=== PATIENT | female | born 1950 | race Caucasian/White ===

== ENCOUNTER 2021-11-22 20:36 | Inpatient (IN) | payer MEDICARE, SELFPAY ==
[2021-11-22 22:43] VITALS: BP 139/75; PULSE 97; RESP 18; TEMP 36.4; O2SAT 93
[2021-11-22 23:00] VITALS: BMI 18.9
[2021-11-22] MEDS: Acetaminophen 325 MG TABLET 650 MG PO (23:02)
[2021-11-22] MEDS: diazePAM 5 MG TABLET PO (23:10)
--- NOTE | 2021-11-23 01:27 | PC.ADMIT ---
Admitted these 71 yrs old female per stretcher accompanied by ambulance staff from [facility] who presented to the [facility] ED after calling EMS due to recent fall, elevated heart rate and occasional ETOH one to two times a week and upon assessment pt. presented w/ increased depression, anxiety, and non commanding AVH and pt. denied SI, SA and VH.Patient arrived in the unit at 20:46h and oriented to the unit, staff and room. Patient is alert and oriented x 3, forgets the date. Memory appears to be intact. Patient signed the CV and all consents.Patient is pleasant and cooperative w/ admission process.Skin assessment done w/ a bruise on the left upper arm and R. thigh and a tattoe in the lower back area and no edema noted.Pt. wears sunglass and said the light is too bright for her eyes. Patient wears upper dentures.Patient c/o pain on the lower abdomen and rated it as 7/10, given Tylenol 650 mg po and also given Diazepam 5 mg. po. Pt. is med compliant.Patient denies SI and feels safe in the unit.Patient has medical hx of HTN, chronic low back pain, spinal stenosis,endometriosis, hyperlipidemia, and R.bundle branch block.Kelin Ayala informed of admission w/ orders made.Alan Walden[hospitalist] informed for hospitalist consult. We'll continue to monitor patient.
[2021-11-23] MEDS: Omeprazole 40 MG CAPSULE.DR PO (05:41)
[2021-11-23] MEDS: Acetaminophen 325 MG TABLET 650 MG PO ×3 (05:41→23:02)
[2021-11-23 07:20] VITALS: BP 151/97; PULSE 115; RESP 17; TEMP 36.2; O2SAT 93
[2021-11-23 07:37] LABS: MANUAL DIFF FLAG NO
[2021-11-23 07:39] LABS: Basophils Percent Auto 0.5 % (0-2); Eosinophils Absolute Auto 0.1 X10*3/uL (0.0-0.4); Eosinophils Percent Auto 1.8 % (0-4); Hematocrit 37.6 % (37.0-47.0); Hemoglobin 12.7 g/dl (12.0-16.0); Imm Gran Abs Auto 0.01 X10*3/uL (0.00-0.03); Imm Gran Pct Auto 0.3 % (0.0-0.4); Lymphocytes Percent Auto 24.7 % (20-40); Mean Corpuscular HGB Conc 33.8 g/dl (31.0-35.0); Mean Corpuscular Hemoglobin 33.4 pg (27.0-33.0); Mean Corpuscular Volume 98.9 fL (80.0-98.0); Monocytes Absolute Auto 0.4 X10*3/uL (0.1-1.2); Monocytes Percent Auto 11.2 % (2-11); Neutrophils Absolute Auto 2.4 x10*3/uL (2.0-8.3); Neutrophils Percent Auto 61.5 % (45-73); Platelet Count 172 X10*3/uL (160-400); White Blood Count 3.9 X10*3/uL (4.8-10.8)
[2021-11-23 07:55] LABS: Cholesterol 223 mg/dL; HDL Cholesterol 62 mg/dL; LDL Cholesterol Calculated 112 mg/dl; Magnesium 1.9 mg/dL (1.6-2.6); Triglycerides 247 mg/dL
[2021-11-23 08:22] LABS: Free T4 (Free Thyroxine) 1.08 ng/dL (0.71-1.85); Thyroid Stimulating Hormone 1.08 uIU/mL (0.32-4.0)
[2021-11-23 08:35] LABS: Estimated Average Glucose 105 mg/dL; Hemoglobin A1c % 5.3 %
[2021-11-23] MEDS: DULoxetine HCl 60 MG CAPSULE.DR PO (08:45)
[2021-11-23] MEDS: amLODIPine Besylate 2.5 MG TABLET PO (08:46)
[2021-11-23 09:25] LABS: Folate 14.1 ng/mL (> or = 4.0); Vitamin B12 305 pg/mL (200-900)
--- NOTE | 2021-11-23 10:17 | P.CONHOSP_ITS ---
History of Present Illness Data of Consult Service Date: 11/23/21 Primary Care Provider: Ralph Roach MD HPI Reason for consult: routine medical H&P This is a 71 F with a PMH as below who is admitted to [facility]. Medical consult requested for routine medical H&P. Pt seen and examined. She reports no current physical complaints. She reports she is being worked up for tachycardia by pcp. Denies history of A. Fib. PMH HTN Tachycardia PSH hysterectomy cholecystectomy FH Reports her mother had breathing problems SH Smokes tobacco; no alcohol or drug use reported [facility] Social History Household Members: Other Household Members Other:: Cat Housing: House Do you presently have visiting nurse or other home services: No Patient Tobacco Use Status: Current someday Tobacco user Tobacco use type: Cigarette Smoked in Last 30 Days: Yes e-Cigarette/Vaping Use: Never Used Patient Interested in Nicotine Replacement: Yes Patient Given Instructions on How to Stop Smoking: Yes Date Education Initiated: 11/22/21 Second Hand Smoke Exposure: No Use of substances other than those prescribed or required for medical reasons: No Currently Displaying Signs/Symptoms of Drug Intoxication Withdrawal: No Any prior treatment program specific to substance use: No Have you been hit, kicked, punched, or otherwise hurt by someone within the past year? If so, by whom?: No Do you feel safe in your current relationship?: Yes Is there a partner from a previous relationship who is making you feel unsafe now?: No Are you made to feel afraid or neglected: No [facility] Practices: Congregationalist Advance Directives: No Advance Directives Information Provided: No Do you have thoughts of harming others: None Do you have a plan to hurt others: No Plan Recently lost weight without trying: No Eating poorly because of decreased appetite: No Patient : No : No Poor oral hygiene: No Meds Allergies Allergy/AdvReac Type Severity Reaction Status Date / Time sulfamethoxazole Allergy Mild FEVER Unverified 02/13/20 16:36 [From BACTRIM] trimethoprim [From BACTRIM] Allergy Mild FEVER Unverified 02/13/20 16:36 cephalexin [Keflex] Allergy Unknown Verified 06/18/19 00:00 lorazepam [From ATIVAN] Allergy Unknown CONFUSION Unverified 02/13/20 16:36 Sulfa (Sulfonamide Allergy Unknown Verified 06/18/19 00:00 Antibiotics) tramadol [Ultram] Allergy Unknown Verified 06/18/19 00:00 mold Allergy Unknown Uncoded 06/18/19 00:00 pollen Allergy Unknown Uncoded 06/18/19 00:00 Active Medications: Current Medications Acetaminophen (Acetaminophen 325 Mg Tablet) 650 mg PO Q6H PRN PRN Reason: Headache/Pain Mild Scale (1-3) Last Admin: 11/23/21 05:41 Dose: 650 mg Al Hydroxide/Mg Hydroxide (Magnesium Hydrox/Alum Hydrox 30 Ml Oral.Susp) 30 ml PO Q6H PRN PRN Reason: Heartburn/Nausea Amlodipine Besylate (Amlodipine Besylate 2.5 Mg Tablet) 2.5 mg PO DAILY [facility]; Protocol Last Admin: 11/23/21 08:46 Dose: 2.5 mg Cyclobenzaprine HCl (Cyclobenzaprine Hcl 5 Mg Tablet) 5 mg PO TID PRN PRN Reason: muscle injury Diazepam (Diazepam 5 Mg Tablet) 5 mg PO BID PRN PRN Reason: anxiety Last Admin: 11/22/21 23:10 Dose: 5 mg Duloxetine HCl (Duloxetine Hcl 60 Mg Capsule.) 60 mg PO DAILY [facility] Last Admin: 11/23/21 08:45 Dose: 60 mg Furosemide (Furosemide 20 Mg Tablet) 20 mg PO DAILY PRN; Protocol PRN Reason: edema Hydroxyzine HCl (Hydroxyzine Hcl 25 Mg Tablet) 25 mg PO Q6H PRN PRN Reason: Anxiety Magnesium Hydroxide (Milk Of Magnesia 30 Ml Oral.Susp) 30 ml PO DAILY PRN PRN Reason: Constipation Nicotine Polacrilex (Nicotine Polacrilex 2 Mg Gum) 2 mg BUCCAL Q2H PRN PRN Reason: cravings Olanzapine (Olanzapine 10 Mg Tablet) 20 mg PO BEDTIME [facility] Omeprazole (Omeprazole 40 Mg Capsule.) 40 mg PO DAILY@0630 [facility] Last Admin: 11/23/21 05:41 Dose: 40 mg Ondansetron HCl (Ondansetron Odt 8 Mg Tab.Rapdis) 8 mg TRANSLINGU Q8H PRN PRN Reason: nausea Trazodone HCl (Trazodone Hcl 50 Mg Tablet) 50 mg PO BEDTIME PRN PRN Reason: Insomnia Physical Exam Vital Signs and Narrative: Vital Signs: Last Vital Signs Temp 97.1 F 11/23/21 07:20 Pulse 115 H 11/23/21 07:20 Resp 17 11/23/21 07:20 BP 151/97 H 11/23/21 07:20 Pulse Ox 93 11/23/21 07:20 O2 Del Method 11/23/21 07:20 BMI result Body Mass Index 18.9 Const: Other: General - no acute distress, appears comfortable Cardiovascular - regular rate and rhythm, S1-S2 Lungs - normal respiratory effort, clear to auscultation bilaterally, no wheezing Abdomen - soft, nontender, no rebound or guarding Extremities - no edema bilaterally Neuro - awake and alert, no focal deficits; cn 2-12 intact b/l Results Labs CBC and Chem 7: 11/23/21 07:34 Labs: Laboratory Results - last 24 hr 11/23/21 11/23/21 11/23/21 07:34 07:34 07:34 MCV 98.9 H MCH 33.4 H MCHC 33.8 RDW 14.0 Plt Count 172 MPV 9.0 L Immature Gran % (Auto) 0.3 Neut % (Auto) 61.5 Lymph % (Auto) 24.7 [place] % (Auto) 11.2 H Eos % (Auto) 1.8 Baso % (Auto) 0.5 Lymph # (Auto) 1.0 L [place] # (Auto) 0.4 Eos # (Auto) 0.1 Baso # (Auto) 0.0 Abs Immat Gran (auto) 0.01 Absolute Neuts (auto) 2.4 Absolute Nucleated RBC 0.000 Nucleated RBC % (auto) 0.0 Estimat Average Glucose 105 Hemoglobin A1c % 5.3 Magnesium 1.9 Triglycerides 247 Cholesterol 223 LDL Cholesterol, Calc 112 HDL Cholesterol 62 Vitamin B12 Folate TSH 1.08 Free T4 1.08 11/23/21 07:34 MCV MCH MCHC RDW Plt Count MPV Immature Gran % (Auto) Neut % (Auto) Lymph % (Auto) [place] % (Auto) Eos % (Auto) Baso % (Auto) Lymph # (Auto) [place] # (Auto) Eos # (Auto) Baso # (Auto) Abs Immat Gran (auto) Absolute Neuts (auto) Absolute Nucleated RBC Nucleated RBC % (auto) Estimat Average Glucose Hemoglobin A1c % Magnesium Triglycerides Cholesterol LDL Cholesterol, Calc HDL Cholesterol Vitamin B12 305 Folate 14.1 TSH Free T4 Assessment and Plan (1) Routine medical exam: Status: Acute Plan 71 yo F admitted to [facility]. Medical consult requested for routine medical H&P. Medical consultation sought for routine medical H&P. Patient has no active medical issues. Patient has been counseled on age appropriate health maintenance as an outpatient. Continue care per primary team. Will sign off. Please re-consult if any issues arise.
--- NOTE | 2021-11-23 13:52 | HO.PSYADMNOT ---
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 The patient reported that in the last weeks she has been feeling more anxious, with perseverative thoughts, obsessing to be compliant with her different appointments. She also reports exacerbation of depression elicited by depressed mood, anhedonia, lack of energy and feelings of hopelessness. During the interview, the patient reported that she has been drinking alcohol to top of her Valium p.r.n.. According to the crisis report, her regular prescriber Dr. Bai, stopped the Valium. She admitted that she has sporadic auditory hallucinations of people that she in bed, and visual hallucinations of shaves informs that moves around. According to the patient, the last week she has been having racing thoughts unable to concentrate and she ran out of Valium. She minimized her alcohol abuse that she stated that she only drinks sporadically. Even though, during the interview, the patient reported that she has been [facility] at least twice. She denies paranoia at this moment. We discussed treatment options and the patient agreed to continue with the same plan, will contact collateral information and we will contact Dr. Ho well ask us for further treatment plan. At this moment she is able to contract for safety. Past Psychiatric History: The patient reported that she has been on treatment with probable [facility] and she has been following outpatient services for the last 50 years. She is taking Cymbalta 60 mg and Valium 5 mg p.o. b.i.d. p.r.n.. Medical Evaluation Reviewed: Hospitalist Yoana Pending [facility] Narrative: chronic back pain. Narrative: The patient had several helical logical surgeries since she suffer from endometriosis she stated that she has at least 31 laparoscopies Family History: She stated that her father suffered from schizophrenia. According to the crisis report she stated that both parents abused alcohol. Social History: The patient is the youngest of 3 siblings, her milestones were achieved at expected age and she was raised by her parents. She had a good childhood she had a regular school. Apparently when she was a child she have several episodes of bronchitis. 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 She got later divorce and then went back to her ex but he tragically in a motorcycle accident 50 years ago. She never had children. Substance History: She denies substance abuse besides sporadic use of alcohol that according to her she started drinking more for the last 3 years Trauma History: Denies Diagnostics Vital Signs (24Hr): Vital Signs - 24 hr 11/22/21 22:43 11/23/21 07:20 Temperature 97.5 F 97.1 F Pulse Rate 97 115 H Respiratory Rate 18 17 Blood Pressure 139/75 151/97 H Pulse Oximetry 93 93 Oxygen Delivery Method Room Air Room Air BMI result Body Mass Index 18.9 Labs Results: 11/23/21 07:34 Labs: Laboratory Results - last 48 hr 11/23/21 11/23/21 11/23/21 07:34 07:34 07:34 WBC 3.9 L RBC 3.80 L Hgb 12.7 Hct 37.6 MCV 98.9 H MCH 33.4 H MCHC 33.8 RDW 14.0 Plt Count 172 MPV 9.0 L Immature Gran % (Auto) 0.3 Neut % (Auto) 61.5 Lymph % (Auto) 24.7 [place] % (Auto) 11.2 H Eos % (Auto) 1.8 Baso % (Auto) 0.5 Lymph # (Auto) 1.0 L [place] # (Auto) 0.4 Eos # (Auto) 0.1 Baso # (Auto) 0.0 Abs Immat Gran (auto) 0.01 Absolute Neuts (auto) 2.4 Absolute Nucleated RBC 0.000 Nucleated RBC % (auto) 0.0 Estimat Average Glucose 105 Hemoglobin A1c % 5.3 Magnesium 1.9 Triglycerides 247 Cholesterol 223 LDL Cholesterol, Calc 112 HDL Cholesterol 62 Vitamin B12 Folate TSH 1.08 Free T4 1.08 11/23/21 07:34 WBC RBC Hgb Hct MCV MCH MCHC RDW Plt Count MPV Immature Gran % (Auto) Neut % (Auto) Lymph % (Auto) [place] % (Auto) Eos % (Auto) Baso % (Auto) Lymph # (Auto) [place] # (Auto) Eos # (Auto) Baso # (Auto) Abs Immat Gran (auto) Absolute Neuts (auto) Absolute Nucleated RBC Nucleated RBC % (auto) Estimat Average Glucose Hemoglobin A1c % Magnesium Triglycerides Cholesterol LDL Cholesterol, Calc HDL Cholesterol Vitamin B12 305 Folate 14.1 TSH Free T4 Meds/Allergies Meds Home Medications Medication Instructions Recorded Confirmed Type Sudafed 30 mg PO 11/23/21 History Zofran ODT 4 mg PO 11/23/21 History acetaminophen 500 mg PO 11/23/21 History amlodipine 2.5 mg PO DAILY 11/23/21 11/23/21 History cromolyn 5.2 mg 11/23/21 History cyclobenzaprine 10 mg PO NEEDED PRN Back Pain 11/23/21 11/23/21 History diazepam 5 mg PO NEEDED PRN Anxiety 11/23/21 11/23/21 History diphenhydramine HCl 25 mg 11/23/21 History duloxetine 60 mg PO 11/23/21 History furosemide 20 mg PO 11/23/21 History olanzapine 5 mg PO NEEDED PRN Psychosis 11/23/21 11/23/21 History olopatadine intraocular NEEDED 11/23/21 History omeprazole 40 mg PO DAILY 11/23/21 11/23/21 History saliva stimulant comb. no.4 11/23/21 History Allergies Allergies Allergy/AdvReac Type Severity Reaction Status Date / Time sulfamethoxazole Allergy Mild FEVER Unverified 02/13/20 16:36 [From BACTRIM] trimethoprim [From BACTRIM] Allergy Mild FEVER Unverified 02/13/20 16:36 cephalexin [Keflex] Allergy Unknown Verified 06/18/19 00:00 lorazepam [From ATIVAN] Allergy Unknown CONFUSION Unverified 02/13/20 16:36 Sulfa (Sulfonamide Allergy Unknown Verified 06/18/19 00:00 Antibiotics) tramadol [Ultram] Allergy Unknown Verified 06/18/19 00:00 mold Allergy Unknown Uncoded 06/18/19 00:00 pollen Allergy Unknown Uncoded 06/18/19 00:00 Mental Status Exam Mental Status Exam Patient Appearance: Appropriate (on hospital gowns) Patient Orientation: Person, Place and Situation Level of Consciousness: Awake Patient Behavior: Guarded and Passive Mood Description: Withdrawn Affect Description: Constricted Ability to Follow Directions: Good Speech Pattern: Clear Hallucinations: Auditory and Visual Delusions: Not Present Thought Process: Distracted and Evasive Thought Content: positive for [place], positive for Obsessional Thoughts and positive for Circumstantial Judgement: Fair Assessment & Plan Assessment & Plan (1) Mood disorder: Status: Acute Code(s): F39 - Unspecified mood [affective] disorder Assessment and Plan: the patient is an elderly female with a history of mood disorder, alcohol use disorder with a recent relapse on the last 3 years with increased anxiety, dysphoria and hallucinations. Plan 1. Gather collateral information. 2. Continue with Cymbalta and Zyprexa as prescribed. At Valium p.r.n.. 3. Reassessment with results. Plan Continue with behavioral plan Patient educated on: diagnosis Informed Consent: understands Reason for continued inpatient stay Substantial Risk for: harm to self, inability to function, rapid decompensation and med/psych decompensation
[2021-11-23 13:53] VITALS: BMI 25.7
[2021-11-23] MEDS: Cyclobenzaprine HCl 5 MG TABLET PO (16:40)
[2021-11-23 18:00] VITALS: BP 138/79; PULSE 72; RESP 16; TEMP 36.4; O2SAT 95
[2021-11-23] MEDS: OLANZapine 10 MG TABLET 20 MG PO (23:01)
[2021-11-23] MEDS: diazePAM 5 MG TABLET PO (23:01)
[2021-11-24] MEDS: Cyclobenzaprine HCl 5 MG TABLET PO ×2 (00:16→16:39)
[2021-11-24] MEDS: diphenhydrAMINE HCL 25 MG TABLET PO (00:17)
[2021-11-24] MEDS: Omeprazole 40 MG CAPSULE.DR PO (06:31)
[2021-11-24 08:15] VITALS: BP 127/77; PULSE 99; RESP 17; TEMP 36; O2SAT 95
[2021-11-24] MEDS: amLODIPine Besylate 2.5 MG TABLET PO (08:26)
[2021-11-24] MEDS: DULoxetine HCl 60 MG CAPSULE.DR PO ×2 (08:27→20:35)
[2021-11-24] MEDS: diazePAM 5 MG TABLET PO ×2 (12:49→20:36)
--- NOTE | 2021-11-24 14:52 | HO.PSYCHPN ---
Subjective Subjective Date of Service: 11/24/21 Reason For Visit: Bipolar d/o Subjective Notes: Conditional Voluntary and 3 Day Interim History: the nursing staff reported that the patient was compliant with her medication. On interview with the social work supervisor she was minimizing her alcohol intake. Today, she signed a 3 day notice since she wants to leave as soon as possible. Mental Status Exam Mental Status Exam Patient Appearance: Appropriate Patient Orientation: Person Level of Consciousness: Awake Patient Behavior: Guarded and Passive Mood Description: Suspicious Affect Description: Withdrawn Patient Cognition Impaired: Yes Ability to Follow Directions: Good Speech Pattern: Clear Hallucinations: None Thought Process: Distracted Thought Content: positive for [place] and positive for Poverty of Content Judgement: Fair Diagnostics Vital Signs (24Hr): Vital Signs - 24 hr 11/23/21 18:00 11/24/21 08:15 Temperature 97.5 F 96.8 F Pulse Rate 72 99 Respiratory Rate 16 17 Blood Pressure 138/79 127/77 Pulse Oximetry 95 95 Oxygen Delivery Method Room Air Room Air BMI result Body Mass Index 25.7 Labs Results: 11/23/21 07:34 Labs: Laboratory Results - last 48 hr 11/23/21 11/23/21 11/23/21 07:34 07:34 07:34 WBC 3.9 L RBC 3.80 L Hgb 12.7 Hct 37.6 MCV 98.9 H MCH 33.4 H MCHC 33.8 RDW 14.0 Plt Count 172 MPV 9.0 L Immature Gran % (Auto) 0.3 Neut % (Auto) 61.5 Lymph % (Auto) 24.7 [place] % (Auto) 11.2 H Eos % (Auto) 1.8 Baso % (Auto) 0.5 Lymph # (Auto) 1.[address] [place] # (Auto) 0.4 Eos # (Auto) 0.1 Baso # (Auto) 0.0 Abs Immat Gran (auto) 0.01 Absolute Neuts (auto) 2.4 Absolute Nucleated RBC 0.000 Nucleated RBC % (auto) 0.0 Estimat Average Glucose 105 Hemoglobin A1c % 5.3 Magnesium 1.9 Triglycerides 247 Cholesterol 223 LDL Cholesterol, Calc 112 HDL Cholesterol 62 Vitamin B12 Folate TSH 1.08 Free T4 1.08 11/23/21 07:34 WBC RBC Hgb Hct MCV MCH MCHC RDW Plt Count MPV Immature Gran % (Auto) Neut % (Auto) Lymph % (Auto) [place] % (Auto) Eos % (Auto) Baso % (Auto) Lymph # (Auto) [place] # (Auto) Eos # (Auto) Baso # (Auto) Abs Immat Gran (auto) Absolute Neuts (auto) Absolute Nucleated RBC Nucleated RBC % (auto) Estimat Average Glucose Hemoglobin A1c % Magnesium Triglycerides Cholesterol LDL Cholesterol, Calc HDL Cholesterol Vitamin B12 305 Folate 14.1 TSH Free T4 Medications Medications Current Medications Acetaminophen (Acetaminophen 325 Mg Tablet) 650 mg PO Q6H PRN PRN Reason: Headache/Pain Mild Scale (1-3) Last Admin: 11/23/21 23:02 Dose: 650 mg Al Hydroxide/Mg Hydroxide (Magnesium Hydrox/Alum Hydrox 30 Ml Oral.Susp) 30 ml PO Q6H PRN PRN Reason: Heartburn/Nausea Amlodipine Besylate (Amlodipine Besylate 2.5 Mg Tablet) 2.5 mg PO DAILY [facility]; Protocol Last Admin: 11/24/21 08:26 Dose: 2.5 mg Cyclobenzaprine HCl (Cyclobenzaprine Hcl 5 Mg Tablet) 5 mg PO TID PRN PRN Reason: muscle injury Last Admin: 11/24/21 00:16 Dose: 5 mg Diazepam (Diazepam 5 Mg Tablet) 5 mg PO BID PRN PRN Reason: anxiety Last Admin: 11/24/21 12:49 Dose: 5 mg Duloxetine HCl (Duloxetine Hcl 60 Mg Capsule.) 60 mg PO DAILY [facility] Last Admin: 11/24/21 08:27 Dose: 60 mg Furosemide (Furosemide 20 Mg Tablet) 20 mg PO DAILY [facility]; Protocol PRN Reason: edema Hydroxyzine HCl (Hydroxyzine Hcl 25 Mg Tablet) 25 mg PO Q6H PRN PRN Reason: Anxiety Magnesium Hydroxide (Milk Of Magnesia 30 Ml Oral.Susp) 30 ml PO DAILY PRN PRN Reason: Constipation Nicotine Polacrilex (Nicotine Polacrilex 2 Mg Gum) 2 mg BUCCAL Q2H PRN PRN Reason: cravings Olanzapine (Olanzapine 10 Mg Tablet) 20 mg PO BEDTIME [facility] Last Admin: 11/23/21 23:01 Dose: 20 mg Omeprazole (Omeprazole 40 Mg Capsule.) 40 mg PO DAILY@0630 [facility] Last Admin: 11/24/21 06:31 Dose: 40 mg Ondansetron HCl (Ondansetron Odt 8 Mg Tab.Rapdis) 8 mg TRANSLINGU Q8H PRN PRN Reason: nausea Trazodone HCl (Trazodone Hcl 50 Mg Tablet) 50 mg PO BEDTIME PRN PRN Reason: Insomnia Allergies Allergies Allergy/AdvReac Type Severity Reaction Status Date / Time sulfamethoxazole Allergy Mild FEVER Unverified 02/13/20 16:36 [From BACTRIM] trimethoprim [From BACTRIM] Allergy Mild FEVER Unverified 02/13/20 16:36 cephalexin [Keflex] Allergy Unknown Verified 06/18/19 00:00 lorazepam [From ATIVAN] Allergy Unknown CONFUSION Unverified 02/13/20 16:36 Sulfa (Sulfonamide Allergy Unknown Verified 06/18/19 00:00 Antibiotics) tramadol [Ultram] Allergy Unknown Verified 06/18/19 00:00 mold Allergy Unknown Uncoded 06/18/19 00:00 pollen Allergy Unknown Uncoded 06/18/19 00:00 Assessment & Plan Assessment & Plan (1) Mood disorder: Status: Acute Code(s): F39 - Unspecified mood [affective] disorder Assessment and Plan: the patient is an elderly female with a history of mood disorder, alcohol use disorder with a recent relapse on the last 3 years with increased anxiety, dysphoria and hallucinations. Plan 1. Gather collateral information. 2. Continue with Cymbalta and Zyprexa as prescribed. At Valium p.r.n.. 3. Reassessment with results. Plan Continue with behavioral plan I spent ___20___ minutes with the patient and/or on the patient floor today, greater than?50% of which was spent counseling/coordinating care. Reason for contiued inpatient stay Substantial Risk for: inability to function, rapid decompensation and med/psych decompensation
[2021-11-24 18:00] VITALS: RESP 16
--- NOTE | 2021-11-24 19:15 | PC.NURSE ---
3 day notice submitted with clinical social worker, Sydney Patel. Message sent via [facility] to [facility].
[2021-11-24] MEDS: hydrOXYzine HCL 25 MG TABLET PO (20:36)
[2021-11-24] MEDS: Acetaminophen 325 MG TABLET 650 MG PO (20:43)
[2021-11-24] MEDS: OLANZapine 10 MG TABLET 20 MG PO (20:43)
[2021-11-25] MEDS: Cyclobenzaprine HCl 5 MG TABLET PO ×2 (01:09→20:01)
[2021-11-25 06:00] VITALS: BP 156/92; PULSE 115; TEMP 36.1; O2SAT 98
[2021-11-25] MEDS: Omeprazole 40 MG CAPSULE.DR PO (06:50)
[2021-11-25 07:00] VITALS: BMI 27.8
[2021-11-25] MEDS: DULoxetine HCl 60 MG CAPSULE.DR PO ×2 (08:40→19:57)
[2021-11-25] MEDS: amLODIPine Besylate 2.5 MG TABLET PO (08:40)
[2021-11-25] MEDS: Naltrexone HCl 50 MG TABLET PO (08:40)
--- NOTE | 2021-11-25 15:28 | HO.PSYCHPN ---
Subjective Subjective Date of Service: 11/25/21 Reason For Visit: Bipolar d/o Subjective Notes: Conditional Voluntary and 3 Day Interim History: The nursing staff reported the patient is in a 3 day notice. The director of social work talk with her therapist and the therapist is concerned regarding her alcohol abuse. She follows services at service [facility] and she has VNA services at [facility]. On interview, the patient denies active suicidal or homicidal ideation she feels comfortable and she denies side effects with naltrexone. Mental Status Exam Mental Status Exam Patient Appearance: Well Grooomed Patient Orientation: Person and Situation Level of Consciousness: Awake Patient Behavior: Cooperative Mood Description: Constricted Affect Description: Calm Patient Cognition Impaired: Yes Ability to Follow Directions: Good Speech Pattern: Clear Hallucinations: None Delusions: Not Present Thought Process: Linear Thought Content: positive for Circumstantial Judgement: Fair Diagnostics Vital Signs (24Hr): Vital Signs - 24 hr 11/24/21 18:00 11/25/21 06:00 Temperature 97.0 F Pulse Rate 115 H Respiratory Rate 16 Blood Pressure 156/92 H Pulse Oximetry 98 Oxygen Delivery Method Room Air BMI result Body Mass Index 27.8 Labs Results: 11/23/21 07:34 Medications Medications Current Medications Acetaminophen (Acetaminophen 325 Mg Tablet) 650 mg PO Q6H PRN PRN Reason: Headache/Pain Mild Scale (1-3) Last Admin: 11/24/21 20:43 Dose: 650 mg Al Hydroxide/Mg Hydroxide (Magnesium Hydrox/Alum Hydrox 30 Ml Oral.Susp) 30 ml PO Q6H PRN PRN Reason: Heartburn/Nausea Amlodipine Besylate (Amlodipine Besylate 2.5 Mg Tablet) 2.5 mg PO DAILY KATHLEEN; Protocol Last Admin: 11/25/21 08:40 Dose: 2.5 mg Cyclobenzaprine HCl (Cyclobenzaprine Hcl 5 Mg Tablet) 5 mg PO TID PRN PRN Reason: muscle injury Last Admin: 11/25/21 01:09 Dose: 5 mg Diazepam (Diazepam 5 Mg Tablet) 5 mg PO BID PRN PRN Reason: anxiety Last Admin: 11/24/21 20:36 Dose: 5 mg Duloxetine HCl (Duloxetine Hcl 60 Mg Capsule.Dr) 60 mg PO BID KATHLEEN Last Admin: 11/25/21 08:40 Dose: 60 mg Furosemide (Furosemide 20 Mg Tablet) 20 mg PO DAILY PRN; Protocol PRN Reason: edema Hydroxyzine HCl (Hydroxyzine Hcl 25 Mg Tablet) 25 mg PO Q6H PRN PRN Reason: Anxiety Last Admin: 11/24/21 20:36 Dose: 25 mg Magnesium Hydroxide (Milk Of Magnesia 30 Ml Oral.Susp) 30 ml PO DAILY PRN PRN Reason: Constipation Naltrexone HCl (Naltrexone Hcl 50 Mg Tablet) 50 mg PO DAILY [facility] Last Admin: 11/25/21 08:40 Dose: 50 mg Nicotine Polacrilex (Nicotine Polacrilex 2 Mg Gum) 2 mg BUCCAL Q2H PRN PRN Reason: cravings Olanzapine (Olanzapine 10 Mg Tablet) 20 mg PO BEDTIME [facility] Last Admin: 11/24/21 20:43 Dose: 20 mg Omeprazole (Omeprazole 40 Mg Capsule.Dr) 40 mg PO DAILY@30 [facility] Last Admin: 11/25/21 06:50 Dose: 40 mg Ondansetron HCl (Ondansetron Odt 8 Mg Tab.Rapdis) 8 mg TRANSLINGU Q8H PRN PRN Reason: nausea Trazodone HCl (Trazodone Hcl 50 Mg Tablet) 50 mg PO BEDTIME PRN PRN Reason: Insomnia Allergies Allergies Allergy/AdvReac Type Severity Reaction Status Date / Time sulfamethoxazole Allergy Mild FEVER Unverified 02/13/20 16:36 [From BACTRIM] trimethoprim [From BACTRIM] Allergy Mild FEVER Unverified 02/13/20 16:36 cephalexin [Keflex] Allergy Unknown Verified 06/18/19 00:00 lorazepam [From ATIVAN] Allergy Unknown CONFUSION Unverified 02/13/20 16:36 Sulfa (Sulfonamide Allergy Unknown Verified 06/18/19 00:00 Antibiotics) tramadol [Ultram] Allergy Unknown Verified 06/18/19 00:00 mold Allergy Unknown Uncoded 06/18/19 00:00 pollen Allergy Unknown Uncoded 06/18/19 00:00 Assessment & Plan Assessment & Plan (1) Mood disorder: Status: Acute Code(s): F39 - Unspecified mood [affective] disorder Assessment and Plan: the patient is an elderly female with a history of mood disorder, alcohol use disorder with a recent relapse on the last 3 years with increased anxiety, dysphoria and hallucinations. Plan 1. Gather collateral information. 2. Continue with Cymbalta and Zyprexa as prescribed. At [facility] p.r.n.. 3. Reassessment with results. 4. Started on naltrexone to target alcohol cravings. 5. Most likely discharge tomorrow since there is no active safety concerns Plan Continue with behavioral plan I spent ___20___ minutes with the patient and/or on the patient floor today, greater than?50% of which was spent counseling/coordinating care. Reason for contiued inpatient stay Substantial Risk for: inability to function, rapid decompensation and med/psych decompensation
[2021-11-25] MEDS: OLANZapine 10 MG TABLET 20 MG PO (19:56)
[2021-11-25] MEDS: diazePAM 5 MG TABLET PO (20:00)
[2021-11-25] MEDS: hydrOXYzine HCL 25 MG TABLET PO (20:00)
[2021-11-25 20:20] VITALS: BP 149/81; PULSE 98; RESP 16; TEMP 36.5; O2SAT 95
[2021-11-25] MEDS: Acetaminophen 325 MG TABLET 650 MG PO (23:39)
[2021-11-26] MEDS: traZODone HCL 50 MG TABLET PO (01:45)
[2021-11-26] MEDS: Omeprazole 40 MG CAPSULE.DR PO (05:02)
[2021-11-26 06:00] VITALS: BP 138/86; PULSE 103; RESP 18; TEMP 37; O2SAT 95
--- NOTE | 2021-11-26 08:26 | P.DS_ITS ---
DS: Providers Provider Date of Service: 11/26/21 Date of admission: 11/22/21 20:36 Date of discharge: 11/26/21 Primary care physician: Ralph Roach MD Attending physician on admission: Flo Nina Consults: 11/22/21 21:21 Consult to Hospitalist Routine Consulting Provider: Hospitalist Reason For Exam: new admit from [facility] DS: Diagnosis Discharge Diagnosis (1) Mood disorder: Status: Acute DS: Medications Discharge Medications Home Medications: Home Medications Medication Instructions Recorded Confirmed Sudafed 30 mg PO 11/23/21 Zofran ODT 4 mg PO 11/23/21 acetaminophen 500 mg PO BID 11/23/21 11/23/21 amlodipine 2.5 mg PO DAILY 11/23/21 11/23/21 cromolyn 5.2 mg 11/23/21 cyclobenzaprine 10 mg PO NEEDED PRN Back Pain 11/23/21 11/23/21 diazepam 5 mg PO NEEDED PRN Anxiety 11/23/21 11/23/21 diphenhydramine HCl 25 mg 11/23/21 duloxetine 60 mg PO BID 11/23/21 11/24/21 furosemide 20 mg PO 11/23/21 olanzapine 5 mg PO NEEDED PRN Psychosis 11/23/21 11/23/21 olopatadine intraocular NEEDED 11/23/21 omeprazole 40 mg PO DAILY 11/23/21 11/23/21 saliva stimulant comb. no.4 11/23/21 Mental Status Exam Mental Status Exam Patient Appearance: Appropriate Patient Orientation: Person and Situation Level of Consciousness: Awake Patient Behavior: Cooperative Mood Description: Suspicious Affect Description: Constricted Patient Cognition Impaired: Yes Ability to Follow Directions: Good Speech Pattern: Clear Hallucinations: None Delusions: Not Present Thought Process: Distracted and Evasive Thought Content: positive for [place] and positive for Poverty of Content Judgement: Fair Data Data Completed and Pending Completed studies during hospitalization [Text1]: 11/23/21 11/23/21 11/23/21 07:34 07:34 07:34 WBC 3.9 L RBC 3.80 L Hgb 12.7 Hct 37.6 MCV 98.9 H MCH 33.4 H MCHC 33.8 RDW 14.0 Plt Count 172 MPV 9.0 L Immature Gran % (Auto) 0.3 Neut % (Auto) 61.5 Lymph % (Auto) 24.7 [place] % (Auto) 11.2 H Eos % (Auto) 1.8 Baso % (Auto) 0.5 Lymph # (Auto) 1.0 L [place] # (Auto) 0.4 Eos # (Auto) 0.1 Baso # (Auto) 0.0 Abs Immat Gran (auto) 0.01 Absolute Neuts (auto) 2.4 Absolute Nucleated RBC 0.000 Nucleated RBC % (auto) 0.0 Estimat Average Glucose 105 Hemoglobin A1c % 5.3 Magnesium 1.9 Triglycerides 247 Cholesterol 223 LDL Cholesterol, Calc 112 HDL Cholesterol 62 Vitamin B12 Folate TSH 1.08 Free T4 1.08 11/23/21 07:34 WBC RBC Hgb Hct MCV MCH MCHC RDW Plt Count MPV Immature Gran % (Auto) Neut % (Auto) Lymph % (Auto) [place] % (Auto) Eos % (Auto) Baso % (Auto) Lymph # (Auto) [place] # (Auto) Eos # (Auto) Baso # (Auto) Abs Immat Gran (auto) Absolute Neuts (auto) Absolute Nucleated RBC Nucleated RBC % (auto) Estimat Average Glucose Hemoglobin A1c % Magnesium Triglycerides Cholesterol LDL Cholesterol, Calc HDL Cholesterol Vitamin B12 305 Folate 14.1 TSH Free T4 DS: Summary Hospital Course Hospital Course: the patient was admitted from the emergency room of another hospital since she was intoxicated with alcohol common complain of dysphoria at psychotic symptoms in the context of a recent relapse of alcohol. Please see HPI of admission note for further details. On admission, the patient was started on Cymbalta then later was titrated up to 60 mg p.o. b.i.d. as per pharmacy records. We discussed at length her alcohol abuse and she had history of being clean and sober for several years but recently relapsed in the last 3 years after several stressors. She agreed to take naltrexone to target cravings. She did not have any side effects with this medication and she tolerated all her medications pretty well. The patient signed a 3 day notice and wanted to be discharged and since there were no safety concerns discharge planning was discussed. The social media community manager rearrange all her ancillary services such as VNA and appointments at [facility]. Time spent discussing smoking cessation with patient: 3 to 10 minutes Status at Discharge Cognitive/behavioral status at discharge: At baseline Functional status at discharge: independent ambulation Overall status at discharge: patient is back to baseline Time Spent with Patient Time attestation: Total time spent providing and/or coordinating discharge services: Time spent: Less than 30 minutes Discharge Plan Discharge Patient Disposition: Home, Self-Care Discharge Diagnosis: Mood disorder Alcohol use disorder Referrals: Celine Landaverde [facility] [Other] - 11/30/21 12:00 pm (Your next appointment with your therapist is by phone and scheduled for 11/30/21 at 12pm. ) Dr Jasmine [facility] [Other] - 12/02/21 1:30 pm (Your next appointment with your psychiatrist is on 12/02/21 at 1:30pm in office [address] [facility]. ) Meagan STILESA [Other] - 11/26/21 (Your Visiting nurses to resume on 11/26/21 for nursing services. ) [facility] [Other] - 3-5 Days (Your protective services case worker is Sonja Fallon and she will follow up with you following discharge for implementation of homemaking hours, home delivered meals, and rides with sprinkler driver. ) [facility]- Negin Abraham [Other] - 11/30/21 (Your manager insurance will contact you by phone following discharge. ) Ralph Roach MD [Primary Care Provider] - 1 Week Discharge Medications: New trazodone 50 mg Tablet 50 mg PO BEDTIME PRN (Reason: Insomnia) 30 Days Qty: 30 0RF naltrexone 50 mg Tablet 50 mg PO DAILY 30 Days Qty: 30 0RF amlodipine 2.5 mg Tablet 2.5 mg PO DAILY 30 Days Qty: 30 0RF Protocol: Hold for SBP< HOLD for SBP < : 90 omeprazole 40 mg Capsule,Delayed Release(Dr/Ec) 40 mg PO DAILY@0630 30 Days Qty: 30 0RF diazepam 2 mg Tablet 5 mg PO BID PRN (Reason: anxiety) 14 Days Qty: 28 0RF hydroxyzine HCl 25 mg Tablet 25 mg PO Q6H PRN (Reason: Anxiety) 30 Days Qty: 60 0RF furosemide 20 mg Tablet 20 mg PO DAILY PRN (Reason: edema) 30 Days Qty: 30 0RF Protocol: Hold for SBP< HOLD for SBP < : 90 cyclobenzaprine 5 mg Tablet 5 mg PO TID PRN (Reason: muscle injury) 30 Days Qty: 90 0RF duloxetine 60 mg Capsule,Delayed Release(Dr/Ec) 60 mg PO BID 30 Days Qty: 60 0RF olanzapine [Zyprexa] 20 mg tablet 20 mg PO BEDTIME Qty: 30 0RF Discontinued acetaminophen tablet 500 mg PO BID amlodipine tablet 2.5 mg PO DAILY cromolyn 5.2 mg cyclobenzaprine tablet 10 mg PO NEEDED PRN (Reason: Back Pain) diazepam tablet 5 mg PO NEEDED PRN (Reason: Anxiety) Rx Instructions: TID PRN olanzapine tablet 5 mg PO NEEDED PRN (Reason: Psychosis) Rx Instructions: QD PRN olopatadine drops intraocular NEEDED Rx Instructions: R eye as needed BID omeprazole capsule 40 mg PO DAILY Sudafed tablet 30 mg PO Zofran ODT tablet 4 mg PO diphenhydramine HCl tablet 25 mg duloxetine capsule 60 mg PO BID saliva stimulant comb. no.4 drops furosemide tablet 20 mg PO Discharge Orders: Discharge Order (Routine); Ordered 11/26/21 Ordered By: Flo Nina Diet: Advance to usual diet Activity on Discharge: As tolerated Stand Alone Forms: Patient Portal Discharge page, Community Support Care Plan Goals: care plan goals achieved in this admission Health Concerns: continue treatment by primary care physician Plan of Treatment: continue treatment as an outpatient Assessment: elderly female with a long history of mood disorder and alcohol use disorder who recently relapsing came up with psychotic symptoms. At this moment safe in the community Discharge Date/Time: 11/26/21 11:45
[2021-11-26] MEDS: amLODIPine Besylate 2.5 MG TABLET PO (10:00)
[2021-11-26] MEDS: Naltrexone HCl 50 MG TABLET PO (10:00)
[2021-11-26] MEDS: DULoxetine HCl 60 MG CAPSULE.DR PO (10:00)
--- NOTE | 2021-11-26 10:24 | PC.NURSE ---
Pt to be discharged home today, pt reports she feel safe with discharge plan. Pt reports she is planning on going to an AA meeting today as her home group meeting is on Monday, pt stated she also plans to call her friends who are involved in AA and make plans to meet.
== END 2021-11-26 11:45 | disposition home or self-care (01) | DRG 885 ==
PROVIDERS: Registered Nurse; Admitting Provider Psychiatry & Neurology Psychiatry; PCP Family Medicine; Visit Provider Psychiatry & Neurology Psychiatry
DX: F39 Unspecified mood [affective] disorder (principal); F17.210 Nicotine dependence, cigarettes, uncomplicated; Z71.6 Tobacco abuse counseling; Z88.1 Allergy status to other antibiotic agents; Z88.2 Allergy status to sulfonamides; Z88.5 Allergy status to narcotic agent; Z79.899 Other long term (current) drug therapy
CPT/HCPCS: 36415; 80061; 82607; 82746; 83036; 83735; 84439; 84443; 85025; Q0163

== ENCOUNTER 2021-12-28 10:14 | Emergency (ER) | payer MEDICARE, SELFPAY ==
[2021-12-28] VITALS (7 sets, daily range): BP systolic 128–148; BP diastolic 74–89; PULSE 102–111; RESP 10–16; TEMP 36.6–36.7; O2SAT 90–100; BMI 27.3
--- NOTE | ~2021-12-28 | CT_ITS ---
EXAMINATION: CT HEAD WITHOUT CONTRAST CLINICAL INFORMATION: Slurred speech. COMPARISON: None TECHNIQUE: Contiguous axial imaging was performed from the skull base to vertex without intravenous administration of contrast. Coronal and sagittal reformatted images were obtained. This CT examination was performed using dose optimization techniques as appropriate, variously including the following: *Automated exposure control *Adjustment of mA and/or kV according to patient size (this includes techniques or standardized protocols for targeted exams where dose is matched to indication/reason for exam; i.e. extremities or head) *Use of iterative reconstruction technique DLP: 1145 mGy-cm FINDINGS: There is mild widening of the cortical sulci and associated ventriculomegaly. The lateral ventricles are symmetrical. The third and fourth ventricles are in their normal midline position. The basilar and prepontine cisterns are unremarkable. There is no acute intra or extracerebral abnormality. There is no mass effect or midline shift. Sections through the bony calvarium are unremarkable. The orbits are intact. The paranasal sinuses are clear. The mastoid air cells are clear. CT/CT head/brain wo con IMPRESSION: No acute intracranial pathology.
--- NOTE | 2021-12-28 11:31 | ECG_ITS ---
Test Reason : altered mental Blood Pressure : / mmHG Vent. Rate : 101 BPM Atrial Rate : 101 BPM P-R Int : 202 ms QRS Dur : 098 ms QT Int : 386 ms P-R-T Axes : 070 -22 060 degrees QTc Int : 500 ms Sinus tachycardia Incomplete right bundle branch block Cannot rule out Inferior infarct (cited on or before 17-JUN-2018) Abnormal ECG When compared with ECG of 17-JUN-2018 02:24, Premature ventricular complexes are no longer Present Questionable change in initial forces of Inferior leads Referred By: Cheryl Mendez Electronically Signed By:ELAN FERNANDEZ MD
--- NOTE | 2021-12-28 11:33 | ED.AMS ---
HPI - Altered Mental Status General Chief Complaint: Altered Mental Status Stated Complaint: ALTERED W/SLURRED SPEECH Time Seen by Provider: 12/28/21 11:25 Source: patient and EMS Mode of arrival: EMS Limitations: altered mental status History of Present Illness HPI narrative: Patient comes to the emergency room via EMS. Caregiver called EMS because patient was difficult to wake up this morning and woke up with slurred speech. Since the patient might have fused muscle relaxant, possibly Valium, and alcohol. Patient is very somnolent, wakes up to voice, states that she did take a muscle relaxant and also drank ?a few beers ?last night. Patient denies any pain, other than mild abdominal distension. Patient denies SI or HI Related Data Previous Rx's Medication Instructions Recorded amlodipine 2.5 mg tablet 2.5 mg PO DAILY 30 days #30 tabs 11/26/21 cyclobenzaprine 5 mg tablet 5 mg PO TID PRN muscle injury 30 11/26/21 days #90 tabs diazepam 2 mg tablet 5 mg PO BID PRN anxiety 14 days 11/26/21 #28 tabs duloxetine 60 mg capsule,delayed 60 mg PO BID 30 days #60 caps 11/26/21 release furosemide 20 mg tablet 20 mg PO DAILY PRN edema 30 days 11/26/21 #30 tabs hydroxyzine HCl 25 mg tablet 25 mg PO Q6H PRN Anxiety 30 days 11/26/21 #60 tabs naltrexone 50 mg tablet 50 mg PO DAILY 30 days #30 tabs 11/26/21 olanzapine 20 mg tablet (Zyprexa) 20 mg PO BEDTIME #30 tabs 11/26/21 omeprazole 40 mg capsule,delayed 40 mg PO DAILY@0630 30 days #30 11/26/21 release caps trazodone 50 mg tablet 50 mg PO BEDTIME PRN Insomnia 30 11/26/21 days #30 tabs Allergies Allergy/AdvReac Type Severity Reaction Status Date / Time sulfamethoxazole Allergy Mild FEVER Unverified 02/13/20 16:36 [From BACTRIM] trimethoprim [From BACTRIM] Allergy Mild FEVER Unverified 02/13/20 16:36 cephalexin [Keflex] Allergy Unknown Verified 06/18/19 00:00 lorazepam [From ATIVAN] Allergy Unknown CONFUSION Unverified 02/13/20 16:36 Sulfa (Sulfonamide Allergy Unknown Verified 06/18/19 00:00 Antibiotics) tramadol [Ultram] Allergy Unknown Verified 06/18/19 00:00 mold Allergy Unknown Uncoded 06/18/19 00:00 pollen Allergy Unknown Uncoded 06/18/19 00:00 Review of Systems Review of Systems: Constitutional : No Weight loss, No Fever, No Chills, feeling very tired and somnolent ENT/Mouth : No Hearing loss, No Ear Pain, No Nasal Congestion, No Sinus Pain, No Hoarseness, No sore throat, No Rhinorrhea, No Swallowing Difficulty Eyes: No Eye Pain, No Swelling, No Redness, No Foreign Body, No Discharge, No Vision Changes Cardiovascular : No Chest Pain, No SOB, No Dyspnea on Exertion, No Orthopnea, No Edema, No Palpitations Respiratory : No Cough, No Sputum, No Wheezing, No Smoke Exposure, No Dyspnea Gastrointestinal : No Nausea, No Vomiting, No Diarrhea, No Constipation, No abdominal Pain, No Hematochezia, No Melena, complaining of abdominal distension Genitourinary : no irregular bleeding, No Dysuria, No Urinary Frequency, No Hematuria, No Urinary Incontinence, No Urgency, No Flank Pain, No Urinary Flow Changes, No Hesitancy Musculoskeletal : No joint pain, No Myalgias, No Joint Swelling Skin : No Skin Lesions, No rash Neuro : No Weakness, No Numbness, No Paresthesias, No Loss of Consciousness, No Dizziness, No Headache Psych : No Anxiety/Panic, No Depression, No SI/HI/AH/VH, No Social Issues, Heme/Lymph: No Bruising, No Bleeding,No Lymphadenopathy Endocrine : No Polyuria, No Polydipsia, No Temperature Intolerance [facility] Past Medical History Medical History Hypertension Mood disorder Social History Social History Household Members: Other Household Members Other:: Cat Housing: House Do you presently have visiting nurse or other home services: No Patient Tobacco Use Status: Current someday Tobacco user Tobacco use type: Cigarette e-Cigarette/Vaping Use: Never Used Second Hand Smoke Exposure: No Advance Directives: No Advance Directives Information Provided: Yes service: No Sexual orientation: Straight/Heterosexual Physical Exam ED Vital Signs: Vital Signs - 24 hr 12/28/21 10:42 12/28/21 10:58 12/28/21 12:46 Temperature 97.9 F Pulse Rate 104 H 102 H 108 H Respiratory Rate 16 14 10 L Blood Pressure 128/82 135/81 137/85 Pulse Oximetry 96 95 100 Oxygen Delivery Method Nasal Cannula Room Air Nasal Cannula Oxygen Flow Rate 2 12/28/21 14:00 12/28/21 16:21 Temperature 98.0 F Pulse Rate 107 H 107 H Respiratory Rate 12 10 L Blood Pressure 140/74 H 130/89 Pulse Oximetry 98 97 Oxygen Delivery Method Nasal Cannula Nasal Cannula Oxygen Flow Rate 2 2.5 BMI result Body Mass Index 27.3 Const Other: Appearance: Alert. Oriented X3. No acute distress. Very somnolent but easily arousable to voice Eyes: Pupils equal, round and reactive to light. No pinpoint pupils ENT: Pharynx normal. Dry oral mucosa Neck: Normal inspection. Neck supple. No lymph nodes noted. No crepitus CVS: Normal heart rate and rhythm. Pulses normal. Normal S1 and S2 Respiratory: No respiratory distress. Breath sounds normal. No Wheezing. No rales Abdomen: Soft and nontender. No rigidity. No distention. Skin: Skin warm and dry. Normal skin color. Normal skin turgor. Extremities: No lower extremity edema. No Lacerations. No Rash Neuro: Oriented X 3. No motor deficit. No sensory deficit. Moving all extremities, CN 2 through 12 grossly intact, very drowsy but follows commands, patient does have slurred speech Psych: calm, cooperative, normal affect Course Course Course Narrative: Patient's labs are fairly stable. Heart rate in the low 100s. All of patient's labs and imaging pending. Patient's hematology and chemistry are unremarkable. Urinalysis negative for UTI, U tox positive for fentanyl and benzos and small amount of alcohol, COVID negative, head CT negative. It is possible the patient's somnolence if secondary to substance abuse. Patient remains somnolent but easily easily arousable . Metabolize to freedom Physician observation started at 15:56 20:00, patient is awake, alert, eating and drinking tolerating p.o. well. Patient ready for discharge MDM - Altered Mental Status Lab Data Result diagrams: 12/28/21 12:06 12/28/21 12:06 Labs: Lab Results 12/28/21 12/28/21 12/28/21 Range/Units 12:06 12:06 12:06 WBC 3.4 L (4.8-10.8) X10*3/uL RBC 4.09 L (4.20-5.50) X10*6/uL Hgb 13.5 (12.0-16.0) g/dl Hct 39.1 (37.0-47.0) % MCV 95.6 (80.0-98.0) fL MCH 33.0 (27.0-33.0) pg MCHC 34.5 (31.0-35.0) g/dl RDW 13.4 (11.0-16.0) % Plt Count 175 (160-400) X10*3/uL MPV 9.2 L (9.4-12.3) fL Immature Gran % (Auto) 0.3 (0.0-0.4) % Neut % (Auto) 59.3 (45-73) % Lymph % (Auto) 30.4 (20-40) % Barren % (Auto) 8.2 (2-11) % Eos % (Auto) 1.2 (0-4) % Baso % (Auto) 0.6 (0-2) % Lymph # (Auto) 1.0 L (1.2-4.9) X10*3/uL Barren # (Auto) 0.3 (0.1-1.2) X10*3/uL Eos # (Auto) 0.0 (0.0-0.4) X10*3/uL Baso # (Auto) 0.0 (0.0-0.2) X10*3/uL Abs Immat Gran (auto) 0.01 (0.00-0.03) X10*3/uL Absolute Neuts (auto) 2.0 (2.0-8.3) x10*3/uL Absolute Nucleated RBC 0.000 (0.0-0.012) X10*3/uL Nucleated RBC % (auto) 0.0 (0.0-0.2) /100WBC PT 11.8 (10.0-13.1) SEC INR 1.0 (0.9-1.1) Sodium (135-145) mmol/L Potassium (3.3-5.1) mmol/L Chloride (96-108) mmol/L Carbon Dioxide (22-29) mmol/L Anion Gap (12-20) BUN (9-16) mg/dL Creatinine (0.5-1.4) mg/dL Estim Creat Clear Calc Estimated GFR Random Glucose (60-115) mg/dL Calcium (8.4-10.2) mg/dL Magnesium (1.6-2.6) mg/dL Total Bilirubin (0.0-1.0) mg/dL Direct Bilirubin (0.0-0.5) mg/dL AST (5-31) U/L ALT (0-31) U/L Alkaline Phosphatase (39-117) U/L Ammonia Troponin I High Sens < 3.5 (<3.5-17.0) ng/L Total Protein (6.5-8.0) g/dL Albumin (3.5-5.0) g/dL Lipase (8-78) U/L Urine Color Urine Appearance Urine pH (5.0-8.0) Ur Specific [place] (1.005-1.025) Urine Protein (NEG-TRACE) MG/DL Urine Glucose (UA) (NEG) MG/DL Urine Ketones (NEG) MG/DL Urine Blood (NEG) Urine Nitrite (NEG) Ur Leukocyte Esterase (NEG) Urine Opiates Screen (Not Detect) Urine Fentanyl Screen (Not Detect) Ur Barbiturates Screen (Not Detect) Ur Phencyclidine Scrn (Not Detect) Ur Amphetamines Screen (Not Detect) U Benzodiazepines Scrn (Not Detect) Urine Cocaine Screen (Not Detect) U Marijuana (THC) Screen (Not Detect) Ethyl Alcohol mg/dL COVID-19 ([facility]) (Negative) COVID-19 Clin Com 12/28/21 12/28/21 12/28/21 Range/Units 12:06 12:06 12:06 WBC (4.8-10.8) X10*3/uL RBC (4.20-5.50) X10*6/uL Hgb (12.0-16.0) g/dl Hct (37.0-47.0) % MCV (80.0-98.0) fL MCH (27.0-33.0) pg MCHC (31.0-35.0) g/dl RDW (11.0-16.0) % Plt Count (160-400) X10*3/uL MPV (9.4-12.3) fL Immature Gran % (Auto) (0.0-0.4) % Neut % (Auto) (45-73) % Lymph % (Auto) (20-40) % Barren % (Auto) (2-11) % Eos % (Auto) (0-4) % Baso % (Auto) (0-2) % Lymph # (Auto) (1.2-4.9) X10*3/uL Barren # (Auto) (0.1-1.2) X10*3/uL Eos # (Auto) (0.0-0.4) X10*3/uL Baso # (Auto) (0.0-0.2) X10*3/uL Abs Immat Gran (auto) (0.00-0.03) X10*3/uL Absolute Neuts (auto) (2.0-8.3) x10*3/uL Absolute Nucleated RBC (0.0-0.012) X10*3/uL Nucleated RBC % (auto) (0.0-0.2) /100WBC PT (10.0-13.1) SEC INR (0.9-1.1) Sodium 143 (135-145) mmol/L Potassium 3.7 (3.3-5.1) mmol/L Chloride 97 (96-108) mmol/L Carbon Dioxide 31 H (22-29) mmol/L Anion Gap 19 (12-20) BUN 15 (9-16) mg/dL Creatinine 0.70 (0.5-1.4) mg/dL Estim Creat Clear Calc 83.7 Estimated GFR > 60 Random Glucose 108 (60-115) mg/dL Calcium 9.3 (8.4-10.2) mg/dL Magnesium 1.5 L (1.6-2.6) mg/dL Total Bilirubin 0.3 (0.0-1.0) mg/dL Direct Bilirubin < 0.2 (0.0-0.5) mg/dL AST 26 (5-31) U/L ALT 19 (0-31) U/L Alkaline Phosphatase 71 (39-117) U/L Ammonia Cancelled Troponin I High Sens (<3.5-17.0) ng/L Total Protein 7.6 (6.5-8.0) g/dL Albumin 4.4 (3.5-5.0) g/dL Lipase 34 (8-78) U/L Urine Color Urine Appearance Urine pH (5.0-8.0) Ur Specific [place] (1.005-1.025) Urine Protein (NEG-TRACE) MG/DL Urine Glucose (UA) (NEG) MG/DL Urine Ketones (NEG) MG/DL Urine Blood (NEG) Urine Nitrite (NEG) Ur Leukocyte Esterase (NEG) Urine Opiates Screen (Not Detect) Urine Fentanyl Screen (Not Detect) Ur Barbiturates Screen (Not Detect) Ur Phencyclidine Scrn (Not Detect) Ur Amphetamines Screen (Not Detect) U Benzodiazepines Scrn (Not Detect) Urine Cocaine Screen (Not Detect) U Marijuana (THC) Screen (Not Detect) Ethyl Alcohol 13 mg/dL COVID-19 ([facility]) Negative (Negative) COVID-19 Clin Com See Note 12/28/21 12/28/21 Range/Units 13:42 13:42 WBC (4.8-10.8) X10*3/uL RBC (4.20-5.50) X10*6/uL Hgb (12.0-16.0) g/dl Hct (37.0-47.0) % MCV (80.0-98.0) fL MCH (27.0-33.0) pg MCHC (31.0-35.0) g/dl RDW (11.0-16.0) % Plt Count (160-400) X10*3/uL MPV (9.4-12.3) fL Immature Gran % (Auto) (0.0-0.4) % Neut % (Auto) (45-73) % Lymph % (Auto) (20-40) % Barren % (Auto) (2-11) % Eos % (Auto) (0-4) % Baso % (Auto) (0-2) % Lymph # (Auto) (1.2-4.9) X10*3/uL Barren # (Auto) (0.1-1.2) X10*3/uL Eos # (Auto) (0.0-0.4) X10*3/uL Baso # (Auto) (0.0-0.2) X10*3/uL Abs Immat Gran (auto) (0.00-0.03) X10*3/uL Absolute Neuts (auto) (2.0-8.3) x10*3/uL Absolute Nucleated RBC (0.0-0.012) X10*3/uL Nucleated RBC % (auto) (0.0-0.2) /100WBC PT (10.0-13.1) SEC INR (0.9-1.1) Sodium (135-145) mmol/L Potassium (3.3-5.1) mmol/L Chloride (96-108) mmol/L Carbon Dioxide (22-29) mmol/L Anion Gap (12-20) BUN (9-16) mg/dL Creatinine (0.5-1.4) mg/dL Estim Creat Clear Calc Estimated GFR Random Glucose (60-115) mg/dL Calcium (8.4-10.2) mg/dL Magnesium (1.6-2.6) mg/dL Total Bilirubin (0.0-1.0) mg/dL Direct Bilirubin (0.0-0.5) mg/dL AST (5-31) U/L ALT (0-31) U/L Alkaline Phosphatase (39-117) U/L Ammonia Troponin I High Sens (<3.5-17.0) ng/L Total Protein (6.5-8.0) g/dL Albumin (3.5-5.0) g/dL Lipase (8-78) U/L Urine Color STRAW Urine Appearance CLEAR Urine pH 6.0 (5.0-8.0) Ur Specific [place] 1.010 (1.005-1.025) Urine Protein NEG (NEG-TRACE) MG/DL Urine Glucose (UA) NEG (NEG) MG/DL Urine Ketones NEG (NEG) MG/DL Urine Blood NEG (NEG) Urine Nitrite NEG (NEG) Ur Leukocyte Esterase NEG (NEG) Urine Opiates Screen Not Detected (Not Detect) Urine Fentanyl Screen POSITIVE H (Not Detect) Ur Barbiturates Screen Not Detected (Not Detect) Ur Phencyclidine Scrn Not Detected (Not Detect) Ur Amphetamines Screen Not Detected (Not Detect) U Benzodiazepines Scrn POSITIVE H (Not Detect) Urine Cocaine Screen Not Detected (Not Detect) U Marijuana (THC) Screen Not Detected (Not Detect) Ethyl Alcohol mg/dL COVID-19 ([facility]) (Negative) COVID-19 Clin Com Imaging Data CT scan - head: Radiologist's impression: FINDINGS: There is mild widening of the cortical sulci and associated ventriculomegaly. The lateral ventricles are symmetrical. The third and fourth ventricles are in their normal midline position. The basilar and prepontine cisterns are unremarkable. There is no acute intra or extracerebral abnormality. There is no mass effect or midline shift. Sections through the bony calvarium are unremarkable. The orbits are intact. The paranasal sinuses are clear. The mastoid air cells are clear. CT/CT head/brain wo con IMPRESSION: No acute intracranial pathology. Discharge Plan Discharge Clinical Impression: Altered mental status, Substance abuse Patient Disposition: Home, Self-Care Instructions: Polysubstance Abuse (ED) Additional Instructions: You tested positive for fentanyl, benzodiazepines and alcohol. Please follow-up with your primary care physician tomorrow. If you have any worsening or new symptoms, please return to the emergency room or call 911 Prescriptions: No Action trazodone 50 mg Tablet 50 mg PO BEDTIME PRN (Reason: Insomnia) 30 Days Qty: 30 0RF naltrexone 50 mg Tablet 50 mg PO DAILY 30 Days Qty: 30 0RF amlodipine 2.5 mg Tablet 2.5 mg PO DAILY 30 Days Qty: 30 0RF Protocol: Hold for SBP< HOLD for SBP < : 90 omeprazole 40 mg Capsule,Delayed Release(Dr/Ec) 40 mg PO DAILY@0630 30 Days Qty: 30 0RF diazepam 2 mg Tablet 5 mg PO BID PRN (Reason: anxiety) 14 Days Qty: 28 0RF hydroxyzine HCl 25 mg Tablet 25 mg PO Q6H PRN (Reason: Anxiety) 30 Days Qty: 60 0RF furosemide 20 mg Tablet 20 mg PO DAILY PRN (Reason: edema) 30 Days Qty: 30 0RF Protocol: Hold for SBP< HOLD for SBP < : 90 cyclobenzaprine 5 mg Tablet 5 mg PO TID PRN (Reason: muscle injury) 30 Days Qty: 90 0RF duloxetine 60 mg Capsule,Delayed Release(Dr/Ec) 60 mg PO BID 30 Days Qty: 60 0RF olanzapine [Zyprexa] 20 mg tablet 20 mg PO BEDTIME Qty: 30 0RF
[2021-12-28 12:10] LABS: MANUAL DIFF FLAG NO
[2021-12-28 12:13] LABS: Basophils Percent Auto 0.6 % (0-2); Eosinophils Percent Auto 1.2 % (0-4); Hematocrit 39.1 % (37.0-47.0); Hemoglobin 13.5 g/dl (12.0-16.0); Imm Gran Abs Auto 0.01 X10*3/uL (0.00-0.03); Imm Gran Pct Auto 0.3 % (0.0-0.4); Lymphocytes Percent Auto 30.4 % (20-40); Mean Corpuscular HGB Conc 34.5 g/dl (31.0-35.0); Mean Corpuscular Volume 95.6 fL (80.0-98.0); Mean Platelet Volume 9.2 fL (9.4-12.3); Monocytes Absolute Auto 0.3 X10*3/uL (0.1-1.2); Monocytes Percent Auto 8.2 % (2-11); Neutrophils Percent Auto 59.3 % (45-73); Platelet Count 175 X10*3/uL (160-400); Red Blood Count 4.09 X10*6/uL (4.20-5.50); Red Cell Distribution Width 13.4 % (11.0-16.0); White Blood Count 3.4 X10*3/uL (4.8-10.8)
[2021-12-28 12:20] LABS: Prothrombin Time 11.8 SEC (10.0-13.1)
[2021-12-28] MEDS: 0.9 % Sodium Chloride 1,000 ML 999 ML IVCONT (12:26)
[2021-12-28 12:30] LABS: Ethanol 13 mg/dL
[2021-12-28 12:33] LABS: COVID-19 Test Negative (Negative); IDNOW Serial# 9DB6401D
[2021-12-28 12:37] LABS: Troponin-I High Sensitivity < 3.5 ng/L (<3.5-17.0)
[2021-12-28 13:54] LABS: Appearance Urine CLEAR; Color Urine STRAW; Glucose Urine UA NEG (NEG); Leukocyte Esterase Urine NEG (NEG); Nitrite Urine NEG (NEG); Urine Blood NEG (NEG); Urine Ketones NEG (NEG); Urine Protein NEG (NEG-TRACE)
[2021-12-28 14:02] LABS: Alanine Aminotransferase 19 U/L (0-31); Albumin Level 4.4 g/dL (3.5-5.0); Alkaline Phosphatase 71 U/L (39-117); Anion Gap 19 (12-20); Aspartate Amino Transferase 26 U/L (5-31); Bilirubin Direct < 0.2 mg/dL (0.0-0.5); Bilirubin Total 0.3 mg/dL (0.0-1.0); Blood Urea Nitrogen 15 mg/dL (9-16); Calcium 9.3 mg/dL (8.4-10.2); Carbon Dioxide 31 mmol/L (22-29); Chloride 97 mmol/L (96-108); Creatinine Clr Calc Pharmacy 83.7; Estimated Glomerular Filt Rate > 60; Glucose Random 108 mg/dL (60-115); Lipase 34 U/L (8-78); Magnesium 1.5 mg/dL (1.6-2.6); Potassium 3.7 mmol/L (3.3-5.1); Sodium 143 mmol/L (135-145); Total Protein 7.6 g/dL (6.5-8.0)
[2021-12-28 14:20] LABS: Amphetamine Screen Urine Not Detected (Not Detect); Barbiturates, Urine Not Detected (Not Detect); Benzodiazepines Screen Urine POSITIVE (Not Detect); Cocaine Screen Urine Not Detected (Not Detect); Fentanyl, urine POSITIVE (Not Detect); Opiate Screen Urine Not Detected (Not Detect); Phencyclidine Screen Urine Not Detected (Not Detect)
[2021-12-28 14:24] LABS: Cannabinoid Screen Urine Not Detected (Not Detect)
--- NOTE | 2021-12-28 14:54 | PC.NURSE ---
pt alert and oriented x3, lethargic but arousable to voice. Resting comfortably, all needs currently being etmet.
== END 2021-12-28 20:14 | disposition home or self-care (01) ==
PROVIDERS: Emergency Provider Emergency Medicine; PCP Obstetrics & Gynecology Reproductive Endocrinology
DX: R41.82 Altered mental status, unspecified (principal); F19.10 Other psychoactive substance abuse, uncomplicated; F10.10 Alcohol abuse, uncomplicated; Y90.0 Blood alcohol level of less than 20 mg/100 ml; Z20.822 Contact with and (suspected) exposure to COVID-19; I10 Essential (primary) hypertension; F39 Unspecified mood [affective] disorder; F17.210 Nicotine dependence, cigarettes, uncomplicated; Z79.899 Other long term (current) drug therapy
CPT/HCPCS: 51701; 70450; 80048; 80076; 80307; 81003; 82077; 83690; 83735; 84484; 85025; 85610; 87635; 93005; 96360; 99284

== ENCOUNTER 2022-05-28 16:22 | Emergency (ER) | payer MEDICARE, SELFPAY ==
--- NOTE | ~2022-05-28 | XR_ITS ---
EXAMINATION: 1. RIGHT LOWER LEG. 2. RIGHT ANKLE. CLINICAL INFORMATION: Fall. Pain. COMPARISON: None TECHNIQUE: 1. Right lower leg. 2 views 2. Right ankle. 3 views FINDINGS: 1. Right lower leg. Oblique minimally displaced fracture of the distal diaphyseal shaft of the fibula proximal to the synchondrosis. No additional fracture of the tibia or fibula. 2. Right ankle. Fracture of the distal shaft of the fibula proximal to the synchondrosis. No fracture of the tibia. Ankle mortise remains congruent. XR/XR tibia fibula RT 2V IMPRESSION: 1. Right lower leg. Oblique fracture of the distal diaphyseal shaft of the fibula. 2. Right ankle. Fracture of the distal shaft of the fibula.
--- NOTE | ~2022-05-28 | XR_ITS ---
EXAMINATION: 1. RIGHT LOWER LEG. 2. RIGHT ANKLE. CLINICAL INFORMATION: Fall. Pain. COMPARISON: None TECHNIQUE: 1. Right lower leg. 2 views 2. Right ankle. 3 views FINDINGS: 1. Right lower leg. Oblique minimally displaced fracture of the distal diaphyseal shaft of the fibula proximal to the synchondrosis. No additional fracture of the tibia or fibula. 2. Right ankle. Fracture of the distal shaft of the fibula proximal to the synchondrosis. No fracture of the tibia. Ankle mortise remains congruent. XR/XR ankle RT min 3V IMPRESSION: 1. Right lower leg. Oblique fracture of the distal diaphyseal shaft of the fibula. 2. Right ankle. Fracture of the distal shaft of the fibula.
--- NOTE | ~2022-05-28 | CT_ITS ---
EXAMINATION: NONCONTRAST HEAD CT NONCONTRAST CERVICAL SPINE CT INDICATION INFORMATION: Status post fall COMPARISON: Head CT 12/28/2021 TECHNIQUE: Separate noncontrast CT examinations of the head and cervical spine were performed. Coronal and sagittal images were created for each examination at the technologist workstation. This CT examination was performed using dose optimization techniques as appropriate, variously including the following: *Automated exposure control *Adjustment of mA and/or kV according to patient size (this includes techniques or standardized protocols for targeted exams where dose is matched to indication/reason for exam; i.e. extremities or head) *Use of iterative reconstruction technique DLP: 1256 mGy-cm FINDINGS: HEAD: No intra or extra-axial fluid collection, hemorrhage, or mass. No ventriculomegaly. No midline shift or herniation. Basal cisterns are patent. [place]-white matter differentiation is maintained. No territorial encephalomalacia. Minimal age-related cerebral volume loss. Patchy periventricular and deep white matter hypoattenuation is consistent with mild small vessel ischemic changes. Small rounded hypodense foci likely dilated perivascular spaces in the inferior lentiform nuclei noted bilaterally, unchanged. No calvarial fracture or soft tissue abnormality. The mastoid air cells and visualized portions of the paranasal sinuses are well aerated. CERVICAL SPINE: Alignment: No subluxation. Vertebra: No acute fracture. No prevertebral soft tissue swelling. Degenerative disc disease: Status post C3-C7 ACDF and posterior spinal fusion with intact anterior plate and screw fixation, and intact posterior rods and lateral mass screws bilaterally. Solid posterolateral fusion mass and ankylosis of the vertebral bodies and facets. Mild degenerative disc disease at C2-C3 and C7-T1 with minimal disc height loss and mild endplate proliferative change. Mild degenerative disc disease in the imaged upper thoracic spine also seen. Other findings: No cervical lymphadenopathy. Visualized major salivary glands and thyroid gland are unremarkable. Visualized lung apices are clear. CT/CT cervical spine wo IV con IMPRESSION: 1. No intracranial hemorrhage, calvarial fracture, or other acute intracranial abnormality. 2. No subluxation or acute cervical spine fracture. 3. Status post C3-C7 ACDF and posterior spinal fusion with intact hardware and solid ankylosis.
[2022-05-28 16:31] VITALS: BP 129/71; BP 154/86; PULSE 103; PULSE 108; RESP 16; TEMP 37.5; O2SAT 95; O2SAT 96; BMI 23.7
[2022-05-28] MEDS: Ibuprofen 800 MG TABLET PO (17:30)
[2022-05-28] MEDS: oxyCODONE HCl Immed Release 5 MG TABLET PO (17:30)
--- NOTE | 2022-05-28 17:42 | ED_ITS ---
HPI - Extremity Injury (Lower) General Chief Complaint: Extremity Injury, Lower Stated Complaint: r ankle injury Time Seen by Provider: 05/28/22 16:29 Source: patient and EMS Mode of arrival: EMS Limitations: no limitations History of Present Illness HPI Narrative: 71yoF c PMHx of HTN, tachycardia and alcohol dependence who is presenting to the ER via EMS after she had a fall where she slipped and fell in her house when she was walking to the bathroom. Reports that she had her socks on and this is why she slipped and fell. Denies head injury loss of consciousness or prolonged down time or any symptoms prior to the fall. Patient denies any other symptoms complaints or concerns at this time. 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) Type of Injury: other (twist injury ) Place: home Severity: moderate Relieving factors: nothing Exacerbating factors: weight bearing, movement and palpation Context: fall Associated symptoms: swelling and able to partially bear weight Other symptoms: none Treatments prior to arrival: cold therapy Related Data Home Medications Medication Instructions Recorded Confirmed acetaminophen 500 mg tablet 1,000 mg PO Q8H PRN Pain, Moderate 06/16/22 06/16/22 (Tylenol Extra Strength) cyclobenzaprine 10 mg tablet 10 mg PO BID PRN Muscle Spasm 06/16/22 06/16/22 diazepam 5 mg tablet 5 mg PO BID PRN Anxiety 06/16/22 06/16/22 diphenhydramine HCl 25 mg tablet 25 mg PO BEDTIME 06/16/22 06/16/22 pseudoephedrine HCl 30 mg tablet 30 mg PO Q4H PRN Congestion 06/16/22 06/16/22 trazodone 50 mg tablet 50 mg PO BEDTIME 06/16/22 06/16/22 Previous Rx's Medication Instructions Recorded amlodipine 2.5 mg tablet 2.5 mg PO DAILY 30 days #30 tabs 11/26/21 duloxetine 60 mg capsule,delayed 60 mg PO BID 30 days #60 caps 11/26/21 release furosemide 20 mg tablet 20 mg PO DAILY PRN edema 30 days 11/26/21 #30 tabs hydroxyzine HCl 25 mg tablet 25 mg PO Q6H PRN Anxiety 30 days 11/26/21 #60 tabs olanzapine 20 mg tablet (Zyprexa) 20 mg PO BEDTIME #30 tabs 11/26/21 omeprazole 40 mg capsule,delayed 40 mg PO DAILY@0630 30 days #30 11/26/21 release caps Allergies Allergy/AdvReac Type Severity Reaction Status Date / Time sulfamethoxazole Allergy Mild FEVER Verified 06/16/22 17:48 [From BACTRIM] trimethoprim [From BACTRIM] Allergy Mild FEVER Verified 06/16/22 17:48 cephalexin [Keflex] Allergy Unknown Unknown Verified 06/16/22 17:48 lorazepam [From ATIVAN] Allergy Unknown CONFUSION Verified 06/16/22 17:48 Sulfa (Sulfonamide Allergy Unknown Unknown Verified 06/16/22 17:48 Antibiotics) tramadol [Ultram] Allergy Unknown Unknown Verified 06/16/22 17:48 mold Allergy Unknown Unknown Uncoded 06/13/22 13:47 pollen Allergy Unknown Unknown Uncoded 06/13/22 13:47 Review of Systems Review of Systems: Constitutional : No Weight loss, No Fever, No Chills, No Night Sweats, No Fatigue, No Malaise ENT/Mouth : No Hearing loss, No Ear Pain, No Nasal Congestion, No Sinus Pain, No Hoarseness, No sore throat, No Rhinorrhea, No Swallowing Difficulty Eyes: No Eye Pain, No Swelling, No Redness, No Foreign Body, No Discharge, No Vision Changes Cardiovascular : No Chest Pain, No SOB, No Dyspnea on Exertion, No Orthopnea, No Edema, No Palpitations Respiratory : No Cough, No Sputum, No Wheezing, No Smoke Exposure, No Dyspnea Gastrointestinal : No Nausea, No Vomiting, No Diarrhea, No Constipation, No abdominal Pain, No Hematochezia, No Melena Genitourinary : no irregular bleeding, No Dysuria, No Urinary Frequency, No Hematuria, No Urinary Incontinence, No Urgency, No Flank Pain, No Urinary Flow Changes, No Hesitancy Musculoskeletal : + right lower leg/ankle pain/swelling, No Myalgias Skin : No Skin Lesions, No rash Neuro : No Weakness, No Numbness, No Paresthesias, No Loss of Consciousness, No Dizziness, No Headache Psych : No Anxiety/Panic, No Depression, No SI/HI/AH/VH, No Social Issues, Heme/Lymph: No Bruising, No Bleeding,No Lymphadenopathy Endocrine : No Polyuria, No Polydipsia, No Temperature Intolerance Yes all other systems are reviewed and are negative PMFSH Past Medical History Attestation statement: The following information was validated with the patient. Source: old records reviewed and nursing notes reviewed Medical History Hypertension Mood disorder Social History Social History Household Members: Other Household Members Other:: Cat Housing: House Do you presently have visiting nurse or other home services: No Alcohol intake: current Alcohol intake frequency: 3 or more drinks per day Alcohol type: beer Patient Tobacco Use Status: Current someday Tobacco user Tobacco use type: Cigarette Smoked in Last 30 Days: No e-Cigarette/Vaping Use: Never Used Second Hand Smoke Exposure: No Use of substances other than those prescribed or required for medical reasons: No Advance Directives: No Sexual orientation: Straight/Heterosexual Physical Exam Vital Signs: Vital Signs: Last Vital Signs Temp 99.5 F 05/28/22 16:31 Pulse 103 H 05/28/22 16:31 Resp 16 05/28/22 16:31 BP 129/71 05/28/22 16:31 Pulse Ox 95 05/28/22 16:31 O2 Del Method 05/28/22 16:31 BMI result Body Mass Index 23.7 vital signs have been reviewed as normal and appeared to be correct. Blood pressure normal. Heart rate 103. Respiration rate normal. Temperature normal. Oxygen saturation normal. Appearance: Alert although EtOH on odor of breath. Oriented X3. No acute distress. Head: Normal external exam. Normocephalic. Atraumatic. No Culp signs noted. No raccoon eyes noted Eyes: PERRLA. EOMI. Conjunctiva and sclera normal. Eyelids normal. ENT: EAC normal. TM's Normal. No septal hematoma noted. No hemotympanum noted. Pharynx normal. Uvula midline. Moist mucous membranes. No lesions/ulcerations or masses noted on the tongue. Normal voice. No trismus noted. No drooling noted. No muffled voice noted. Neck: Normal inspection. Neck supple. FROM. No adenopathy. Thyroid Normal. No tracheal deviation noted. No crepitus is noted. No meningeal signs. No neck mass noted. No signs of trauma noted. CVS: Normal heart rate and rhythm. Heart sound normal. Pulses normal throughout. No murmurs/rales/gallops. Respiratory: No respiratory distress. Painless inspiration. Breath sounds normal. No wheezes/rales/rhonchi noted. Chest nontender. No crepitus is noted. No accessory muscle usage noted or decreased air movement noted. No signs of trauma. Abdomen: Soft and nontender. Nondistended. No guarding. No rigidity. Bowel sounds normal in all 4 quadrants. No distention noted. No organomegaly noted. No visible injury noted. No rebound tenderness. Negative Rovsing sign. Negative obturator's sign. Negative psoas sign. Negative Aguilera sign. Back: No CVA tenderness. Full range of motion noted. Nontender. No signs of trauma. Patient neuro intact bilaterally and distally on all 4 extremities. Patient's reflexes intact bilaterally and distally on all 4 extremities. No rashes/lesion/induration/fluctuance or signs of infection noted. Skin: Skin warm and dry. Normal skin color. Normal skin turgor. No rashes/lesions/lacerations noted. Extremities: No lower extremity edema. No calf tenderness is noted. Extremities exhibit normal range of motion and nontender. Neuro: Oriented X 3. No motor deficit. No sensory deficit. Reflexes normal. Normal steady gait. No focal neuro deficits noted. CN's II-XII intact bilaterally? Vascular: + radial pulses/+ 2 distal pedal pulses/+2 dorsalis pedis b/l. Normal cap refill. No cyanosis noted to upper extremity nails and lower extremity toes nails. Course Course Course Narrative: 71yoF c PMHx of HTN, tachycardia and alcohol dependence who is presenting to the ER via EMS after she had a fall where she slipped and fell in her house when she was walking to the bathroom. Reports that she had her socks on and this is why she slipped and fell. Denies head injury loss of consciousness or prolonged down time or any symptoms prior to the fall. CT scan of head and neck negative for any acute processes. Right lower extremity/ankle x-ray revealed oblique fracture of the distal shaft of the fibula. Therefore I spoke to the Gabriela sousa orthopedic PA and she recommended of short posterior splint with crutches and follow-up. Will DC home with Motrin Tylenol as patient has a history of alcohol abuse and I do not want her to mix narcotics to alcohol. Patient understands agrees with this plan. Medications Administered Discontinued Medications Generic Name Dose Route Start Last Admin Trade Name Freq PRN Reason Stop Dose Admin Ibuprofen 800 mg 05/28/22 16:34 05/28/22 17:30 Ibuprofen 800 Mg Tablet PO 05/28/22 16:35 800 mg ONCE ONE Administration Oxycodone HCl 5 mg 05/28/22 16:34 05/28/22 17:30 Oxycodone Hcl Immed Release 5 Mg Tablet PO 05/28/22 16:35 5 mg ONCE ONE Administration Medical Decision Making Independent Interpretation I performed an independent interpretation of an: Plain X-Ray Radiology Impression Discussion of test interpretation with radiology: I have reviewed the radiologist's reading. Procedures Orthopedic Splinting/Casting Injury #1: Side: right Lower Extremity Injury Location: lower leg Lower Extremity Immobilizer: posterior splint Other Orthopedic Equipment: crutches Discharge Plan Discharge Clinical Impression: Closed right fibular fracture, Fall Patient Disposition: Home, Self-Care Instructions: Leg Fracture (ED), Fall Prevention (ED) Prescriptions: No Action amlodipine 2.5 mg Tablet 2.5 mg PO DAILY 30 Days Qty: 30 0RF Protocol: Hold for SBP< HOLD for SBP < : 90 omeprazole 40 mg Capsule,Delayed Release(Dr/Ec) 40 mg PO DAILY@0630 30 Days Qty: 30 0RF hydroxyzine HCl 25 mg Tablet 25 mg PO Q6H PRN (Reason: Anxiety) 30 Days Qty: 60 0RF furosemide 20 mg Tablet 20 mg PO DAILY PRN (Reason: edema) 30 Days Qty: 30 0RF Protocol: Hold for SBP< HOLD for SBP < : 90 duloxetine 60 mg Capsule,Delayed Release(Dr/Ec) 60 mg PO BID 30 Days Qty: 60 0RF olanzapine [Zyprexa] 20 mg tablet 20 mg PO BEDTIME Qty: 30 0RF diazepam 5 mg tablet 5 mg PO BID PRN (Reason: Anxiety) cyclobenzaprine 10 mg tablet 10 mg PO BID PRN (Reason: Muscle Spasm) diphenhydramine HCl 25 mg Tablet 25 mg PO BEDTIME pseudoephedrine HCl 30 mg Tablet 30 mg PO Q4H PRN (Reason: Congestion) Rx Instructions: DNExceed 4 doses/24h trazodone 50 mg tablet 50 mg PO BEDTIME acetaminophen [Tylenol Extra Strength] 500 mg tablet 1,000 mg PO Q8H PRN (Reason: Pain, Moderate) Referrals: [facility] [Provider Group] (Call to make a follow-up appointment) Verónica Hendrix MD [Primary Care Provider] - 3 days Interventions: ED Discharge Assessment Last Done: 05/28/22 19:27 Discharge Date/Time: 05/28/22 19:28
--- NOTE | 2022-05-28 19:25 | PC.NURSE ---
posterior short leg splint placed by sterile processing technician, pt verbalizes understanding of dc instrcutions, emphasized no driving with splint in place. pt dc'd via ems bls
== END 2022-05-28 19:28 | disposition home or self-care (01) ==
PROVIDERS: Emergency Provider Emergency Medicine; PCP Obstetrics & Gynecology Reproductive Endocrinology
DX: S82.434A Nondisplaced oblique fracture of shaft of right fibula, initial encounter for closed fracture (principal); W01.0XXA Fall on same level from slipping, tripping and stumbling without subsequent striking against object, initial encounter; R00.0 Tachycardia, unspecified; I10 Essential (primary) hypertension; F17.210 Nicotine dependence, cigarettes, uncomplicated; Y93.9 Activity, unspecified; Y92.012 Bathroom of single-family (private) house as the place of occurrence of the external cause; Y99.9 Unspecified external cause status
CPT/HCPCS: 29515; 70450; 72125; 73590; 73610; 99283; 99284

== ENCOUNTER 2022-06-13 09:13 | Outpatient (REF) | payer MEDICARE, SELFPAY ==
--- NOTE | ~2022-06-13 | XR_ITS ---
EXAMINATION: XR ANKLE, RIGHT CLINICAL INFORMATION: Pain right ankle. COMPARISON: Right ankle 05/28/2022 TECHNIQUE: AP, lateral, and mortise views of the right ankle. FINDINGS: There is moderate lateral malleolar soft tissue swelling. There is an oblique distal fibular fracture with minimal displacement. It has slightly increased since 05/28/2022. The ankle mortise and subtalar joints are normal. The small retrocalcaneal enthesophyte. XR/XR ankle RT min 3V IMPRESSION: On oblique fracture distal fibula with minimal displacement minimally prominent compared to previous exam. Small retrocalcaneal enthesophyte, unchanged. Moderate lateral malleolar soft tissue swelling
== END 2022-06-13 09:14 | disposition home or self-care (01) ==
LOC: HO.HOSX 09:13
PROVIDERS: Visit Provider Physician Assistant
DX: S82.831A Other fracture of upper and lower end of right fibula, initial encounter for closed fracture (principal)
CPT/HCPCS: 29405; 73610; 99202

== ENCOUNTER 2022-06-16 11:57 | Emergency (ER) | payer MEDICARE, SELFPAY ==
[2022-06-16 12:05] VITALS: BP 138/88; BP 146/88; PULSE 101; PULSE 105; RESP 18; TEMP 36.8; O2SAT 95; O2SAT 96; BMI 23.3
[2022-06-16 13:49] LABS: Basophils Percent Auto 0.9 % (0-2); Eosinophils Absolute Auto 0.1 X10*3/uL (0.0-0.4); Eosinophils Percent Auto 1.3 % (0-4); Hematocrit 38.8 % (37.0-47.0); Hemoglobin 13.3 g/dl (12.0-16.0); Imm Gran Abs Auto 0.04 X10*3/uL (0.00-0.03); Imm Gran Pct Auto 0.9 % (0.0-0.4); Lymphocytes Absolute Auto 1.3 X10*3/uL (1.2-4.9); Lymphocytes Percent Auto 27.1 % (20-40); Mean Corpuscular HGB Conc 34.3 g/dl (31.0-35.0); Mean Corpuscular Hemoglobin 30.7 pg (27.0-33.0); Mean Corpuscular Volume 89.6 fL (80.0-98.0); Mean Platelet Volume 8.8 fL (9.4-12.3); Monocytes Absolute Auto 0.3 X10*3/uL (0.1-1.2); Monocytes Percent Auto 7.1 % (2-11); Neutrophils Absolute Auto 2.9 x10*3/uL (2.0-8.3); Neutrophils Percent Auto 62.7 % (45-73); Platelet Count 255 X10*3/uL (160-400); Red Blood Count 4.33 X10*6/uL (4.20-5.50); Red Cell Distribution Width 12.9 % (11.0-16.0); White Blood Count 4.6 X10*3/uL (4.8-10.8)
[2022-06-16 13:50] LABS: MANUAL DIFF FLAG NO
[2022-06-16 13:56] LABS: Prothrombin Time 11.2 SEC (10.0-13.1)
[2022-06-16 14:07] VITALS: BP 140/78; PULSE 93; RESP 18; O2SAT 95
[2022-06-16 14:13] LABS: Alanine Aminotransferase 20 U/L (0-31); Albumin Level 4.1 g/dL (3.5-5.0); Alkaline Phosphatase 107 U/L (39-117); Anion Gap 15 (12-20); Aspartate Amino Transferase 23 U/L (5-31); Bilirubin Total 0.3 mg/dL (0.0-1.0); Blood Urea Nitrogen 8 mg/dL (9-16); Calcium 9.1 mg/dL (8.4-10.2); Carbon Dioxide 28 mmol/L (22-29); Chloride 105 mmol/L (96-108); Estimated Glomerular Filt Rate > 60; Glucose Random 93 mg/dL (60-115); Magnesium 1.9 mg/dL (1.6-2.6); Potassium 4.6 mmol/L (3.3-5.1); Sodium 143 mmol/L (135-145); Total Protein 7.1 g/dL (6.5-8.0)
--- NOTE | 2022-06-16 14:33 | ED_ITS ---
HPI - General Adult General Chief complaint: General Medical Stated complaint: UNABLE TO CARE FOR SELF @ HOME PER EMS Time Seen by Provider: 06/16/22 14:33 Source: patient, EMS and old records reviewed Mode of arrival: EMS Limitations: no limitations History of Present Illness HPI narrative: 71-year-old female With history of anxiety, bipolar, schizophrenia, HTN comes to the ER from home via EMS for evaluation of inability to care for herself at home. She recently broke her right ankle on 05/29 and is in a cast. She is unable to get around and perform her usual activities of daily living. She states she was admitted at [facility] for 10 days after the injury and was just discharged home last week. She is having a hard time getting around her home and reports generalized weakness, fatigue and increased anxiety. She would like to go to a rehab facility. She lives home alone and has no local family. She denies SOB, chest pain, N/V/D and abdominal pain. MD complaint: weakness Onset (ago): day(s) Severity: moderate Pain Consistency: constant Relieving factors: rest Exacerbating factors: movement Associated symptoms: denies other symptoms Treatments prior to arrival: none Related Data Home Medications Medication Instructions Recorded Confirmed diazepam 5 mg tablet 5 mg PO DAILY PRN Anxiety 06/16/22 06/16/22 Previous Rx's Medication Instructions Recorded amlodipine 2.5 mg tablet 2.5 mg PO DAILY 30 days #30 tabs 11/26/21 cyclobenzaprine 5 mg tablet 5 mg PO TID PRN muscle injury 30 11/26/21 days #90 tabs duloxetine 60 mg capsule,delayed 60 mg PO BID 30 days #60 caps 11/26/21 release furosemide 20 mg tablet 20 mg PO DAILY PRN edema 30 days 11/26/21 #30 tabs hydroxyzine HCl 25 mg tablet 25 mg PO Q6H PRN Anxiety 30 days 11/26/21 #60 tabs olanzapine 20 mg tablet (Zyprexa) 20 mg PO BEDTIME #30 tabs 11/26/21 omeprazole 40 mg capsule,delayed 40 mg PO DAILY@0630 30 days #30 11/26/21 release caps trazodone 50 mg tablet 50 mg PO BEDTIME PRN Insomnia 30 11/26/21 days #30 tabs acetaminophen 500 mg tablet 1,000 mg PO QID PRN fever or pain 05/28/22 (Tylenol Extra Strength) #14 tabs Allergies Allergy/AdvReac Type Severity Reaction Status Date / Time sulfamethoxazole Allergy Mild FEVER Unverified 06/13/22 13:47 [From BACTRIM] trimethoprim [From BACTRIM] Allergy Mild FEVER Unverified 06/13/22 13:47 cephalexin [Keflex] Allergy Unknown Unknown Verified 06/13/22 13:47 lorazepam [From ATIVAN] Allergy Unknown CONFUSION Unverified 06/13/22 13:47 Sulfa (Sulfonamide Allergy Unknown Unknown Verified 06/13/22 13:47 Antibiotics) tramadol [Ultram] Allergy Unknown Unknown Verified 06/13/22 13:47 mold Allergy Unknown Unknown Uncoded 06/13/22 13:47 pollen Allergy Unknown Unknown Uncoded 06/13/22 13:47 Review of Systems Review of Systems: Yes all other systems are reviewed and are negative [facility] Past Medical History Medical History Hypertension Mood disorder Social History Social History Household Members: Other Household Members Other:: Cat Housing: House Do you presently have visiting nurse or other home services: No Alcohol intake: current Alcohol intake frequency: 3 or more drinks per day Alcohol type: beer Patient Tobacco Use Status: Current someday Tobacco user Tobacco use type: Cigarette Smoked in Last 30 Days: No e-Cigarette/Vaping Use: Never Used Second Hand Smoke Exposure: No Use of substances other than those prescribed or required for medical reasons: No Advance Directives: No service: No Sexual orientation: Straight/Heterosexual Physical Exam ED Vital Signs: Vital Signs - 24 hr 06/16/22 12:05 06/16/22 14:07 06/16/22 14:55 Temperature 98.3 F Pulse Rate 105 H 93 93 Respiratory Rate 18 18 Blood Pressure 146/88 H 140/78 H 140/78 H Pulse Oximetry 96 95 95 Oxygen Delivery Method Room Air Room Air BMI result Body Mass Index 23.3 Appearance: Alert. Oriented X3. No acute distress. Eyes: Pupils equal, round and reactive to light. ENT: Pharynx normal. Neck: Normal inspection. Neck supple. CVS: Normal heart rate and rhythm. Pulses normal. Respiratory: No respiratory distress. Breath sounds normal. Abdomen: Soft and nontender. +BS x4 Skin: Skin warm and dry. Normal skin color. Normal skin turgor. No rashes. Extremities: No left lower extremity edema. Right lower leg in a hard cast Neuro: Oriented X 3. No motor deficit. No sensory deficit. Course Course Course Narrative: 71-year-old female with history of mood disorder, recent right ankle fracture, nonweightbearing presents to the ER for evaluation deconditioning, inability to perform ADLs at home. Lab workup was unremarkable. She is hemodynamically stable. will get physical therapy evaluation in anticipation short-term rehab placement. Reevaluation(s) Reevaluation #1: Patient seen and evaluated by physical therapy. Patient was very fatigued with gait assessment. Physical therapy is recommending short-term rehab to maximize function and safety at home. Patient agrees with plan. Physician observation started at 15:21. Patient placed in physician observation because patient is awaiting STR placement. At the time observation was started patient's vital signs were stable. Patient is alert and oriented. Neuro exam is non-focal. CV: RRR and lungs are clear. Will continue to monitor. Reevaluation #2: Diet ordered. Pharmacy to perform med rec. Tylenol and motrin ordered for pain. Will monitor CIWA scores. She reports drinking a 6 pack of alcohol daily, last drink was earlier today. Will monitor for withdrawal. Consultations Consultation #1: PT & case management Medical Decision Making Differential Diagnosis Differential Diagnoses: The differential diagnosis associated with the presentation includes generalized weakness, deconditioning UTI, metabolic derangement, anemia, viral process Lab Data MDM Lab Attestation statement: I reviewed the patient's lab results. no significant metabolic abnormality. 06/16/22 13:41 06/16/22 13:41 Labs: Lab Results 06/16/22 06/16/22 06/16/22 Range/Units 13:41 13:41 13:41 WBC 4.6 L (4.8-10.8) X10*3/uL RBC 4.33 (4.20-5.50) X10*6/uL Hgb 13.3 (12.0-16.0) g/dl Hct 38.8 (37.0-47.0) % MCV 89.6 (80.0-98.0) fL MCH 30.7 (27.0-33.0) pg MCHC 34.3 (31.0-35.0) g/dl RDW 12.9 (11.0-16.0) % Plt Count 255 D (160-400) X10*3/uL MPV 8.8 L (9.4-12.3) fL Immature Gran % (Auto) 0.9 H (0.0-0.4) % Neut % (Auto) 62.7 (45-73) % Lymph % (Auto) 27.1 (20-40) % [place] % (Auto) 7.1 (2-11) % Eos % (Auto) 1.3 (0-4) % Baso % (Auto) 0.9 (0-2) % Lymph # (Auto) 1.3 (1.2-4.9) X10*3/uL [place] # (Auto) 0.3 (0.1-1.2) X10*3/uL Eos # (Auto) 0.1 (0.0-0.4) X10*3/uL Baso # (Auto) 0.0 (0.0-0.2) X10*3/uL Abs Immat Gran (auto) 0.04 H (0.00-0.03) X10*3/uL Absolute Neuts (auto) 2.9 (2.0-8.3) x10*3/uL Absolute Nucleated RBC 0.000 (0.0-0.012) X10*3/uL Nucleated RBC % (auto) 0.0 (0.0-0.2) /100WBC PT 11.2 (10.0-13.1) SEC INR 1.0 (0.9-1.1) Sodium 143 (135-145) mmol/L Potassium 4.6 D (3.3-5.1) mmol/L Chloride 105 (96-108) mmol/L Carbon Dioxide 28 (22-29) mmol/L Anion Gap 15 (12-20) BUN 8 L (9-16) mg/dL Creatinine 0.72 (0.5-1.4) mg/dL Estim Creat Clear Calc 68.0 Estimated GFR > 60 Random Glucose 93 (60-115) mg/dL Calcium 9.1 (8.4-10.2) mg/dL Magnesium 1.9 (1.6-2.6) mg/dL Total Bilirubin 0.3 (0.0-1.0) mg/dL AST 23 (5-31) U/L ALT 20 (0-31) U/L Alkaline Phosphatase 107 (39-117) U/L Total Protein 7.1 (6.5-8.0) g/dL Albumin 4.1 (3.5-5.0) g/dL Influenza Type A (PCR) (Negative) Influenza Type B (PCR) (Negative) RSV RNA Qual (PCR) (Negative) SARS-CoV-2 RNA (RT-PCR) (Negative) 06/16/22 Range/Units 13:41 WBC (4.8-10.8) X10*3/uL RBC (4.20-5.50) X10*6/uL Hgb (12.0-16.0) g/dl Hct (37.0-47.0) % MCV (80.0-98.0) fL MCH (27.0-33.0) pg MCHC (31.0-35.0) g/dl RDW (11.0-16.0) % Plt Count (160-400) X10*3/uL MPV (9.4-12.3) fL Immature Gran % (Auto) (0.0-0.4) % Neut % (Auto) (45-73) % Lymph % (Auto) (20-40) % [place] % (Auto) (2-11) % Eos % (Auto) (0-4) % Baso % (Auto) (0-2) % Lymph # (Auto) (1.2-4.9) X10*3/uL [place] # (Auto) (0.1-1.2) X10*3/uL Eos # (Auto) (0.0-0.4) X10*3/uL Baso # (Auto) (0.0-0.2) X10*3/uL Abs Immat Gran (auto) (0.00-0.03) X10*3/uL Absolute Neuts (auto) (2.0-8.3) x10*3/uL Absolute Nucleated RBC (0.0-0.012) X10*3/uL Nucleated RBC % (auto) (0.0-0.2) /100WBC PT (10.0-13.1) SEC INR (0.9-1.1) Sodium (135-145) mmol/L Potassium (3.3-5.1) mmol/L Chloride (96-108) mmol/L Carbon Dioxide (22-29) mmol/L Anion Gap (12-20) BUN (9-16) mg/dL Creatinine (0.5-1.4) mg/dL Estim Creat Clear Calc Estimated GFR Random Glucose (60-115) mg/dL Calcium (8.4-10.2) mg/dL Magnesium (1.6-2.6) mg/dL Total Bilirubin (0.0-1.0) mg/dL AST (5-31) U/L ALT (0-31) U/L Alkaline Phosphatase (39-117) U/L Total Protein (6.5-8.0) g/dL Albumin (3.5-5.0) g/dL Influenza Type A (PCR) NEGATIVE (Negative) Influenza Type B (PCR) NEGATIVE (Negative) RSV RNA Qual (PCR) NEGATIVE (Negative) SARS-CoV-2 RNA (RT-PCR) NEGATIVE (Negative) Independent Historian Clinical information obtained from an independent historian. History obtained from or confirmed by: EMS External Record Review External record reviewed: Outpatient record, Prior outpatient labs and Prior outpatient radiology Tests considered The following testing was considered but not selected: XR ankle not indicated Prescription Management I considered prescription management with: Pain Medication new ankle fx. hoping to manage pain with non-narcotics given age and comorbidities Social Determinants Patient?s care significantly limited by Social Determinants of Health including: Alcoholism and drug addiction in family Critical Care Time Critical Care Time Critical Care Time: No Discharge Plan Discharge Clinical Impression: Physical deconditioning, Alcohol abuse, Ankle fracture, right Patient Disposition: Still a Patient Prescriptions: No Action acetaminophen [Tylenol Extra Strength] 500 mg tablet 1,000 mg PO QID PRN (Reason: fever or pain) Qty: 14 0RF trazodone 50 mg Tablet 50 mg PO BEDTIME PRN (Reason: Insomnia) 30 Days Qty: 30 0RF amlodipine 2.5 mg Tablet 2.5 mg PO DAILY 30 Days Qty: 30 0RF Protocol: Hold for SBP< HOLD for SBP < : 90 omeprazole 40 mg Capsule,Delayed Release(Dr/Ec) 40 mg PO DAILY@0630 30 Days Qty: 30 0RF hydroxyzine HCl 25 mg Tablet 25 mg PO Q6H PRN (Reason: Anxiety) 30 Days Qty: 60 0RF furosemide 20 mg Tablet 20 mg PO DAILY PRN (Reason: edema) 30 Days Qty: 30 0RF Protocol: Hold for SBP< HOLD for SBP < : 90 cyclobenzaprine 5 mg Tablet 5 mg PO TID PRN (Reason: muscle injury) 30 Days Qty: 90 0RF duloxetine 60 mg Capsule,Delayed Release(Dr/Ec) 60 mg PO BID 30 Days Qty: 60 0RF olanzapine [Zyprexa] 20 mg tablet 20 mg PO BEDTIME Qty: 30 0RF diazepam 5 mg tablet 5 mg PO DAILY PRN (Reason: Anxiety)
[2022-06-16 14:35] LABS: Influenza A PCR NEGATIVE (Negative); Influenza B PCR NEGATIVE (Negative); Resp Syncy Virus RNA Qual PCR NEGATIVE (Negative); SARS COV2 PCR INHOUSE NEGATIVE (Negative)
--- NOTE | 2022-06-16 14:47 | MHC.CM.ED ---
Received notification from Shayy Contreras at [facility] orth[facility]ics that patient will come to ER due to not being able to care for her self at home. Patient has an ankle fracture. Patient is active with [facility]. Received telephone call from Lindsay at [facility]. They do not feel patient can safely be home because she is unable to follow weight bearing recommendations. They are recommending patient go to short term rehab. Work up is currently pending. Physical therapy eval is pending. Continue to monitor for d/c needs.
[2022-06-16 14:55] VITALS: BP 140/78; PULSE 93; O2SAT 95
--- NOTE | 2022-06-16 15:32 | PHA.MEDREC ---
Addendum entered by Joyce Greenfield [facility] 06/16/22 17:34: List from [facility] Original Note: Pharmacy Consult ? Medication Reconciliation Pharmacy has completed the medication reconciliation.
--- NOTE | 2022-06-16 16:26 | MHC.CM.ED ---
Addendum entered by Donna Freeman 06/16/22 18:58: Pt awake. CM assessment completed. A&Ox4. Lives alone. Fx R ankle, casted. D/C from [facility] on 06/08 with [facility]. Non weight bearing. Pt unable to manage at home. [facility] recommending STR. PT recommends STR. Has walker, crutches, w/c and commode at home. Referrals placed. Pt has [employer] insurance. [facility] has a bed. Awaiting offers from [facility] and [facility]. [facility] x3. No HCP on file. HCP reviewed, completed and signed. Copies given. Uploaded into [employer] and [facility] [employer]. HCP/sister Chelsie Maldonado ([phone]). D/C plan: STR. CM to follow for d/c planning. Original Note: PT recommending STR. Referrals placed by previous CM. PASRR level 1 completed. Awaiting PASRR 2 exemption letter. Attempted to meet with patient to discuss D/C planning, but patient sleeping. Will assess when patient wakes.
[2022-06-16 17:46] VITALS: BP 140/79; PULSE 105; RESP 18; O2SAT 97
[2022-06-16] MEDS: Acetaminophen 325 MG TABLET 975 MG PO (17:49)
[2022-06-16 18:09] LABS: Appearance Urine Clear; Color Urine Yellow; Glucose Urine UA Negative (Negative); Leukocyte Esterase Urine Negative (Negative); Nitrite Urine Negative (Negative); PH 6.5 (5.0-9.0); Specific Gravity - Urine <= 1.005 (1.005-1.025); Urine Blood Negative (Negative); Urine Ketones Negative (Negative); Urine Protein Negative (Neg-Trace)
--- NOTE | 2022-06-16 20:48 | PC.NURSE ---
pt rates pain 7/10; when ibuprofen was offered pt stated she could not take ibuprofen d/t ulcers
--- NOTE | 2022-06-16 21:13 | MHC.RECOVSUP ---
? Reason for consult:ETOH o? Current location:ED12? o? Identified substance use concern:? -? Support ? Intervention: o? Community resources provided o? Harm reduction discussion ? Plan: o? Follow up tomorrow? ? Additional information:RC met with PT and provided her with recovery services pamphlets, also discussed recovery meetings, among other services that are available in the community.
[2022-06-16 21:20] VITALS: BP 124/82; PULSE 95; RESP 15; TEMP 36.8; O2SAT 95
[2022-06-16] MEDS: diazePAM 2 MG TABLET 4 MG PO (22:02)
--- NOTE | 2022-06-16 22:03 | PC.NURSE ---
administered 4mg diazepam po per JUL; pt resting quietly while watching tv
--- NOTE | 2022-06-16 22:51 | PC.NURSE ---
Addendum entered by Gisela Graham 06/16/22 22:52: tylenol order held, not cancelled Original Note: pt sleeping, no apparent distress; per MD tylenol order cancelled
[2022-06-16 23:10] VITALS: BP 124/90; PULSE 98; RESP 20; TEMP 36.8; O2SAT 94
[2022-06-17 06:09] VITALS: BP 128/74; PULSE 96; RESP 16; TEMP 36.8; O2SAT 98
--- NOTE | 2022-06-17 09:37 | MHC.CM.NN ---
Patient remains in ER. [facility] can offer a bed. Still waiting to hear from [facility] and [facility]. T/W spoke with ROBBY LEUNG. Will receive Level 2 today. Attempted to meet with patient in regards to discharge planning. Patient is currently sleeping. Will attempt to meet again. Continue to monitor for d/c needs.
[2022-06-17] MEDS: amLODIPine Besylate 2.5 MG TABLET PO (10:13)
[2022-06-17] MEDS: DULoxetine HCl 60 MG CAPSULE.DR PO (10:13)
[2022-06-17] MEDS: Omeprazole 40 MG CAPSULE.DR PO (10:13)
--- NOTE | 2022-06-17 10:16 | PC.NURSE ---
patient resting comfortably in stretcher, given AM meds without issue, CIWA 0 at this time but will continue to monitor
--- NOTE | 2022-06-17 11:05 | MHC.CM.ED ---
Addendum entered by Justine Hopson 06/17/22 12:08: [facility] PASRR Level 2 obtained. Original Note[facility]. Met with patient in regards to discharge planning. [facility]. Continue to monitor for d/c needs.
--- NOTE | 2022-06-17 13:12 | MHC.CM.ED ---
Patient can leave for [facility] [place] via BLS at 4pm. [facility] booked. Med nec with chart. Patient, [facility] ASHBY and Sandra CULP aware. Continue to monitor for d/c needs.
[2022-06-17 14:54] VITALS: BP 121/93; PULSE 111; RESP 18; TEMP 36.9; O2SAT 96
--- NOTE | 2022-06-17 16:41 | PC.NURSE ---
RN to RN report given to Fabio, plan for transport to facility
== END 2022-06-17 16:44 | disposition skilled nursing facility (03) ==
PROVIDERS: Physician Assistant; Physician Assistant Medical; Emergency Provider Emergency Medicine Emergency Medical Services; PCP Family Medicine
DX: S82.891A Other fracture of right lower leg, initial encounter for closed fracture (principal); F10.10 Alcohol abuse, uncomplicated; R26.2 Difficulty in walking, not elsewhere classified; R53.1 Weakness; Y90.9 Presence of alcohol in blood, level not specified; W18.30XA Fall on same level, unspecified, initial encounter; Y93.9 Activity, unspecified; Y92.9 Unspecified place or not applicable; Y99.9 Unspecified external cause status; Z20.822 Contact with and (suspected) exposure to COVID-19; Z20.828 Contact with and (suspected) exposure to other viral communicable diseases; F17.210 Nicotine dependence, cigarettes, uncomplicated; Z71.6 Tobacco abuse counseling; Z79.899 Other long term (current) drug therapy
CPT/HCPCS: 0241U; 80053; 81003; 83735; 85025; 85610; 97162; 99285

== ENCOUNTER 2022-06-20 10:07 | Emergency (ER) | payer MEDICARE, SELFPAY ==
[2022-06-20 10:15] VITALS: BP 130/95; BP 151/87; PULSE 90; PULSE 99; RESP 16; TEMP 36.5; O2SAT 94; O2SAT 95; BMI 29.3
--- NOTE | 2022-06-20 10:22 | ED.GENADULT ---
HPI - General Adult General Chief complaint: General Medical Stated complaint: AMS per EMS Time Seen by Provider: 06/20/22 10:20 Source: patient Mode of arrival: EMS Limitations: no limitations History of Present Illness HPI narrative: Patient states that her roommate was up all night, this morning the facility had a difficult time waking up. Patient now feels that she is back to baseline, patient is currently taking trazadone, zyprexa and duloxetine. patient is adamant that she is not able to sleep because of her roommate. Related Data Home Medications Medication Instructions Recorded Confirmed acetaminophen 500 mg tablet 1,000 mg PO Q8H PRN Pain, Moderate 06/16/22 06/16/22 (Tylenol Extra Strength) cyclobenzaprine 10 mg tablet 10 mg PO BID PRN Muscle Spasm 06/16/22 06/16/22 diazepam 5 mg tablet 5 mg PO BID PRN Anxiety 06/16/22 06/16/22 diphenhydramine HCl 25 mg tablet 25 mg PO BEDTIME 06/16/22 06/16/22 pseudoephedrine HCl 30 mg tablet 30 mg PO Q4H PRN Congestion 06/16/22 06/16/22 trazodone 50 mg tablet 50 mg PO BEDTIME 06/16/22 06/16/22 Previous Rx's Medication Instructions Recorded amlodipine 2.5 mg tablet 2.5 mg PO DAILY 30 days #30 tabs 11/26/21 duloxetine 60 mg capsule,delayed 60 mg PO BID 30 days #60 caps 11/26/21 release furosemide 20 mg tablet 20 mg PO DAILY PRN edema 30 days 11/26/21 #30 tabs hydroxyzine HCl 25 mg tablet 25 mg PO Q6H PRN Anxiety 30 days 11/26/21 #60 tabs olanzapine 20 mg tablet (Zyprexa) 20 mg PO BEDTIME #30 tabs 11/26/21 omeprazole 40 mg capsule,delayed 40 mg PO DAILY@0630 30 days #30 11/26/21 release caps diazepam 5 mg tablet (Valium) 5 mg PO BID PRN anxiety #6 tabs 06/17/22 nitrofurantoin 100 mg PO BID #14 caps 06/20/22 monohydrate/macrocrystals 100 mg capsule (Macrobid) Allergies Allergy/AdvReac Type Severity Reaction Status Date / Time sulfamethoxazole Allergy Mild FEVER Verified 06/20/22 10:20 [From BACTRIM] trimethoprim [From BACTRIM] Allergy Mild FEVER Verified 06/20/22 10:20 cephalexin [Keflex] Allergy Unknown Unknown Verified 06/20/22 10:20 lorazepam [From ATIVAN] Allergy Unknown CONFUSION Verified 06/20/22 10:20 Sulfa (Sulfonamide Allergy Unknown Unknown Verified 06/20/22 10:20 Antibiotics) tramadol [Ultram] Allergy Unknown Unknown Verified 06/20/22 10:20 mold Allergy Unknown Unknown Uncoded 06/13/22 13:47 pollen Allergy Unknown Unknown Uncoded 06/13/22 13:47 Review of Systems Review of Systems: Yes all other systems are reviewed and are negative [facility] Past Medical History Medical History Hypertension Mood disorder Social History Social History Household Members: Other Household Members Other:: Cat Housing: House Do you presently have visiting nurse or other home services: No Alcohol intake: current Alcohol intake frequency: a few times a week Alcohol type: beer Patient Tobacco Use Status: Current someday Tobacco user Tobacco use type: Cigarette Smoked in Last 30 Days: No e-Cigarette/Vaping Use: Never Used Second Hand Smoke Exposure: No Use of substances other than those prescribed or required for medical reasons: No Advance Directives: Yes Advance Directives on File: Yes Advance Directives Date on File: 06/16/22 Sexual orientation: Straight/Heterosexual Physical Exam ED Vital Signs: Vital Signs - 24 hr 06/20/22 10:15 06/20/22 13:47 Temperature 97.7 F Pulse Rate 90 103 H Respiratory Rate 16 12 Blood Pressure 130/95 H 135/78 Pulse Oximetry 95 96 Oxygen Delivery Method Room Air Room Air BMI result Body Mass Index 29.3 Const Other: appears older than stated age Nutritional Appearance: average body habitus Orientation/consciousness: oriented to person and patient oriented x3 Limitations: no limitations HENMT Head: Yes normal to inspection Ears: external ears normal General nose exam: Normal external nose present Mouth: Normal oral and palatal mucosa present and oropharynx normal Throat: Yes posterior oropharynx normal Eyes General: appearance normal, both eyes and all related structures Neck Neck: Yes normal visual inspection Chest Chest palpation & inspection: normal inspection of the chest Resp Auscultation: clear to auscultation bilaterally Cardio Jugular venous distension: no JVD Rate: regular rate Rhythm: regular rhythm Heart sounds: S1 normal heart sound present and S2 normal heart sound present GI Inspection: Yes normal to inspection Palpation (GI): Soft to palpation, nontender and No hepatosplenomegaly present Auscultation: normal bowel sounds General: Yes no CVA tenderness Back/Spine/Pelvis Back: no CVA tenderness Skin General skin exam: no rashes or lesions noted Neuro General: oriented to person and patient oriented x3 Cranial nerves: Yes CN's II-XII intact bilaterally Motor exam (neuro): 5/5 motor strength present throughout Extrem General: Yes normal to inspection Psych Appearance: grossly normal Course Reevaluation(s) Reevaluation #1: awaiting labs patient wants to be discharged home Time: 15:39 Reevaluation #2: Patient with UTI will treat with macrobid Time: 15:40 Medical Decision Making Differential Diagnosis medication side effect, electrolyte abnormality, UTI, stroke were all considered Admission/Observation In a 71 year old patient with altered mental status, admission was considered Lab Data 06/20/22 10:39 06/20/22 10:39 Labs: Lab Results 06/20/22 06/20/22 06/20/22 Range/Units 10:39 10:39 14:31 WBC 4.4 L (4.8-10.8) X10*3/uL RBC 4.67 (4.20-5.50) X10*6/uL Hgb 14.4 (12.0-16.0) g/dl Hct 42.6 (37.0-47.0) % MCV 91.2 (80.0-98.0) fL MCH 30.8 (27.0-33.0) pg MCHC 33.8 (31.0-35.0) g/dl RDW 13.2 (11.0-16.0) % Plt Count 259 (160-400) X10*3/uL MPV 8.8 L (9.4-12.3) fL Immature Gran % (Auto) 0.2 (0.0-0.4) % Neut % (Auto) 59.2 (45-73) % Lymph % (Auto) 28.4 (20-40) % [place] % (Auto) 8.9 (2-11) % Eos % (Auto) 2.8 (0-4) % Baso % (Auto) 0.5 (0-2) % Lymph # (Auto) 1.2 (1.2-4.9) X10*3/uL [place] # (Auto) 0.4 (0.1-1.2) X10*3/uL Eos # (Auto) 0.1 (0.0-0.4) X10*3/uL Baso # (Auto) 0.0 (0.0-0.2) X10*3/uL Abs Immat Gran (auto) 0.01 (0.00-0.03) X10*3/uL Absolute Neuts (auto) 2.6 (2.0-8.3) x10*3/uL Absolute Nucleated RBC 0.000 (0.0-0.012) X10*3/uL Nucleated RBC % (auto) 0.0 (0.0-0.2) /100WBC Sodium 142 (135-145) mmol/L Potassium 4.3 (3.3-5.1) mmol/L Chloride 108 (96-108) mmol/L Carbon Dioxide 23 (22-29) mmol/L Anion Gap 15 (12-20) BUN 12 (9-16) mg/dL Creatinine 0.69 (0.5-1.4) mg/dL Estim Creat Clear Calc 82.1 Estimated GFR > 60 Random Glucose 115 (60-115) mg/dL Calcium 9.2 (8.4-10.2) mg/dL Urine Color Dark Yellow Urine Appearance Clear Urine pH 6.5 (5.0-9.0) Ur Specific [place] 1.020 (1.005-1.025) Urine Protein Negative (Neg-Trace) mg/dL Urine Glucose (UA) Negative (Negative) mg/dL Urine Ketones Trace (Negative) mg/dL Urine Blood Negative (Negative) Urine Nitrite Negative (Negative) Ur Leukocyte Esterase Small (1+) H (Negative) Urine RBC 0-2 (0-2) /HPF Urine WBC 11-20 H (0-5) /HPF Ur Squamous Epith Cells 3-5 (0-2) /HPF Urine Bacteria Trace (None Seen) Hyaline Casts 0-2 (0-2) /LPF Tests considered The following testing was considered but not selected: head Ct was considered but patient was at baseline upon arrival and non focal Social Determinants patient with history of alcoholism and psych which is affecting her medical care Discharge Plan Discharge Clinical Impression: Urinary tract infection, Altered mental status Patient Disposition: Home, Self-Care Instructions: Urinary Tract Infection in Older Adults (ED) Prescriptions: New nitrofurantoin monohyd/m-cryst [Macrobid] 100 mg capsule 100 mg PO BID Qty: 14 0RF Rx Instructions: must administer with a meal/food No Action amlodipine 2.5 mg Tablet 2.5 mg PO DAILY 30 Days Qty: 30 0RF Protocol: Hold for SBP< HOLD for SBP < : 90 omeprazole 40 mg Capsule,Delayed Release(Dr/Ec) 40 mg PO DAILY@0630 30 Days Qty: 30 0RF hydroxyzine HCl 25 mg Tablet 25 mg PO Q6H PRN (Reason: Anxiety) 30 Days Qty: 60 0RF furosemide 20 mg Tablet 20 mg PO DAILY PRN (Reason: edema) 30 Days Qty: 30 0RF Protocol: Hold for SBP< HOLD for SBP < : 90 duloxetine 60 mg Capsule,Delayed Release(Dr/Ec) 60 mg PO BID 30 Days Qty: 60 0RF olanzapine [Zyprexa] 20 mg tablet 20 mg PO BEDTIME Qty: 30 0RF diazepam 5 mg tablet 5 mg PO BID PRN (Reason: Anxiety) cyclobenzaprine 10 mg tablet 10 mg PO BID PRN (Reason: Muscle Spasm) diphenhydramine HCl 25 mg Tablet 25 mg PO BEDTIME pseudoephedrine HCl 30 mg Tablet 30 mg PO Q4H PRN (Reason: Congestion) Rx Instructions: DNExceed 4 doses/24h trazodone 50 mg tablet 50 mg PO BEDTIME acetaminophen [Tylenol Extra Strength] 500 mg tablet 1,000 mg PO Q8H PRN (Reason: Pain, Moderate) diazepam [Valium] 5 mg tablet 5 mg PO BID PRN (Reason: anxiety) Qty: 6 0RF Referrals: [facility] [Outside]
[2022-06-20 10:45] LABS: MANUAL DIFF FLAG NO
[2022-06-20 10:47] LABS: Basophils Percent Auto 0.5 % (0-2); Eosinophils Absolute Auto 0.1 X10*3/uL (0.0-0.4); Eosinophils Percent Auto 2.8 % (0-4); Hematocrit 42.6 % (37.0-47.0); Hemoglobin 14.4 g/dl (12.0-16.0); Imm Gran Abs Auto 0.01 X10*3/uL (0.00-0.03); Imm Gran Pct Auto 0.2 % (0.0-0.4); Lymphocytes Absolute Auto 1.2 X10*3/uL (1.2-4.9); Lymphocytes Percent Auto 28.4 % (20-40); Mean Corpuscular HGB Conc 33.8 g/dl (31.0-35.0); Mean Corpuscular Hemoglobin 30.8 pg (27.0-33.0); Mean Corpuscular Volume 91.2 fL (80.0-98.0); Mean Platelet Volume 8.8 fL (9.4-12.3); Monocytes Absolute Auto 0.4 X10*3/uL (0.1-1.2); Monocytes Percent Auto 8.9 % (2-11); Neutrophils Absolute Auto 2.6 x10*3/uL (2.0-8.3); Neutrophils Percent Auto 59.2 % (45-73); Platelet Count 259 X10*3/uL (160-400); Red Blood Count 4.67 X10*6/uL (4.20-5.50); Red Cell Distribution Width 13.2 % (11.0-16.0); White Blood Count 4.4 X10*3/uL (4.8-10.8)
--- NOTE | 2022-06-20 11:00 | PC.NURSE ---
pt is currently alert and oriented, skin pwd, respirations even and unlabored, no visible facial droop, hand grasp strong and equal, no drift, speech is clear
--- NOTE | 2022-06-20 11:49 | MHC.CM.ED ---
Received case management consult from Dr Shelton. Patient was d/c'd to [facility] on Monday. Patient returned to ER today due to AMS. Work up has been negative at this time. Patient states she wasn't able to sleep because of her roommate. Met with patient in regards to discharge planning. Patient doesn't want to return to rehab. She wants to return home. T/W explained patient doesn't have anyone at home to help her and that [facility] was worried about patient's safety. Patient is aware and still wants to return home. Patient also verbalizes understanding that [facility] may not accept patient back. Patient still feels she can safely return home. Dr Shelton aware. S transport will be arranged when patient is medically cleared for discharge. Continue to monitor for d/c needs.
[2022-06-20 12:30] LABS: Anion Gap 15 (12-20); Blood Urea Nitrogen 12 mg/dL (9-16); Calcium 9.2 mg/dL (8.4-10.2); Carbon Dioxide 23 mmol/L (22-29); Chloride 108 mmol/L (96-108); Creatinine Clr Calc Pharmacy 82.1; Estimated Glomerular Filt Rate > 60; Glucose Random 115 mg/dL (60-115); Potassium 4.3 mmol/L (3.3-5.1); Sodium 142 mmol/L (135-145)
[2022-06-20 13:47] VITALS: BP 135/78; PULSE 103; RESP 12; O2SAT 96
[2022-06-20 14:41] LABS: Appearance Urine Clear; Color Urine Dark Yellow; Glucose Urine UA Negative (Negative); Leukocyte Esterase Urine Small (1+) (Negative); Nitrite Urine Negative (Negative); PH 6.5 (5.0-9.0); UMIC TRIGGER UACC YES; Urine Blood Negative (Negative); Urine Ketones Trace mg/dL (Negative); Urine Protein Negative (Neg-Trace)
[2022-06-20 14:47] LABS: Bacteria Urine Trace (None Seen); Hyaline Casts Urine 0-2 /LPF (0-2); RBC Urine 0-2 /HPF (0-2); UACC Culture Trigger YES
[2022-06-20 15:54] VITALS: BP 146/87; PULSE 101; RESP 18; TEMP 36.6; O2SAT 94
[2022-06-20] MEDS: Nitrofurantoin Monohyd/M-Cryst 100 MG CAPSULE PO (16:03)
--- NOTE | 2022-06-20 17:18 | PC.NURSE ---
REPORT GIVEN TO COLEMAN AT [facility]
== END 2022-06-20 18:33 | disposition skilled nursing facility (03) ==
PROVIDERS: Emergency Provider Emergency Medicine; PCP Family Medicine
DX: R41.82 Altered mental status, unspecified (principal); N39.0 Urinary tract infection, site not specified; I10 Essential (primary) hypertension; F17.210 Nicotine dependence, cigarettes, uncomplicated; Z79.899 Other long term (current) drug therapy
CPT/HCPCS: 36415; 80048; 81001; 85025; 87086; 99284

== ENCOUNTER 2022-07-18 11:04 | Emergency (ER) | payer MEDICARE, SELFPAY | END 2022-07-18 12:13 | disposition left against medical advice (07) | PROVIDERS: Emergency Provider Emergency Medicine | DX: Z04.9 Encounter for examination and observation for unspecified reason (principal) ==

== ENCOUNTER 2022-07-19 12:50 | Outpatient (REF) | payer MEDICARE, SELFPAY ==
--- NOTE | ~2022-07-19 | XR_ITS ---
EXAMINATION: XR ANKLE, RIGHT CLINICAL INFORMATION: Pain COMPARISON: 06/13/2022 TECHNIQUE: AP, lateral, and mortise views of the right ankle. FINDINGS: There is a healing oblique distal fibular fracture. Increased callus formation. Alignment maintained. The ankle mortise is congruent. There is circumferential soft tissue swelling which is greatest laterally. No ankle joint effusion. XR/XR ankle RT min 3V IMPRESSION: Healing distal fibular fracture with appropriate alignment. Soft tissue swelling.
== END 2022-07-19 12:51 | disposition home or self-care (01) ==
LOC: HO.HOSX 12:50
PROVIDERS: Visit Provider Physician Assistant
DX: S82.831A Other fracture of upper and lower end of right fibula, initial encounter for closed fracture (principal)
CPT/HCPCS: 73610; 99212

== ENCOUNTER 2022-08-31 10:22 | Outpatient (REF) | payer MEDICARE, SELFPAY | END 2022-08-31 10:23 | disposition home or self-care (01) | LOC: HO.HOSX 10:22 | PROVIDERS: Visit Provider Physician Assistant | DX: Z13.89 Encounter for screening for other disorder (principal) ==

== ENCOUNTER 2022-09-06 09:00 | Outpatient (RCR) | payer MEDICARE, SELFPAY ==
--- NOTE | 2022-08-12 12:00 | MHC.PT.EP ---
[facility] [place] Office [place] Office [place] Office [address] Vito Watt [address] [phone] F: [phone] F: [phone] F: [phone] F: [phone] Physical Therapy Plan of Care Date of Evaluation: Date of Surgery: n/a Diagnosis: fx of distal end of R fibula Assessment: Patient is a 71 year old female presenting to PT with distal R fibula fx due to tripping and falling on a cord. She presents today with impairments in pain, ROM, ankle strength, balance, gait mechanics. 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 Pt expresses continuous churn buttermaker goal of improving balance, and is motivated to work towards this in PT. Clinical presentation today is most consistent with signs and sx associated with R distal fibula fx and pt will benefit from skilled PT 2 week x 8 weeks to address the following problems and impairments noted upon evaluation: pain, ROM, ankle strength, balance, gait mechanics. These problems limit the patient with the following functional activities: ambulating, ADLs, stair negotiation. The prescribed treatment plan of care is medically necessary. Co-morbidities of HTN, hx alcohol abuse were identified and taken into considerations of plan of care. Pt was educated on HEP, role of PT, prognosis, POC. Frequency and Duration: The patient will be seen 2 x week x 8 weeks Short Term Goals: Pt will demonstrate improved R ankle ROM to equal B in 4 weeks. Pt will demonstrate improved R ankle MMT strength to at least 3 out of 5 in 4 weeks. Pt will demonstrate hip MMT strength at least 4/5 in 4 weeks for improved lumbopelvic stability. Senior Care Goals: Pt will demonstrate ability to perform SLS x 10 sec out of boot in 6 weeks pending MD clearance for improved balance. Pt will demonstrate R ankle MMT strength at least 4/5 in 7 weeks. Pt will demonstrate improved LEFI score by 9 points in 8 weeks for improved functional mobility. Pt will demonstrate ability to ambulate without the boot pending MD clearance in 8 weeks with min to no pain. Pt will demonstrate ability to negotiate stairs with with min to no pain and no boot in 8 weeks for return to PLOF. Treatment Plan: Modalities to reduce pain, spasms and effusion. Manual therapy to restore motion and function. Therapeutic exercise to improve strength and flexibility. Neuromuscular re-education for posture and balance. Therapeutic activities to return to functional activities of daily living. Electronically signed by: Marcelina Neal, PT, DPT, ATC Please sign and return to therapist. Thank you for your referral.
--- NOTE | 2022-09-09 10:30 | MHC.PT.DC ---
[facility] [place] Office [place] Office [place] Office [address] Vito Watt [address] [phone] F: [phone] F: [phone] F: [phone] F: [phone] Physical Therapy Discharge Report Diagnosis: fx of distal end of R fibula Date of Surgery: n/a Date of Evaluation: 08/12/22 Date of Discharge: 09/09/22 Treatments to Date: 5 Cancellations to Date: 1 No Shows to Date: 3 Discharge Status: Visit Non-compliance Discharge Summary: Pt has failed to comply with [facility] attendance policy and no showed 3 visits. Pt to be d/c per our policy. Electronically signed by: Marcelina Neal PT, DPT, ATC Please sign and return to therapist. Thank you for your referral.
== END 2022-09-09 10:30 | disposition home or self-care (01) ==
LOC: HO.PTCHIC 09:00
PROVIDERS: PCP Family Medicine; Visit Provider Physician Assistant
DX: S82.831A Other fracture of upper and lower end of right fibula, initial encounter for closed fracture (principal)
CPT/HCPCS: 97110; 97161

== ENCOUNTER 2022-09-14 13:56 | Outpatient (REF) | payer MEDICARE, SELFPAY ==
--- NOTE | ~2022-09-14 | XR_ITS ---
EXAMINATION: XR ANKLE, RIGHT CLINICAL INFORMATION: Fracture COMPARISON: Previous x-ray June 2022 TECHNIQUE: AP, lateral, and mortise views of the right ankle. FINDINGS: There is a healing fracture of the distal shaft of the fibula with increasing bony callus formation. Fracture line is still seen but appears more obscured. Alignment is unchanged. No other fracture. The ankle mortise is normal. There is a small calcaneal spur at the Achilles tendon insertion. Degenerative changes at the talar navicular joint. XR/XR ankle RT min 3V IMPRESSION: Healing distal fibular shaft fracture.
== END 2022-09-14 13:57 | disposition home or self-care (01) ==
LOC: HO.HOSX 13:56
PROVIDERS: Visit Provider Physician Assistant
DX: S82.831D Other fracture of upper and lower end of right fibula, subsequent encounter for closed fracture with routine healing (principal); X58.XXXD Exposure to other specified factors, subsequent encounter
CPT/HCPCS: 73610

== ENCOUNTER 2022-10-09 10:11 | Inpatient (IN) | payer MEDICARE, SELFPAY ==
[2022-10-09] VITALS (7 sets, daily range): BP systolic 128–167; BP diastolic 59–106; PULSE 60–123; RESP 14–23; TEMP 36.3–36.9; O2SAT 87–95; BMI 28.0
--- NOTE | 2022-10-09 | ECG_ITS ---
Test Reason : CHEST PAIN Blood Pressure : / mmHG Vent. Rate : 089 BPM Atrial Rate : 089 BPM P-R Int : 200 ms QRS Dur : 096 ms QT Int : 446 ms P-R-T Axes : 071 -23 078 degrees QTc Int : 542 ms Sinus rhythm with PACs Incomplete right bundle branch block Possible Inferior infarct (cited on or before 17-JUN-2018) Prolonged QT Abnormal ECG When compared with ECG of 28-DEC-2021 12:01, No significant change was found Referred By: Jesu Leos Electronically Signed By:Randell Hines
--- NOTE | ~2022-10-09 | XR_ITS ---
EXAMINATION: XR CHEST CLINICAL INFORMATION: Chest pain. COMPARISON: None available. TECHNIQUE: 2 views of the chest were obtained. FINDINGS: No significant abnormality is noted involving the heart, lungs, mediastinum, bony thorax or soft tissues. Incidental note is made of contour abnormality involving the right upper thoracic cage and the medial superior border of the right scapula, may represent old posttraumatic versus congenital changes. Postsurgical changes within the lower cervical visualized spine. XR/XR chest 2V IMPRESSION: No radiographic evidence of acute cardiopulmonary disease.
--- NOTE | 2022-10-09 10:24 | ED_ITS ---
HPI - Psych General Chief Complaint: Chest Pain Stated Complaint: Anxiety per EMS Time Seen by Provider: 10/09/22 10:14 Source: patient and EMS Mode of arrival: EMS Limitations: no limitations History of Present Illness HPI Narrative: This is a 72-year-old female who has a history of anxiety, depression, endometriosis, chronic back and abdominal pain who presents to the ER with complaints of chest pressure which began several hours prior to arrival with palpitations and shortness of breath which occurred while the patient was getting dressed for the day. Patient reports she feels anxious. She tells me she has had increasing feelings of anxiety over the last few days. She tells me these these symptoms are typical for her anxiety. She denies any depression, SI or HI. No associated cough, fever, dizziness, vomiting, diaphoresis. Symptoms are not worsened with exertion. Patient denies any substance use or smoking history. Patient does drink alcohol daily. Patient reports she drinks 4-5 mixed drinks with vodka daily. She did have 1 vodka soda before coming in today. No leg swelling or pain. No recent travel or sick contact. No OCP or estrogen use. Per patient she has a psychiatrist (Dr Mccarthy) and a therapist (Celine Landaverde) who she is touch with. No recent changes in her medication however, she ran out of her valium (5mg daily prn) on 10/06 and has not picked up a new script. Related Data Home Medications Medication Instructions Recorded Confirmed acetaminophen 500 mg tablet 1,000 mg PO Q8H PRN Pain, Moderate 06/16/22 06/16/22 (Tylenol Extra Strength) cyclobenzaprine 10 mg tablet 10 mg PO BID PRN Muscle Spasm 06/16/22 06/16/22 diazepam 5 mg tablet 5 mg PO BID PRN Anxiety 06/16/22 06/16/22 diphenhydramine HCl 25 mg tablet 25 mg PO BEDTIME 06/16/22 06/16/22 pseudoephedrine HCl 30 mg tablet 30 mg PO Q4H PRN Congestion 06/16/22 06/16/22 trazodone 50 mg tablet 50 mg PO BEDTIME 06/16/22 06/16/22 Previous Rx's Medication Instructions Recorded amlodipine 2.5 mg tablet 2.5 mg PO DAILY 30 days #30 tabs 11/26/21 duloxetine 60 mg capsule,delayed 60 mg PO BID 30 days #60 caps 11/26/21 release furosemide 20 mg tablet 20 mg PO DAILY PRN edema 30 days 11/26/21 #30 tabs hydroxyzine HCl 25 mg tablet 25 mg PO Q6H PRN Anxiety 30 days 11/26/21 #60 tabs olanzapine 20 mg tablet (Zyprexa) 20 mg PO BEDTIME #30 tabs 11/26/21 omeprazole 40 mg capsule,delayed 40 mg PO DAILY@0630 30 days #30 11/26/21 release caps diazepam 5 mg tablet (Valium) 5 mg PO BID PRN anxiety #6 tabs 06/17/22 nitrofurantoin 100 mg PO BID #14 caps 06/20/22 monohydrate/macrocrystals 100 mg capsule (Macrobid) Allergies Allergy/AdvReac Type Severity Reaction Status Date / Time sulfamethoxazole Allergy Mild FEVER Verified 10/09/22 11:12 [From BACTRIM] trimethoprim [From BACTRIM] Allergy Mild FEVER Verified 10/09/22 11:12 cephalexin [Keflex] Allergy Unknown Unknown Verified 10/09/22 11:12 Sulfa (Sulfonamide Allergy Unknown Unknown Verified 10/09/22 11:12 Antibiotics) tramadol [Ultram] Allergy Unknown Unknown Verified 10/09/22 11:12 mold Allergy Unknown Unknown Uncoded 10/09/22 11:12 pollen Allergy Unknown Unknown Uncoded 10/09/22 11:12 Review of Systems Review of Systems: Yes all other systems are reviewed and are negative Constitutional: Constitutional: Reports no additional constitutional complaints, Denies body ache(s), Denies chills, Denies fever(s), Denies headache(s) and Denies weakness Eyes: Eyes: Reports no additional eye complaints and Denies change in vision ENT: Reports system reviewed and no additional complaints, except as documented, Denies dizziness, Denies headache(s), Denies nasal congestion, Denies nasal discharge and Denies neck pain Cardiovascular: Cardiovascular: Reports no additional cardiovascular complaints, Reports chest pain, Denies leg edema, Reports palpitations and Reports dyspnea Respiratory: Respiratory: Reports no additional respiratory complaints, Denies cough and Reports dyspnea Gastrointestinal: Gastrointestinal: Reports no additional gastrointestinal complaints, Denies abdominal pain, Denies diarrhea, Denies nausea and Denies vomiting Genitourinary: Genitourinary: Reports no additional female genitourinary complaints and Denies urinary incontinence Musculoskeletal: Musculoskeletal: Reports no additional musculoskeletal complaints, Denies back pain, Denies arthralgias, Denies joint swelling, Denies neck pain, Denies numbness and Denies tingling Integumentary/Breasts: Skin/Breast: Reports system reviewed and no additional complaints, except as docu and Denies rash Neurologic: Reports system reviewed and no additional complaints, except as documented, Denies Abnormal speech present, Denies dizziness, Denies headache(s), Denies numbness, Denies tingling and Denies weakness Psychiatric: Psychiatric: Reports anxiety, Denies depression, Denies homicidal ideation and Denies suicidal ideation Endocrine: Endocrine: Reports palpitations PMFSH Past Medical History Attestation statement: The following information was validated with the patient. Source: old records reviewed and nursing notes reviewed Medical History Hypertension Mood disorder Social History Social History Household Members: Other Household Members Other:: Cat Housing: House Do you presently have visiting nurse or other home services: No Alcohol intake: current Alcohol intake frequency: 0-2 drinks per day Alcohol type: beer and hard liquor Patient Tobacco Use Status: Current someday Tobacco user Tobacco use type: Cigarette Smoked in Last 30 Days: No e-Cigarette/Vaping Use: Never Used Second Hand Smoke Exposure: No Use of substances other than those prescribed or required for medical reasons: No Advance Directives: Yes Advance Directives on File: Yes Advance Directives Date on File: 06/16/22 Sexual orientation: Straight/Heterosexual Physical Exam Vital Signs: Vital Signs: Last Vital Signs Temp 98.2 F 10/09/22 15:33 Pulse 118 H 10/09/22 15:33 Resp 20 10/09/22 15:33 BP 167/106 H 10/09/22 15:33 Pulse Ox 95 10/09/22 15:33 O2 Del Method Room Air 10/09/22 15:33 BMI result Body Mass Index 28.0 Const: General: cooperative, healthy appearing, comfortable and no acute distress Orientation/consciousness: patient oriented x3 Limitations: no limitations HEENT: Head: Yes normal to inspection Ears: hearing grossly normal bilaterally General nose exam: Normal external nose present Face and sinus: Yes normal facial exam Mouth: Normal oral and palatal mucosa present Throat: Yes posterior oropharynx normal Eyes: General: appearance normal, both eyes and all related structures Pupils: Equal, round and reactive pupils present Neck: Neck: Yes normal visual inspection Chest: Chest palpation & inspection: normal inspection of the chest Resp: Effort & Inspection: normal respiratory effort Auscultation: clear to auscultation bilaterally Cardio: Rate: regular rate Rhythm: regular rhythm Peripheral pulses: Peripheral pulses 2+ throughout GI: Inspection: Yes normal to inspection Palpation (GI): Soft to palpation and nontender Auscultation: normal bowel sounds Back/Spine/Pelvis: Thoracic/Lumbar Spine: thoracic and lumbar spine normal to inspection Skin: General skin exam: no rashes or lesions noted Neuro: General: patient oriented x3, no focal motor deficits and normal sensation to monofilament Cranial nerves: Yes Equal, round and reactive pupils present Cognition (Neuro): normal cognition Speech: No Abnormal speech present Gait exam (Neuro): Normal gait present Motor exam (neuro): 5/5 motor strength present throughout Extrem: General: Yes normal to inspection, Yes no pedal edema and Yes no calf tenderness Course Course Course Narrative: Labs show mild anion gap acidosis. Mildly elevated AST and ALT likely secondary to alcohol use. Troponin is indeterminate 17. Will plan for repeat troponin. Patient receive 1 L of IV fluids. Clinically she appears dry. Requesting medication for anxiety. Will give dose of valium which she had been prescribed at home but ran out. Once medically cleared will consult CARE team. Reevaluation(s) Reevaluation #1: 1400-repeat troponin pending. CIWA 11. May be combination of alcohol withdrawal as well as benzo withdrawal. Patient will be treated with lorazepam IV Reevaluation #2: 1430-repeat troponin is unchanged. Low concern for ACS. Reevaluation #3: 1530-patient with care team. No need for inpatient level of care for psych. I do feel the patient's symptoms are likely secondary to her chronic alcohol use. I do feel that she is having alcohol withdrawal. I do not feel that she needs to be admitted to the hospital for her withdrawal symptoms. I do think that she would benefit from detox. Patient is willing to speak to care team about potential detox placement Additional Reevaluation(s): 1600-Sign out to [facility] pending possible detox placement. Medications Administered Discontinued Medications Generic Name Dose Route Start Last Admin Trade Name Madelin PRN Reason Stop Dose Admin Acetaminophen 975 mg 10/09/22 15:35 10/09/22 16:12 Acetaminophen 325 Mg Tablet PO 10/09/22 15:36 975 mg ONCE ONE Administration Diazepam 2 mg 10/09/22 11:57 10/09/22 12:03 Diazepam 2 Mg Tablet PO 10/09/22 11:58 2 mg ONCE ONE Administration Sodium Chloride 1,000 mls @ 999 mls/hr 10/09/22 11:38 10/09/22 13:05 Ns IV 10/09/22 12:38 Infused .Q1H1M STA Infusion Lorazepam 2 mg 10/09/22 13:58 10/09/22 14:16 Lorazepam 2 Mg/Ml Vial IVPUSH 10/09/22 13:59 2 mg ONCE ONE Administration Medical Decision Making Medical Decision Making [facility] Narrative: 72-year-old female here with complaints of several hours chest pressure, palpitations, shortness of breath and feeling anxious. On arrival vitals are stable. Of note patient did have several alcoholic beverages prior to arrival and has been drinking daily. +etoh on breath Will obtain EKG, labs, chest x-ray Differential Diagnosis Differential Diagnoses: The differential diagnosis associated with the presentation includes ACS, dissection, PE, anxiety -doubt PE-perc is negative -doubt ACS-symptoms are not exertional. Patient has had symptoms since this morning with two negative troponins and a normal EKG. Lab Data [facility] Lab Attestation statement: I reviewed the patient's lab results. 10/09/22 10:56 10/09/22 10:56 Labs: Lab Results 10/09/22 10/09/22 10/09/22 Range/Units 10:56 10:56 10:56 WBC 8.2 (4.8-10.8) X10*3/uL RBC 4.89 (4.20-5.50) X10*6/uL Hgb 15.1 (12.0-16.0) g/dl Hct 43.9 (37.0-47.0) % MCV 89.8 (80.0-98.0) fL MCH 30.9 (27.0-33.0) pg MCHC 34.4 (31.0-35.0) g/dl RDW 15.3 (11.0-16.0) % Plt Count 147 L D (160-400) X10*3/uL MPV 9.9 (9.4-12.3) fL Immature Gran % (Auto) 0.2 (0.0-0.4) % Neut % (Auto) 79.6 H (45-73) % Lymph % (Auto) 14.6 L (20-40) % [place] % (Auto) 5.3 (2-11) % Eos % (Auto) 0.1 (0-4) % Baso % (Auto) 0.2 (0-2) % Lymph # (Auto) 1.2 (1.2-4.9) X10*3/uL [place] # (Auto) 0.4 (0.1-1.2) X10*3/uL Eos # (Auto) 0.0 (0.0-0.4) X10*3/uL Baso # (Auto) 0.0 (0.0-0.2) X10*3/uL Abs Immat Gran (auto) 0.02 (0.00-0.03) X10*3/uL Absolute Neuts (auto) 6.5 (2.0-8.3) x10*3/uL Absolute Nucleated RBC 0.000 (0.0-0.012) X10*3/uL Nucleated RBC % (auto) 0.0 (0.0-0.2) /100WBC PT (10.0-13.1) SEC INR (0.9-1.1) Sodium 144 (135-145) mmol/L Potassium 4.1 (3.3-5.1) mmol/L Chloride 104 (96-108) mmol/L Carbon Dioxide 19 L (22-29) mmol/L Anion Gap 25 H (12-20) BUN 15 (9-16) mg/dL Creatinine 0.76 (0.5-1.4) mg/dL Estim Creat Clear Calc 74.4 Estimated GFR > 60 Random Glucose 90 (60-115) mg/dL Calcium 8.5 D (8.4-10.2) mg/dL Magnesium 1.6 (1.6-2.6) mg/dL Total Bilirubin 0.6 (0.0-1.0) mg/dL Direct Bilirubin 0.2 (0.0-0.5) mg/dL AST 178 H (5-31) U/L ALT 59 H (0-31) U/L Alkaline Phosphatase 86 (39-117) U/L Troponin I High Sens 17.8 H (<3.5-17.0) ng/L Total Protein 6.9 (6.5-8.0) g/dL Albumin 4.0 (3.5-5.0) g/dL Urine Opiates Screen (Not Detect) Urine Fentanyl Screen (Not Detect) Ur Barbiturates Screen (Not Detect) Ur Phencyclidine Scrn (Not Detect) Ur Amphetamines Screen (Not Detect) U Benzodiazepines Scrn (Not Detect) Urine Cocaine Screen (Not Detect) U Marijuana (THC) Screen (Not Detect) Ethyl Alcohol mg/dL 10/09/22 10/09/22 10/09/22 Range/Units 10:56 10:56 12:29 WBC (4.8-10.8) X10*3/uL RBC (4.20-5.50) X10*6/uL Hgb (12.0-16.0) g/dl Hct (37.0-47.0) % MCV (80.0-98.0) fL MCH (27.0-33.0) pg MCHC (31.0-35.0) g/dl RDW (11.0-16.0) % Plt Count (160-400) X10*3/uL MPV (9.4-12.3) fL Immature Gran % (Auto) (0.0-0.4) % Neut % (Auto) (45-73) % Lymph % (Auto) (20-40) % [place] % (Auto) (2-11) % Eos % (Auto) (0-4) % Baso % (Auto) (0-2) % Lymph # (Auto) (1.2-4.9) X10*3/uL [place] # (Auto) (0.1-1.2) X10*3/uL Eos # (Auto) (0.0-0.4) X10*3/uL Baso # (Auto) (0.0-0.2) X10*3/uL Abs Immat Gran (auto) (0.00-0.03) X10*3/uL Absolute Neuts (auto) (2.0-8.3) x10*3/uL Absolute Nucleated RBC (0.0-0.012) X10*3/uL Nucleated RBC % (auto) (0.0-0.2) /100WBC PT 11.3 (10.0-13.1) SEC INR 1.0 (0.9-1.1) Sodium (135-145) mmol/L Potassium (3.3-5.1) mmol/L Chloride (96-108) mmol/L Carbon Dioxide (22-29) mmol/L Anion Gap (12-20) BUN (9-16) mg/dL Creatinine (0.5-1.4) mg/dL Estim Creat Clear Calc Estimated GFR Random Glucose (60-115) mg/dL Calcium (8.4-10.2) mg/dL Magnesium (1.6-2.6) mg/dL Total Bilirubin (0.0-1.0) mg/dL Direct Bilirubin (0.0-0.5) mg/dL AST (5-31) U/L ALT (0-31) U/L Alkaline Phosphatase (39-117) U/L Troponin I High Sens (<3.5-17.0) ng/L Total Protein (6.5-8.0) g/dL Albumin (3.5-5.0) g/dL Urine Opiates Screen Not Detected (Not Detect) Urine Fentanyl Screen Not Detected (Not Detect) Ur Barbiturates Screen Not Detected (Not Detect) Ur Phencyclidine Scrn Not Detected (Not Detect) Ur Amphetamines Screen Not Detected (Not Detect) U Benzodiazepines Scrn POSITIVE H (Not Detect) Urine Cocaine Screen Not Detected (Not Detect) U Marijuana (THC) Screen Not Detected (Not Detect) Ethyl Alcohol 193 mg/dL 10/09/22 Range/Units 13:49 WBC (4.8-10.8) X10*3/uL RBC (4.20-5.50) X10*6/uL Hgb (12.0-16.0) g/dl Hct (37.0-47.0) % MCV (80.0-98.0) fL MCH (27.0-33.0) pg MCHC (31.0-35.0) g/dl RDW (11.0-16.0) % Plt Count (160-400) X10*3/uL MPV (9.4-12.3) fL Immature Gran % (Auto) (0.0-0.4) % Neut % (Auto) (45-73) % Lymph % (Auto) (20-40) % [place] % (Auto) (2-11) % Eos % (Auto) (0-4) % Baso % (Auto) (0-2) % Lymph # (Auto) (1.2-4.9) X10*3/uL [place] # (Auto) (0.1-1.2) X10*3/uL Eos # (Auto) (0.0-0.4) X10*3/uL Baso # (Auto) (0.0-0.2) X10*3/uL Abs Immat Gran (auto) (0.00-0.03) X10*3/uL Absolute Neuts (auto) (2.0-8.3) x10*3/uL Absolute Nucleated RBC (0.0-0.012) X10*3/uL Nucleated RBC % (auto) (0.0-0.2) /100WBC PT (10.0-13.1) SEC INR (0.9-1.1) Sodium (135-145) mmol/L Potassium (3.3-5.1) mmol/L Chloride (96-108) mmol/L Carbon Dioxide (22-29) mmol/L Anion Gap (12-20) BUN (9-16) mg/dL Creatinine (0.5-1.4) mg/dL Estim Creat Clear Calc Estimated GFR Random Glucose (60-115) mg/dL Calcium (8.4-10.2) mg/dL Magnesium (1.6-2.6) mg/dL Total Bilirubin (0.0-1.0) mg/dL Direct Bilirubin (0.0-0.5) mg/dL AST (5-31) U/L ALT (0-31) U/L Alkaline Phosphatase (39-117) U/L Troponin I High Sens 19.8 H (<3.5-17.0) ng/L Total Protein (6.5-8.0) g/dL Albumin (3.5-5.0) g/dL Urine Opiates Screen (Not Detect) Urine Fentanyl Screen (Not Detect) Ur Barbiturates Screen (Not Detect) Ur Phencyclidine Scrn (Not Detect) Ur Amphetamines Screen (Not Detect) U Benzodiazepines Scrn (Not Detect) Urine Cocaine Screen (Not Detect) U Marijuana (THC) Screen (Not Detect) Ethyl Alcohol mg/dL Independent Interpretation I performed an independent interpretation of an: EKG and Plain X-Ray Interpretation: I independently reviewed the x-ray and agree with radiologist's report I independently reviewed the EKG which shows normal sinus rhythm with sinus arrhythmia, prolonged QT, normal AK, normal QRS Radiology Impression Discussion of test interpretation with radiology: I have reviewed the radiologist's reading. Radiologist Impression: Launch?Image [place] [id number] XRay Report Signed Patient: Anahi Rucker MR#: [id number] : 1950 Acct:[id number] Age/Sex: 72 / F ADM Date: 10/09/22 Loc: .ED Attending Dr: Ordering Physician: Beth Dong NP Date of Service: 10/09/22 Procedure(s): XR chest 2V Accession Number(s): [id number] cc: Beth Dong NP~ EXAMINATION: XR CHEST CLINICAL INFORMATION: Chest pain. COMPARISON: None available. TECHNIQUE: 2 views of the chest were obtained. FINDINGS: No significant abnormality is noted involving the heart, lungs, mediastinum, bony thorax or soft tissues. Incidental note is made of contour abnormality involving the right upper thoracic cage and the medial superior border of the right scapula, may represent old posttraumatic versus congenital changes. Postsurgical changes within the lower cervical visualized spine. XR/XR chest 2V IMPRESSION: No radiographic evidence of acute cardiopulmonary disease. Discharge Plan Discharge Clinical Impression: Atypical chest pain, Anxiety, Alcohol intoxication Patient Disposition: Still a Patient Prescriptions: No Action nitrofurantoin monohyd/m-cryst [Macrobid] 100 mg capsule 100 mg PO BID Qty: 14 0RF Rx Instructions: must administer with a meal/food amlodipine 2.5 mg Tablet 2.5 mg PO DAILY 30 Days Qty: 30 0RF Protocol: Hold for SBP< HOLD for SBP < : 90 omeprazole 40 mg Capsule,Delayed Release(Dr/Ec) 40 mg PO DAILY@0630 30 Days Qty: 30 0RF hydroxyzine HCl 25 mg Tablet 25 mg PO Q6H PRN (Reason: Anxiety) 30 Days Qty: 60 0RF furosemide 20 mg Tablet 20 mg PO DAILY PRN (Reason: edema) 30 Days Qty: 30 0RF Protocol: Hold for SBP< HOLD for SBP < : 90 duloxetine 60 mg Capsule,Delayed Release(Dr/Ec) 60 mg PO BID 30 Days Qty: 60 0RF olanzapine [Zyprexa] 20 mg tablet 20 mg PO BEDTIME Qty: 30 0RF diazepam 5 mg tablet 5 mg PO BID PRN (Reason: Anxiety) cyclobenzaprine 10 mg tablet 10 mg PO BID PRN (Reason: Muscle Spasm) diphenhydramine HCl 25 mg Tablet 25 mg PO BEDTIME pseudoephedrine HCl 30 mg Tablet 30 mg PO Q4H PRN (Reason: Congestion) Rx Instructions: DNExceed 4 doses/24h trazodone 50 mg tablet 50 mg PO BEDTIME acetaminophen [Tylenol Extra Strength] 500 mg tablet 1,000 mg PO Q8H PRN (Reason: Pain, Moderate) diazepam [Valium] 5 mg tablet 5 mg PO BID PRN (Reason: anxiety) Qty: 6 0RF
[2022-10-09 11:00] LABS: MANUAL DIFF FLAG NO
[2022-10-09 11:01] LABS: Basophils Percent Auto 0.2 % (0-2); Eosinophils Percent Auto 0.1 % (0-4); Hematocrit 43.9 % (37.0-47.0); Hemoglobin 15.1 g/dl (12.0-16.0); Imm Gran Abs Auto 0.02 X10*3/uL (0.00-0.03); Imm Gran Pct Auto 0.2 % (0.0-0.4); Lymphocytes Absolute Auto 1.2 X10*3/uL (1.2-4.9); Lymphocytes Percent Auto 14.6 % (20-40); Mean Corpuscular HGB Conc 34.4 g/dl (31.0-35.0); Mean Corpuscular Hemoglobin 30.9 pg (27.0-33.0); Mean Corpuscular Volume 89.8 fL (80.0-98.0); Mean Platelet Volume 9.9 fL (9.4-12.3); Monocytes Absolute Auto 0.4 X10*3/uL (0.1-1.2); Monocytes Percent Auto 5.3 % (2-11); Neutrophils Absolute Auto 6.5 x10*3/uL (2.0-8.3); Neutrophils Percent Auto 79.6 % (45-73); Platelet Count 147 X10*3/uL (160-400); Red Blood Count 4.89 X10*6/uL (4.20-5.50); Red Cell Distribution Width 15.3 % (11.0-16.0); White Blood Count 8.2 X10*3/uL (4.8-10.8)
[2022-10-09 11:07] LABS: Prothrombin Time 11.3 SEC (10.0-13.1)
[2022-10-09 11:17] LABS: Ethanol 193 mg/dL
[2022-10-09 11:22] LABS: Troponin-I High Sensitivity 17.8 ng/L (<3.5-17.0)
[2022-10-09 11:33] LABS: Alanine Aminotransferase 59 U/L (0-31); Alkaline Phosphatase 86 U/L (39-117); Anion Gap 25 (12-20); Aspartate Amino Transferase 178 U/L (5-31); Bilirubin Direct 0.2 mg/dL (0.0-0.5); Bilirubin Total 0.6 mg/dL (0.0-1.0); Blood Urea Nitrogen 15 mg/dL (9-16); Calcium 8.5 mg/dL (8.4-10.2); Carbon Dioxide 19 mmol/L (22-29); Chloride 104 mmol/L (96-108); Creatinine Clr Calc Pharmacy 74.4; Estimated Glomerular Filt Rate > 60; Glucose Random 90 mg/dL (60-115); Magnesium 1.6 mg/dL (1.6-2.6); Potassium 4.1 mmol/L (3.3-5.1); Sodium 144 mmol/L (135-145); Total Protein 6.9 g/dL (6.5-8.0)
[2022-10-09] MEDS: 0.9 % Sodium Chloride 1,000 ML 999 ML IV ×2 (12:03→16:59)
[2022-10-09] MEDS: diazePAM 2 MG TABLET PO (12:03)
[2022-10-09 12:49] LABS: Amphetamine Screen Urine Not Detected (Not Detect); Barbiturates, Urine Not Detected (Not Detect); Benzodiazepines Screen Urine POSITIVE (Not Detect); Cannabinoid Screen Urine Not Detected (Not Detect); Cocaine Screen Urine Not Detected (Not Detect); Fentanyl, urine Not Detected (Not Detect); Opiate Screen Urine Not Detected (Not Detect); Phencyclidine Screen Urine Not Detected (Not Detect)
[2022-10-09] MEDS: LORazepam 2 MG/ML VIAL IVPUSH (14:16)
[2022-10-09 14:20] LABS: Troponin-I High Sensitivity 19.8 ng/L (<3.5-17.0)
--- NOTE | 2022-10-09 14:54 | PC.NURSE ---
CARE team at bedside
--- NOTE | 2022-10-09 15:49 | MHC.RECOVRN ---
Addendum entered by Vicky Henning 10/09/22 15:58: [facility] does not have bed availability, [facility] in [place] does . Original Note: Notified by CARE Team pt is interested in ATS. Reached out to Ray at [facility] due to pt having [facility], however, [facility] only accepts [facility] Medicaid not Medicare. [facility] accepts this policy, awaiting notification of bed availability.
[2022-10-09] MEDS: Acetaminophen 325 MG TABLET 975 MG PO (16:12)
[2022-10-09] MEDS: PHENobarbitaL sodium 130 MG/ML IM ONCE 246 MG IM (16:18)
--- NOTE | 2022-10-09 16:51 | ECG_ITS ---
Test Reason : TACHYCARDIA Blood Pressure : / mmHG Vent. 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
--- NOTE | 2022-10-09 16:57 | ED_ITS ---
HPI - Chest Pain General Chief Complaint: Chest Pain Stated Complaint: Anxiety per EMS Time Seen by Provider: 10/09/22 10:14 Source: patient and EMS Mode of arrival: EMS Limitations: no limitations Related Data Home Medications Medication Instructions Recorded Confirmed acetaminophen 500 mg tablet 1,000 mg PO Q8H PRN Pain, Moderate 06/16/22 06/16/22 (Tylenol Extra Strength) cyclobenzaprine 10 mg tablet 10 mg PO BID PRN Muscle Spasm 06/16/22 06/16/22 diazepam 5 mg tablet 5 mg PO BID PRN Anxiety 06/16/22 06/16/22 diphenhydramine HCl 25 mg tablet 25 mg PO BEDTIME 06/16/22 06/16/22 pseudoephedrine HCl 30 mg tablet 30 mg PO Q4H PRN Congestion 06/16/22 06/16/22 trazodone 50 mg tablet 50 mg PO BEDTIME 06/16/22 06/16/22 Previous Rx's Medication Instructions Recorded amlodipine 2.5 mg tablet 2.5 mg PO DAILY 30 days #30 tabs 11/26/21 duloxetine 60 mg capsule,delayed 60 mg PO BID 30 days #60 caps 11/26/21 release furosemide 20 mg tablet 20 mg PO DAILY PRN edema 30 days 11/26/21 #30 tabs hydroxyzine HCl 25 mg tablet 25 mg PO Q6H PRN Anxiety 30 days 11/26/21 #60 tabs olanzapine 20 mg tablet (Zyprexa) 20 mg PO BEDTIME #30 tabs 11/26/21 omeprazole 40 mg capsule,delayed 40 mg PO DAILY@0630 30 days #30 11/26/21 release caps diazepam 5 mg tablet (Valium) 5 mg PO BID PRN anxiety #6 tabs 06/17/22 nitrofurantoin 100 mg PO BID #14 caps 06/20/22 monohydrate/macrocrystals 100 mg capsule (Macrobid) Allergies Allergy/AdvReac Type Severity Reaction Status Date / Time sulfamethoxazole Allergy Mild FEVER Verified 10/09/22 11:12 [From BACTRIM] trimethoprim [From BACTRIM] Allergy Mild FEVER Verified 10/09/22 11:12 cephalexin [Keflex] Allergy Unknown Unknown Verified 10/09/22 11:12 Sulfa (Sulfonamide Allergy Unknown Unknown Verified 10/09/22 11:12 Antibiotics) tramadol [Ultram] Allergy Unknown Unknown Verified 10/09/22 11:12 mold Allergy Unknown Unknown Uncoded 10/09/22 11:12 pollen Allergy Unknown Unknown Uncoded 10/09/22 11:12 [facility] Past Medical History Medical History Hypertension Mood disorder Social History Social History Household Members: Other Household Members Other:: Cat Housing: House Do you presently have visiting nurse or other home services: No Alcohol intake: current Alcohol intake frequency: 0-2 drinks per day Alcohol type: beer and hard liquor Patient Tobacco Use Status: Current someday Tobacco user Tobacco use type: Cigarette Smoked in Last 30 Days: No e-Cigarette/Vaping Use: Never Used Second Hand Smoke Exposure: No Use of substances other than those prescribed or required for medical reasons: No Advance Directives: Yes Advance Directives on File: Yes Advance Directives Date on File: 06/16/22 Healthcare Proxy: No Guardian: No Sexual orientation: Straight/Heterosexual Physical Exam Vital Signs: Vital Signs: Last Vital Signs Temp 98.2 F 10/09/22 15:33 Pulse 118 H 10/09/22 15:33 Resp 20 10/09/22 15:33 BP 167/106 H 10/09/22 15:33 Pulse Ox 95 10/09/22 15:33 O2 Del Method Room Air 10/09/22 15:33 BMI result Body Mass Index 28.0 Course Reevaluation(s) Reevaluation #1: Patient is hypertensive, tachycardic concerns for autonomic dysfunction secondary to acute alcohol withdrawal, I did order repeat troponin EKG as she was complaining of some chest pressure, will be admitted for acute alcohol withdrawal. At this time patient CIWA 10 Time: 16:57 Medications Administered Discontinued Medications Generic Name Dose Route Start Last Admin Trade Name Freq PRN Reason Stop Dose Admin Acetaminophen 975 mg 10/09/22 15:35 10/09/22 16:12 Acetaminophen 325 Mg Tablet PO 10/09/22 15:36 975 mg ONCE ONE Administration Diazepam 2 mg 10/09/22 11:57 10/09/22 12:03 Diazepam 2 Mg Tablet PO 10/09/22 11:58 2 mg ONCE ONE Administration Sodium Chloride 1,000 mls @ 999 mls/hr 10/09/22 11:38 10/09/22 13:05 Ns IV 10/09/22 12:38 Infused .Q1H1M STA Infusion Lorazepam 2 mg 10/09/22 13:58 10/09/22 14:16 Lorazepam 2 Mg/Ml Vial IVPUSH 10/09/22 13:59 2 mg ONCE ONE Administration Phenobarbital Sodium 246 mg 10/09/22 16:00 10/09/22 16:18 Phenobarbital Sodium 130 Mg/Ml Im Once IM 10/09/22 16:01 246 mg ONCE ONE Administration Medical Decision Making Lab Data 10/09/22 10:56 10/09/22 10:56 Labs: Lab Results 10/09/22 10/09/22 10/09/22 Range/Units 10:56 10:56 10:56 WBC 8.2 (4.8-10.8) X10*3/uL RBC 4.89 (4.20-5.50) X10*6/uL Hgb 15.1 (12.0-16.0) g/dl Hct 43.9 (37.0-47.0) % MCV 89.8 (80.0-98.0) fL MCH 30.9 (27.0-33.0) pg MCHC 34.4 (31.0-35.0) g/dl RDW 15.3 (11.0-16.0) % Plt Count 147 L D (160-400) X10*3/uL MPV 9.9 (9.4-12.3) fL Immature Gran % (Auto) 0.2 (0.0-0.4) % Neut % (Auto) 79.6 H (45-73) % Lymph % (Auto) 14.6 L (20-40) % Chaves % (Auto) 5.3 (2-11) % Eos % (Auto) 0.1 (0-4) % Baso % (Auto) 0.2 (0-2) % Lymph # (Auto) 1.2 (1.2-4.9) X10*3/uL Chaves # (Auto) 0.4 (0.1-1.2) X10*3/uL Eos # (Auto) 0.0 (0.0-0.4) X10*3/uL Baso # (Auto) 0.0 (0.0-0.2) X10*3/uL Abs Immat Gran (auto) 0.02 (0.00-0.03) X10*3/uL Absolute Neuts (auto) 6.5 (2.0-8.3) x10*3/uL Absolute Nucleated RBC 0.000 (0.0-0.012) X10*3/uL Nucleated RBC % (auto) 0.0 (0.0-0.2) /100WBC PT (10.0-13.1) SEC INR (0.9-1.1) Sodium 144 (135-145) mmol/L Potassium 4.1 (3.3-5.1) mmol/L Chloride 104 (96-108) mmol/L Carbon Dioxide 19 L (22-29) mmol/L Anion Gap 25 H (12-20) BUN 15 (9-16) mg/dL Creatinine 0.76 (0.5-1.4) mg/dL Estim Creat Clear Calc 74.4 Estimated GFR > 60 Random Glucose 90 (60-115) mg/dL Calcium 8.5 D (8.4-10.2) mg/dL Magnesium 1.6 (1.6-2.6) mg/dL Total Bilirubin 0.6 (0.0-1.0) mg/dL Direct Bilirubin 0.2 (0.0-0.5) mg/dL AST 178 H (5-31) U/L ALT 59 H (0-31) U/L Alkaline Phosphatase 86 (39-117) U/L Troponin I High Sens 17.8 H (<3.5-17.0) ng/L Total Protein 6.9 (6.5-8.0) g/dL Albumin 4.0 (3.5-5.0) g/dL Urine Opiates Screen (Not Detect) Urine Fentanyl Screen (Not Detect) Ur Barbiturates Screen (Not Detect) Ur Phencyclidine Scrn (Not Detect) Ur Amphetamines Screen (Not Detect) U Benzodiazepines Scrn (Not Detect) Urine Cocaine Screen (Not Detect) U Marijuana (THC) Screen (Not Detect) Ethyl Alcohol mg/dL 10/09/22 10/09/22 10/09/22 Range/Units 10:56 10:56 12:29 WBC (4.8-10.8) X10*3/uL RBC (4.20-5.50) X10*6/uL Hgb (12.0-16.0) g/dl Hct (37.0-47.0) % MCV (80.0-98.0) fL MCH (27.0-33.0) pg MCHC (31.0-35.0) g/dl RDW (11.0-16.0) % Plt Count (160-400) X10*3/uL MPV (9.4-12.3) fL Immature Gran % (Auto) (0.0-0.4) % Neut % (Auto) (45-73) % Lymph % (Auto) (20-40) % Chaves % (Auto) (2-11) % Eos % (Auto) (0-4) % Baso % (Auto) (0-2) % Lymph # (Auto) (1.2-4.9) X10*3/uL Chaves # (Auto) (0.1-1.2) X10*3/uL Eos # (Auto) (0.0-0.4) X10*3/uL Baso # (Auto) (0.0-0.2) X10*3/uL Abs Immat Gran (auto) (0.00-0.03) X10*3/uL Absolute Neuts (auto) (2.0-8.3) x10*3/uL Absolute Nucleated RBC (0.0-0.012) X10*3/uL Nucleated RBC % (auto) (0.0-0.2) /100WBC PT 11.3 (10.0-13.1) SEC INR 1.0 (0.9-1.1) Sodium (135-145) mmol/L Potassium (3.3-5.1) mmol/L Chloride (96-108) mmol/L Carbon Dioxide (22-29) mmol/L Anion Gap (12-20) BUN (9-16) mg/dL Creatinine (0.5-1.4) mg/dL Estim Creat Clear Calc Estimated GFR Random Glucose (60-115) mg/dL Calcium (8.4-10.2) mg/dL Magnesium (1.6-2.6) mg/dL Total Bilirubin (0.0-1.0) mg/dL Direct Bilirubin (0.0-0.5) mg/dL AST (5-31) U/L ALT (0-31) U/L Alkaline Phosphatase (39-117) U/L Troponin I High Sens (<3.5-17.0) ng/L Total Protein (6.5-8.0) g/dL Albumin (3.5-5.0) g/dL Urine Opiates Screen Not Detected (Not Detect) Urine Fentanyl Screen Not Detected (Not Detect) Ur Barbiturates Screen Not Detected (Not Detect) Ur Phencyclidine Scrn Not Detected (Not Detect) Ur Amphetamines Screen Not Detected (Not Detect) U Benzodiazepines Scrn POSITIVE H (Not Detect) Urine Cocaine Screen Not Detected (Not Detect) U Marijuana (THC) Screen Not Detected (Not Detect) Ethyl Alcohol 193 mg/dL 10/09/22 Range/Units 13:49 WBC (4.8-10.8) X10*3/uL RBC (4.20-5.50) X10*6/uL Hgb (12.0-16.0) g/dl Hct (37.0-47.0) % MCV (80.0-98.0) fL MCH (27.0-33.0) pg MCHC (31.0-35.0) g/dl RDW (11.0-16.0) % Plt Count (160-400) X10*3/uL MPV (9.4-12.3) fL Immature Gran % (Auto) (0.0-0.4) % Neut % (Auto) (45-73) % Lymph % (Auto) (20-40) % Chaves % (Auto) (2-11) % Eos % (Auto) (0-4) % Baso % (Auto) (0-2) % Lymph # (Auto) (1.2-4.9) X10*3/uL Chaves # (Auto) (0.1-1.2) X10*3/uL Eos # (Auto) (0.0-0.4) X10*3/uL Baso # (Auto) (0.0-0.2) X10*3/uL Abs Immat Gran (auto) (0.00-0.03) X10*3/uL Absolute Neuts (auto) (2.0-8.3) x10*3/uL Absolute Nucleated RBC (0.0-0.012) X10*3/uL Nucleated RBC % (auto) (0.0-0.2) /100WBC PT (10.0-13.1) SEC INR (0.9-1.1) Sodium (135-145) mmol/L Potassium (3.3-5.1) mmol/L Chloride (96-108) mmol/L Carbon Dioxide (22-29) mmol/L Anion Gap (12-20) BUN (9-16) mg/dL Creatinine (0.5-1.4) mg/dL Estim Creat Clear Calc Estimated GFR Random Glucose (60-115) mg/dL Calcium (8.4-10.2) mg/dL Magnesium (1.6-2.6) mg/dL Total Bilirubin (0.0-1.0) mg/dL Direct Bilirubin (0.0-0.5) mg/dL AST (5-31) U/L ALT (0-31) U/L Alkaline Phosphatase (39-117) U/L Troponin I High Sens 19.8 H (<3.5-17.0) ng/L Total Protein (6.5-8.0) g/dL Albumin (3.5-5.0) g/dL Urine Opiates Screen (Not Detect) Urine Fentanyl Screen (Not Detect) Ur Barbiturates Screen (Not Detect) Ur Phencyclidine Scrn (Not Detect) Ur Amphetamines Screen (Not Detect) U Benzodiazepines Scrn (Not Detect) Urine Cocaine Screen (Not Detect) U Marijuana (THC) Screen (Not Detect) Ethyl Alcohol mg/dL Discharge Plan Discharge Clinical Impression: Atypical chest pain, Anxiety, Alcohol use with withdrawal Patient Disposition: Still a Patient Prescriptions: No Action nitrofurantoin monohyd/m-cryst [Macrobid] 100 mg capsule 100 mg PO BID Qty: 14 0RF Rx Instructions: must administer with a meal/food amlodipine 2.5 mg Tablet 2.5 mg PO DAILY 30 Days Qty: 30 0RF Protocol: Hold for SBP< HOLD for SBP < : 90 omeprazole 40 mg Capsule,Delayed Release(Dr/Ec) 40 mg PO DAILY@0630 30 Days Qty: 30 0RF hydroxyzine HCl 25 mg Tablet 25 mg PO Q6H PRN (Reason: Anxiety) 30 Days Qty: 60 0RF furosemide 20 mg Tablet 20 mg PO DAILY PRN (Reason: edema) 30 Days Qty: 30 0RF Protocol: Hold for SBP< HOLD for SBP < : 90 duloxetine 60 mg Capsule,Delayed Release(Dr/Ec) 60 mg PO BID 30 Days Qty: 60 0RF olanzapine [Zyprexa] 20 mg tablet 20 mg PO BEDTIME Qty: 30 0RF diazepam 5 mg tablet 5 mg PO BID PRN (Reason: Anxiety) cyclobenzaprine 10 mg tablet 10 mg PO BID PRN (Reason: Muscle Spasm) diphenhydramine HCl 25 mg Tablet 25 mg PO BEDTIME pseudoephedrine HCl 30 mg Tablet 30 mg PO Q4H PRN (Reason: Congestion) Rx Instructions: DNExceed 4 doses/24h trazodone 50 mg tablet 50 mg PO BEDTIME acetaminophen [Tylenol Extra Strength] 500 mg tablet 1,000 mg PO Q8H PRN (Reason: Pain, Moderate) diazepam [Valium] 5 mg tablet 5 mg PO BID PRN (Reason: anxiety) Qty: 6 0RF
--- NOTE | 2022-10-09 17:32 | P.HPHOSP_ITS ---
History of Present Illness Date of Service: 10/09/22 <ROBBI Pratt - Last Filed: 10/09/22 17:54> Attending physician on admission: Adina Rizvi <ROBBI Pratt - Last Filed: 10/09/22 17:54> Chief Complaint: etoh withdrawal, chest pain <ROBBI Pratt - Last Filed: 10/09/22 1 7:54> 72 year old female with history bipolar disorder, htn, endometriosis, chronic neck/back pain, and alcohol use disorder presented to the ED earlier today via EMS for evaluation of chest pressure that started earlier today. The pain is at rest and unchanged with exertion, no radiation. No associated lightheadedness, nausea, epigastric pain, shortness of breath, or diaphoresis. States she has been very anxious and does experience chest pain with anxiety. She has been without her valium for 2 days. She is also an every day etoh drinker, consuming a six pack every day or 4-5 vodka drinks daily. Her last drink was this morning. Denies any other substance use or cigarette smoking. No history of etoh withdrawal seizure. Has been through detox in the past. On arrival, patient tachycardic to 123, tachypneic to 23, hypertensive to 163/93. Afebrile, no hypoxia. No leukocytosis, no anemia. Mild thrombocytopenia of 147. Renal function baseline. Sodium 144, potassium 4.1, chloride 104, CO2 19, anion gap 25, magnesium 1.6. AST 178, ALT 59. Bilirubin levels normal. Initial troponin 17.8, repeat 19.8, repeat 14.9. Urine tox screen positive for benzodiazepines. Ethyl alcohol level 193. CXR negative for any acute cardiopulmonary disease. Initial EKG showing sinus rhythm with marked sinus arrhythmia incomplete right bundle-branch block and prolonged QT of 446. Repeat EKG showing sinus tachycardia, rate 117, no charlie or depressions. In the ED, treated with 2mg lorazepam, 2mg valium with some improvement in chest pain. Also given 1L IVF and phenobarbital per protocol initiated. <ROBBI Pratt - Last Filed: 10/09/22 17:54> Review of Systems Review of Systems: General: No fevers, malaise, unintentional weight loss HEENT: No blurred vision, diplopia. No sore throat, nasal congestion, rhinorrhea, sinus pain, ear pain Cardiovascular: +chest pain, palpitations. + leg edema Respiratory: No shortness of breath, wheezing, cough GI: No abdominal pain, nausea, vomiting, diarrhea, constipation, melena, hematochezia : No dysuria, hematuria, increased urinary frequency, decreased urinary output MSK: No myalgia, back pain Neuro: No headaches, weakness, paresthesias. +tremor Psych: No AH/VH Skin: No rashes or lesions <ROBBI Pratt - Last Filed: 10/09/22 17:54> [facility] Medical History: Medical History Alcohol dependence Bipolar disorder Endometriosis Hypertension Mood disorder <ROBBI Pratt - Last Filed: 10/09/22 17:54> Social History: Social History (Updated 10/09/22 @ 17:46 by ROBBI Pratt) Household Members: None Household Members Other:: Cat Housing: House Do you presently have visiting nurse or other home services: Yes Alcohol intake: current Alcohol intake frequency: 3 or more drinks per day Alcohol type: beer and hard liquor Patient Tobacco Use Status: Never used Tobacco Tobacco use type: Cigarette Smoked in Last 30 Days: No e-Cigarette/Vaping Use: Never Used Second Hand Smoke Exposure: No Use of substances other than those prescribed or required for medical reasons: No Currently Displaying Signs/Symptoms of Drug Intoxication Withdrawal: No Have you been hit, kicked, punched, or otherwise hurt by someone within the past year? If so, by whom?: No Do you feel safe in your current relationship?: No Current Relationship Is there a partner from a previous relationship who is making you feel unsafe now?: No Are you made to feel afraid or neglected: No Advance Directives: Yes Advance Directives on File: Yes Advance Directives Date on File: 06/16/22 Healthcare Proxy: No Guardian: No Do you have thoughts of harming others: None Do you have a plan to hurt others: No Plan Recently lost weight without trying: No How much weight loss: Not applicable Eating poorly because of decreased appetite: No Nutrition screen score: 0 Nutrition Risks: No Nutritional Risk Patient : No : No Poor oral hygiene: No Sexual orientation: Straight/Heterosexual <ROBBI Pratt - Last Filed: 10/09/22 17:54> Meds Allergies/Adverse reactions: Allergies Allergy/AdvReac Type Severity Reaction Status Date / Time sulfamethoxazole Allergy Mild FEVER Verified 10/09/22 11:12 [From BACTRIM] trimethoprim [From BACTRIM] Allergy Mild FEVER Verified 10/09/22 11:12 cephalexin [Keflex] Allergy Unknown Unknown Verified 10/09/22 11:12 Sulfa (Sulfonamide Allergy Unknown Unknown Verified 10/09/22 11:12 Antibiotics) tramadol [Ultram] Allergy Unknown Unknown Verified 10/09/22 11:12 mold Allergy Unknown Unknown Uncoded 10/09/22 11:12 pollen Allergy Unknown Unknown Uncoded 10/09/22 11:12 <ROBBI Pratt - Last Filed: 10/09/22 17:54> Active Medications: Current Medications Acetaminophen (Acetaminophen 325 Mg Tablet) 650 mg PO Q6H PRN PRN Reason: Pain, Mild (Pain Scale 1-3) Docusate Sodium (Docusate Sodium 100 Mg Capsule) 100 mg PO DAILY PRN PRN Reason: Constipation Enoxaparin Sodium (Enoxaparin Sodium 40 Mg/0.4 Ml Syringe) 40 mg SUBCUT Q24H KATHLEEN Sodium Chloride (Ns) 1,000 mls @ 999 mls/hr IV .Q1H1M KATHLEEN Stop: 10/09/22 18:00 Last Admin: 10/09/22 16:59 Dose: 999 mls/hr Ondansetron HCl (Ondansetron Hcl 4 Mg/2 Ml Vial) 4 mg IVPUSH Q8H PRN PRN Reason: Nausea and Vomiting Pharmacy Consult (Consult Rx Etoh Phenob Im/Po) 1 each MISCELLANE ONCE PRN; Protocol PRN Reason: Consult order Pharmacy Consult (Consult Rx Perform Med Rec) 1 each MISCELLANE ONCE PRN PRN Reason: Consult order Phenobarbital (Phenobarbital 15 Mg Tablet) 45 mg PO BID [facility] Stop: 10/11/22 21:01 Phenobarbital (Phenobarbital 15 Mg Tablet) 15 mg PO BID [facility] Stop: 10/13/22 21:01 Phenobarbital (Phenobarbital 15 Mg Tablet) 15 mg PO DAILY KATHLEEN Stop: 10/15/22 09:01 Phenobarbital Sodium (Phenobarbital Sodium 130 Mg/Ml Vial Im Q3hx2) 185 mg IM Q3H KATHLEEN Stop: 10/09/22 22:01 Sodium Chloride (0.9 % Sodium Chloride Flush 3 Ml Syringe) 3 ml IVFLUSH QSHIFT KATHLEEN <ROBBI Pratt - Last Filed: 10/09/22 17:54> Home medications: Home Medications Medication Instructions Recorded Confirmed Last Taken Type acetaminophen 500 mg tablet 1,000 mg PO Q8H PRN Pain, Moderate 06/16/22 10/09/22 Unknown History (Tylenol Extra Strength) cyclobenzaprine 10 mg tablet 10 mg PO BID PRN Muscle Spasm 06/16/22 10/09/22 Unknown History diazepam 5 mg tablet 5 mg PO BID PRN Anxiety 06/16/22 10/09/22 Unknown History diphenhydramine HCl 25 mg tablet 25 mg PO BEDTIME 06/16/22 10/09/22 Unknown History bacitracin-polymyxin B 500 1 appl ophthalmic (eye) QMONTH 10/09/22 10/09/22 Unknown History unit-10,000 unit/gram eye ointment hydroxyzine HCl 25 mg tablet 25 mg PO DAILY 10/09/22 10/09/22 Unknown History olanzapine 20 mg tablet (Zyprexa) 20 mg PO DAILY 10/09/22 10/09/22 Unknown History <ROBBI Pratt - Last Filed: 10/09/22 17:54> Physical Exam Vital Signs and Narrative: Vital Signs: Last Vital Signs Temp 98.2 F 10/09/22 15:33 Pulse 123 H 10/09/22 17:00 Resp 23 H 10/09/22 17:00 BP 163/79 H 10/09/22 17:00 Pulse Ox 93 10/09/22 17:00 O2 Del Method Room Air 10/09/22 17:00 BMI result Body Mass Index 28.0 <ROBBI Pratt - Last Filed: 10/09/22 17:54> Constitutional - Awake and Alert, No apparent distress Eyes - PERRLA, EOMI Cardiovascular - S1S2, regular rhythm, tachycardic, No edema Respiratory - Normal lung expansion, Normal respiratory effort, No respiratory distress, CTA bilaterally Gastrointestinal - mild diffuse ttp. ND; +BS; No rebound or guarding Extremities - no calf tenderness bilaterally, no swelling Skin - Warm/Dry Neurological - Alert & oriented x3, CN II-XII in tact, 5/5 strength BUE and BLE. +bilateral hand tremor Psychological - Appropriate affect <ROBBI Pratt - Last Filed: 10/09/22 17:54> Results Labs CBC and Chem 7: 10/09/22 10:56 10/09/22 10:56 <ROBBI Pratt - Last Filed: 10/09/22 17:54> Labs: Laboratory Results - last 24 hr 10/09/22 10/09/22 10/09/22 10:56 10:56 10:56 MCV 89.8 MCH 30.9 MCHC 34.4 RDW 15.3 Plt Count 147 L D MPV 9.9 Immature Gran % (Auto) 0.2 Neut % (Auto) 79.6 H Lymph % (Auto) 14.6 L [place] % (Auto) 5.3 Eos % (Auto) 0.1 Baso % (Auto) 0.2 Lymph # (Auto) 1.2 [place] # (Auto) 0.4 Eos # (Auto) 0.0 Baso # (Auto) 0.0 Abs Immat Gran (auto) 0.02 Absolute Neuts (auto) 6.5 Absolute Nucleated RBC 0.000 Nucleated RBC % (auto) 0.0 PT INR Anion Gap 25 H Estim Creat Clear Calc 74.4 Estimated GFR > 60 Random Glucose 90 Calcium 8.5 D Magnesium 1.6 Total Bilirubin 0.6 Direct Bilirubin 0.2 AST 178 H ALT 59 H Alkaline Phosphatase 86 Troponin I High Sens 17.8 H Total Protein 6.9 Albumin 4.0 Urine Opiates Screen Urine Fentanyl Screen Ur Barbiturates Screen Ur Phencyclidine Scrn Ur Amphetamines Screen U Benzodiazepines Scrn Urine Cocaine Screen U Marijuana (THC) Screen Ethyl Alcohol 10/09/22 10/09/22 10/09/22 10:56 10:56 12:29 MCV MCH MCHC RDW Plt Count MPV Immature Gran % (Auto) Neut % (Auto) Lymph % (Auto) [place] % (Auto) Eos % (Auto) Baso % (Auto) Lymph # (Auto) [place] # (Auto) Eos # (Auto) Baso # (Auto) Abs Immat Gran (auto) Absolute Neuts (auto) Absolute Nucleated RBC Nucleated RBC % (auto) PT 11.3 INR 1.0 Anion Gap Estim Creat Clear Calc Estimated GFR Random Glucose Calcium Magnesium Total Bilirubin Direct Bilirubin AST ALT Alkaline Phosphatase Troponin I High Sens Total Protein Albumin Urine Opiates Screen Not Detected Urine Fentanyl Screen Not Detected Ur Barbiturates Screen Not Detected Ur Phencyclidine Scrn Not Detected Ur Amphetamines Screen Not Detected U Benzodiazepines Scrn POSITIVE H Urine Cocaine Screen Not Detected U Marijuana (THC) Screen Not Detected Ethyl Alcohol 193 10/09/22 13:49 MCV MCH MCHC RDW Plt Count MPV Immature Gran % (Auto) Neut % (Auto) Lymph % (Auto) [place] % (Auto) Eos % (Auto) Baso % (Auto) Lymph # (Auto) [place] # (Auto) Eos # (Auto) Baso # (Auto) Abs Immat Gran (auto) Absolute Neuts (auto) Absolute Nucleated RBC Nucleated RBC % (auto) PT INR Anion Gap Estim Creat Clear Calc Estimated GFR Random Glucose Calcium Magnesium Total Bilirubin Direct Bilirubin AST ALT Alkaline Phosphatase Troponin I High Sens 19.8 H Total Protein Albumin Urine Opiates Screen Urine Fentanyl Screen Ur Barbiturates Screen Ur Phencyclidine Scrn Ur Amphetamines Screen U Benzodiazepines Scrn Urine Cocaine Screen U Marijuana (THC) Screen Ethyl Alcohol <ROBBI Pratt - Last Filed: 10/09/22 17:54> Imaging Radiologist's Impressions: Impressions Chest X-Ray 10/09/22 11:12 IMPRESSION: No radiographic evidence of acute cardiopulmonary disease. <ROBBI Pratt - Last Filed: 10/09/22 17:54> Assessment and Plan (1) Atypical chest pain: Status: Acute <ROBBI Pratt - Last Filed: 10/09/22 17:54> (2) Anxiety: Status: Acute <ROBBI Pratt - Last Filed: 10/09/22 17:54> (3) Alcohol use with withdrawal: Status: Acute <ROBBI Pratt - Last Filed: 10/09/22 17:54> 72 year old female with history bipolar disorder, htn, endometriosis, chronic neck/back pain, and alcohol use disorder to be admitted for acute alcohol withdrawal. #Acute alcohol withdrawal -Monitor on CIWA q4h -Continue phenobarb per protocol -Addiction med consult -IV thiamine x 3 days, then PO -Folic acid daily -Monitor on telemetry #Mild alcoholic metabolic acidosis- compensating -CO2 19, AG 25 -Given 2L IVF -Follow BMP #Acute benzodiazepine withdrawal -Resume home benzos #Atypical chest pain -Trops x3 flat -EKG without CHARLIE, ST depressions -likely related to anxiety -Monitor on telemetry #HTN -continue amlodipine #Mood disorder -continue home meds DVT prophylaxis- lovenox Full code Pt requires inpt stay at least 2 midnights for management of acute alcohol w ithdrawal on phenobarb per protocol, likely requiring placement to detox/rehab <ROBBI Pratt - Last Filed: 10/09/22 17:54> 72 year old female with history bipolar disorder, htn, endometriosis, chronic neck/back pain, and alcohol use disorder to be admitted for acute alcohol withdrawal. #Acute alcohol withdrawal -Monitor on CIWA q4h -Continue phenobarb per protocol -Addiction med consult -IV thiamine x 3 days, then PO -Folic acid daily -Monitor on telemetry #Mild alcoholic metabolic acidosis- compensating -CO2 19, AG 25 -Given 2L IVF -Follow BMP #Acute benzodiazepine withdrawal -Resume home benzos #Atypical chest pain -Trops x3 flat -EKG without CHARLIE, ST depressions -likely related to anxiety -Monitor on telemetry #HTN -continue amlodipine #Mood disorder -continue home meds DVT prophylaxis- lovenox Full code Pt requires inpt stay at least 2 midnights for management of acute alcohol withdrawal on phenobarb per protocol, likely requiring placement to detox/rehab Addendum to history and physical by the advanced practice provider, ROBBI Delcid I interviewed and examined the patient. I discussed their presentation and management with the RAMA. I reviewed the history and physical and agree with the documentation, with the following additions and corrections: 72yo F with AUD presenting with alcohol intoxication progressing to EtOH withdrawal that worsened despite 2mg of IV lorazepam, requiring initiation of phenobarbital taper and admission to the hospital for inpatient management of EtOH withdrawal. <Adina Rizvi MD - Last Filed: 10/10/22 07:44> Time Spent With Patient Time: Total time managing care of this patient today ____ minutes. <ROBBI Pratt - Last Filed: 10/09/22 17:54> Quality Stroke Does the patient have a stroke diagnosis?: No <ROBBI Pratt - Last Filed: 10/09/22 17:54> VTE Prior VTE?: No <ROBBI Pratt - Last Filed: 10/09/22 17:54> VTE Risk Level:: Medical - moderate - high <ROBBI Pratt - Last Filed: 10/09/22 17:54> VTE Device Contraindication: Treatment Not Indicated <ROBBI Pratt - Last Filed: 10/09/22 17:54> VTE Drug Contraindication: N/A - Med Ordered <ROBBI Pratt - Last Filed: 10/09/22 17:54>
--- NOTE | 2022-10-09 17:35 | MHC.RECOVSUP ---
? Reason for consult:Recovery Support o Current location: ED4? o Identified substance use concern: AUD? - Withdrawal - Seeking ATS (detox) - Support ? ?Intervention: o Harm reduction discussion ? Plan: o Referral to [facility] o Follow up tomorrow ? ? Additional information:?Consultation with the medical team prior to entry. Patient will be admitted for medical complications to alcoholism and increased heart rate. online health and fitness coach connected with patient, reviewed harm reduction strategies and options for further treatment once medically cleared. Patient is open minded to any facility that takes [facility] insurance. Recovery team to follow up tomorrow.
[2022-10-09 17:36] LABS: Troponin-I High Sensitivity 14.9 ng/L (<3.5-17.0)
[2022-10-09] MEDS: Thiamine HCL 100 MG in 0.9 % Sodium Chloride 100 ML 202 MG IV (18:24)
[2022-10-09] MEDS: Folic Acid 1 MG TABLET PO (18:24)
[2022-10-09] MEDS: Enoxaparin Sodium 40 MG/0.4 ML SYRINGE SUBCUT (18:25)
--- NOTE | 2022-10-09 18:52 | PHA.MEDREC ---
Pharmacy Consult ? Medication Reconciliation Pharmacy has completed the medication reconciliation. Spoke with patient. She says she takes hydroxyzine 25mg daily but claim history says last fill in April for a 15 day supply (1 tablet every 6 hours as needed for anxiety). Her valium is prescribed for once daily as needed (decreased from BID prn in March) but according to patient she still takes it BID prn for anxiety.
[2022-10-09] MEDS: PHENobarbitaL sodium 130 MG/ML VIAL IM Q3Hx2 185 MG IM ×2 (19:22→22:36)
[2022-10-09] MEDS: 0.9 % Sodium Chloride Flush 3 ML SYRINGE IVFLUSH (22:37)
[2022-10-10 03:22] VITALS: BP 156/89; PULSE 110; RESP 18; TEMP 36.4; O2SAT 94
[2022-10-10 06:25] LABS: MANUAL DIFF FLAG NO
[2022-10-10 06:27] LABS: Basophils Percent Auto 0.6 % (0-2); Eosinophils Absolute Auto 0.1 X10*3/uL (0.0-0.4); Eosinophils Percent Auto 1.6 % (0-4); Hematocrit 37.7 % (37.0-47.0); Hemoglobin 12.9 g/dl (12.0-16.0); Imm Gran Abs Auto 0.01 X10*3/uL (0.00-0.03); Imm Gran Pct Auto 0.2 % (0.0-0.4); Lymphocytes Absolute Auto 1.6 X10*3/uL (1.2-4.9); Lymphocytes Percent Auto 31.5 % (20-40); Mean Corpuscular HGB Conc 34.2 g/dl (31.0-35.0); Mean Corpuscular Hemoglobin 31.5 pg (27.0-33.0); Mean Corpuscular Volume 92.2 fL (80.0-98.0); Mean Platelet Volume 9.8 fL (9.4-12.3); Monocytes Absolute Auto 0.6 X10*3/uL (0.1-1.2); Neutrophils Absolute Auto 2.8 x10*3/uL (2.0-8.3); Neutrophils Percent Auto 55.1 % (45-73); Platelet Count 122 X10*3/uL (160-400); Red Blood Count 4.09 X10*6/uL (4.20-5.50); Red Cell Distribution Width 14.9 % (11.0-16.0)
[2022-10-10 06:51] LABS: Alanine Aminotransferase 55 U/L (0-31); Albumin Level 3.5 g/dL (3.5-5.0); Alkaline Phosphatase 83 U/L (39-117); Anion Gap 15 (12-20); Aspartate Amino Transferase 134 U/L (5-31); Blood Urea Nitrogen 12 mg/dL (9-16); Calcium 7.7 mg/dL (8.4-10.2); Carbon Dioxide 26 mmol/L (22-29); Chloride 104 mmol/L (96-108); Creatinine Clr Calc Pharmacy 88.3; Estimated Glomerular Filt Rate > 60; Glucose Random 90 mg/dL (60-115); Magnesium 1.7 mg/dL (1.6-2.6); Sodium 142 mmol/L (135-145)
[2022-10-10 08:30] VITALS: BP 145/63; PULSE 99; RESP 20; TEMP 37.2; O2SAT 97
[2022-10-10] MEDS: Thiamine HCL 100 MG in 0.9 % Sodium Chloride 100 ML 202 MG IV (08:38)
[2022-10-10] MEDS: PHENobarbitaL 15 MG TABLET 45 MG PO ×2 (08:39→20:26)
[2022-10-10] MEDS: Omeprazole 40 MG CAPSULE.DR PO (08:39)
[2022-10-10] MEDS: Folic Acid 1 MG TABLET PO (08:39)
[2022-10-10] MEDS: OLANZapine 10 MG TABLET 20 MG PO (08:39)
[2022-10-10] MEDS: Potassium Chloride ER 20 MEQ TAB.ER.PRT 40 MEQ PO (08:39)
[2022-10-10] MEDS: hydrOXYzine HCL 25 MG TABLET PO (08:39)
[2022-10-10] MEDS: DULoxetine HCl 60 MG CAPSULE.DR PO ×2 (08:39→20:26)
[2022-10-10] MEDS: 0.9 % Sodium Chloride Flush 3 ML SYRINGE IVFLUSH ×3 (08:39→20:29)
[2022-10-10] MEDS: amLODIPine Besylate 2.5 MG TABLET PO (08:39)
--- NOTE | 2022-10-10 09:43 | P.PNIM_ITS ---
Subjective Subjective Date of Service: 10/10/22 Interval History: less tremulous body aches from tremors interscapular pain resolved no N/V Review of Systems Review of Systems: Yes all other systems are reviewed and are negative Physical Exam Vital Signs: Vital Signs: Last Vital Signs Temp 98.9 F 10/10/22 08:30 Pulse 99 10/10/22 08:30 Resp 20 10/10/22 08:30 BP 145/63 H 10/10/22 08:30 Pulse Ox 97 10/10/22 08:30 O2 Del Method Room Air 10/10/22 08:30 O2 Flow Rate 89 10/09/22 20:00 BMI result Body Mass Index 28.0 Gen: mildly tremulous HEENT: sclera anicteric, moist mucus membranes Neck: supple Lungs: clear to auscultation bilaterally Heart: regular rate and rhythm, no murmurs Abd: soft, non-tender, non-distended Ext: no edema Skin: warm/well-perfused Neuro: alert and oriented x3, no focal findings Psych: appropriate affect Objective Data Active Medications Acetaminophen (Acetaminophen 325 Mg Tablet) 650 mg PO Q6H PRN PRN Reason: Pain, Mild (Pain Scale 1-3) Amlodipine Besylate (Amlodipine Besylate 2.5 Mg Tablet) 2.5 mg PO DAILY [facility]; Protocol Last Admin: 10/10/22 08:39 Dose: 2.5 mg Documented By: LILIBETH Docusate Sodium (Docusate Sodium 100 Mg Capsule) 100 mg PO DAILY PRN PRN Reason: Constipation Duloxetine HCl (Duloxetine Hcl 60 Mg Capsule.) 60 mg PO BID [facility] Last Admin: 10/10/22 08:39 Dose: 60 mg Documented By: LILIBETH Enoxaparin Sodium (Enoxaparin Sodium 40 Mg/0.4 Ml Syringe) 40 mg SUBCUT Q24H [facility] Last Admin: 10/09/22 18:25 Dose: 40 mg Documented By: DANIEL Folic Acid (Folic Acid 1 Mg Tablet) 1 mg PO DAILY [facility] Last Admin: 10/10/22 08:39 Dose: 1 mg Documented By: LILIBETH Hydroxyzine HCl (Hydroxyzine Hcl 25 Mg Tablet) 25 mg PO DAILY [facility] Last Admin: 10/10/22 08:39 Dose: 25 mg Documented By: LILIBETH Thiamine HCl 100 mg/ Sodium (Chloride) 101 mls @ 202 mls/hr IV DAILY [facility] Last Admin: 10/10/22 08:38 Dose: 202 mls/hr Documented By: LILIBETH Olanzapine (Olanzapine 10 Mg Tablet) 20 mg PO DAILY [facility] Last Admin: 10/10/22 08:39 Dose: 20 mg Documented By: LILIBETH Omeprazole (Omeprazole 40 Mg Capsule.Dr) 40 mg PO DAILY@0630 [facility] Last Admin: 10/10/22 08:39 Dose: 40 mg Documented By: LILIBETH Ondansetron HCl (Ondansetron Hcl 4 Mg/2 Ml Vial) 4 mg IVPUSH Q8H PRN PRN Reason: Nausea and Vomiting Pharmacy Consult (Consult Rx Etoh Phenob Im/Po) 1 each MISCELLANE ONCE PRN; Protocol PRN Reason: Consult order Pharmacy Consult (Consult Rx Perform Med Rec) 1 each MISCELLANE ONCE PRN PRN Reason: Consult order Phenobarbital (Phenobarbital 15 Mg Tablet) 45 mg PO BID [facility] Stop: 10/11/22 21:01 Last Admin: 10/10/22 08:39 Dose: 45 mg Documented By: LILIBETH Phenobarbital (Phenobarbital 15 Mg Tablet) 15 mg PO BID [facility] Stop: 10/13/22 21:01 Phenobarbital (Phenobarbital 15 Mg Tablet) 15 mg PO DAILY [facility] Stop: 10/15/22 09:01 Sodium Chloride (0.9 % Sodium Chloride Flush 3 Ml Syringe) 3 ml IVFLUSH QSHIFT [facility] Last Admin: 10/10/22 08:39 Dose: 3 ml Documented By: LILIBETH Labs 10/10/22 05:43 10/10/22 05:43 Labs: Laboratory Results - last 24 hr 10/09/22 10/09/22 10/09/22 10:56 10:56 10:56 MCV 89.8 MCH 30.9 MCHC 34.4 RDW 15.3 Plt Count 147 L D MPV 9.9 Immature Gran % (Auto) 0.2 Neut % (Auto) 79.6 H Lymph % (Auto) 14.6 L Hand % (Auto) 5.3 Eos % (Auto) 0.1 Baso % (Auto) 0.2 Lymph # (Auto) 1.2 Hand # (Auto) 0.4 Eos # (Auto) 0.0 Baso # (Auto) 0.0 Abs Immat Gran (auto) 0.02 Absolute Neuts (auto) 6.5 Absolute Nucleated RBC 0.000 Nucleated RBC % (auto) 0.0 PT INR Anion Gap 25 H Estim Creat Clear Calc 74.4 Estimated GFR > 60 Random Glucose 90 Calcium 8.5 D Magnesium 1.6 Total Bilirubin 0.6 Direct Bilirubin 0.2 AST 178 H ALT 59 H Alkaline Phosphatase 86 Troponin I High Sens 17.8 H Total Protein 6.9 Albumin 4.0 Urine Opiates Screen Urine Fentanyl Screen Ur Barbiturates Screen Ur Phencyclidine Scrn Ur Amphetamines Screen U Benzodiazepines Scrn Urine Cocaine Screen U Marijuana (THC) Screen Ethyl Alcohol 10/09/22 10/09/22 10/09/22 10:56 10:56 12:29 MCV MCH MCHC RDW Plt Count MPV Immature Gran % (Auto) Neut % (Auto) Lymph % (Auto) Hand % (Auto) Eos % (Auto) Baso % (Auto) Lymph # (Auto) Hand # (Auto) Eos # (Auto) Baso # (Auto) Abs Immat Gran (auto) Absolute Neuts (auto) Absolute Nucleated RBC Nucleated RBC % (auto) PT 11.3 INR 1.0 Anion Gap Estim Creat Clear Calc Estimated GFR Random Glucose Calcium Magnesium Total Bilirubin Direct Bilirubin AST ALT Alkaline Phosphatase Troponin I High Sens Total Protein Albumin Urine Opiates Screen Not Detected Urine Fentanyl Screen Not Detected Ur Barbiturates Screen Not Detected Ur Phencyclidine Scrn Not Detected Ur Amphetamines Screen Not Detected U Benzodiazepines Scrn POSITIVE H Urine Cocaine Screen Not Detected U Marijuana (THC) Screen Not Detected Ethyl Alcohol 193 10/09/22 10/09/22 10/10/22 13:49 17:04 05:43 MCV 92.2 MCH 31.5 MCHC 34.2 RDW 14.9 Plt Count 122 L MPV 9.8 Immature Gran % (Auto) 0.2 Neut % (Auto) 55.1 Lymph % (Auto) 31.5 Hand % (Auto) 11.0 Eos % (Auto) 1.6 Baso % (Auto) 0.6 Lymph # (Auto) 1.6 Hand # (Auto) 0.6 Eos # (Auto) 0.1 Baso # (Auto) 0.0 Abs Immat Gran (auto) 0.01 Absolute Neuts (auto) 2.8 Absolute Nucleated RBC 0.000 Nucleated RBC % (auto) 0.0 PT INR Anion Gap Estim Creat Clear Calc Estimated GFR Random Glucose Calcium Magnesium Total Bilirubin Direct Bilirubin AST ALT Alkaline Phosphatase Troponin I High Sens 19.8 H 14.9 Total Protein Albumin Urine Opiates Screen Urine Fentanyl Screen Ur Barbiturates Screen Ur Phencyclidine Scrn Ur Amphetamines Screen U Benzodiazepines Scrn Urine Cocaine Screen U Marijuana (THC) Screen Ethyl Alcohol 10/10/22 05:43 MCV MCH MCHC RDW Plt Count MPV Immature Gran % (Auto) Neut % (Auto) Lymph % (Auto) Hand % (Auto) Eos % (Auto) Baso % (Auto) Lymph # (Auto) Hand # (Auto) Eos # (Auto) Baso # (Auto) Abs Immat Gran (auto) Absolute Neuts (auto) Absolute Nucleated RBC Nucleated RBC % (auto) PT INR Anion Gap 15 Estim Creat Clear Calc 88.3 Estimated GFR > 60 Random Glucose 90 Calcium 7.7 L D Magnesium 1.7 Total Bilirubin 1.0 Direct Bilirubin AST 134 H ALT 55 H Alkaline Phosphatase 83 Troponin I High Sens Total Protein 6.0 L Albumin 3.5 Urine Opiates Screen Urine Fentanyl Screen Ur Barbiturates Screen Ur Phencyclidine Scrn Ur Amphetamines Screen U Benzodiazepines Scrn Urine Cocaine Screen U Marijuana (THC) Screen Ethyl Alcohol Assessment and Plan (1) Alcohol use with withdrawal: Status: Acute Plan d#2 72yo F with bipolar disorder, HTN, endometriosis, chronic pain, AUD admitted for acute EtOH withdrawal # EtOH withdrawal # AUD - phenobarbital taper; hold chronic benzos while on phenobarbital - thiamine, folate - Add Med consult # hypoK - replete PO, recheck in AM # alcoholic ketoacidosis - resolved p fluid hydration # atypical chest pian - Tn-I x3 flat, EKG without ischemic changes - resolved # HTN - amlodipine # bipolar disorder - olanzapine # chronic pain - duloxetine # VTE ppx: LMWH # dispo: TBD In my clinical judgment, the patient requires continued inpatient hospitalization for the following reasons: inpt EtOH withdrawal management Time Spent With Patient Time: Total time managing care of this patient today ___35_ minutes. Quality Stroke Does the patient have a stroke diagnosis?: No VTE Prior VTE?: No VTE Risk Level:: Medical - moderate - high VTE Device Contraindication: Treatment Not Indicated VTE Drug Contraindication: N/A - Med Ordered
--- NOTE | 2022-10-10 11:20 | MHC.RECOVRN ---
Met with pt in 363 after consult placed to Addiction Medicine for alcohol use. Pt laying in bed, awake, alert, easily engages in conversation. Pt reports feeling better and no more shakes. Pt reports having been in recovery x 20 years beginning in 1998. During that time, pt was utilizing AA and found it very helpful. Pt reports one ATS admission in 1998. Pt reports recurrence happened on a , states everyone else was drinking and I decided to just have a beer. Currently, pt reports drinking 6 beers daily as well as 2-3 mixed drinks with Gee Fitzgerald's [place] [employer]. Pt unable to identify supports at this time, states I just have my tiff. Pt reports PCP recently initiated naltrexone, within the past 2 weeks, is interested in connecting with the [facility] and continuing outpatient treatment. Pt provided with written recovery resources as well as t/w contact information. Pt denies questions or concerns at this time. [facility] appt made for 10/17 at 1:00PM. Discussed with Christina Diaz APRN.
[2022-10-10] MEDS: Ketorolac Tromethamine 15 MG/ML VIAL IVPUSH ×2 (12:04→20:26)
--- NOTE | 2022-10-10 12:40 | MHC.CM.PN ---
Met w/pt to review d/c planning needs: Pt states she lives alone, drives, uses a walker on occasion and has [facility] [employer] services. PCP is Dr. Crockett [facility] in chart: HCP/MOLST on file and verified. Pt will need transportation to home: C shuttle vs [employer]. CM to follow for changes in d/c plans
[2022-10-10] MEDS: Enoxaparin Sodium 40 MG/0.4 ML SYRINGE SUBCUT (17:16)
[2022-10-10 17:19] VITALS: BP 134/70; PULSE 95; RESP 20; TEMP 37.1; O2SAT 100
[2022-10-10 19:36] VITALS: BP 138/77; PULSE 100; RESP 17; TEMP 36.2; O2SAT 95
[2022-10-11] MEDS: Acetaminophen 325 MG TABLET 650 MG PO ×3 (02:46→23:42)
[2022-10-11 04:00] VITALS: BP 168/87; PULSE 90; RESP 17; TEMP 36.4; O2SAT 95
[2022-10-11] MEDS: Omeprazole 40 MG CAPSULE.DR PO (05:56)
[2022-10-11 06:59] LABS: Alanine Aminotransferase 51 U/L (0-31); Albumin Level 3.7 g/dL (3.5-5.0); Alkaline Phosphatase 85 U/L (39-117); Anion Gap 16 (12-20); Aspartate Amino Transferase 103 U/L (5-31); Bilirubin Total 0.8 mg/dL (0.0-1.0); Blood Urea Nitrogen 13 mg/dL (9-16); Calcium 8.1 mg/dL (8.4-10.2); Carbon Dioxide 24 mmol/L (22-29); Chloride 104 mmol/L (96-108); Creatinine Clr Calc Pharmacy 94.2; Estimated Glomerular Filt Rate > 60; Glucose Random 115 mg/dL (60-115); Magnesium 1.6 mg/dL (1.6-2.6); Potassium 3.5 mmol/L (3.3-5.1); Sodium 140 mmol/L (135-145); Total Protein 6.2 g/dL (6.5-8.0)
[2022-10-11 07:14] VITALS: BP 184/91; PULSE 96; RESP 18; TEMP 36.6; O2SAT 90
[2022-10-11] MEDS: Thiamine HCL 100 MG in 0.9 % Sodium Chloride 100 ML 202 MG IV (09:24)
[2022-10-11] MEDS: OLANZapine 10 MG TABLET 20 MG PO (09:25)
[2022-10-11] MEDS: amLODIPine Besylate 5 MG TABLET PO (09:25)
[2022-10-11] MEDS: PHENobarbitaL 15 MG TABLET 45 MG PO ×2 (09:25→20:22)
[2022-10-11] MEDS: hydrOXYzine HCL 25 MG TABLET PO (09:25)
[2022-10-11] MEDS: Folic Acid 1 MG TABLET PO (09:25)
[2022-10-11] MEDS: DULoxetine HCl 60 MG CAPSULE.DR PO ×2 (09:25→20:22)
[2022-10-11] MEDS: 0.9 % Sodium Chloride Flush 3 ML SYRINGE IVFLUSH ×3 (09:26→23:42)
--- NOTE | 2022-10-11 09:28 | HO.PM.IMPN ---
Subjective Subjective Date of Service: 10/11/22 Interval History: K normalized Tremulousness improved BP high Review of Systems Review of Systems: Yes all other systems are reviewed and are negative Physical Exam Vital Signs: Vital Signs: Last Vital Signs Temp 97.8 F 10/11/22 07:14 Pulse 96 10/11/22 07:14 Resp 18 10/11/22 07:14 BP 184/91 H 10/11/22 07:14 Pulse Ox 90 L 10/11/22 07:14 O2 Del Method Room Air 10/11/22 07:14 O2 Flow Rate 89 10/09/22 20:00 BMI result Body Mass Index 28.0 Gen: still mildly tremulous HEENT: sclera anicteric, moist mucus membranes Neck: supple Lungs: clear to auscultation bilaterally Heart: regular rate and rhythm, no murmurs Abd: soft, non-tender, non-distended Ext: no edema Skin: warm/well-perfused Neuro: alert and oriented x3, no focal findings Psych: appropriate affect Objective Data Active Medications Acetaminophen (Acetaminophen 325 Mg Tablet) 650 mg PO Q6H PRN PRN Reason: Pain, Mild (Pain Scale 1-3) Last Admin: 10/11/22 02:46 Dose: 650 mg Documented By: GIUSEPPE Amlodipine Besylate (Amlodipine Besylate 5 Mg Tablet) 5 mg PO DAILY [facility]; Protocol Last Admin: 10/11/22 09:25 Dose: 5 mg Documented By: RAYO Docusate Sodium (Docusate Sodium 100 Mg Capsule) 100 mg PO DAILY PRN PRN Reason: Constipation Duloxetine HCl (Duloxetine Hcl 60 Mg Capsule.) 60 mg PO BID [facility] Last Admin: 10/11/22 09:25 Dose: 60 mg Documented By: RAYO Enoxaparin Sodium (Enoxaparin Sodium 40 Mg/0.4 Ml Syringe) 40 mg SUBCUT Q24H [facility] Last Admin: 10/10/22 17:16 Dose: 40 mg Documented By: LILIBETH Folic Acid (Folic Acid 1 Mg Tablet) 1 mg PO DAILY [facility] Last Admin: 10/11/22 09:25 Dose: 1 mg Documented By: RAYO Hydroxyzine HCl (Hydroxyzine Hcl 25 Mg Tablet) 25 mg PO DAILY [facility] Last Admin: 10/11/22 09:25 Dose: 25 mg Documented By: RAYO Thiamine HCl 100 mg/ Sodium (Chloride) 101 mls @ 202 mls/hr IV DAILY [facility] Last Admin: 10/11/22 09:24 Dose: 202 mls/hr Documented By: RAYO Olanzapine (Olanzapine 10 Mg Tablet) 20 mg PO DAILY [facility] Last Admin: 10/11/22 09:25 Dose: 20 mg Documented By: RAYO Omeprazole (Omeprazole 40 Mg Capsule.Dr) 40 mg PO DAILY@0630 [facility] Last Admin: 10/11/22 05:56 Dose: 40 mg Documented By: GIUSEPPE Ondansetron HCl (Ondansetron Hcl 4 Mg/2 Ml Vial) 4 mg IVPUSH Q8H PRN PRN Reason: Nausea and Vomiting Pharmacy Consult (Consult Rx Etoh Phenob Im/Po) 1 each MISCELLANE ONCE PRN; Protocol PRN Reason: Consult order Pharmacy Consult (Consult Rx Perform Med Rec) 1 each MISCELLANE ONCE PRN PRN Reason: Consult order Phenobarbital (Phenobarbital 15 Mg Tablet) 45 mg PO BID [facility] Stop: 10/11/22 21:01 Last Admin: 10/11/22 09:25 Dose: 45 mg Documented By: RAYO Phenobarbital (Phenobarbital 15 Mg Tablet) 15 mg PO BID [facility] Stop: 10/13/22 21:01 Phenobarbital (Phenobarbital 15 Mg Tablet) 15 mg PO DAILY [facility] Stop: 10/15/22 09:01 Sodium Chloride (0.9 % Sodium Chloride Flush 3 Ml Syringe) 3 ml IVFLUSH QSHIFT [facility] Last Admin: 10/11/22 09:26 Dose: 3 ml Documented By: RAYO Labs 10/10/22 05:43 10/11/22 05:19 Labs: Laboratory Results - last 24 hr 10/11/22 05:19 Anion Gap 16 Estim Creat Clear Calc 94.2 Estimated GFR > 60 Random Glucose 115 Calcium 8.1 L Magnesium 1.6 Total Bilirubin 0.8 AST 103 H ALT 51 H Alkaline Phosphatase 85 Total Protein 6.2 L Albumin 3.7 Assessment and Plan (1) Alcohol use with withdrawal: Status: Acute Plan d#3 72yo F with bipolar disorder, HTN, endometriosis, chronic pain, AUD admitted for acute EtOH withdrawal # EtOH withdrawal # AUD - phenobarbital taper; hold chronic benzos while on phenobarbital - thiamine, folate - Add Med consulted # hypoK - repleted # alcoholic ketoacidosis - resolved p fluid hydration # EtOh hepatitis - mild, not requiring steroid or pentoxifylline # atypical chest pian - Tn-I x3 flat, EKG without ischemic changes - resolved # HTN - amlodipine # bipolar disorder - olanzapine # chronic pain - duloxetine # VTE ppx: LMWH # dispo: TBD In my clinical judgment, the patient requires continued inpatient hospitalization for the following reasons: inpt EtOH withdrawal management Time Spent With Patient Time: Total time managing care of this patient today __35__ minutes. Quality Stroke Does the patient have a stroke diagnosis?: No VTE Prior VTE?: No VTE Risk Level:: Medical - moderate - high VTE Device Contraindication: Treatment Not Indicated VTE Drug Contraindication: N/A - Med Ordered
[2022-10-11] MEDS: Ketorolac Tromethamine 15 MG/ML VIAL IVPUSH (11:23)
--- NOTE | 2022-10-11 14:47 | P.EN_ITS ---
Event Note Date of Service: 10/11/22 Event Note: Addiction consult placed Patient seen by trust and estates attorney, please see note from 10/10/22 Time Spent With Patient Time: Total time managing care of this patient today ____ minutes.
--- NOTE | 2022-10-11 14:47 | PM.EVENT ---
Event Note Date of Service: 10/11/22 Event Note: Addiction consult placed Patient seen by slip seat coverer, please see note from 10/10/22 Time Spent With Patient Time: Total time managing care of this patient today ____ minutes.
[2022-10-11 15:37] VITALS: BP 167/81; PULSE 105; RESP 20; TEMP 37.1; O2SAT 92
[2022-10-11] MEDS: PHENobarbitaL sodium 130 MG/ML VIAL IM (15:46)
[2022-10-11] MEDS: Enoxaparin Sodium 40 MG/0.4 ML SYRINGE SUBCUT (17:20)
--- NOTE | 2022-10-11 17:25 | PC.NURSE ---
Report was given to SYMONE Newton
[2022-10-11 18:02] VITALS: BP 145/71; PULSE 65; RESP 20; TEMP 36.7; O2SAT 98
[2022-10-11 19:12] VITALS: BP 165/94; PULSE 104; RESP 20; TEMP 36.7; O2SAT 97
[2022-10-11 23:33] VITALS: BP 149/82; PULSE 98; RESP 20; TEMP 35.8; O2SAT 94
--- NOTE | 2022-10-12 | ECG_ITS ---
Test Reason : recheck Blood Pressure : / mmHG Vent. Rate : 101 BPM Atrial Rate : 101 BPM P-R Int : 196 ms QRS Dur : 092 ms QT Int : 356 ms P-R-T Axes : 072 -18 042 degrees QTc Int : 461 ms Sinus tachycardia Otherwise normal ECG No previous ECGs available Referred By: Adina Rizvi Electronically Signed By:Randell Hines
[2022-10-12 03:12] VITALS: BP 130/80; PULSE 102; RESP 20; TEMP 36.1; O2SAT 92
[2022-10-12] MEDS: Omeprazole 40 MG CAPSULE.DR PO (05:27)
[2022-10-12 07:13] VITALS: BP 147/77; PULSE 100; RESP 19; TEMP 36.3; O2SAT 91
[2022-10-12] MEDS: OLANZapine 10 MG TABLET 20 MG PO (08:47)
[2022-10-12] MEDS: DULoxetine HCl 60 MG CAPSULE.DR PO ×2 (08:47→20:26)
[2022-10-12] MEDS: hydrOXYzine HCL 25 MG TABLET PO (08:48)
[2022-10-12] MEDS: PHENobarbitaL 15 MG TABLET PO ×2 (08:48→20:26)
[2022-10-12] MEDS: 0.9 % Sodium Chloride Flush 3 ML SYRINGE IVFLUSH ×2 (08:48→16:19)
[2022-10-12] MEDS: Folic Acid 1 MG TABLET PO (08:48)
[2022-10-12] MEDS: amLODIPine Besylate 5 MG TABLET PO (08:48)
[2022-10-12] MEDS: Thiamine HCL 100 MG in 0.9 % Sodium Chloride 100 ML 202 MG IV (08:50)
[2022-10-12] MEDS: Acetaminophen 325 MG TABLET 650 MG PO ×2 (09:04→21:57)
--- NOTE | 2022-10-12 09:30 | PC.NURSE ---
Around this time it was reported pt has gasping for air and choking on her breakfast by a patient observer who was doing rounding. As this RN entered the room pt was appeared beat red and started to turn purple. Rapid response was called by the lead tech. The heimlich maneuver was done as the pt was suctioned. Airway cleared after this. Pt color came back and was able to communicate what happen. O2 saturation within normal limits. Vital signs within normal limits. Provider at bedside during this time. Pt to be seen by speech for follow up.
--- NOTE | 2022-10-12 11:36 | P.PNIM_ITS ---
Subjective Subjective Date of Service: 10/12/22 Interval History: choked on breakfast this AM, Heimlich given with relief still somewhat tremulous, got extra dose of IM phenobarb yesterday Review of Systems Review of Systems: Yes all other systems are reviewed and are negative Physical Exam Vital Signs: Vital Signs: Last Vital Signs Temp 97.3 F 10/12/22 07:13 Pulse 100 10/12/22 07:13 Resp 19 10/12/22 07:13 BP 147/77 H 10/12/22 07:13 Pulse Ox 91 L 10/12/22 07:13 O2 Del Method Room Air 10/12/22 07:13 O2 Flow Rate 89 10/09/22 20:00 BMI result Body Mass Index 28.0 Gen: still mildly tremulous HEENT: sclera anicteric, moist mucus membranes Neck: supple Lungs: clear to auscultation bilaterally Heart: regular rate and rhythm, no murmurs Abd: soft, non-tender, non-distended Ext: no edema Skin: warm/well-perfused Neuro: alert and oriented x3, no focal findings Psych: appropriate affect Objective Data Active Medications Acetaminophen (Acetaminophen 325 Mg Tablet) 650 mg PO Q6H PRN PRN Reason: Pain, Mild (Pain Scale 1-3) Last Admin: 10/12/22 09:04 Dose: 650 mg Documented By: DONNELL Amlodipine Besylate (Amlodipine Besylate 5 Mg Tablet) 5 mg PO DAILY [facility]; Protocol Last Admin: 10/12/22 08:48 Dose: 5 mg Documented By: DONNELL Docusate Sodium (Docusate Sodium 100 Mg Capsule) 100 mg PO DAILY PRN PRN Reason: Constipation Duloxetine HCl (Duloxetine Hcl 60 Mg Capsule.Dr) 60 mg PO BID [facility] Last Admin: 10/12/22 08:47 Dose: 60 mg Documented By: DONNELL Enoxaparin Sodium (Enoxaparin Sodium 40 Mg/0.4 Ml Syringe) 40 mg SUBCUT Q24H [facility] Last Admin: 10/11/22 17:20 Dose: 40 mg Documented By: AIDEN Folic Acid (Folic Acid 1 Mg Tablet) 1 mg PO DAILY [facility] Last Admin: 10/12/22 08:48 Dose: 1 mg Documented By: DONNELL Hydroxyzine HCl (Hydroxyzine Hcl 25 Mg Tablet) 25 mg PO DAILY [facility] Last Admin: 10/12/22 08:48 Dose: 25 mg Documented By: DONNELL Thiamine HCl 100 mg/ Sodium (Chloride) 101 mls @ 202 mls/hr IV DAILY [facility] Last Infusion: 10/12/22 09:32 Dose: 0 mls/hr Documented By: SHAWN Olanzapine (Olanzapine 10 Mg Tablet) 20 mg PO DAILY [facility] Last Admin: 10/12/22 08:47 Dose: 20 mg Documented By: DONNELL Omeprazole (Omeprazole 40 Mg Capsule.Dr) 40 mg PO DAILY@0630 [facility] Last Admin: 10/12/22 05:27 Dose: 40 mg Documented By: PRETTY Ondansetron HCl (Ondansetron Hcl 4 Mg/2 Ml Vial) 4 mg IVPUSH Q8H PRN PRN Reason: Nausea and Vomiting Pharmacy Consult (Consult Rx Etoh Phenob Im/Po) 1 each MISCELLANE ONCE PRN; Protocol PRN Reason: Consult order Pharmacy Consult (Consult Rx Perform Med Rec) 1 each MISCELLANE ONCE PRN PRN Reason: Consult order Phenobarbital (Phenobarbital 15 Mg Tablet) 15 mg PO BID [facility] Stop: 10/13/22 21:01 Last Admin: 10/12/22 08:48 Dose: 15 mg Documented By: DONNELL Phenobarbital (Phenobarbital 15 Mg Tablet) 15 mg PO DAILY [facility] Stop: 10/15/22 09:01 Sodium Chloride (0.9 % Sodium Chloride Flush 3 Ml Syringe) 3 ml IVFLUSH QSHIFT [facility] Last Admin: 10/12/22 08:48 Dose: 3 ml Documented By: DONNELL Labs 10/10/22 05:43 10/11/22 05:19 Assessment and Plan (1) Alcohol use with withdrawal: Status: Acute Plan d#4 72yo F with bipolar disorder, HTN, endometriosis, chronic pain, AUD admitted for acute EtOH withdrawal # choking episode - SPEECH CLINICIAN consultation # EtOH withdrawal # AUD - phenobarbital taper; hold chronic benzos while on phenobarbital - thiamine, folate - Add Med consulted: Met with pt in 363 after consult placed to Addiction Medicine for alcohol use. Pt laying in bed, awake, alert, easily engages in conversation. Pt reports feeling better and no more shakes. Pt reports having been in recovery x 20 years beginning in 1998. During that time, pt was utilizing AA and found it very helpful. Pt reports one ATS admission in 1998. Pt reports recurrence happened on a , states everyone else was rafia marks and I decided to just have a beer. Currently, pt reports drinking 6 beers daily as well as 2-3 mixed drinks with Gee Fitzgerald[employer] [place] [employer]. Pt unable to identify supports at this time, states I just have my tiff. Pt reports PCP recently initiated naltrexone, within the past 2 weeks, is interested in connecting with the [facility] and continuing outpatient treatment. Pt provided with written recovery resources as well as t/w contact information. Pt denies questions or concerns at this time. [facility] appt made for 10/17 at 1:00PM. # hypoK - repleted # alcoholic ketoacidosis - resolved p fluid hydration # EtOh hepatitis - mild, not requiring steroid or pentoxifylline, recheck LFTs in AM # atypical chest pian - Tn-I x3 flat, EKG without ischemic changes - resolved # HTN - amlodipine # bipolar disorder - olanzapine # chronic pain - duloxetine # VTE ppx: LMWH # dispo: TBD In my clinical judgment, the patient requires continued inpatient hospitalization for the following reasons: inpt EtOH withdrawal management Time Spent With Patient Time: Total time managing care of this patient today ___35_ minutes. Quality Stroke Does the patient have a stroke diagnosis?: No VTE Prior VTE?: No VTE Risk Level:: Medical - moderate - high VTE Device Contraindication: Treatment Not Indicated VTE Drug Contraindication: N/A - Med Ordered
--- NOTE | 2022-10-12 13:51 | MHC.CM.PN ---
EMR REVIEWED AND PER MD ROUNDS, PT IS NOT MEDICALLY CLEARED FOR DC (ETOH WITHDRAWAL) CM WILL CONTINUE TO FOLLOW FOR ANY CHANGE IN PLAN
[2022-10-12 15:21] VITALS: BP 167/90; PULSE 93; RESP 20; TEMP 36.5; O2SAT 92
[2022-10-12] MEDS: Enoxaparin Sodium 40 MG/0.4 ML SYRINGE SUBCUT (16:18)
--- NOTE | 2022-10-12 17:09 | MHC.SL.SWA ---
Speech Pathologist Impression: Witnessed choking requiring heimlich Risk of Aspiration Due to: Neurological Condition Dysphasia Diet Status:No change Liquid Consistency and Strategies for Safe Swallow: Liquid Intake Recommendation: Thin Liquid Intake Strategies: Small Sips No Straws Solid Food Consistency: Dietary Recommendations: Regular Oral Medication Intake: Whole with Liquid Please contact the pharmacy regarding appropriate crushable or liquid drug formulations that are available whenever modified delivery is recommended. Compensatory Strategies and Precautions to be Taken for Safe Swallow: Sitting Upright (90 deg) No Straw Small Bites and Sips Rate of Ingestion Change Supervision While Eating and Drinking for Safe Swallow: Intermittent Supervision Recommendation for Speech: Inpatient Speech Therapy Comment: Recommend patient continue with regular solids and thin liquids. No straws. Continue pills as preferred. MD, RN, RD notified via [employer]. PATCH FINISHER to continue to follow. Cracking Unit Operator Clinican/Clinical Fellow: No Supervisory Statement: I have reviewed and agree with the student/clinical fellow's documentation: N/A Speech Language Pathologist: Joanna Stafford M.A., PATCH FINISHER
[2022-10-12 19:16] VITALS: BP 136/77; PULSE 105; RESP 20; TEMP 36.9; O2SAT 92
[2022-10-13 03:16] VITALS: BP 173/89; PULSE 103; RESP 20; TEMP 36.2; O2SAT 91
[2022-10-13] MEDS: Omeprazole 40 MG CAPSULE.DR PO (05:27)
[2022-10-13 07:29] VITALS: BP 168/94; PULSE 105; RESP 18; TEMP 36.4; O2SAT 94
[2022-10-13 07:29] LABS: Alanine Aminotransferase 46 U/L (0-31); Albumin Level 3.6 g/dL (3.5-5.0); Alkaline Phosphatase 76 U/L (39-117); Anion Gap 12 (12-20); Aspartate Amino Transferase 71 U/L (5-31); Bilirubin Total 0.4 mg/dL (0.0-1.0); Blood Urea Nitrogen 10 mg/dL (9-16); Calcium 8.7 mg/dL (8.4-10.2); Carbon Dioxide 28 mmol/L (22-29); Chloride 105 mmol/L (96-108); Creatinine Clr Calc Pharmacy 91.1; Estimated Glomerular Filt Rate > 60; Glucose Random 112 mg/dL (60-115); Magnesium 1.5 mg/dL (1.6-2.6); Potassium 3.3 mmol/L (3.3-5.1); Sodium 142 mmol/L (135-145); Total Protein 6.2 g/dL (6.5-8.0)
[2022-10-13] MEDS: Magnesium Sulfate/H2O 2 GM/50 ML PIGGYBACK IV (09:07)
[2022-10-13] MEDS: 0.9 % Sodium Chloride Flush 3 ML SYRINGE IVFLUSH ×2 (09:07→16:07)
[2022-10-13] MEDS: Thiamine HCL 100 MG in 0.9 % Sodium Chloride 100 ML 202 MG IV (09:07)
[2022-10-13] MEDS: Folic Acid 1 MG TABLET PO (09:11)
[2022-10-13] MEDS: PHENobarbitaL 15 MG TABLET PO ×2 (09:11→19:39)
[2022-10-13] MEDS: DULoxetine HCl 60 MG CAPSULE.DR PO ×2 (09:11→19:38)
[2022-10-13] MEDS: hydrOXYzine HCL 25 MG TABLET PO (09:11)
[2022-10-13] MEDS: amLODIPine Besylate 5 MG TABLET PO (09:11)
[2022-10-13] MEDS: OLANZapine 10 MG TABLET 20 MG PO (09:11)
--- NOTE | 2022-10-13 12:51 | MHC.SL.SWA ---
Speech Pathologist Impression: Risk of Aspiration Due to: Neurological Condition Dysphasia Diet Status: Recommend continue on REGULAR diet with THIN liquids, Pills whole with liquid or puree as preferred by patient. Liquid Consistency and Strategies for Safe Swallow: Liquid Intake Recommendation: Thin Liquid Intake Strategies: Small Sips No Straws Solid Food Consistency: Dietary Recommendations: Regular Additional Modifications to Solid Foods: Oral Medication Intake: Whole with Liquid Please contact the pharmacy regarding appropriate crushable or liquid drug formulations that are available whenever modified delivery is recommended. Compensatory Strategies and Precautions to be Taken for Safe Swallow: Sitting Upright (90 deg) No Straw Small Bites and Sips Alternate Liquids/Solids Rate of Ingestion Change Supervision While Eating and Drinking for Safe Swallow: Intermittent Supervision Foods to Avoid: Swallowing Recommended Treatments: Compens. Strategy Educat. Recommendation for Speech: Inpatient Speech Therapy Comment: Patient seen at lunch, was asleep when therapist entered room, but easily woke and was interested in having meal. Patient reported some concerns about swallowing and speech, removed upper dental appliance to show therapist, which she thought was the source of her difficulty. However appliance appeared to fit patient well, and patient evidenced no difficulty masticating or articulating speech. Patient also reported that she had cervical spinal surgery, which is the source of scar on neck. Patient noted that she sometimes drools and thinks it may be due to this previous surgery. Patient was noted to have a mildly hypernasal vocal quality and somewhat flat prosody when speaking. Patient was observed taking small bites of a chicken quesadilla, producing a slow rotary chew, but notably chewing thoroughly before attempting swallow, and producing a timely swallow with no difficulties observed. Patient altenated bites of food with sips of liquid, again taking reasonable, small sips and producing a timely swallow. No difficulties were noted during the portion of meal that was observed, and no clinical signs of aspiration. Patient was able to feed self independently with no difficulty. Recommend continue on REGULAR diet with THIN liquids, Pills whole with liquid or puree as preferred by patient. As patient is on least restrictive diet and tolerating it well, recommend D/C Speech/Language at this time. Please re-contact if any other concerns arise. Frequency/Duration: Date Range for Service Req: Timeline to reassess: Hospice Clinical Supervisor Clinican/Clinical Fellow: No Supervisory Statement: I have reviewed and agree with the student/clinical fellow's documentation: N/A Speech Language Pathologist: Karli Fay M.A., [facility]-SOCIAL WORK INSTRUCTOR
[2022-10-13 14:33] LABS: Hematocrit 38.9 % (37.0-47.0); Mean Corpuscular HGB Conc 33.4 g/dl (31.0-35.0); Mean Corpuscular Hemoglobin 30.8 pg (27.0-33.0); Mean Corpuscular Volume 92.2 fL (80.0-98.0); Mean Platelet Volume 9.6 fL (9.4-12.3); Platelet Count 124 X10*3/uL (160-400); Red Blood Count 4.22 X10*6/uL (4.20-5.50); Red Cell Distribution Width 14.8 % (11.0-16.0); White Blood Count 4.3 X10*3/uL (4.8-10.8)
--- NOTE | 2022-10-13 14:42 | HO.PM.IMPN ---
Subjective Subjective Date of Service: 10/13/22 Interval History: seen and examined this morning follow up for etoh withdrawal no difficulty with eating/swallowing feeling less anxious/tremulous Review of Systems Review of Systems: Yes all other systems are reviewed and are negative Constitutional Constitutional: Denies chills and Denies fever(s) ENT Ears, Nose, Mouth, and Throat: Denies dizziness Cardiovascular Cardiovascular: Denies chest pain, Denies palpitations and Denies dyspnea Respiratory Respiratory: Denies cough and Denies dyspnea Gastrointestinal Gastrointestinal: Denies abdominal pain, Denies nausea and Denies vomiting Neurologic Neurologic: Denies dizziness Endocrine Endocrine: Denies palpitations Physical Exam Vital Signs: Vital Signs: Last Vital Signs Temp 97.6 F 10/13/22 07:29 Pulse 105 H 10/13/22 07:29 Resp 18 10/13/22 07:29 BP 168/94 H 10/13/22 07:29 Pulse Ox 94 10/13/22 07:29 O2 Del Method Room Air 10/13/22 07:29 O2 Flow Rate 89 10/09/22 20:00 BMI result Body Mass Index 28.0 Const: General: cooperative, comfortable, alert and awake Nutritional Appearance: average body habitus Orientation/consciousness: patient oriented x3 Resp: Effort & Inspection: normal respiratory effort and able to speak in complete sentences Auscultation: clear to auscultation bilaterally Cardio: Rate: regular rate Heart sounds: S1 normal heart sound present and S2 normal heart sound present GI: Inspection: No distended Palpation (GI): Soft to palpation and nontender Neuro: General: patient oriented x3 and CN's II-XI intact bilaterally Extrem: General: Yes no pedal edema Psych: Affect: Blunted affect present Objective Data Active Medications Acetaminophen (Acetaminophen 325 Mg Tablet) 650 mg PO Q6H PRN PRN Reason: Pain, Mild (Pain Scale 1-3) Last Admin: 10/12/22 21:57 Dose: 650 mg Documented By: ANDRADE Amlodipine Besylate (Amlodipine Besylate 5 Mg Tablet) 5 mg PO DAILY [facility]; Protocol Last Admin: 10/13/22 09:11 Dose: 5 mg Documented By: GINNY Docusate Sodium (Docusate Sodium 100 Mg Capsule) 100 mg PO DAILY PRN PRN Reason: Constipation Duloxetine HCl (Duloxetine Hcl 60 Mg Capsule.Dr) 60 mg PO BID [facility] Last Admin: 10/13/22 09:11 Dose: 60 mg Documented By: GINNY Enoxaparin Sodium (Enoxaparin Sodium 40 Mg/0.4 Ml Syringe) 40 mg SUBCUT Q24H [facility] Last Admin: 10/12/22 16:18 Dose: 40 mg Documented By: SHAWN Folic Acid (Folic Acid 1 Mg Tablet) 1 mg PO DAILY [facility] Last Admin: 10/13/22 09:11 Dose: 1 mg Documented By: GINNY Hydroxyzine HCl (Hydroxyzine Hcl 25 Mg Tablet) 25 mg PO DAILY [facility] Last Admin: 10/13/22 09:11 Dose: 25 mg Documented By: GINNY Thiamine HCl 100 mg/ Sodium (Chloride) 101 mls @ 202 mls/hr IV DAILY [facility] Last Infusion: 10/13/22 10:01 Dose: 0 mls/hr Documented By: GINNY Olanzapine (Olanzapine 10 Mg Tablet) 20 mg PO DAILY [facility] Last Admin: 10/13/22 09:11 Dose: 20 mg Documented By: GINNY Omeprazole (Omeprazole 40 Mg Capsule.Dr) 40 mg PO DAILY@0630 [facility] Last Admin: 10/13/22 05:27 Dose: 40 mg Documented By: ANDRADE Ondansetron HCl (Ondansetron Hcl 4 Mg/2 Ml Vial) 4 mg IVPUSH Q8H PRN PRN Reason: Nausea and Vomiting Pharmacy Consult (Consult Rx Etoh Phenob Im/Po) 1 each MISCELLANE ONCE PRN; Protocol PRN Reason: Consult order Pharmacy Consult (Consult Rx Perform Med Rec) 1 each MISCELLANE ONCE PRN PRN Reason: Consult order Phenobarbital (Phenobarbital 15 Mg Tablet) 15 mg PO BID [facility] Stop: 10/13/22 21:01 Last Admin: 10/13/22 09:11 Dose: 15 mg Documented By: GINNY Phenobarbital (Phenobarbital 15 Mg Tablet) 15 mg PO DAILY [facility] Stop: 10/15/22 09:01 Sodium Chloride (0.9 % Sodium Chloride Flush 3 Ml Syringe) 3 ml IVFLUSH QSHIFT [facility] Last Admin: 10/13/22 09:07 Dose: 3 ml Documented By: GINNY Labs 10/13/22 14:04 05/18/23 06:46 Labs: Laboratory Results - last 24 hr 10/13/22 10/13/22 06:46 14:04 MCV 92.2 MCH 30.8 MCHC 33.4 RDW 14.8 Plt Count 124 L MPV 9.6 Absolute Nucleated RBC 0.000 Nucleated RBC % (auto) 0.0 Anion Gap 12 Estim Creat Clear Calc 91.1 Estimated GFR > 60 Random Glucose 112 Calcium 8.7 D Magnesium 1.5 L Total Bilirubin 0.4 AST 71 H ALT 46 H Alkaline Phosphatase 76 Total Protein 6.2 L Albumin 3.6 Assessment and Plan (1) Alcohol use with withdrawal: Status: Acute Plan 72yo F with bipolar disorder, HTN, endometriosis, chronic pain, AUD admitted for acute EtOH withdrawal # choking episode - seen by RIBBON TIER - continue regular diet. no further choking episodes # EtOH withdrawal # AUD - phenobarbital taper; hold chronic benzos while on phenobarbital - thiamine, folate - seen by addiction medicine: is interested in connecting with the [facility] and continuing outpatient treatment. Pt provided with written recovery resources as well as t/w contact information. [facility] appt made for 10/17 at 1:00PM # hypoK/hypomag -k improved with replacement -mag 1.5, will give IV mag # alcoholic ketoacidosis - resolved with hydration # thrombocytopenia likely r/t etoh use platelets stable # EtOh hepatitis - mild, not requiring steroid or pentoxifylline LFTs trending down # atypical chest pain - Tn-I x3 flat, EKG without ischemic changes - resolved # HTN - amlodipine # bipolar disorder - olanzapine # chronic pain - duloxetine # VTE ppx: LMWH # dispo: likely home tomorrow attending - dr. castillo In my clinical judgment, the patient requires continued inpatient hospitalization for the following reasons: inpt EtOH withdrawal management Time Spent With Patient Time: Total time managing care of this patient today ____ minutes. Quality Stroke Does the patient have a stroke diagnosis?: No VTE Prior VTE?: No VTE Risk Level:: Medical - moderate - high VTE Device Contraindication: Treatment Not Indicated VTE Drug Contraindication: N/A - Med Ordered
[2022-10-13 14:59] VITALS: BP 151/90; PULSE 105; RESP 20; TEMP 36.5; O2SAT 93
[2022-10-13] MEDS: oxyCODONE HCl Immed Release 5 MG TABLET PO (16:07)
[2022-10-13] MEDS: Enoxaparin Sodium 40 MG/0.4 ML SYRINGE SUBCUT (16:46)
[2022-10-13 19:18] VITALS: BP 175/95; PULSE 105; TEMP 37.2; O2SAT 92
[2022-10-14] MEDS: Acetaminophen 325 MG TABLET 650 MG PO (02:13)
[2022-10-14] MEDS: Docusate Sodium 100 MG CAPSULE PO (02:14)
[2022-10-14 03:11] VITALS: BP 158/88; PULSE 87; RESP 20; TEMP 36.2; O2SAT 92
[2022-10-14] MEDS: Omeprazole 40 MG CAPSULE.DR PO (05:36)
[2022-10-14 07:06] VITALS: BP 151/92; PULSE 90; RESP 20; TEMP 36.2; O2SAT 95
[2022-10-14 08:19] LABS: Magnesium 1.8 mg/dL (1.6-2.6)
[2022-10-14 08:45] VITALS: BP 151/92; PULSE 90; O2SAT 95
[2022-10-14] MEDS: PHENobarbitaL 15 MG TABLET PO (10:00)
[2022-10-14] MEDS: OLANZapine 10 MG TABLET 20 MG PO (10:01)
[2022-10-14] MEDS: Folic Acid 1 MG TABLET PO (10:01)
[2022-10-14] MEDS: DULoxetine HCl 60 MG CAPSULE.DR PO (10:01)
[2022-10-14] MEDS: amLODIPine Besylate 5 MG TABLET PO (10:02)
[2022-10-14] MEDS: hydrOXYzine HCL 25 MG TABLET PO (10:02)
[2022-10-14] MEDS: 0.9 % Sodium Chloride Flush 3 ML SYRINGE IVFLUSH (10:02)
[2022-10-14] MEDS: Thiamine HCL 100 MG in 0.9 % Sodium Chloride 100 ML 202 MG IV (10:03)
--- NOTE | 2022-10-14 11:08 | P.DS_ITS ---
DS: Providers Provider Date of Service: 10/14/22 Date of admission: 10/09/22 17:22 Date of discharge: 10/14/22 Primary care physician: Reinaldo Willard MD Consults: 10/09/22 14:34 Consult to Care Team Stat Comment: Reason for consultation: depressed, anxious, ?benzo withdrawal 10/09/22 17:44 Addiction Medicine Routine Consulting Provider: Addiction Covering Reason for consultation: etoh dependence Attending physician on discharge: Cathie Onofre Discharging clinician: Rowena Ramos DS: Diagnosis Discharge Diagnosis (1) Alcohol use with withdrawal: Status: Acute (2) Hypomagnesemia: Status: Acute DS: Summary Hospital Course Hospital Course: From H&P on day of admission 72 year old female with history bipolar disorder, htn, endometriosis, chronic neck/back pain, and alcohol use disorder presented to the ED earlier today via EMS for evaluation of chest pressure that started earlier today. The pain is at rest and unchanged with exertion, no radiation. No associated lightheadedness, nausea, epigastric pain, shortness of breath, or diaphoresis. States she has been very anxious and does experience chest pain with anxiety. She has been without her valium for 2 days. She is also an every day etoh drinker, consuming a six pack every day or 4-5 vodka drinks daily. Her last drink was this morning. Denies any other substance use or cigarette smoking. No history of etoh withdrawal seizure. Has been through detox in the past. On arrival, patient tachycardic to 123, tachypneic to 23, hypertensive to 163/93.? Afebrile, no hypoxia.? No leukocytosis, no anemia.? Mild thrombocytopenia of 147.? Renal function baseline.? Sodium 144, potassium 4.1, chloride 104, CO2 19, anion gap 25, magnesium 1.6.? AST 178, ALT 59.? Bilirubin levels normal.? Initial troponin 17.8, repeat 19.8, repeat 14.9.? Urine tox screen positive for benzodiazepines.? Ethyl alcohol level 193.? CXR negative for any acute cardiopulmonary disease.? Initial EKG showing sinus rhythm with marked sinus arrhythmia incomplete right bundle-branch block and prolonged QT of 446.? Repeat EKG showing sinus tachycardia, rate 117, no charlie or depressions. In the ED, treated with 2mg lorazepam, 2mg valium with some improvement in chest pain. Also given 1L IVF and phenobarbital per protocol initiated. choking episode seen by [employer] - continue regular diet. no further choking episodes EtOH withdrawal AUD treated with phenobarbital taper; chronic benzos held while on phenobarbital. supplemented with thiamine, folate. seen by addiction medicine:? is interested in connecting with the [facility] and continuing outpatient treatment. Pt provided with written recovery resources as well as contact information. [facility] appt made for 10/17 at 1:00PM. Recommended to abstain from etoh hypoK/hypomag -improved with replacement. will discharge with oral magnesium replacement alcoholic ketoacidosis - resolved with hydration thrombocytopenia. likely r/t etoh use. platelets have remainedstable EtOh hepatitis - mild, not requiring steroid or pentoxifylline. LFTs trending down. recommend outpatient follow-up of LFTs atypical chest pain. - Tn-I x3 flat, EKG without ischemic changes. no further episodes of chest pain Time Spent with Patient Time attestation: Total time managing care of this patient today ____ minutes. Discharge coordination time: Greater than 30 minutes Quality: Safe Use of Opioids Does Pt have an Active Cancer Diagnosis on the Problem List?: No Quality: Stroke Does the patient have a stroke diagnosis?: No Physical Exam Vital Signs: Vital Signs: Last Vital Signs Temp 97.1 F 10/14/22 07:06 Pulse 90 10/14/22 08:45 Resp 20 10/14/22 07:06 BP 151/92 H 10/14/22 08:45 Pulse Ox 95 10/14/22 08:45 O2 Del Method Room Air 10/14/22 07:06 O2 Flow Rate 89 10/09/22 20:00 BMI result Body Mass Index 28.0 Const: General: cooperative, comfortable, alert and awake Nutritional Appearance: average body habitus Orientation/consciousness: patient oriented x3 Resp: Effort & Inspection: normal respiratory effort and able to speak in complete sentences Auscultation: clear to auscultation bilaterally Cardio: Rate: regular rate Heart sounds: S1 normal heart sound present and S2 normal heart sound present GI: Inspection: No distended Palpation (GI): Soft to palpation and nontender Neuro: General: patient oriented x3 and CN's II-XI intact bilaterally Extrem: General: Yes no pedal edema DS: Data Data Completed and Pending Labs on day of discharge: Laboratory Results - last 24 hr 10/13/22 10/14/22 14:04 07:49 WBC 4.3 L RBC 4.22 Hgb 13.0 Hct 38.9 MCV 92.2 MCH 30.8 MCHC 33.4 RDW 14.8 Plt Count 124 L MPV 9.6 Absolute Nucleated RBC 0.000 Nucleated RBC % (auto) 0.0 Magnesium 1.8 Discharge Plan Discharge Anticipated Discharge Date/Time: 10/14/22 10:39 Patient Disposition: Home Health Service Discharge Diagnosis: alcohol withdrawal low magnesium Referrals: Betty ROTHMAN [Outside] - 1 Week Reinaldo Willard MD [Primary Care Provider] - 1 Week Physician,Unknown J [Physician] - 1 Week Discharge Medications: New amlodipine 5 mg Tablet 5 mg PO DAILY 30 Days Qty: 30 0RF Protocol: Hold for SBP< HOLD for SBP < : 90 folic acid 1 mg Tablet 1 mg PO DAILY 30 Days Qty: 30 0RF thiamine HCl (vitamin B1) 100 mg tablet 100 mg PO DAILY 30 Days Qty: 30 0RF magnesium oxide [MagOx] 400 mg (241.3 mg magnesium) tablet 400 mg PO DAILY 30 Days Qty: 30 0RF Continued omeprazole 40 mg Capsule,Delayed Release(Dr/Ec) 40 mg PO DAILY@0630 30 Days Qty: 30 0RF furosemide 20 mg Tablet 20 mg PO DAILY PRN (Reason: edema) 30 Days Qty: 30 0RF Protocol: Hold for SBP< HOLD for SBP < : 90 duloxetine 60 mg Capsule,Delayed Release(Dr/Ec) 60 mg PO BID 30 Days Qty: 60 0RF diazepam 5 mg tablet 5 mg PO BID PRN (Reason: Anxiety) cyclobenzaprine 10 mg tablet 10 mg PO BID PRN (Reason: Muscle Spasm) diphenhydramine HCl 25 mg Tablet 25 mg PO BEDTIME acetaminophen [Tylenol Extra Strength] 500 mg tablet 1,000 mg PO Q8H PRN (Reason: Pain, Moderate) bacitracin-polymyxin B 500-10,000 unit/gram ointment 1 appl ophthalmic (eye) QMONTH Rx Instructions: FOR 1 WEEK EACH MONTH AT BEDTIME hydroxyzine HCl 25 mg tablet 25 mg PO DAILY olanzapine [Zyprexa] 20 mg tablet 20 mg PO DAILY Discontinued amlodipine 2.5 mg Tablet 2.5 mg PO DAILY 30 Days Qty: 30 0RF Protocol: Hold for SBP< HOLD for SBP < : 90 Discharge Orders: Discharge Order (Routine); Ordered 10/14/22 Ordered By: Rowena Ramos Activity on Discharge: As tolerated Stand Alone Forms: Patient Portal Discharge page Care Plan Goals: abstain from drinking alcohol Health Concerns: alcohol dependence uncontrolled blood pressure thrombocytopenia Plan of Treatment: do not drink alcohol follow [facility] 10/17 at 1PM call to schedule follow up appointment with PCP dose of norvasc was increased to 5 mg daily limit sedating meds (cyclbenzaprine, diazepam etc) when able minimize use of tylenol until repeat LFTs are obtained by PCP Assessment: see discharge summary Discharge Date/Time: 10/14/22 13:28
--- NOTE | 2022-10-14 11:16 | W.MHC.F2F ---
Service Date Service Date: 10/14/22 Encounter Date of encounter: 10/14/22 Reasons for Services Signs and symptoms assessed: Needs home physical therapy services Reason for occupational therapy: home safety and mobility, therapeutic exercises and gait/transfer training Overseeing Care: Reinaldo Willard Homebound: Leaving the home is medically contraindicated at this time without the asist of a device and/or another person due th the listed conditions above and below. Reason homebound: unsteady gait / fall risk Certification: Based on the above findings, I certify that this patient is confined to the home and needs intermittent group home care, physical therapy and/or speech therapy, or continues to need occupational therapy. The patient is under my care, and I have initiated the establishment of the plan of care. The patient will be followed by a physician who will periodically review the plan of care. Time Spent With Patient Time: Total time managing care of this patient today ____ minutes.
--- NOTE | 2022-10-14 13:03 | MHC.CM.PN ---
Pt medically cleared for D/C. Referral made for home [facility]/PT services, [facility] can accept pt. [facility] booked for transport today at 1:30pm.
== END 2022-10-14 13:28 | disposition home health service (06) | DRG 641 ==
LOC: HO.ED 17:11 → HO.EDOVER 17:34 → HO.S3 18:01 → HO.IMC 10-11 16:16
PROVIDERS: Family Medicine; Nurse Practitioner Family; Physician Assistant; Admitting Provider Physician Assistant; Emergency Provider Emergency Medicine; PCP Family Medicine; Visit Provider Physician Assistant Medical
DX: E87.6 Hypokalemia (principal); F10.239 Alcohol dependence with withdrawal, unspecified; F13.239 Sedative, hypnotic or anxiolytic dependence with withdrawal, unspecified; E83.42 Hypomagnesemia; E87.29 Other acidosis; F31.9 Bipolar disorder, unspecified; F10.229 Alcohol dependence with intoxication, unspecified; I10 Essential (primary) hypertension; T17.228A Food in pharynx causing other injury, initial encounter; X58.XXXA Exposure to other specified factors, initial encounter; R07.89 Other chest pain; I45.10 Unspecified right bundle-branch block; G89.29 Other chronic pain; D69.59 Other secondary thrombocytopenia; K70.10 Alcoholic hepatitis without ascites; Y90.6 Blood alcohol level of 120-199 mg/100 ml; Z79.899 Other long term (current) drug therapy
CPT/HCPCS: 36415; 71046; 80048; 80053; 80076; 80307; 83735; 84484; 85025; 85027; 85610; 92610; 93005; 97162; 99285; J1650; J1885; J2060; J2560; J3411; J3475; S9485

== ENCOUNTER 2022-10-14 20:09 | Emergency (ER) | payer MEDICARE, SELFPAY ==
--- NOTE | ~2022-10-14 | XR_ITS ---
EXAMINATION: XR CHEST CLINICAL INFORMATION: Shortness of breath COMPARISON: 10/09/2022 TECHNIQUE: Frontal view of the chest was obtained. FINDINGS: Normal symmetric lung volumes. No parenchymal consolidation. No pleural effusion. No pneumothorax. Cardiomediastinal silhouette and pulmonary vascularity are within normal limits. No acute osseous abnormalities. XR/XR chest 1V IMPRESSION: Clear lungs
[2022-10-14 20:13] VITALS: BP 153/107; PULSE 120; RESP 18; TEMP 36.2; O2SAT 96; BMI 25.8
--- NOTE | 2022-10-14 20:15 | ED.GENADULT ---
HPI - General Adult General Chief complaint: Chest Pain Stated complaint: CP, SOB, feels like a heart attack Time Seen by Provider: 10/14/22 23:39 History of Present Illness HPI narrative: Patient is a 72-year-old female with a history of alcohol use. History of alcohol withdrawal. She was just discharged from hospital yesterday. No history of diabetes. Positive history of the present. No diaphoresis. No shortness of breath. No nausea. The pain is constant. No history of blood clot renal swelling. No travel history. Related Data Home Medications Medication Instructions Recorded Confirmed acetaminophen 500 mg tablet 1,000 mg PO Q8H PRN Pain, Moderate 06/16/22 10/09/22 (Tylenol Extra Strength) cyclobenzaprine 10 mg tablet 10 mg PO BID PRN Muscle Spasm 06/16/22 10/09/22 diazepam 5 mg tablet 5 mg PO BID PRN Anxiety 06/16/22 10/09/22 diphenhydramine HCl 25 mg tablet 25 mg PO BEDTIME 06/16/22 10/09/22 bacitracin-polymyxin B 500 1 appl ophthalmic (eye) QMONTH 10/09/22 10/09/22 unit-10,000 unit/gram eye ointment hydroxyzine HCl 25 mg tablet 25 mg PO DAILY 10/09/22 10/09/22 olanzapine 20 mg tablet (Zyprexa) 20 mg PO DAILY 10/09/22 10/09/22 Previous Rx's Medication Instructions Recorded duloxetine 60 mg capsule,delayed 60 mg PO BID 30 days #60 caps 11/26/21 release furosemide 20 mg tablet 20 mg PO DAILY PRN edema 30 days 11/26/21 #30 tabs omeprazole 40 mg capsule,delayed 40 mg PO DAILY@0630 30 days #30 11/26/21 release caps amlodipine 5 mg tablet 5 mg PO DAILY 30 days #30 tabs 10/14/22 folic acid 1 mg tablet 1 mg PO DAILY 30 days #30 tabs 10/14/22 magnesium oxide 400 mg (241.3 mg 400 mg PO DAILY 30 days #30 tabs 10/14/22 magnesium) tablet (MagOx) thiamine HCl (vitamin B1) 100 mg 100 mg PO DAILY 30 days #30 tabs 10/14/22 tablet Allergies Allergy/AdvReac Type Severity Reaction Status Date / Time sulfamethoxazole Allergy Mild FEVER Verified 10/09/22 11:12 [From BACTRIM] trimethoprim [From BACTRIM] Allergy Mild FEVER Verified 10/09/22 11:12 cephalexin [Keflex] Allergy Unknown Unknown Verified 10/09/22 11:12 Sulfa (Sulfonamide Allergy Unknown Unknown Verified 10/09/22 11:12 Antibiotics) tramadol [Ultram] Allergy Unknown Unknown Verified 10/09/22 11:12 mold Allergy Unknown Unknown Uncoded 10/09/22 11:12 pollen Allergy Unknown Unknown Uncoded 10/09/22 11:12 Review of Systems Review of Systems: Positive chest pain Yes all other systems are reviewed and are negative [facility] Past Medical History Attestation statement: The following information was validated with the patient. Medical History Alcohol dependence Bipolar disorder Endometriosis Hypertension Mood disorder Social History Social History Household Members: None Household Members Other:: Cat Housing: House Do you presently have visiting nurse or other home services: Yes Alcohol intake: current Alcohol intake frequency: 3 or more drinks per day Alcohol type: beer and hard liquor Patient Tobacco Use Status: Never used Tobacco Tobacco use type: Cigarette e-Cigarette/Vaping Use: Never Used Second Hand Smoke Exposure: No Advance Directives: Yes Advance Directives on File: Yes Advance Directives Date on File: 06/16/22 service: No Current occupational status: unemployed Sexual orientation: Straight/Heterosexual Physical Exam ED Vital Signs: Vital Signs - 24 hr 10/14/22 20:13 10/14/22 23:45 10/15/22 01:50 Temperature 97.2 F 97.8 F 98.1 F Pulse Rate 120 H 95 90 Respiratory Rate 18 16 16 Blood Pressure 153/107 H 155/92 H 149/84 H Pulse Oximetry 96 95 97 Oxygen Delivery Method Room Air Room Air Room Air BMI result Body Mass Index 25.8 Appearance: Alert. Oriented X3. No acute distress. Eyes: Pupils equal, round and reactive to light. ENT: Pharynx normal. Neck: Normal inspection. Neck supple. No lymph nodes noted. No crepitus CVS: Normal heart rate and rhythm. Pulses normal. Normal S1 and S2 Respiratory: No respiratory distress. Breath sounds normal. No Wheezing. No rales Abdomen: Soft and nontender. No rigidity. No distention. good BS x4 Skin: Skin warm and dry. Normal skin color. Normal skin turgor. Extremities: No lower extremity edema. Neurovascular intact to all extremities. No Lacerations. No Rash Neuro: Oriented X 3. No motor deficit. No sensory deficit. Moving all extermities. No slurred speech Course Course Course Narrative: RME performed by Carmen Garrett PA-C. Patient is a 72 year old assigned female at presenting to the emergency department with chest pain. Labs and imaging ordered. Patient placed back in the waiting room pending room availability and results. Medical Decision Making Medical Decision Making [facility] Narrative: My interpretation patient's EKG showed a sinus pattern are 100 [place] QRS positive partial right bundle branch block noted no acute ST segment elevation. This EKG is unchanged from previous 3rd patient's chest pain atypical was just in the hospital. Versus enzymes are negative. She is 72 years old. Her EKG is unchanged. Her troponin is negative. Will discharge patient home after 2nd set of troponin. Currently in stable condition. Two sets of enzymes are negative. Patient's chest x-ray showed no pneumonia pneumothorax. Will discharge patient Differential Diagnosis Differential Diagnoses: The differential diagnosis associated with the presentation includes ACS, pneumonia, pneumothorax Admission/Observation Consideration of admission/observation: Escalation of care including admission/observation considered Lab Data [facility] Lab Attestation statement: I reviewed the patient's lab results. 10/14/22 20:30 10/14/22 20:30 Labs: Lab Results 10/14/22 10/14/22 10/14/22 Range/Units 20:30 20:30 20:30 WBC 5.2 (4.8-10.8) X10*3/uL RBC 4.32 (4.20-5.50) X10*6/uL Hgb 13.3 (12.0-16.0) g/dl Hct 39.5 (37.0-47.0) % MCV 91.4 (80.0-98.0) fL MCH 30.8 (27.0-33.0) pg MCHC 33.7 (31.0-35.0) g/dl RDW 14.7 (11.0-16.0) % Plt Count 134 L (160-400) X10*3/uL MPV 9.6 (9.4-12.3) fL Immature Gran % (Auto) 0.4 (0.0-0.4) % Neut % (Auto) 70.4 (45-73) % Lymph % (Auto) 14.7 L (20-40) % [place] % (Auto) 12.4 H (2-11) % Eos % (Auto) 1.7 (0-4) % Baso % (Auto) 0.4 (0-2) % Lymph # (Auto) 0.8 L (1.2-4.9) X10*3/uL [place] # (Auto) 0.6 (0.1-1.2) X10*3/uL Eos # (Auto) 0.1 (0.0-0.4) X10*3/uL Baso # (Auto) 0.0 (0.0-0.2) X10*3/uL Abs Immat Gran (auto) 0.02 (0.00-0.03) X10*3/uL Absolute Neuts (auto) 3.6 (2.0-8.3) x10*3/uL Absolute Nucleated RBC 0.000 (0.0-0.012) X10*3/uL Nucleated RBC % (auto) 0.0 (0.0-0.2) /100WBC Sodium 142 (135-145) mmol/L Potassium 3.8 (3.3-5.1) mmol/L Chloride 104 (96-108) mmol/L Carbon Dioxide 27 (22-29) mmol/L Anion Gap 15 (12-20) BUN 15 (9-16) mg/dL Creatinine 0.73 (0.5-1.4) mg/dL Estim Creat Clear Calc 72.1 Estimated GFR > 60 Random Glucose 126 H (60-115) mg/dL Calcium 9.9 D (8.4-10.2) mg/dL Magnesium 1.5 L (1.6-2.6) mg/dL Total Bilirubin 0.4 (0.0-1.0) mg/dL AST 58 H (5-31) U/L ALT 49 H (0-31) U/L Alkaline Phosphatase 84 (39-117) U/L Troponin I High Sens (<3.5-17.0) ng/L B-Natriuretic Peptide 14 (<100) pg/mL Total Protein 7.3 (6.5-8.0) g/dL Albumin 4.3 (3.5-5.0) g/dL Ethyl Alcohol < 10 mg/dL COVID-19 ([facility]) (Negative) COVID-19 Clin Com 10/14/22 10/14/22 10/15/22 Range/Units 20:30 20:30 00:47 WBC (4.8-10.8) X10*3/uL RBC (4.20-5.50) X10*6/uL Hgb (12.0-16.0) g/dl Hct (37.0-47.0) % MCV (80.0-98.0) fL MCH (27.0-33.0) pg MCHC (31.0-35.0) g/dl RDW (11.0-16.0) % Plt Count (160-400) X10*3/uL MPV (9.4-12.3) fL Immature Gran % (Auto) (0.0-0.4) % Neut % (Auto) (45-73) % Lymph % (Auto) (20-40) % [place] % (Auto) (2-11) % Eos % (Auto) (0-4) % Baso % (Auto) (0-2) % Lymph # (Auto) (1.2-4.9) X10*3/uL [place] # (Auto) (0.1-1.2) X10*3/uL Eos # (Auto) (0.0-0.4) X10*3/uL Baso # (Auto) (0.0-0.2) X10*3/uL Abs Immat Gran (auto) (0.00-0.03) X10*3/uL Absolute Neuts (auto) (2.0-8.3) x10*3/uL Absolute Nucleated RBC (0.0-0.012) X10*3/uL Nucleated RBC % (auto) (0.0-0.2) /100WBC Sodium (135-145) mmol/L Potassium (3.3-5.1) mmol/L Chloride (96-108) mmol/L Carbon Dioxide (22-29) mmol/L Anion Gap (12-20) BUN (9-16) mg/dL Creatinine (0.5-1.4) mg/dL Estim Creat Clear Calc Estimated GFR Random Glucose (60-115) mg/dL Calcium (8.4-10.2) mg/dL Magnesium (1.6-2.6) mg/dL Total Bilirubin (0.0-1.0) mg/dL AST (5-31) U/L ALT (0-31) U/L Alkaline Phosphatase (39-117) U/L Troponin I High Sens 5.6 D 8.1 (<3.5-17.0) ng/L B-Natriuretic Peptide (<100) pg/mL Total Protein (6.5-8.0) g/dL Albumin (3.5-5.0) g/dL Ethyl Alcohol mg/dL COVID-19 ([facility]) Negative (Negative) COVID-19 Clin Com See Note Independent Interpretation I performed an independent interpretation of an: EKG and Plain X-Ray Interpretation: Sinus heart rate is 90 W[place] QRS QT within normal limits there is a partial right bundle branch block noted Chest x-ray was grossly negative for pneumonia pneumothorax Radiology Impression Discussion of test interpretation with radiology: I have reviewed the radiologist's reading. External Record Review External record reviewed: Inpatient record Chronic Conditions Patient?s care impacted by: Hypertension Discharge Plan Discharge Clinical Impression: Atypical chest pain Patient Disposition: Home, Self-Care Instructions: Chest Pain (DC) Prescriptions: No Action omeprazole 40 mg Capsule,Delayed Release(Dr/Ec) 40 mg PO DAILY@0630 30 Days Qty: 30 0RF furosemide 20 mg Tablet 20 mg PO DAILY PRN (Reason: edema) 30 Days Qty: 30 0RF Protocol: Hold for SBP< HOLD for SBP < : 90 duloxetine 60 mg Capsule,Delayed Release(Dr/Ec) 60 mg PO BID 30 Days Qty: 60 0RF diazepam 5 mg tablet 5 mg PO BID PRN (Reason: Anxiety) cyclobenzaprine 10 mg tablet 10 mg PO BID PRN (Reason: Muscle Spasm) diphenhydramine HCl 25 mg Tablet 25 mg PO BEDTIME acetaminophen [Tylenol Extra Strength] 500 mg tablet 1,000 mg PO Q8H PRN (Reason: Pain, Moderate) bacitracin-polymyxin B 500-10,000 unit/gram ointment 1 appl ophthalmic (eye) QMONTH Rx Instructions: FOR 1 WEEK EACH MONTH AT BEDTIME hydroxyzine HCl 25 mg tablet 25 mg PO DAILY olanzapine [Zyprexa] 20 mg tablet 20 mg PO DAILY amlodipine 5 mg Tablet 5 mg PO DAILY 30 Days Qty: 30 0RF Protocol: Hold for SBP< HOLD for SBP < : 90 folic acid 1 mg Tablet 1 mg PO DAILY 30 Days Qty: 30 0RF thiamine HCl (vitamin B1) 100 mg tablet 100 mg PO DAILY 30 Days Qty: 30 0RF magnesium oxide [MagOx] 400 mg (241.3 mg magnesium) tablet 400 mg PO DAILY 30 Days Qty: 30 0RF Referrals: Reinaldo Willard MD [Primary Care Provider] - 10/17/22
--- NOTE | 2022-10-14 20:16 | ECG_ITS ---
Test Reason : CP Blood Pressure : / mmHG Vent. Rate : 109 BPM Atrial Rate : 109 BPM P-R Int : 204 ms QRS Dur : 094 ms QT Int : 338 ms P-R-T Axes : 066 -21 043 degrees QTc Int : 455 ms Sinus tachycardia Inferior-posterior infarct , age undetermined Abnormal ECG When compared with ECG of 12-OCT-2022 17:07, No significant change was found Referred By: Carmen Garrett Electronically Signed By:Randell Hines
[2022-10-14 20:40] LABS: MANUAL DIFF FLAG NO
[2022-10-14 20:42] LABS: Basophils Percent Auto 0.4 % (0-2); Eosinophils Absolute Auto 0.1 X10*3/uL (0.0-0.4); Eosinophils Percent Auto 1.7 % (0-4); Hematocrit 39.5 % (37.0-47.0); Hemoglobin 13.3 g/dl (12.0-16.0); Imm Gran Abs Auto 0.02 X10*3/uL (0.00-0.03); Imm Gran Pct Auto 0.4 % (0.0-0.4); Lymphocytes Absolute Auto 0.8 X10*3/uL (1.2-4.9); Lymphocytes Percent Auto 14.7 % (20-40); Mean Corpuscular HGB Conc 33.7 g/dl (31.0-35.0); Mean Corpuscular Hemoglobin 30.8 pg (27.0-33.0); Mean Corpuscular Volume 91.4 fL (80.0-98.0); Mean Platelet Volume 9.6 fL (9.4-12.3); Monocytes Absolute Auto 0.6 X10*3/uL (0.1-1.2); Monocytes Percent Auto 12.4 % (2-11); Neutrophils Absolute Auto 3.6 x10*3/uL (2.0-8.3); Neutrophils Percent Auto 70.4 % (45-73); Platelet Count 134 X10*3/uL (160-400); Red Blood Count 4.32 X10*6/uL (4.20-5.50); Red Cell Distribution Width 14.7 % (11.0-16.0); White Blood Count 5.2 X10*3/uL (4.8-10.8)
[2022-10-14 20:58] LABS: COVID-19 Test Negative (Negative); IDNOW Serial# 08D9AD1C
[2022-10-14 20:59] LABS: Alanine Aminotransferase 49 U/L (0-31); Albumin Level 4.3 g/dL (3.5-5.0); Alkaline Phosphatase 84 U/L (39-117); Anion Gap 15 (12-20); Aspartate Amino Transferase 58 U/L (5-31); Bilirubin Total 0.4 mg/dL (0.0-1.0); Blood Urea Nitrogen 15 mg/dL (9-16); Calcium 9.9 mg/dL (8.4-10.2); Carbon Dioxide 27 mmol/L (22-29); Chloride 104 mmol/L (96-108); Creatinine Clr Calc Pharmacy 72.1; Estimated Glomerular Filt Rate > 60; Ethanol < 10 mg/dL; Glucose Random 126 mg/dL (60-115); Magnesium 1.5 mg/dL (1.6-2.6); Potassium 3.8 mmol/L (3.3-5.1); Sodium 142 mmol/L (135-145); Total Protein 7.3 g/dL (6.5-8.0)
[2022-10-14 21:02] LABS: B Type Natriuretic Peptide 14 pg/mL (<100)
[2022-10-14 21:05] LABS: Troponin-I High Sensitivity 5.6 ng/L (<3.5-17.0)
[2022-10-14 23:45] VITALS: BP 155/92; PULSE 95; RESP 16; TEMP 36.6; O2SAT 95
--- NOTE | 2022-10-15 00:52 | MHC.EDTECH ---
PATIENT WAS ASSISTED TO WALK TO BATHROOM AND BACK TO BED ,PATIENT VOID LARGE AMOUNT OF URINE ,REPEATED TROP DRAWN AND SENT TO LAB .
[2022-10-15 01:15] LABS: Troponin-I High Sensitivity 8.1 ng/L (<3.5-17.0)
[2022-10-15 01:50] VITALS: BP 149/84; PULSE 90; RESP 16; TEMP 36.7; O2SAT 97
== END 2022-10-15 02:39 | disposition home or self-care (01) ==
PROVIDERS: Physician Assistant Medical; Emergency Provider Emergency Medicine Emergency Medical Services; PCP Family Medicine
DX: R07.89 Other chest pain (principal); R06.02 Shortness of breath; Z20.822 Contact with and (suspected) exposure to COVID-19; Z20.828 Contact with and (suspected) exposure to other viral communicable diseases; Z79.899 Other long term (current) drug therapy
CPT/HCPCS: 36415; 71045; 80053; 80307; 83735; 83880; 84484; 85025; 87635; 93005; 99283; 99284

== ENCOUNTER 2022-12-17 17:16 | Emergency (ER) | payer MEDICARE, SELFPAY ==
--- NOTE | ~2022-12-17 | XR_ITS ---
EXAMINATION: XR CHEST CLINICAL INFORMATION: Decreased oxygenation. COMPARISON: None available. TECHNIQUE: 2 views of the chest were obtained. FINDINGS: No significant abnormality is noted involving the heart, lungs, mediastinum, bony thorax or soft tissues. XR/XR chest 2V IMPRESSION: Unremarkable chest examination.
[2022-12-17 17:20] VITALS: BP 118/77; BP 123/81; PULSE 102; PULSE 98; RESP 17; TEMP 37.4; O2SAT 94; BMI 29.2
--- NOTE | 2022-12-17 17:27 | ED_ITS ---
HPI - General Adult General Chief complaint: ETOH/Substance Use Stated complaint: etoh,drinking all day Time Seen by Provider: 12/17/22 17:26 Source: patient and EMS Mode of arrival: EMS Limitations: no limitations History of Present Illness HPI narrative: Patient is a 72 year old assigned female at with a history of alcohol abuse, endometriosis, bipolar disorder, HTN, and anxiety presenting to the emergency department today after alcohol use. Patient states that she is very stressed out about an upcoming surgery and drank too much alcohol to cope with it. Patient states that she is not suicidal or homicidal. Patient states that she has no complaints at this time. Patient denies any dizziness, lighthead edness, abdominal pain, nausea, vomiting, fever, chills, blurry vision, double vision, loss of vision, chest pain, difficulty breathing, shortness of breath, back pain, night sweats, pain with urination, increased urinary frequency, increased urinary urgency, blood in her urine or stool, syncope or a near syncopal episode, recent trauma or falls, bowel incontinence, bladder incontinence, bowel retention, bladder retention, or any other complaints at this time. Relieving factors: none Exacerbating factors: none Associated symptoms: denies other symptoms Treatments prior to arrival: none Related Data Home Medications Medication Instructions Recorded Confirmed acetaminophen 500 mg tablet 1,000 mg PO Q8H PRN Pain, Moderate 06/16/22 10/09/22 (Tylenol Extra Strength) cyclobenzaprine 10 mg tablet 10 mg PO BID PRN Muscle Spasm 06/16/22 10/09/22 diazepam 5 mg tablet 5 mg PO BID PRN Anxiety 06/16/22 10/09/22 diphenhydramine HCl 25 mg tablet 25 mg PO BEDTIME 06/16/22 10/09/22 bacitracin-polymyxin B 500 1 appl ophthalmic (eye) QMONTH 10/09/22 10/09/22 unit-10,000 unit/gram eye ointment hydroxyzine HCl 25 mg tablet 25 mg PO DAILY 10/09/22 10/09/22 olanzapine 20 mg tablet (Zyprexa) 20 mg PO DAILY 10/09/22 10/09/22 Previous Rx's Medication Instructions Recorded duloxetine 60 mg capsule,delayed 60 mg PO BID 30 days #60 caps 11/26/21 release furosemide 20 mg tablet 20 mg PO DAILY PRN edema 30 days 11/26/21 #30 tabs omeprazole 40 mg capsule,delayed 40 mg PO DAILY@0630 30 days #30 11/26/21 release caps amlodipine 5 mg tablet 5 mg PO DAILY 30 days #30 tabs 10/14/22 folic acid 1 mg tablet 1 mg PO DAILY 30 days #30 tabs 10/14/22 magnesium oxide 400 mg (241.3 mg 400 mg PO DAILY 30 days #30 tabs 10/14/22 magnesium) tablet (MagOx) thiamine HCl (vitamin B1) 100 mg 100 mg PO DAILY 30 days #30 tabs 10/14/22 tablet Allergies Allergy/AdvReac Type Severity Reaction Status Date / Time sulfamethoxazole Allergy Mild FEVER Verified 10/09/22 11:12 [From BACTRIM] trimethoprim [From BACTRIM] Allergy Mild FEVER Verified 10/09/22 11:12 cephalexin [Keflex] Allergy Unknown Unknown Verified 10/09/22 11:12 Sulfa (Sulfonamide Allergy Unknown Unknown Verified 10/09/22 11:12 Antibiotics) tramadol [Ultram] Allergy Unknown Unknown Verified 10/09/22 11:12 mold Allergy Unknown Unknown Uncoded 10/09/22 11:12 pollen Allergy Unknown Unknown Uncoded 10/09/22 11:12 Review of Systems Constitutional: Constitutional: Reports no additional constitutional complaints, Denies chills, Denies fever(s) and Denies night sweats Eyes: Eyes: Reports no additional eye complaints, Denies blurry vision, Denies change in vision, Denies diplopia, Denies eye discharge, Denies loss of vision and Denies eye pain ENT: Denies dizziness Cardiovascular: Cardiovascular: Reports no additional cardiovascular complaints, Denies chest pain, Denies lightheadedness, Denies Loss of Consciousness and Denies dyspnea Respiratory: Respiratory: Reports no additional respiratory complaints and Denies dyspnea Gastrointestinal: Gastrointestinal: Reports no additional gastrointestinal complaints, Denies abdominal pain, Denies melena, Denies hematochezia, Denies change in bowel habits and Denies change in stool character Genitourinary: Genitourinary: Denies hematuria, Denies urinary frequency, Denies dysuria, Denies urinary incontinence, Denies urinary hesitancy and Denies urinary urgency Musculoskeletal: Musculoskeletal: Reports no additional musculoskeletal complaints, Denies numbness and Denies tingling Neurologic: Denies dizziness, Denies loss of vision, Denies numbness and Denies tingling Psychiatric: Psychiatric: Reports no additional psychiatric complaints Endocrine: Endocrine: Reports no additional endocrine complaints Hematologic/Lymphatic: Hematologic/Lymphatic: Reports no additional hematologic/lymphatic complaints Allergic/Immunologic: Allergic/Immunologic: Reports no additional allergic/immunologic complaints PMFSH Past Medical History Attestation statement: The following information was validated with the patient. Source: old records reviewed and nursing notes reviewed Medical History Alcohol dependence Alcohol use with withdrawal Anxiety Bipolar disorder Endometriosis Fracture of distal end of right fibula Hypertension Hypomagnesemia Mood disorder Routine medical exam Social History Social History Household Members: None Household Members Other:: Cat Housing: House Do you presently have visiting nurse or other home services: Yes Alcohol intake: current Alcohol intake frequency: 3 or more drinks per day Alcohol type: hard liquor Patient Tobacco Use Status: Never used Tobacco Tobacco use type: Cigarette Smoked in Last 30 Days: No e-Cigarette/Vaping Use: Never Used Second Hand Smoke Exposure: No Use of substances other than those prescribed or required for medical reasons: No Advance Directives: Yes Advance Directives on File: Yes Advance Directives Date on File: 06/16/22 service: No Current occupational status: unemployed Sexual orientation: Straight/Heterosexual Physical Exam ED Vital Signs: Vital Signs - 24 hr 12/17/22 17:20 12/17/22 17:53 12/17/22 19:13 Temperature 99.3 F 97.8 F 98.4 F Pulse Rate 102 H 106 H 105 H Respiratory Rate 17 20 12 Blood Pressure 123/81 125/73 135/67 Pulse Oximetry 94 93 97 Oxygen Delivery Method Nasal Cannula Nasal Cannula Nasal Cannula Oxygen Flow Rate 2 3 12/17/22 21:26 Temperature 98.0 F Pulse Rate 96 Respiratory Rate 18 Blood Pressure 116/62 Pulse Oximetry 96 Oxygen Delivery Method Nasal Cannula Oxygen Flow Rate 3 BMI result Body Mass Index 29.2 Const General: cooperative, no acute distress, alert and awake Nutritional Appearance: well nourished Orientation/consciousness: patient oriented x3 Limitations: no limitations HENMT Head: Yes normal to inspection and Yes atraumatic Ears: hearing grossly normal bilaterally and external ears normal General nose exam: Normal external nose present, no nasal discharge noted and no epistaxis Face and sinus: Yes normal facial exam, No abrasion and No laceration Mouth: Normal oral and palatal mucosa present, no drooling and no muffled voice Eyes General: appearance normal, both eyes and all related structures Periorbital: periorbital findings normal Eyelids: Yes eyelids normal Conjunctivae: conjunctivae normal Pupils: Equal, round and reactive pupils present EOM: EOMs intact bilaterally Neck Neck: Yes normal visual inspection, Yes full ROM and Yes no lymphadenopathy Chest Chest palpation & inspection: normal inspection of the chest Resp Effort & Inspection: normal respiratory effort and able to speak in complete sentences Auscultation: clear to auscultation bilaterally Cardio Rate: regular rate Rhythm: regular rhythm GI Inspection: Yes normal to inspection Palpation (GI): Soft to palpation, not firm, nontender and no guarding Neuro General: patient oriented x3 and moves all extremities Cranial nerves: Yes Equal, round and reactive pupils present Cognition (Neuro): normal cognition Motor exam (neuro): 5/5 motor strength present throughout Sensory Exam: Normal double simultaneous stimulation for sensation Coordination: [id number] test normal Extrem General: Yes normal to inspection, Yes full ROM and Yes capillary refill normal Psych Appearance: grossly normal Mental Status: mental status grossly normal Affect: normal affect Attitude: cooperative Thought process: Normal thought process present Thought content: Normal thought content present Insight: Good insight present (Psych) Medical Decision Making Medical Decision Making [facility] Narrative: Patient is a 72 year old assigned female at with a history of alcohol abuse, anxiety, bipolar disorder, and HTN presenting to the emergency department today after alcohol use. Patient's physical exam showed an obviously intoxicated individual but was otherwise unremarkable. Patient's blood work showed an elevated sodium of 146, this appears to be chronic for the patient. I interpreted the rest of the patient's labs as grossly normal. Patient's urine showed no acute process. Patient's chest x-ray showed no acute process. I explained my physical exam findings as well as all test results to the patient. I answered all questions asked by the patient. Patient continues to rest in the department. Patient will be cleared for discharge once she is sober enough to get home safely. Recovery team consult placed. Differential Diagnosis Differential Diagnoses: The differential diagnosis associated with the presentation includes Alcohol abuse Alcoholism Lab Data [facility] Lab Attestation statement: I reviewed the patient's lab results. My interpretation of these results are in the MDM portion of this chart. 12/17/22 23:19 12/17/22 23:19 Labs: Lab Results 12/17/22 12/17/22 12/17/22 Range/Units 17:48 17:48 18:15 WBC (4.8-10.8) X10*3/uL RBC (4.20-5.50) X10*6/uL Hgb (12.0-16.0) g/dl Hct (37.0-47.0) % MCV (80.0-98.0) fL MCH (27.0-33.0) pg MCHC (31.0-35.0) g/dl RDW (11.0-16.0) % Plt Count (160-400) X10*3/uL MPV (9.4-12.3) fL Immature Gran % (Auto) (0.0-0.4) % Neut % (Auto) (45-73) % Lymph % (Auto) (20-40) % Cocke % (Auto) (2-11) % Eos % (Auto) (0-4) % Baso % (Auto) (0-2) % Lymph # (Auto) (1.2-4.9) X10*3/uL Cocke # (Auto) (0.1-1.2) X10*3/uL Eos # (Auto) (0.0-0.4) X10*3/uL Baso # (Auto) (0.0-0.2) X10*3/uL Abs Immat Gran (auto) (0.00-0.03) X10*3/uL Absolute Neuts (auto) (2.0-8.3) x10*3/uL Absolute Nucleated RBC (0.0-0.012) X10*3/uL Nucleated RBC % (auto) (0.0-0.2) /100WBC Sodium (135-145) mmol/L Potassium (3.3-5.1) mmol/L Chloride (96-108) mmol/L Carbon Dioxide (22-29) mmol/L Anion Gap (12-20) BUN (9-16) mg/dL Creatinine (0.5-1.4) mg/dL Estim Creat Clear Calc Estimated GFR Random Glucose (60-115) mg/dL Calcium (8.4-10.2) mg/dL Magnesium (1.6-2.6) mg/dL Total Bilirubin (0.0-1.0) mg/dL AST (5-31) U/L ALT (0-31) U/L Alkaline Phosphatase (39-117) U/L Total Protein (6.5-8.0) g/dL Albumin (3.5-5.0) g/dL Urine Color Yellow Urine Appearance Clear Urine pH 6.0 (5.0-9.0) Ur Specific [place] <= 1.005 (1.005-1.025) Urine Protein Negative (Neg-Trace) mg/dL Urine Glucose (UA) Negative (Negative) mg/dL Urine Ketones Negative (Negative) mg/dL Urine Blood Negative (Negative) Urine Nitrite Negative (Negative) Ur Leukocyte Esterase Trace H (Negative) Urine RBC 0-2 (0-2) /HPF Urine WBC 6-10 H (0-5) /HPF Ur Squamous Epith Cells 0-2 (0-2) /HPF Urine Bacteria None Seen (None Seen) Hyaline Casts 0-2 (0-2) /LPF Ethyl Alcohol mg/dL COVID-19 ([facility]) Negative (Negative) COVID-19 Clin Com See Note Influenza Type A (CJ) Negative (Negative) Influenza Type B (CJ) Negative (Negative) Influenza A & B Note See Note 12/17/22 12/17/22 Range/Units 23:19 23:19 WBC 3.9 L (4.8-10.8) X10*3/uL RBC 4.20 (4.20-5.50) X10*6/uL Hgb 12.6 (12.0-16.0) g/dl Hct 37.6 (37.0-47.0) % MCV 89.5 (80.0-98.0) fL MCH 30.0 (27.0-33.0) pg MCHC 33.5 (31.0-35.0) g/dl RDW 13.9 (11.0-16.0) % Plt Count 209 D (160-400) X10*3/uL MPV 9.2 L (9.4-12.3) fL Immature Gran % (Auto) 0.3 (0.0-0.4) % Neut % (Auto) 46.6 (45-73) % Lymph % (Auto) 45.0 H (20-40) % Cocke % (Auto) 6.6 (2-11) % Eos % (Auto) 1.0 (0-4) % Baso % (Auto) 0.5 (0-2) % Lymph # (Auto) 1.8 (1.2-4.9) X10*3/uL Cocke # (Auto) 0.3 (0.1-1.2) X10*3/uL Eos # (Auto) 0.0 (0.0-0.4) X10*3/uL Baso # (Auto) 0.0 (0.0-0.2) X10*3/uL Abs Immat Gran (auto) 0.01 (0.00-0.03) X10*3/uL Absolute Neuts (auto) 1.8 L (2.0-8.3) x10*3/uL Absolute Nucleated RBC 0.000 (0.0-0.012) X10*3/uL Nucleated RBC % (auto) 0.0 (0.0-0.2) /100WBC Sodium 146 H (135-145) mmol/L Potassium 4.5 (3.3-5.1) mmol/L Chloride 111 H (96-108) mmol/L Carbon Dioxide 28 (22-29) mmol/L Anion Gap 12 (12-20) BUN 15 (9-16) mg/dL Creatinine 0.84 (0.5-1.4) mg/dL Estim Creat Clear Calc 66.3 Estimated GFR > 60 Random Glucose 144 H (60-115) mg/dL Calcium 8.6 D (8.4-10.2) mg/dL Magnesium 2.0 (1.6-2.6) mg/dL Total Bilirubin 0.2 (0.0-1.0) mg/dL AST 26 (5-31) U/L ALT 20 (0-31) U/L Alkaline Phosphatase 68 (39-117) U/L Total Protein 6.7 (6.5-8.0) g/dL Albumin 3.5 (3.5-5.0) g/dL Urine Color Urine Appearance Urine pH (5.0-9.0) Ur Specific [place] (1.005-1.025) Urine Protein (Neg-Trace) mg/dL Urine Glucose (UA) (Negative) mg/dL Urine Ketones (Negative) mg/dL Urine Blood (Negative) Urine Nitrite (Negative) Ur Leukocyte Esterase (Negative) Urine RBC (0-2) /HPF Urine WBC (0-5) /HPF Ur Squamous Epith Cells (0-2) /HPF Urine Bacteria (None Seen) Hyaline Casts (0-2) /LPF Ethyl Alcohol 174 mg/dL COVID-19 ([facility]) (Negative) COVID-19 Clin Com Influenza Type A (CJ) (Negative) Influenza Type B (CJ) (Negative) Influenza A & B Note Independent Interpretation I performed an independent interpretation of an: Plain X-Ray Interpretation: My interpretation is in agreement with the radiologist's impression of this imaging study. EXAMINATION: XR CHEST CLINICAL INFORMATION: Decreased oxygenation. COMPARISON: None available. TECHNIQUE: 2 views of the chest were obtained. FINDINGS: No significant abnormality is noted involving the heart, lungs, mediastinum, bony thorax or soft tissues. XR/XR chest 2V IMPRESSION: Unremarkable chest examination. Dictated By: Karthik Munoz MD Signed By: Electronically signed by Karthik Munoz MD 12/17/22 [id number] Radiology Impression Discussion of test interpretation with radiology: I have reviewed the radiologist's reading. Independent Historian Clinical information obtained from an independent historian. History obtained from or confirmed by: EMS (EMS provided additional history and confirmed the history provided by the patient.) Chronic Conditions Patient?s care impacted by: Hypertension and Other (alcohol abuse) Social Determinants Patient?s care significantly limited by Social Determinants of Health including: Other Social Determinant of Health (alcohol abuse) Discharge Plan Discharge Clinical Impression: Alcohol dependence Patient Disposition: Still a Patient Prescriptions: No Action omeprazole 40 mg Capsule,Delayed Release(Dr/Ec) 40 mg PO DAILY@0630 30 Days Qty: 30 0RF furosemide 20 mg Tablet 20 mg PO DAILY PRN (Reason: edema) 30 Days Qty: 30 0RF Protocol: Hold for SBP< HOLD for SBP < : 90 duloxetine 60 mg Capsule,Delayed Release(Dr/Ec) 60 mg PO BID 30 Days Qty: 60 0RF diazepam 5 mg tablet 5 mg PO BID PRN (Reason: Anxiety) cyclobenzaprine 10 mg tablet 10 mg PO BID PRN (Reason: Muscle Spasm) diphenhydramine HCl 25 mg Tablet 25 mg PO BEDTIME acetaminophen [Tylenol Extra Strength] 500 mg tablet 1,000 mg PO Q8H PRN (Reason: Pain, Moderate) bacitracin-polymyxin B 500-10,000 unit/gram ointment 1 appl ophthalmic (eye) QMONTH Rx Instructions: FOR 1 WEEK EACH MONTH AT BEDTIME hydroxyzine HCl 25 mg tablet 25 mg PO DAILY olanzapine [Zyprexa] 20 mg tablet 20 mg PO DAILY amlodipine 5 mg Tablet 5 mg PO DAILY 30 Days Qty: 30 0RF Protocol: Hold for SBP< HOLD for SBP < : 90 folic acid 1 mg Tablet 1 mg PO DAILY 30 Days Qty: 30 0RF thiamine HCl (vitamin B1) 100 mg tablet 100 mg PO DAILY 30 Days Qty: 30 0RF magnesium oxide [MagOx] 400 mg (241.3 mg magnesium) tablet 400 mg PO DAILY 30 Days Qty: 30 0RF
[2022-12-17 17:53] VITALS: BP 125/73; PULSE 106; RESP 20; TEMP 36.6; O2SAT 93
[2022-12-17 18:10] LABS: COVID-19 Test Negative (Negative); IDNOW Serial# 08D9AD1C; IDNOW Serial# BCCEAD1C; Influenza A Negative (Negative); Influenza B2 Negative (Negative)
[2022-12-17 18:25] LABS: Appearance Urine Clear; Color Urine Yellow; Glucose Urine UA Negative (Negative); Leukocyte Esterase Urine Trace (Negative); Nitrite Urine Negative (Negative); Specific Gravity - Urine <= 1.005 (1.005-1.025); UMIC TRIGGER UACC YES; Urine Blood Negative (Negative); Urine Ketones Negative (Negative); Urine Protein Negative (Neg-Trace)
[2022-12-17 18:30] LABS: Bacteria Urine None Seen (None Seen); Hyaline Casts Urine 0-2 /LPF (0-2); RBC Urine 0-2 /HPF (0-2); Squamous Epithelial Cell Urine 0-2 /HPF (0-2); UACC Culture Trigger YES
--- NOTE | 2022-12-17 18:41 | PC.NURSE ---
PT alert and oriented, skin dry and intact. Just ate sandwich. Claiming she has a hard time swallowing in general. No coughing after drinking or eating. wctm
[2022-12-17 19:13] VITALS: BP 135/67; PULSE 105; RESP 12; TEMP 36.9; O2SAT 97
[2022-12-17 21:26] VITALS: BP 116/62; PULSE 96; RESP 18; TEMP 36.7; O2SAT 96
[2022-12-17 23:24] LABS: MANUAL DIFF FLAG NO
[2022-12-17 23:25] LABS: Basophils Percent Auto 0.5 % (0-2); Hematocrit 37.6 % (37.0-47.0); Hemoglobin 12.6 g/dl (12.0-16.0); Imm Gran Abs Auto 0.01 X10*3/uL (0.00-0.03); Imm Gran Pct Auto 0.3 % (0.0-0.4); Lymphocytes Absolute Auto 1.8 X10*3/uL (1.2-4.9); Mean Corpuscular HGB Conc 33.5 g/dl (31.0-35.0); Mean Corpuscular Volume 89.5 fL (80.0-98.0); Mean Platelet Volume 9.2 fL (9.4-12.3); Monocytes Absolute Auto 0.3 X10*3/uL (0.1-1.2); Monocytes Percent Auto 6.6 % (2-11); Neutrophils Absolute Auto 1.8 x10*3/uL (2.0-8.3); Neutrophils Percent Auto 46.6 % (45-73); Platelet Count 209 X10*3/uL (160-400); Red Cell Distribution Width 13.9 % (11.0-16.0); White Blood Count 3.9 X10*3/uL (4.8-10.8)
[2022-12-17 23:42] LABS: Alanine Aminotransferase 20 U/L (0-31); Albumin Level 3.5 g/dL (3.5-5.0); Alkaline Phosphatase 68 U/L (39-117); Anion Gap 12 (12-20); Aspartate Amino Transferase 26 U/L (5-31); Bilirubin Total 0.2 mg/dL (0.0-1.0); Blood Urea Nitrogen 15 mg/dL (9-16); Calcium 8.6 mg/dL (8.4-10.2); Carbon Dioxide 28 mmol/L (22-29); Chloride 111 mmol/L (96-108); Creatinine Clr Calc Pharmacy 66.3; Estimated Glomerular Filt Rate > 60; Ethanol 174 mg/dL; Glucose Random 144 mg/dL (60-115); Potassium 4.5 mmol/L (3.3-5.1); Sodium 146 mmol/L (135-145); Total Protein 6.7 g/dL (6.5-8.0)
--- NOTE | 2022-12-17 23:51 | ECG_ITS ---
Test Reason : HYPERNATREMIA Blood Pressure : / mmHG Vent. Rate : 086 BPM Atrial Rate : 086 BPM P-R Int : 194 ms QRS Dur : 098 ms QT Int : 410 ms P-R-T Axes : 059 -16 044 degrees QTc Int : 490 ms Normal sinus rhythm Possible Left atrial enlargement Low voltage QRS Incomplete right bundle branch block Cannot rule out Inferior infarct (cited on or before 14-OCT-2022) Abnormal ECG When compared with ECG of 14-OCT-2022 20:20, No significant change was found Referred By: Carmen Garrett Electronically Signed By:Randell Hines
[2022-12-18] VITALS: BP 126/71; PULSE 97; RESP 16; TEMP 36.6; O2SAT 98
--- NOTE | 2022-12-18 00:20 | MHC.EDTECH ---
THIS PCT ASSUMED CARE OF PATIENT AT 2300 ,VITALS SIGN TAKEN ,PT WAS [employer]NA[employer] INTO HOSPITAL ATTIRE ,RED SOCKS ON PATIENT FEET ,PATIENT BELONGING ARE BEHIND HEAD OF BED,PATIENT AWAKE DRINKING WATER AND WATCHING TELEVISION .
[2022-12-18 01:41] VITALS: BP 129/73; PULSE 90; RESP 15; TEMP 36.8; O2SAT 97
[2022-12-18 02:39] LABS: Amphetamine Screen Urine Not Detected (Not Detect); Barbiturates, Urine Not Detected (Not Detect); Benzodiazepines Screen Urine POSITIVE (Not Detect); Cannabinoid Screen Urine Not Detected (Not Detect); Cocaine Screen Urine Not Detected (Not Detect); Fentanyl, urine Not Detected (Not Detect); Opiate Screen Urine Not Detected (Not Detect); Phencyclidine Screen Urine Not Detected (Not Detect)
[2022-12-18] MEDS: Acetaminophen 325 MG TABLET 975 MG PO (04:04)
--- NOTE | 2022-12-18 06:50 | PC.NURSE ---
Late entry: Pt A&Ox4, calm and cooperative, reports 7/ chronic constant LLQ ABD pain, Pt requesting detox. Denies SI/HI, denies VH, reports AH, states people that I know and talk to in my head, no negative thoughts . Ambulates independently to BR with steady gait. Pt tolerating PO intake.
[2022-12-18 07:14] VITALS: BP 149/93; PULSE 111; RESP 18; TEMP 36.5; O2SAT 97
[2022-12-18] MEDS: LORazepam 2 MG/ML VIAL IVPUSH (09:01)
--- NOTE | 2022-12-18 09:04 | PC.NURSE ---
Addendum entered by Kelly Escobedo 12/18/22 09:05: ciwa scale is 19 and not 18, aware. pt given ativan 2mg ivp. pt amb (i) gait steady. Original Note: pt is a/o x 4 no sob/erika noted speaks in full sentences. ciwa scale 18. pt to be eval by care team. pt aware of plan of care.
[2022-12-18 09:17] VITALS: BP 140/72; PULSE 104; RESP 17; TEMP 37; O2SAT 96
--- NOTE | 2022-12-18 09:29 | PC.NURSE ---
PT TO BE SEEN BY RECOVERY TEAM.
--- NOTE | 2022-12-18 12:38 | MHC.RECOVRN ---
Met with pt in ED18 after pt presented for alcohol use. Pt sitting in bed, awake, alert, easily engages in conversation. Pt reports having been in recovery x 6 weeks after last hospitalization and had a recurrence on 11/30/22. Pt reports drinking 6 Michelob Ultras plus a couple shots of whiskey daily. Pt does not currently report withdrawal symptoms. Pt is focused on upcoming back surgery on 01/11 and making her pre-op appts. Pt is involved with the [facility] who is helping her navigate appointments for the surgery. Pt is not currently interested in ATS/recovery supports, states I know you hear this all the time but this is it. I'm done drinking. I had 20 years so I know what sober is like. Pt educated on alcohol withdrawal and risks associated with withdrawal at home. Pt states I have a prescription for Valium, I'm an anxious person, and that will help. Pt denies other questions or concerns, reports friends are picking her up from the ED.
== END 2022-12-18 11:49 | disposition home or self-care (01) ==
PROVIDERS: Physician Assistant Medical; Emergency Provider Emergency Medicine; PCP Family Medicine
DX: F10.20 Alcohol dependence, uncomplicated (principal); I10 Essential (primary) hypertension; F41.9 Anxiety disorder, unspecified; Z79.899 Other long term (current) drug therapy; Z20.822 Contact with and (suspected) exposure to COVID-19
CPT/HCPCS: 36415; 71046; 80053; 80307; 81001; 83735; 85025; 87086; 87502; 87635; 93005; 96374; 99285; J2060

== ENCOUNTER → 2022-12-17 23:51 | Outpatient (BNV) | payer MEDICARE, SELFPAY | PROVIDERS: Emergency Provider Emergency Medicine; PCP Family Medicine; Visit Provider Internal Medicine Cardiovascular Disease | DX: I10 Essential (primary) hypertension (principal) | CPT/HCPCS: 93010 ==

== ENCOUNTER 2023-02-23 03:41 | Inpatient (IN) | payer MEDICARE, SELFPAY ==
[2023-02-23] VITALS (9 sets, daily range): BP systolic 127–160; BP diastolic 73–96; PULSE 58–104; RESP 14–20; TEMP 36.1–37.1; O2SAT 94–99; BMI 28.0
--- NOTE | ~2023-02-23 | CT_ITS ---
EXAMINATION: NONCONTRAST HEAD CT NONCONTRAST CERVICAL SPINE CT INDICATION INFORMATION: Fall COMPARISON: 05/28/2022 TECHNIQUE: Separate noncontrast CT examinations of the head and cervical spine were performed. Coronal head CT images and coronal and sagittal cervical spine images were created at the technologist workstation. DLP: 1075 mGy-cm DOSE LOWERING TECHNIQUES: This CT examination was performed using dose optimization techniques as appropriate, variously including the following: - Automated exposure control - Adjustment of mA and/or kV according to patient size (this includes techniques or standardized protocols for targeted exams were dose is matched to indication/reason for exam; i.e. extremities or head) - Use of iterative reconstruction technique FINDINGS: Head: There is no evidence of acute intracranial hemorrhage or territorial infarction. No abnormal mass-effect or midline shift is seen. [place] to white matter differentiation is well preserved. No extra-axial fluid collections are identified. The ventricles are normal in size. There is mild periventricular white matter hypoattenuation consistent with chronic small vessel ischemic disease. Mild volume loss is noted. The osseous structures and soft tissues are normal. The mastoid air cells and visualized portions of the paranasal sinuses are well-aerated. Cervical spine: There is anatomic alignment of the vertebral bodies and posterior elements. Vertebral body heights are maintained. ACDF hardware is redemonstrated at C3-C7. There are also bilateral posterior screws and interconnecting rods at C3-C7. Hardware appears intact. Assessment the surrounding structures is somewhat limited due to streak artifact. No evidence of acute fracture. No prevertebral soft tissue swelling. Visualized portions of the lung apices are unremarkable. The thyroid gland is unremarkable. CT/CT cervical spine wo IV con IMPRESSION: HEAD: No acute intracranial findings. CERVICAL SPINE: No acute findings identified. Redemonstrated postoperative changes as noted above.
--- NOTE | 2023-02-23 04:47 | PC.NURSE ---
Pt BIBA for a fall at home. Pt was walking in [place] and fell on bottom and backwards hitting head. Pt drinks a 6 pack of beer and whiskey daily. Reports history of withdrawl and feels DT's Pt has visual tremor and reports some anxiety.
[2023-02-23 04:49] LABS: Hematocrit 38.6 % (37.0-47.0); Hemoglobin 12.9 g/dl (12.0-16.0); Mean Corpuscular HGB Conc 33.4 g/dl (31.0-35.0); Mean Corpuscular Volume 86.7 fL (80.0-98.0); Mean Platelet Volume 8.7 fL (9.4-12.3); Platelet Count 225 X10*3/uL (160-400); Red Blood Count 4.45 X10*6/uL (4.20-5.50); Red Cell Distribution Width 13.9 % (11.0-16.0); White Blood Count 3.8 X10*3/uL (4.8-10.8)
[2023-02-23 05:04] LABS: Alanine Aminotransferase 23 U/L (0-31); Albumin Level 4.2 g/dL (3.5-5.0); Alkaline Phosphatase 145 U/L (39-117); Anion Gap 15 (12-20); Aspartate Amino Transferase 34 U/L (5-31); Bilirubin Total 0.2 mg/dL (0.0-1.0); Blood Urea Nitrogen 6 mg/dL (9-16); Calcium 8.7 mg/dL (8.4-10.2); Carbon Dioxide 27 mmol/L (22-29); Chloride 105 mmol/L (96-108); Creatinine Clr Calc Pharmacy 80.8; Estimated Glomerular Filt Rate > 60; Ethanol < 10 mg/dL; Glucose Random 113 mg/dL (60-115); Potassium 4.3 mmol/L (3.3-5.1); Sodium 143 mmol/L (135-145); Total Protein 7.4 g/dL (6.5-8.0)
--- NOTE | 2023-02-23 05:18 | ED.FALL ---
HPI - Fall General Chief Complaint: Fall Stated Complaint: FALL BACKWARDS,HIT BUM & HEAD, +CCOLLAR PER EMS Time Seen by Provider: 02/23/23 04:55 Source: patient Mode of arrival: EMS Limitations: no limitations History of Present Illness HPI Narrative: 72-year-old female with history bipolar disorder, htn, endometriosis, chronic neck/back pain, and alcohol use disorder who presents emergency department for evaluation of a fall at home. The patient states that she got up to go from her bedroom to the kitchen to get something to drink. She states she got dizzy fell backwards landing on her buttocks and then struck her head on the floor. She denied any loss of consciousness. She states that she drinks 12 beers per day half pt of [place] honey daily. She states her last drink was last night at around 19:00 hours. She states that when she stops drinking she gets very tremulous and needs to drink again. She states she did have 20 years of sobriety but began drinking again in September of 2020. Patient states she wants to stop drinking did call at care yesterday but they were full non able to accept her into their detox facility. Patient was hospitalized here on 10/09/2022 until 10/13/2022 for alcohol withdrawal, she was placed on the phenobarbital protocol at that time. Patient's review of systems was significant for cough which she states is chronic. The patient has also had tobacco colored diarrhea for the past 5 days, 5-6 episodes per day. She also states that she has had very poor appetite and she has not been much food secondary to her alcohol consumption. Related Data Home Medications Medication Instructions Recorded Confirmed acetaminophen 500 mg tablet 1,000 mg PO Q8H PRN Pain, Moderate 06/16/22 10/09/22 (Tylenol Extra Strength) cyclobenzaprine 10 mg tablet 10 mg PO BID PRN Muscle Spasm 06/16/22 10/09/22 diazepam 5 mg tablet 5 mg PO BID PRN Anxiety 06/16/22 10/09/22 diphenhydramine HCl 25 mg tablet 25 mg PO BEDTIME 06/16/22 10/09/22 bacitracin-polymyxin B 500 1 appl ophthalmic (eye) QMONTH 10/09/22 10/09/22 unit-10,000 unit/gram eye ointment hydroxyzine HCl 25 mg tablet 25 mg PO DAILY 10/09/22 10/09/22 olanzapine 20 mg tablet (Zyprexa) 20 mg PO DAILY 10/09/22 10/09/22 Previous Rx's Medication Instructions Recorded duloxetine 60 mg capsule,delayed 60 mg PO BID 30 days #60 caps 11/26/21 release furosemide 20 mg tablet 20 mg PO DAILY PRN edema 30 days 11/26/21 #30 tabs omeprazole 40 mg capsule,delayed 40 mg PO DAILY@0630 30 days #30 11/26/21 release caps amlodipine 5 mg tablet 5 mg PO DAILY 30 days #30 tabs 10/14/22 folic acid 1 mg tablet 1 mg PO DAILY 30 days #30 tabs 10/14/22 magnesium oxide 400 mg (241.3 mg 400 mg PO DAILY 30 days #30 tabs 10/14/22 magnesium) tablet (MagOx) thiamine HCl (vitamin B1) 100 mg 100 mg PO DAILY 30 days #30 tabs 10/14/22 tablet Allergies Allergy/AdvReac Type Severity Reaction Status Date / Time sulfamethoxazole Allergy Mild FEVER Verified 02/23/23 03:54 [From BACTRIM] trimethoprim [From BACTRIM] Allergy Mild FEVER Verified 02/23/23 03:54 cephalexin [Keflex] Allergy Unknown Rash Verified 02/23/23 03:54 Sulfa (Sulfonamide Allergy Unknown Fever Verified 02/23/23 03:54 Antibiotics) tramadol [Ultram] Allergy Unknown Unknown Verified 02/23/23 03:54 mold Allergy Unknown Headache Uncoded 02/23/23 03:54 pollen Allergy Unknown Headache Uncoded 02/23/23 03:54 Review of Systems Review of Systems: Yes all other systems are reviewed and are negative [facility] Past Medical History [facility] Narrative: Social history: She states she lives alone. She denies tobacco use. She drinks alcohol daily as discussed in HPI. He denies drug use Medical History Hypomagnesemia Alcohol dependence Bipolar disorder Endometriosis Alcohol use with withdrawal Anxiety Fracture of distal end of right fibula Hypertension Mood disorder Routine medical exam Social History Social History Household Members: None Household Members Other:: Cat Housing: House Do you presently have visiting nurse or other home services: Yes Alcohol intake: current Alcohol intake frequency: 3 or more drinks per day Alcohol type: beer and hard liquor Patient Tobacco Use Status: Never used Tobacco Tobacco use type: Cigarette Smoked in Last 30 Days: No e-Cigarette/Vaping Use: Never Used Second Hand Smoke Exposure: No Use of substances other than those prescribed or required for medical reasons: No Advance Directives: Yes Advance Directives on File: Yes Advance Directives Date on File: 06/16/22 service: No Current occupational status: unemployed Sexual orientation: Straight/Heterosexual Physical Exam Vital Signs: Vital Signs: Last Vital Signs Temp 98.2 F 02/23/23 05:44 Pulse 104 H 02/23/23 07:02 Resp 18 02/23/23 07:02 BP 137/85 02/23/23 07:02 Pulse Ox 97 02/23/23 07:02 O2 Del Method Room Air 02/23/23 07:02 BMI result Body Mass Index 28.0 Vital signs were normal except for an elevated blood pressure of 140/96 Exam: General: Awake, alert in no distress, the patient is tremulous, answers all questions appropriately Head: Normocephalic, atraumatic EENT: PERRL, Lids normal, sclera normal, conjunctiva normal, nose normal , ears normal, throat without erythema or exudates Neck: Supple, no adenopathy, trachea midline and nontender Lung: breath sounds symmetric, no wheezing, rales or rhonchi Chest: symmetric movement, nontender Heart: regular rate and rhythm, normal S1, S2 no murmurs or rubs Abdomen: soft, non-tender, nondistended, normal bowel sounds Back: no vertebral tenderness, no CVAT Extremities: no deformities, moves all extremities symmetrically Skin: no rashes, no lesion, normal color and warmth Neuro: Awake, alert, oriented, normal speech, cranial nerves intact, moves all extremities symmetrically Psych: Pleasant, cooperative Medications Administered Generic Name Dose Route Start Last Admin Trade Name Freq PRN Reason Stop Dose Admin Phenobarbital Sodium 290 mg 02/23/23 08:00 02/23/23 07:13 Phenobarbital Sodium 130 Mg/Ml Im Once IM 02/23/23 08:01 290 mg ONCE ONE Administration Protocol Discontinued Medications Generic Name Dose Route Start Last Admin Trade Name Freq PRN Reason Stop Dose Admin Hydromorphone HCl 1 mg 02/23/23 06:20 02/23/23 06:34 Hydromorphone Hcl 1 Mg/Ml Syringe IVPUSH 02/23/23 06:21 Not Given ONCE STA Protocol Medical Decision Making Medical Decision Making MDM Narrative: 72-year-old female with history bipolar disorder, htn, endometriosis, chronic neck/back pain, and alcohol use disorder who presents emergency department for evaluation of a fall at home. The patient has been drinking heavily, 12 beers per day and a pint of [employer] honey whiskey daily. Patient is also had a very poor appetite and not eating much food. She has also had 5 episodes of diarrhea per day for the past 5 days. Patient's examination did reveal that she was in withdrawal, she was very tremulous. Following evaluation was ordered: CBC, CMP, alcohol level, urinalysis, urine drug screen, CT scan of the head without IV contrast, CT scan of the neck, C difficile, GI panel, COVID-19 0618: Laboratory evaluation was unremarkable except for an elevated AST and ALT. Ethanol level below detectable limits CT scan of the head and cervical spine without IV contrast was unremarkable. Patient does appear to be in alcohol withdrawal therefore I will start the phenobarbital protocol. Differential Diagnosis Differential Diagnoses: The differential diagnosis associated with the presentation includes Differential diagnosis includes was not limited to acute alcohol intoxication, alcohol withdrawal, electrolyte abnormality, anemia, dehydration Admission/Observation Consideration of admission/observation: Escalation of care including admission/observation considered Consult Healthcare Provider Management of the patient was discussed with: Hospitalist Lab Data My interpretation patient's laboratory evaluation is as follows: CBC was normal. Elevated AST 34, elevated alk phos 145. COVID-19 negative. Ethanol level below detectable limits. 02/23/23 04:41 02/23/23 04:41 Labs: Lab Results 02/23/23 02/23/23 02/23/23 Range/Units 04:41 05:46 06:56 WBC 3.8 L (4.8-10.8) X10*3/uL RBC 4.45 (4.20-5.50) X10*6/uL Hgb 12.9 (12.0-16.0) g/dl Hct 38.6 (37.0-47.0) % MCV 86.7 (80.0-98.0) fL MCH 29.0 (27.0-33.0) pg MCHC 33.4 (31.0-35.0) g/dl RDW 13.9 (11.0-16.0) % Plt Count 225 (160-400) X10*3/uL MPV 8.7 L (9.4-12.3) fL Absolute Nucleated RBC 0.000 (0.0-0.012) X10*3/uL Nucleated RBC % (auto) 0.0 (0.0-0.2) /100WBC Sodium 143 (135-145) mmol/L Potassium 4.3 (3.3-5.1) mmol/L Chloride 105 (96-108) mmol/L Carbon Dioxide 27 (22-29) mmol/L Anion Gap 15 (12-20) BUN 6 L (9-16) mg/dL Creatinine 0.68 (0.5-1.4) mg/dL Estim Creat Clear Calc 80.8 Estimated GFR > 60 Random Glucose 113 (60-115) mg/dL Calcium 8.7 (8.4-10.2) mg/dL Total Bilirubin 0.2 (0.0-1.0) mg/dL AST 34 H (5-31) U/L ALT 23 (0-31) U/L Alkaline Phosphatase 145 H (39-117) U/L Total Protein 7.4 (6.5-8.0) g/dL Albumin 4.2 (3.5-5.0) g/dL Urine Color Yellow Urine Appearance Clear Urine pH 7.0 (5.0-9.0) Ur Specific [place] 1.015 (1.005-1.025) Urine Protein Negative (Neg-Trace) mg/dL Urine Glucose (UA) Negative (Negative) mg/dL Urine Ketones Negative (Negative) mg/dL Urine Blood Negative (Negative) Urine Nitrite Negative (Negative) Ur Leukocyte Esterase Large (3+) H (Negative) Urine RBC 0-2 (0-2) /HPF Urine WBC 21-50 H (0-5) /HPF Ur Squamous Epith Cells 11-20 (0-2) /HPF Urine Bacteria 1+ (None Seen) Hyaline Casts 0-2 (0-2) /LPF Urine Opiates Screen Not Detected (Not Detect) Urine Fentanyl Screen Not Detected (Not Detect) Ur Barbiturates Screen Not Detected (Not Detect) Ur Phencyclidine Scrn Not Detected (Not Detect) Ur Amphetamines Screen Not Detected (Not Detect) U Benzodiazepines Scrn POSITIVE H (Not Detect) Urine Cocaine Screen Not Detected (Not Detect) U Marijuana (THC) Screen Not Detected (Not Detect) Ethyl Alcohol < 10 mg/dL COVID-19 ([facility]) Negative (Negative) COVID-19 Clin Com See Note Independent Interpretation I performed an independent interpretation of an: EKG Radiology Impression Discussion of test interpretation with radiology: I have reviewed the radiologist's reading. Radiologist Impression: CT head/brain wo IV con and CT cervical spine without IV contrast IMPRESSION: HEAD: No acute intracranial findings. CERVICAL SPINE: No acute findings identified. Redemonstrated postoperative changes as noted above. Dictated By: Chase Lynn MD Critical Care Time Critical Care Time Critical Care Time: Yes Total Critical Care Time: 35 Attestation: Critical Care: The patient was critically ill with a high probability of imminent or life threatening deterioration. I spent greater than 30 minutes of discontinuous time evaluating the patient,delivering critical care at the bedside, discussing and evaluating pertinent data with consultants. Critical care time does not include time spent performing separately billable procedures or teaching. Total time spent performing critical care was 35 minutes. Discharge Plan Discharge Patient Disposition: Admitted As Inpatient
[2023-02-23 06:08] LABS: COVID-19 Test Negative (Negative); IDNOW Serial# 6674DD1D
--- NOTE | 2023-02-23 06:53 | ECG_ITS ---
Test Reason : FALL Blood Pressure : / mmHG Vent. Rate : 097 BPM Atrial Rate : 097 BPM P-R Int : 194 ms QRS Dur : 090 ms QT Int : 382 ms P-R-T Axes : 066 -21 051 degrees QTc Int : 485 ms Sinus rhythm with Premature atrial complexes RSR' or QR pattern in V1 suggests right ventricular conduction delay Borderline ECG When compared with ECG of 17-DEC-2022 23:57, Premature atrial complexes are now Present Referred By: Carlos Pizano Electronically Signed By:KATHRYN TO
[2023-02-23 07:03] LABS: Appearance Urine Clear; Color Urine Yellow; Glucose Urine UA Negative (Negative); Leukocyte Esterase Urine Large (3+) (Negative); Nitrite Urine Negative (Negative); Specific Gravity - Urine 1.015 (1.005-1.025); UMIC TRIGGER UACC YES; Urine Blood Negative (Negative); Urine Ketones Negative (Negative); Urine Protein Negative (Neg-Trace)
--- NOTE | 2023-02-23 07:04 | PC.NURSE ---
Alert and oriented, reports back of head pain from fall, ciwa assessed, provider notified. NSR on monitor. VSS
[2023-02-23 07:08] LABS: Bacteria Urine 1+ (None Seen); Hyaline Casts Urine 0-2 /LPF (0-2); RBC Urine 0-2 /HPF (0-2); UACC Culture Trigger YES; WBC Urine 21-50 /HPF (0-5)
[2023-02-23 07:11] LABS: Amphetamine Screen Urine Not Detected (Not Detect); Barbiturates, Urine Not Detected (Not Detect); Benzodiazepines Screen Urine POSITIVE (Not Detect); Cannabinoid Screen Urine Not Detected (Not Detect); Cocaine Screen Urine Not Detected (Not Detect); Fentanyl, urine Not Detected (Not Detect); Opiate Screen Urine Not Detected (Not Detect); Phencyclidine Screen Urine Not Detected (Not Detect)
[2023-02-23] MEDS: PHENobarbitaL sodium 130 MG/ML IM ONCE 290 MG IM (07:13)
--- NOTE | 2023-02-23 07:45 | P.HPHOSP_ITS ---
History of Present Illness Date of Service: 02/23/23 Chief Complaint: fall 72F PMH etoh dependence, bipolar, endometriosis, htn, presented with fall. she states she was getting up on evening of presentation to get something to drink and felt dizzy falling backwards onto buttocks and then momentum causing head strike on floor. denies LOC. patient drinks 12 beers and 1/2 pint [place] honey daily. in ED started to feel tremulous. trauma work up unremarkable. Review of Systems 2 Review of Systems: Yes all other systems are reviewed and are negative [facility] Medical History Hypomagnesemia Alcohol dependence Bipolar disorder Endometriosis Alcohol use with withdrawal Anxiety Fracture of distal end of right fibula Hypertension Mood disorder Routine medical exam Social History Household Members: None Household Members Other:: Cat Housing: House Do you presently have visiting nurse or other home services: Yes Alcohol intake: current Alcohol intake frequency: 3 or more drinks per day Alcohol type: beer and hard liquor Patient Tobacco Use Status: Never used Tobacco Tobacco use type: Cigarette Smoked in Last 30 Days: No e-Cigarette/Vaping Use: Never Used Second Hand Smoke Exposure: No Use of substances other than those prescribed or required for medical reasons: No Advance Directives: Yes Advance Directives on File: Yes Advance Directives Date on File: 06/16/22 service: No Current occupational status: unemployed Sexual orientation: Straight/Heterosexual Meds Allergies Allergy/AdvReac Type Severity Reaction Status Date / Time sulfamethoxazole Allergy Mild FEVER Verified 02/23/23 03:54 [From BACTRIM] trimethoprim [From BACTRIM] Allergy Mild FEVER Verified 02/23/23 03:54 cephalexin [Keflex] Allergy Unknown Rash Verified 02/23/23 03:54 Sulfa (Sulfonamide Allergy Unknown Fever Verified 02/23/23 03:54 Antibiotics) tramadol [Ultram] Allergy Unknown Unknown Verified 02/23/23 03:54 mold Allergy Unknown Headache Uncoded 02/23/23 03:54 pollen Allergy Unknown Headache Uncoded 02/23/23 03:54 Active Medications: Current Medications Enoxaparin Sodium (Enoxaparin Sodium 40 Mg/0.4 Ml Syringe) 40 mg SUBCUT Q24H [facility] Pharmacy Consult (Consult Rx Etoh Phenob Im/Po) 1 each MISCELLANE ONCE PRN; Protocol PRN Reason: Consult order Phenobarbital (Phenobarbital 15 Mg Tablet) 45 mg PO BID [facility]; Protocol Stop: 02/25/23 21:01 Phenobarbital (Phenobarbital 15 Mg Tablet) 15 mg PO BID [facility]; Protocol Stop: 02/27/23 21:01 Phenobarbital (Phenobarbital 15 Mg Tablet) 15 mg PO DAILY [facility]; Protocol Stop: 03/01/23 09:01 Phenobarbital Sodium (Phenobarbital Sodium 130 Mg/Ml Im Once) 290 mg IM ONCE ONE; Protocol Stop: 02/23/23 08:01 Last Admin: 02/23/23 07:13 Dose: 290 mg Phenobarbital Sodium (Phenobarbital Sodium 130 Mg/Ml Vial Im Q3hx2) 215 mg IM Q3H [facility]; Protocol Stop: 02/23/23 14:01 Sodium Chloride (0.9 % Sodium Chloride Flush 3 Ml Syringe) 3 ml IVFLUSH QSHIFT [facility] Home Medications Medication Instructions Recorded Confirmed Last Taken Type acetaminophen 500 mg tablet 1,000 mg PO Q8H PRN Pain, Moderate 06/16/22 10/09/22 Unknown History (Tylenol Extra Strength) cyclobenzaprine 10 mg tablet 10 mg PO BID PRN Muscle Spasm 06/16/22 10/09/22 Unknown History diazepam 5 mg tablet 5 mg PO BID PRN Anxiety 06/16/22 10/09/22 Unknown History diphenhydramine HCl 25 mg tablet 25 mg PO BEDTIME 06/16/22 10/09/22 Unknown History bacitracin-polymyxin B 500 1 appl ophthalmic (eye) QMONTH 10/09/22 10/09/22 Unknown History unit-10,000 unit/gram eye ointment hydroxyzine HCl 25 mg tablet 25 mg PO DAILY 10/09/22 10/09/22 Unknown History olanzapine 20 mg tablet (Zyprexa) 20 mg PO DAILY 10/09/22 10/09/22 Unknown History Physical Exam 2 Vital Signs and Narrative: Vital Signs: Last Vital Signs Temp 98.2 F 02/23/23 05:44 Pulse 104 H 02/23/23 07:02 Resp 18 02/23/23 07:02 BP 137/85 02/23/23 07:02 Pulse Ox 97 02/23/23 07:02 O2 Del Method Room Air 02/23/23 07:02 BMI result Body Mass Index 28.0 General: AO X 3,anxious Resp: CTA bilateral, no accessory muscles used CVS: S1,S2,RRR GI: soft, non tender, non distended Neuro: motor grossly intact, alert, tremulous Psych: appropriate affect, appropriate insight Results Labs 02/23/23 04:41 02/23/23 04:41 Labs: Laboratory Results - last 24 hr 02/23/23 02/23/23 02/23/23 04:41 05:46 06:56 MCV 86.7 MCH 29.0 MCHC 33.4 RDW 13.9 Plt Count 225 MPV 8.7 L Absolute Nucleated RBC 0.000 Nucleated RBC % (auto) 0.0 Anion Gap 15 Estim Creat Clear Calc 80.8 Estimated GFR > 60 Random Glucose 113 Calcium 8.7 Total Bilirubin 0.2 AST 34 H ALT 23 Alkaline Phosphatase 145 H Total Protein 7.4 Albumin 4.2 Urine Color Yellow Urine Appearance Clear Urine pH 7.0 Ur Specific [place] 1.015 Urine Protein Negative Urine Glucose (UA) Negative Urine Ketones Negative Urine Blood Negative Urine Nitrite Negative Ur Leukocyte Esterase Large (3+) H Urine RBC 0-2 Urine WBC 21-50 H Ur Squamous Epith Cells 11-20 Urine Bacteria 1+ Hyaline Casts 0-2 Urine Opiates Screen Not Detected Urine Fentanyl Screen Not Detected Ur Barbiturates Screen Not Detected Ur Phencyclidine Scrn Not Detected Ur Amphetamines Screen Not Detected U Benzodiazepines Scrn POSITIVE H Urine Cocaine Screen Not Detected U Marijuana (THC) Screen Not Detected Ethyl Alcohol < 10 COVID-19 ([facility]) Negative COVID-19 Clin Com See Note Imaging Radiologist's Impressions: Impressions Cervical Spine CT 02/23/23 04:48 IMPRESSION: HEAD: No acute intracranial findings. CERVICAL SPINE: No acute findings identified. Redemonstrated postoperative changes as noted above. Head CT 02/23/23 04:48 IMPRESSION: HEAD: No acute intracranial findings. CERVICAL SPINE: No acute findings identified. Redemonstrated postoperative changes as noted above. Assessment and Plan (1) Alcohol withdrawal: Qualifiers: Complication of substance-induced condition: uncomplicated Qualified Code(s): F10.930 - Alcohol use, unspecified with withdrawal, uncomplicated Status: Acute Plan 72F PMH etoh dependence, bipolar, endometriosis, htn, presented with fall etoh dependence with withdrawl phenobarb care team eval monitor ciwa etoh cessaiton bipolar mood stabilizers dvt prophylaxis - lonveox full code patient with etoh withdrawl, scoring moderately high on ciwa, expected to require atleast 2 midnights in patient. Time Spent With Patient Time: Total time managing care of this patient today ____ minutes. Quality Stroke Does the patient have a stroke diagnosis?: No VTE Prior VTE?: No VTE Risk Level:: Medical - moderate - high VTE Device Contraindication: Treatment Not Indicated VTE Drug Contraindication: N/A - Med Ordered
[2023-02-23] MEDS: Enoxaparin Sodium 40 MG/0.4 ML SYRINGE SUBCUT (09:08)
[2023-02-23] MEDS: 0.9 % Sodium Chloride Flush 3 ML SYRINGE IVFLUSH ×3 (09:08→19:15)
--- NOTE | 2023-02-23 09:46 | PHA.MEDREC ---
Pharmacy Consult ? Medication Reconciliation Pharmacy has completed the medication reconciliation. Spoke with pt and went over her vna list with her
[2023-02-23] MEDS: PHENobarbitaL sodium 130 MG/ML VIAL IM Q3Hx2 215 MG IM ×2 (11:34→15:35)
--- NOTE | 2023-02-23 11:41 | PC.NURSE ---
CIWA completed, medicated per JUL. Reports pain in head has improved. Snacks provided per patients request
--- NOTE | 2023-02-23 12:25 | PC.NURSE ---
Report given to accepting unit
[2023-02-23] MEDS: DULoxetine HCl 60 MG CAPSULE.DR PO (22:18)
[2023-02-23] MEDS: hydrOXYzine HCL 25 MG TABLET PO (22:18)
[2023-02-23] MEDS: diphenhydrAMINE HCL 25 MG CAPSULE PO (22:18)
[2023-02-23] MEDS: OLANZapine 10 MG TABLET 20 MG PO (22:18)
[2023-02-24 03:41] VITALS: BP 150/75; PULSE 103; RESP 20; TEMP 36.2; O2SAT 93
[2023-02-24] MEDS: Omeprazole 40 MG CAPSULE.DR PO (06:15)
[2023-02-24 07:04] VITALS: BP 130/72; PULSE 101; RESP 20; TEMP 36.1; O2SAT 94
[2023-02-24 07:22] LABS: Hemoglobin 11.7 g/dl (12.0-16.0); Mean Corpuscular HGB Conc 32.5 g/dl (31.0-35.0); Mean Corpuscular Hemoglobin 29.1 pg (27.0-33.0); Mean Corpuscular Volume 89.6 fL (80.0-98.0); Mean Platelet Volume 9.2 fL (9.4-12.3); Platelet Count 214 X10*3/uL (160-400); Red Blood Count 4.02 X10*6/uL (4.20-5.50); Red Cell Distribution Width 14.3 % (11.0-16.0); White Blood Count 4.9 X10*3/uL (4.8-10.8)
[2023-02-24 07:39] LABS: Alanine Aminotransferase 22 U/L (0-31); Albumin Level 3.4 g/dL (3.5-5.0); Alkaline Phosphatase 120 U/L (39-117); Anion Gap 15 (12-20); Aspartate Amino Transferase 34 U/L (5-31); Bilirubin Direct 0.1 mg/dL (0.0-0.5); Bilirubin Total 0.3 mg/dL (0.0-1.0); Blood Urea Nitrogen 15 mg/dL (9-16); Calcium 8.4 mg/dL (8.4-10.2); Carbon Dioxide 27 mmol/L (22-29); Chloride 103 mmol/L (96-108); Estimated Glomerular Filt Rate > 60; Glucose Fasting 106 mg/dL (60-99); Potassium 3.8 mmol/L (3.3-5.1); Sodium 141 mmol/L (135-145); Total Protein 6.2 g/dL (6.5-8.0)
[2023-02-24] MEDS: DULoxetine HCl 60 MG CAPSULE.DR PO ×2 (09:16→21:20)
[2023-02-24] MEDS: amLODIPine Besylate 5 MG TABLET PO (09:16)
[2023-02-24] MEDS: PHENobarbitaL 15 MG TABLET 45 MG PO ×2 (09:16→21:19)
[2023-02-24] MEDS: Folic Acid 1 MG TABLET PO (09:16)
[2023-02-24] MEDS: OLANZapine 5 MG TABLET PO (09:17)
[2023-02-24] MEDS: Naltrexone HCl 50 MG TABLET PO (09:17)
[2023-02-24] MEDS: Enoxaparin Sodium 40 MG/0.4 ML SYRINGE SUBCUT (09:17)
[2023-02-24] MEDS: Magnesium Oxide 400 MG TABLET PO (09:17)
[2023-02-24] MEDS: 0.9 % Sodium Chloride Flush 3 ML SYRINGE IVFLUSH ×2 (09:17→21:20)
[2023-02-24] MEDS: Thiamine HCL 100 MG TABLET PO (09:17)
--- NOTE | 2023-02-24 09:37 | HO.PM.IMPN ---
Subjective Subjective Date of Service: 02/24/23 Interval History: shaky Physical Exam Vital Signs: Vital Signs: Last Vital Signs Temp 96.9 F 02/24/23 07:04 Pulse 101 H 02/24/23 07:04 Resp 20 02/24/23 07:04 BP 130/72 02/24/23 07:04 Pulse Ox 94 02/24/23 07:04 O2 Del Method Room Air 02/24/23 07:04 BMI result Body Mass Index 28.0 General: AO X 3, Resp: CTA bilateral, no accessory muscles used CVS: S1,S2,RRR GI: soft, non tender, non distended Neuro: motor grossly intact, alert, tremulous Psych: appropriate affect, appropriate insight Objective Data Active Medications Amlodipine Besylate (Amlodipine Besylate 5 Mg Tablet) 5 mg PO DAILY [facility]; Protocol Last Admin: 02/24/23 09:16 Dose: 5 mg Documented By: NEHEMIAH Cyclobenzaprine HCl (Cyclobenzaprine Hcl 10 Mg Tablet) 10 mg PO BID PRN PRN Reason: Muscle Spasm Diazepam (Diazepam 5 Mg Tablet) 5 mg PO DAILY PRN PRN Reason: Anxiety Diphenhydramine HCl (Diphenhydramine Hcl 25 Mg Capsule) 25 mg PO BEDTIME [facility] Last Admin: 02/23/23 22:18 Dose: 25 mg Documented By: MATILDA Duloxetine HCl (Duloxetine Hcl 60 Mg Capsule.Dr) 60 mg PO BID [facility] Last Admin: 02/24/23 09:16 Dose: 60 mg Documented By: NEHEMIAH Enoxaparin Sodium (Enoxaparin Sodium 40 Mg/0.4 Ml Syringe) 40 mg SUBCUT Q24H [facility] Last Admin: 02/24/23 09:17 Dose: 40 mg Documented By: NEHEMIAH Folic Acid (Folic Acid 1 Mg Tablet) 1 mg PO DAILY [facility] Last Admin: 02/24/23 09:16 Dose: 1 mg Documented By: NEHEMIAH Furosemide (Furosemide 20 Mg Tablet) 20 mg PO DAILY PRN; Protocol PRN Reason: edema Hydroxyzine HCl (Hydroxyzine Hcl 25 Mg Tablet) 25 mg PO BEDTIME [facility] Last Admin: 02/23/23 22:18 Dose: 25 mg Documented By: MATILDA Magnesium Oxide (Magnesium Oxide 400 Mg Tablet) 400 mg PO DAILY [facility] Last Admin: 02/24/23 09:17 Dose: 400 mg Documented By: NEHEMIAH Naltrexone HCl (Naltrexone Hcl 50 Mg Tablet) 50 mg PO DAILY [facility] Last Admin: 02/24/23 09:17 Dose: 50 mg Documented By: NEHEMIAH Olanzapine (Olanzapine 5 Mg Tablet) 5 mg PO DAILY [facility] Last Admin: 02/24/23 09:17 Dose: 5 mg Documented By: NEHEMIAH Olanzapine (Olanzapine 10 Mg Tablet) 20 mg PO DAILY [facility] Last Admin: 02/23/23 22:18 Dose: 20 mg Documented By: MATILDA Omeprazole (Omeprazole 40 Mg Capsule.Dr) 40 mg PO DAILY@0630 [facility] Last Admin: 02/24/23 06:15 Dose: 40 mg Documented By: MATILDA Pharmacy Consult (Consult Rx Etoh Phenob Im/Po) 1 each MISCELLANE ONCE PRN; Protocol PRN Reason: Consult order Phenobarbital (Phenobarbital 15 Mg Tablet) 45 mg PO BID [facility]; Protocol Stop: 02/25/23 21:01 Last Admin: 02/24/23 09:16 Dose: 45 mg Documented By: NEHEMIAH Phenobarbital (Phenobarbital 15 Mg Tablet) 15 mg PO BID [facility]; Protocol Stop: 02/27/23 21:01 Phenobarbital (Phenobarbital 15 Mg Tablet) 15 mg PO DAILY [facility]; Protocol Stop: 03/01/23 09:01 Sodium Chloride (0.9 % Sodium Chloride Flush 3 Ml Syringe) 3 ml IVFLUSH [facility] Last Admin: 02/24/23 09:17 Dose: 3 ml Documented By: NEHEMIAH Thiamine HCl (Thiamine Hcl 100 Mg Tablet) 100 mg PO DAILY [facility] Last Admin: 02/24/23 09:17 Dose: 100 mg Documented By: NEHEMIAH Labs 02/24/23 06:32 02/24/23 06:32 Labs: Laboratory Results - last 24 hr 02/24/23 06:32 MCV 89.6 MCH 29.1 MCHC 32.5 RDW 14.3 Plt Count 214 MPV 9.2 L Absolute Nucleated RBC 0.000 Nucleated RBC % (auto) 0.0 Anion Gap 15 Estim Creat Clear Calc 82.0 Estimated GFR > 60 Fasting Glucose 106 H Calcium 8.4 Magnesium 2.0 Total Bilirubin 0.3 Direct Bilirubin 0.1 AST 34 H ALT 22 Alkaline Phosphatase 120 H Total Protein 6.2 L Albumin 3.4 L Assessment and Plan (1) Alcohol withdrawal: Status: Acute Plan 72F PMH etoh dependence, bipolar, endometriosis, htn, presented with fall etoh dependence with withdrawal continue phenobarb care team eval monitor ciwa etoh cessaiton bipolar mood stabilizers dvt prophylaxis - lonveox full code reason for continued hospitalization: ongoing withdrawal symptoms Time Spent With Patient Time: Total time managing care of this patient today ____ minutes. Quality Stroke Does the patient have a stroke diagnosis?: No VTE Prior VTE?: No VTE Risk Level:: Medical - moderate - high VTE Device Contraindication: Treatment Not Indicated VTE Drug Contraindication: N/A - Med Ordered
[2023-02-24 10:54] VITALS: BP 137/81; PULSE 101; RESP 20; TEMP 36.1; O2SAT 94
--- NOTE | 2023-02-24 11:02 | MHC.CM.PN ---
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 She reports that her sister (Chelsie Maldonado) is her HCP, but that she is reluctant to serve as she has her own health problems. No med equip in the home. PCP is Reinaldo Willard. Plan is home with services. CM to follow and assist with discharge.
--- NOTE | 2023-02-24 11:57 | MHC.RECOVRN ---
Met with pt in 450 after consult placed to Addiction Medicine for alcohol use. Pt had presented to ED after a fall at home and subsequently admitted for management of alcohol withdrawal. Pt sitting in bed, awake, alert, easily engages in conversation, familiar with t/w from previous consults. Pt reports drinking 6-12 beers daily as well as one pint of [place] honey whiskey. Pt reports after last admission remained abstinent for 26 days but then resumed alcohol use. Pt reports minimal supports, is no longer involved with the senior center. Pt does attend therapy once weekly through [facility]. Pt reports remote hx AA, is not interested in attending meetings. Pt is currently taking naltrexone, prescribed through [facility], states it helps a little. Discussed CCC/Vivitrol/campral and provided pt with information. Discussed other recovery supports, pt interested in organ recovery coordinator. Pt provided with written resources as well as t/w contact information if needed. Denies other questions or concerns at this time. high school academic coach referral has been placed.
[2023-02-24 15:48] VITALS: BP 130/76; PULSE 104; RESP 15; TEMP 36.8; O2SAT 94
[2023-02-24 19:49] VITALS: BP 128/59; PULSE 102; RESP 18; TEMP 37; O2SAT 92
[2023-02-24] MEDS: diphenhydrAMINE HCL 25 MG CAPSULE PO (21:20)
[2023-02-24] MEDS: hydrOXYzine HCL 25 MG TABLET PO (21:20)
[2023-02-25] VITALS (7 sets, daily range): BP systolic 107–147; BP diastolic 62–82; PULSE 86–102; RESP 18–20; TEMP 36.1–36.4; O2SAT 92–97
[2023-02-25] MEDS: Omeprazole 40 MG CAPSULE.DR PO (05:33)
[2023-02-25 06:16] LABS: Hematocrit 36.4 % (37.0-47.0); Hemoglobin 11.7 g/dl (12.0-16.0); Mean Corpuscular HGB Conc 32.1 g/dl (31.0-35.0); Mean Corpuscular Volume 90.3 fL (80.0-98.0); Mean Platelet Volume 9.2 fL (9.4-12.3); Platelet Count 218 X10*3/uL (160-400); Red Blood Count 4.03 X10*6/uL (4.20-5.50); Red Cell Distribution Width 14.2 % (11.0-16.0); White Blood Count 4.2 X10*3/uL (4.8-10.8)
[2023-02-25 06:36] LABS: Anion Gap 15 (12-20); Blood Urea Nitrogen 17 mg/dL (9-16); Calcium 8.5 mg/dL (8.4-10.2); Carbon Dioxide 26 mmol/L (22-29); Chloride 104 mmol/L (96-108); Creatinine Clr Calc Pharmacy 80.8; Estimated Glomerular Filt Rate > 60; Glucose Fasting 103 mg/dL (60-99); Potassium 4.2 mmol/L (3.3-5.1); Sodium 141 mmol/L (135-145)
--- NOTE | 2023-02-25 08:35 | P.PNIM_ITS ---
Subjective Subjective Date of Service: 02/25/23 Interval History: feeling constipated Physical Exam 2 Vital Signs: Vital Signs: Last Vital Signs Temp 97.5 F 02/25/23 07:16 Pulse 100 02/25/23 07:16 Resp 18 02/25/23 07:16 BP 133/82 02/25/23 07:16 Pulse Ox 97 02/25/23 07:16 O2 Del Method Room Air 02/25/23 07:16 BMI result Body Mass Index 28.0 General: AO X 3, Resp: CTA bilateral, no accessory muscles used CVS: S1,S2,RRR GI: soft, non tender, non distended Neuro: motor grossly intact, alert, tremulous Psych: appropriate affect, appropriate insight Objective Data Active Medications Amlodipine Besylate (Amlodipine Besylate 5 Mg Tablet) 5 mg PO DAILY [facility]; Protocol Last Admin: 02/24/23 09:16 Dose: 5 mg Documented By: NEHEMIAH Cyclobenzaprine HCl (Cyclobenzaprine Hcl 10 Mg Tablet) 10 mg PO BID PRN PRN Reason: Muscle Spasm Diazepam (Diazepam 5 Mg Tablet) 5 mg PO DAILY PRN PRN Reason: Anxiety Diphenhydramine HCl (Diphenhydramine Hcl 25 Mg Capsule) 25 mg PO BEDTIME [facility] Last Admin: 02/24/23 21:20 Dose: 25 mg Documented By: MATILDA Duloxetine HCl (Duloxetine Hcl 60 Mg Capsule.Dr) 60 mg PO BID [facility] Last Admin: 02/24/23 21:20 Dose: 60 mg Documented By: MATILDA Enoxaparin Sodium (Enoxaparin Sodium 40 Mg/0.4 Ml Syringe) 40 mg SUBCUT Q24H [facility] Last Admin: 02/24/23 09:17 Dose: 40 mg Documented By: NEHEMIAH Folic Acid (Folic Acid 1 Mg Tablet) 1 mg PO DAILY [facility] Last Admin: 02/24/23 09:16 Dose: 1 mg Documented By: NEHEMIAH Furosemide (Furosemide 20 Mg Tablet) 20 mg PO DAILY PRN; Protocol PRN Reason: edema Hydroxyzine HCl (Hydroxyzine Hcl 25 Mg Tablet) 25 mg PO BEDTIME [facility] Last Admin: 02/24/23 21:20 Dose: 25 mg Documented By: MATILDA Magnesium Oxide (Magnesium Oxide 400 Mg Tablet) 400 mg PO DAILY [facility] Last Admin: 02/24/23 09:17 Dose: 400 mg Documented By: NEHEMIAH Naltrexone HCl (Naltrexone Hcl 50 Mg Tablet) 50 mg PO DAILY [facility] Last Admin: 02/24/23 09:17 Dose: 50 mg Documented By: NEHEMIAH Olanzapine (Olanzapine 5 Mg Tablet) 5 mg PO DAILY [facility] Last Admin: 02/24/23 09:17 Dose: 5 mg Documented By: NEHEMIAH Olanzapine (Olanzapine 10 Mg Tablet) 20 mg PO DAILY [facility] Last Admin: 02/23/23 22:18 Dose: 20 mg Documented By: MATILDA Omeprazole (Omeprazole 40 Mg Capsule.Dr) 40 mg PO DAILY@0630 [facility] Last Admin: 02/25/23 05:33 Dose: 40 mg Documented By: WIL Pharmacy Consult (Consult Rx Etoh Phenob Im/Po) 1 each MISCELLANE ONCE PRN; Protocol PRN Reason: Consult order Phenobarbital (Phenobarbital 15 Mg Tablet) 45 mg PO BID [facility]; Protocol Stop: 02/25/23 21:01 Last Admin: 02/24/23 21:19 Dose: 45 mg Documented By: MATILDA Phenobarbital (Phenobarbital 15 Mg Tablet) 15 mg PO BID [facility]; Protocol Stop: 02/27/23 21:01 Phenobarbital (Phenobarbital 15 Mg Tablet) 15 mg PO DAILY [facility]; Protocol Stop: 03/01/23 09:01 Sodium Chloride (0.9 % Sodium Chloride Flush 3 Ml Syringe) 3 ml IVFLUSH [facility] Last Admin: 02/24/23 21:20 Dose: 3 ml Documented By: MATILDA Thiamine HCl (Thiamine Hcl 100 Mg Tablet) 100 mg PO DAILY [facility] Last Admin: 02/24/23 09:17 Dose: 100 mg Documented By: NEHEMIAH Labs 02/25/23 05:32 02/25/23 05:32 Labs: Laboratory Results - last 24 hr 02/25/23 05:32 MCV 90.3 MCH 29.0 MCHC 32.1 RDW 14.2 Plt Count 218 MPV 9.2 L Absolute Nucleated RBC 0.000 Nucleated RBC % (auto) 0.0 Anion Gap 15 Estim Creat Clear Calc 80.8 Estimated GFR > 60 Fasting Glucose 103 H Calcium 8.5 Microbiology Microbiology Results: Microbiology 02/23/23 Unknown Urine Culture - Final Urine clean catch - Urine [place] top Assessment and Plan (1) Alcohol withdrawal: Status: Acute Plan 72F PMH etoh dependence, bipolar, endometriosis, htn, presented with fall etoh dependence with withdrawal continue phenobarb seen by recovery team monitor ciwa etoh cessation constipation dulcolax bipolar mood stabilizers dvt prophylaxis - Lovenox full code reason for continued hospitalization: ongoing withdrawal symptoms Time Spent With Patient Time: Total time managing care of this patient today ____ minutes. Quality Stroke Does the patient have a stroke diagnosis?: No VTE Prior VTE?: No VTE Risk Level:: Medical - moderate - high VTE Device Contraindication: Treatment Not Indicated VTE Drug Contraindication: N/A - Med Ordered
[2023-02-25] MEDS: DULoxetine HCl 60 MG CAPSULE.DR PO ×2 (09:15→20:05)
[2023-02-25] MEDS: PHENobarbitaL 15 MG TABLET 45 MG PO ×2 (09:15→20:06)
[2023-02-25] MEDS: Naltrexone HCl 50 MG TABLET PO (09:16)
[2023-02-25] MEDS: Thiamine HCL 100 MG TABLET PO (09:16)
[2023-02-25] MEDS: Magnesium Oxide 400 MG TABLET PO (09:16)
[2023-02-25] MEDS: OLANZapine 5 MG TABLET PO (09:16)
[2023-02-25] MEDS: bisacodyL 5 MG TABLET.DR PO (09:16)
[2023-02-25] MEDS: amLODIPine Besylate 5 MG TABLET PO (09:16)
[2023-02-25] MEDS: Folic Acid 1 MG TABLET PO (09:16)
[2023-02-25] MEDS: Enoxaparin Sodium 40 MG/0.4 ML SYRINGE SUBCUT (09:17)
[2023-02-25] MEDS: OLANZapine 10 MG TABLET 20 MG PO (09:17)
[2023-02-25] MEDS: 0.9 % Sodium Chloride Flush 3 ML SYRINGE IVFLUSH ×3 (09:17→20:06)
--- NOTE | 2023-02-25 19:12 | PC.NURSE ---
Patient refused bed alarm, was educated on safety, patient also refused tele monitor - reported to MD - munira to keep off for now
[2023-02-25] MEDS: diphenhydrAMINE HCL 25 MG CAPSULE PO (20:05)
[2023-02-25] MEDS: hydrOXYzine HCL 25 MG TABLET PO (20:05)
[2023-02-26 03:32] VITALS: BP 131/69; PULSE 88; RESP 20; TEMP 36.1; O2SAT 94
[2023-02-26] MEDS: Cyclobenzaprine HCl 10 MG TABLET PO (04:34)
[2023-02-26] MEDS: Omeprazole 40 MG CAPSULE.DR PO (05:52)
[2023-02-26 07:05] VITALS: BP 137/86; PULSE 95; RESP 16; TEMP 36.1; O2SAT 94
[2023-02-26] MEDS: Naltrexone HCl 50 MG TABLET PO (08:27)
[2023-02-26] MEDS: OLANZapine 5 MG TABLET PO (08:27)
[2023-02-26] MEDS: Thiamine HCL 100 MG TABLET PO (08:27)
[2023-02-26] MEDS: Folic Acid 1 MG TABLET PO (08:27)
[2023-02-26] MEDS: amLODIPine Besylate 5 MG TABLET PO (08:27)
[2023-02-26] MEDS: OLANZapine 10 MG TABLET 20 MG PO (08:27)
[2023-02-26] MEDS: PHENobarbitaL 15 MG TABLET PO ×2 (08:27→19:19)
[2023-02-26] MEDS: Magnesium Oxide 400 MG TABLET PO (08:27)
[2023-02-26] MEDS: DULoxetine HCl 60 MG CAPSULE.DR PO ×2 (08:27→19:18)
[2023-02-26] MEDS: Enoxaparin Sodium 40 MG/0.4 ML SYRINGE SUBCUT (08:27)
[2023-02-26] MEDS: 0.9 % Sodium Chloride Flush 3 ML SYRINGE IVFLUSH ×3 (08:28→19:19)
--- NOTE | 2023-02-26 08:31 | P.PNIM_ITS ---
Subjective Subjective Date of Service: 02/26/23 Interval History: feeling constipated Physical Exam 2 Vital Signs: Vital Signs: Last Vital Signs Temp 96.9 F 02/26/23 07:05 Pulse 95 02/26/23 07:05 Resp 16 02/26/23 07:05 BP 137/86 02/26/23 07:05 Pulse Ox 94 02/26/23 07:05 O2 Del Method Room Air 02/26/23 07:05 BMI result Body Mass Index 28.0 General: AO X 3, Resp: CTA bilateral, no accessory muscles used CVS: S1,S2,RRR GI: soft, non tender, non distended Neuro: motor grossly intact, alert, tremulous Psych: appropriate affect, appropriate insight Objective Data Active Medications Acetaminophen (Acetaminophen 325 Mg Tablet) 650 mg PO Q6H PRN PRN Reason: Pain, Mild (Pain Scale 1-3) Amlodipine Besylate (Amlodipine Besylate 5 Mg Tablet) 5 mg PO DAILY [facility]; Protocol Last Admin: 02/26/23 08:27 Dose: 5 mg Documented By: CLEM Cyclobenzaprine HCl (Cyclobenzaprine Hcl 10 Mg Tablet) 10 mg PO BID PRN PRN Reason: Muscle Spasm Last Admin: 02/26/23 04:34 Dose: 10 mg Documented By: MATILDA Diazepam (Diazepam 5 Mg Tablet) 5 mg PO DAILY PRN PRN Reason: Anxiety Diphenhydramine HCl (Diphenhydramine Hcl 25 Mg Capsule) 25 mg PO BEDTIME [facility] Last Admin: 02/25/23 20:05 Dose: 25 mg Documented By: GONZALO Duloxetine HCl (Duloxetine Hcl 60 Mg Capsule.) 60 mg PO BID [facility] Last Admin: 02/26/23 08:27 Dose: 60 mg Documented By: CLEM Enoxaparin Sodium (Enoxaparin Sodium 40 Mg/0.4 Ml Syringe) 40 mg SUBCUT Q24H [facility] Last Admin: 02/26/23 08:27 Dose: 40 mg Documented By: CLEM Folic Acid (Folic Acid 1 Mg Tablet) 1 mg PO DAILY [facility] Last Admin: 02/26/23 08:27 Dose: 1 mg Documented By: CLEM Furosemide (Furosemide 20 Mg Tablet) 20 mg PO DAILY PRN; Protocol PRN Reason: edema Hydroxyzine HCl (Hydroxyzine Hcl 25 Mg Tablet) 25 mg PO BEDTIME [facility] Last Admin: 02/25/23 20:05 Dose: 25 mg Documented By: GONZALO Magnesium Oxide (Magnesium Oxide 400 Mg Tablet) 400 mg PO DAILY [facility] Last Admin: 02/26/23 08:27 Dose: 400 mg Documented By: CLEM Naltrexone HCl (Naltrexone Hcl 50 Mg Tablet) 50 mg PO DAILY [facility] Last Admin: 02/26/23 08:27 Dose: 50 mg Documented By: CLEM Olanzapine (Olanzapine 5 Mg Tablet) 5 mg PO DAILY [facility] Last Admin: 02/26/23 08:27 Dose: 5 mg Documented By: CLEM Olanzapine (Olanzapine 10 Mg Tablet) 20 mg PO DAILY [facility] Last Admin: 02/26/23 08:27 Dose: 20 mg Documented By: CLEM Omeprazole (Omeprazole 40 Mg Capsule.Dr) 40 mg PO DAILY@0630 [facility] Last Admin: 02/26/23 05:52 Dose: 40 mg Documented By: MATILDA Pharmacy Consult (Consult Rx Etoh Phenob Im/Po) 1 each MISCELLANE ONCE PRN; Protocol PRN Reason: Consult order Phenobarbital (Phenobarbital 15 Mg Tablet) 15 mg PO BID [facility]; Protocol Stop: 02/27/23 21:01 Last Admin: 02/26/23 08:27 Dose: 15 mg Documented By: CLEM Phenobarbital (Phenobarbital 15 Mg Tablet) 15 mg PO DAILY [facility]; Protocol Stop: 03/01/23 09:01 Sodium Chloride (0.9 % Sodium Chloride Flush 3 Ml Syringe) 3 ml IVFLUSH QSHIFT [facility] Last Admin: 02/26/23 08:28 Dose: 3 ml Documented By: CLEM Thiamine HCl (Thiamine Hcl 100 Mg Tablet) 100 mg PO DAILY [facility] Last Admin: 02/26/23 08:27 Dose: 100 mg Documented By: CLEM Labs 02/25/23 05:32 02/25/23 05:32 Assessment and Plan (1) Alcohol withdrawal: Status: Acute Plan 72F PMH etoh dependence, bipolar, endometriosis, htn, presented with fall etoh dependence with withdrawal continue phenobarb seen by recovery team monitor ciwa etoh cessation constipation dulcolax bipolar mood stabilizers dvt prophylaxis - Lovenox full code reason for continued hospitalization: interested in inpatient etoh rehab Time Spent With Patient Time: Total time managing care of this patient today ____ minutes. Quality Stroke Does the patient have a stroke diagnosis?: No VTE Prior VTE?: No VTE Risk Level:: Medical - moderate - high VTE Device Contraindication: Treatment Not Indicated VTE Drug Contraindication: N/A - Med Ordered
[2023-02-26 11:25] VITALS: BP 140/80; PULSE 92; RESP 18; TEMP 36.3; O2SAT 94
[2023-02-26 15:24] VITALS: BP 124/72; PULSE 100; RESP 22; TEMP 36.4; O2SAT 93
[2023-02-26 17:12] VITALS: BP 147/79; PULSE 96; RESP 18; TEMP 36.1; O2SAT 95
[2023-02-26] MEDS: diphenhydrAMINE HCL 25 MG CAPSULE PO (19:18)
[2023-02-26] MEDS: diazePAM 5 MG TABLET PO (19:18)
[2023-02-26] MEDS: hydrOXYzine HCL 25 MG TABLET PO (19:18)
[2023-02-26 19:56] VITALS: BP 135/79; PULSE 93; RESP 19; TEMP 36.3; O2SAT 95
[2023-02-27] VITALS: BP 130/69; PULSE 93; RESP 20; TEMP 36.7; O2SAT 96
[2023-02-27] MEDS: diazePAM 5 MG TABLET PO (02:06)
--- NOTE | 2023-02-27 02:20 | PC.NURSE ---
Pt. transferred from [place] [id number] at approx. 2330 last evening. Handover received from prior RN. Pt. transferred via bed and sleepy on arrival. Bed alarm activated. Pt. asking to go back to sleep. Pt. calm and no tremors or behaviors noted. At 0150, bed alarm sounded and pt. found ambulating toward the hallway stating Where are my clothes . Pt. thinks she is at her house. Pt. slightly unsteady and walked out in to the [facility] asking for turn those sounds off (telemetry alarm) . Pt. states get your hands off me as pt. was unsteady when turning. Reoriented pt. to surroundings. Pt. not answering any more questions when asked re: orientation or CIWA. Pt. agreeable to as needed Valium . Given at [id number] to Dr. Wesley as above stated. Pt. back to bed. Bed alarm on and Camera in room.
[2023-02-27 04:00] VITALS: BP 128/76; PULSE 65; RESP 18; TEMP 36.2; O2SAT 97
[2023-02-27] MEDS: Omeprazole 40 MG CAPSULE.DR PO (04:37)
[2023-02-27 07:45] VITALS: BP 144/81; PULSE 104; RESP 22; TEMP 36.6; O2SAT 96
[2023-02-27] MEDS: 0.9 % Sodium Chloride Flush 3 ML SYRINGE IVFLUSH (08:52)
[2023-02-27] MEDS: Enoxaparin Sodium 40 MG/0.4 ML SYRINGE SUBCUT (08:52)
[2023-02-27] MEDS: Naltrexone HCl 50 MG TABLET PO (08:53)
[2023-02-27] MEDS: amLODIPine Besylate 5 MG TABLET PO (08:53)
[2023-02-27] MEDS: DULoxetine HCl 60 MG CAPSULE.DR PO (08:53)
[2023-02-27] MEDS: Folic Acid 1 MG TABLET PO (08:53)
[2023-02-27] MEDS: Magnesium Oxide 400 MG TABLET PO (08:53)
[2023-02-27] MEDS: PHENobarbitaL 15 MG TABLET PO (08:53)
[2023-02-27] MEDS: OLANZapine 5 MG TABLET PO (08:53)
[2023-02-27] MEDS: OLANZapine 10 MG TABLET 20 MG PO (08:53)
[2023-02-27] MEDS: Thiamine HCL 100 MG TABLET PO (08:53)
--- NOTE | 2023-02-27 10:52 | PM.DS ---
DS: Providers Provider Date of Service: 02/27/23 Date of admission: 02/23/23 07:43 Primary care physician: Reinaldo Willard MD Consults: 02/23/23 07:49 Consult to Care Team Routine Comment: Reason for consultation: etoh DS: Diagnosis Discharge Diagnosis (1) Alcohol withdrawal: Status: Acute DS: Summary Hospital Course Hospital Course: from initial hpi: 72F PMH etoh dependence, bipolar, endometriosis, htn, presented with fall. she states she was getting up on evening of presentation to get something to drink and felt dizzy falling backwards onto buttocks and then momentum causing head strike on floor. denies LOC. patient drinks 12 beers and 1/2 pint [place] honey daily. in ED started to feel tremulous. trauma work up unremarkable. hospital course: Patient was admitted for alcohol dependence with withdrawal. She was treated with phenobarbital and had resolution of her symptoms. She was seen by recovery team and given materials for alcohol abstinence. For constipation was treated with Dulcolax. For bipolar was continued on mood stabilizers. Patient is feeling better will be discharged home. Time Spent with Patient Time attestation: Total time managing care of this patient today ____ minutes. Discharge coordination time: Greater than 30 minutes Quality: Safe Use of Opioids Does Pt have an Active Cancer Diagnosis on the Problem List?: No Quality: Stroke Does the patient have a stroke diagnosis?: No Physical Exam Vital Signs: Vital Signs: Last Vital Signs Temp 97.8 F 02/27/23 07:45 Pulse 104 H 02/27/23 07:45 Resp 22 H 02/27/23 07:45 BP 144/81 H 02/27/23 07:45 Pulse Ox 96 02/27/23 07:45 O2 Del Method Room Air 02/27/23 07:45 BMI result Body Mass Index 28.0 General: AO X 3, no acute distress Resp: CTA bilateral, no accessory muscles used CVS: S1,S2,RRR GI: soft, non tender, non distended Neuro: motor grossly intact, alert Psych: appropriate affect, appropriate insight DS: Data Data Completed and Pending Completed studies during hospitalization [Text1]: Procedures Detoxification Services for Substance Abuse Treatment (10/09/22) Discharge Plan Discharge Anticipated Discharge Date/Time: 02/27/23 10:51 Patient Disposition: Home, Self-Care Discharge Diagnosis: etoh Referrals: Reinaldo Willard MD [Primary Care Provider] - 1 Week Discharge Medications: Continued omeprazole 40 mg Capsule,Delayed Release(Dr/Ec) 40 mg PO DAILY@0630 30 Days Qty: 30 0RF furosemide 20 mg Tablet 20 mg PO DAILY PRN (Reason: edema) 30 Days Qty: 30 0RF Protocol: Hold for SBP< HOLD for SBP < : 90 duloxetine 60 mg Capsule,Delayed Release(Dr/Ec) 60 mg PO BID 30 Days Qty: 60 0RF diazepam 5 mg tablet 5 mg PO DAILY PRN (Reason: Anxiety) cyclobenzaprine 10 mg tablet 10 mg PO BID PRN (Reason: Muscle Spasm) diphenhydramine HCl 25 mg Tablet 25 mg PO BEDTIME acetaminophen [Tylenol Extra Strength] 500 mg tablet 1,000 mg PO Q8H PRN (Reason: Pain, Moderate) naltrexone 50 mg tablet 50 mg PO DAILY olanzapine 5 mg tablet 5 mg PO DAILY hydroxyzine HCl 25 mg tablet 25 mg PO BEDTIME olanzapine [Zyprexa] 20 mg tablet 20 mg PO DAILY amlodipine 5 mg Tablet 5 mg PO DAILY 30 Days Qty: 30 0RF Protocol: Hold for SBP< HOLD for SBP < : 90 folic acid 1 mg Tablet 1 mg PO DAILY 30 Days Qty: 30 0RF thiamine HCl (vitamin B1) 100 mg tablet 100 mg PO DAILY 30 Days Qty: 30 0RF magnesium oxide [MagOx] 400 mg (241.3 mg magnesium) tablet 400 mg PO DAILY 30 Days Qty: 30 0RF Discharge Orders: Discharge Order (Routine); Ordered 02/27/23 Ordered By: Roman Flowers Diet: Advance to usual diet Activity on Discharge: As tolerated Stand Alone Forms: Patient Portal Discharge page Care Plan Goals: recovery Health Concerns: etoh Plan of Treatment: avoid etoh Assessment: see above
--- NOTE | 2023-02-27 11:20 | MHC.CM.PN ---
Pt has been medically cleared for discharge. She will return home via [facility] shuttle, and resume previous home health services.
[2023-02-27 12:00] VITALS: BP 120/62; PULSE 98; RESP 20; TEMP 36.7; O2SAT 94
== END 2023-02-27 14:05 | disposition home or self-care (01) | DRG 897 ==
LOC: HO.ED 06:56 → HO.EDOVER 07:49 → HO.IMC 12:14 → HO.S3 02-26 16:33 → HO.IMC 02-26 22:26
PROVIDERS: Admitting Provider Internal Medicine; Emergency Provider Emergency Medicine Emergency Medical Services; PCP Family Medicine; Visit Provider Internal Medicine
DX: F10.239 Alcohol dependence with withdrawal, unspecified (principal); F41.9 Anxiety disorder, unspecified; I10 Essential (primary) hypertension; K59.00 Constipation, unspecified; F31.9 Bipolar disorder, unspecified; Z23 Encounter for immunization; Z20.822 Contact with and (suspected) exposure to COVID-19; Z71.41 Alcohol abuse counseling and surveillance of alcoholic; Z79.899 Other long term (current) drug therapy
CPT/HCPCS: 36415; 70450; 72125; 80048; 80053; 80076; 80307; 81001; 81003; 83735; 85027; 87086; 87635; 90686; 93005; 99285; J1650; J2560

== ENCOUNTER → 2023-02-23 07:43 | Outpatient (BNV) | payer MEDICARE, SELFPAY | PROVIDERS: Admitting Provider Internal Medicine; Emergency Provider Emergency Medicine Emergency Medical Services; PCP Family Medicine; Visit Provider Internal Medicine | DX: F10.930 Alcohol use, unspecified with withdrawal, uncomplicated (principal) | CPT/HCPCS: 99223; 99232; 99239 ==

== ENCOUNTER 2023-03-27 17:09 | Emergency (ER) | payer MEDICARE, SELFPAY ==
--- NOTE | 2023-03-27 | ECG_ITS ---
Test Reason : CHEST PAIN Blood Pressure : / mmHG Vent. Rate : 104 BPM Atrial Rate : 104 BPM P-R Int : 198 ms QRS Dur : 092 ms QT Int : 358 ms P-R-T Axes : 069 -29 062 degrees QTc Int : 470 ms Sinus tachycardia Incomplete right bundle branch block Abnormal ECG When compared with ECG of 23-FEB-2023 07:11, Premature atrial complexes are no longer Present Referred By: Generic ED Physician Electronically Signed By:MENG AVILA MD
--- NOTE | ~2023-03-27 | XR_ITS ---
EXAMINATION: XR CHEST CLINICAL INFORMATION: Chest pain COMPARISON: Chest x-ray December 17, 2022 TECHNIQUE: Frontal portable view of the chest was obtained. 1809 hours FINDINGS: Lungs are clear. No pulmonary vascular congestion. There is no pleural effusion. The heart size is normal. The cardiac and mediastinal contours are normal. Orthopedic plate and screws and transpedicular screws at lower cervical spine partially imaged. XR/XR chest 1V IMPRESSION: Unremarkable examination.
[2023-03-27 17:15] VITALS: BP 124/80; BP 127/82; PULSE 105; PULSE 76; RESP 18; TEMP 36.9; O2SAT 95; O2SAT 97; BMI 29.0
[2023-03-27 17:20] VITALS: PULSE 103
--- NOTE | 2023-03-27 17:27 | ED_ITS ---
HPI - Chest Pain General Chief Complaint: Chest Pain Stated Complaint: CHEST PAIN Time Seen by Provider: 03/27/23 17:27 Source: patient Mode of arrival: ambulatory Limitations: no limitations History of Present Illness HPI narrative: Patient is 72 years old with history of alcohol use borderline hypertension comes in for chest pain started at noon time localized to left side go to left shoulder off and on lasting for few minutes feel pressure increases on deep breaths. Patient drinking all day today had 6 beer since morning which she does all the time but had chest pain for the 1st time no cough no shortness of breath Related Data Home Medications Medication Instructions Recorded Confirmed acetaminophen 500 mg tablet 1,000 mg PO Q8H PRN Pain, Moderate 06/16/22 02/23/23 (Tylenol Extra Strength) cyclobenzaprine 10 mg tablet 10 mg PO BID PRN Muscle Spasm 06/16/22 02/23/23 diazepam 5 mg tablet 5 mg PO DAILY PRN Anxiety 06/16/22 02/23/23 diphenhydramine HCl 25 mg tablet 25 mg PO BEDTIME 06/16/22 02/23/23 hydroxyzine HCl 25 mg tablet 25 mg PO BEDTIME 10/09/22 02/23/23 olanzapine 20 mg tablet (Zyprexa) 20 mg PO DAILY 10/09/22 02/23/23 naltrexone 50 mg tablet 50 mg PO DAILY 02/23/23 02/23/23 olanzapine 5 mg tablet 5 mg PO DAILY 02/23/23 02/23/23 Previous Rx's Medication Instructions Recorded duloxetine 60 mg capsule,delayed 60 mg PO BID 30 days #60 caps 11/26/21 release furosemide 20 mg tablet 20 mg PO DAILY PRN edema 30 days 11/26/21 #30 tabs omeprazole 40 mg capsule,delayed 40 mg PO DAILY@0630 30 days #30 11/26/21 release caps amlodipine 5 mg tablet 5 mg PO DAILY 30 days #30 tabs 10/14/22 folic acid 1 mg tablet 1 mg PO DAILY 30 days #30 tabs 10/14/22 magnesium oxide 400 mg (241.3 mg 400 mg PO DAILY 30 days #30 tabs 10/14/22 magnesium) tablet (MagOx) thiamine HCl (vitamin B1) 100 mg 100 mg PO DAILY 30 days #30 tabs 10/14/22 tablet Allergies Allergy/AdvReac Type Severity Reaction Status Date / Time sulfamethoxazole Allergy Mild FEVER Verified 02/23/23 03:54 [From BACTRIM] trimethoprim [From BACTRIM] Allergy Mild FEVER Verified 02/23/23 03:54 cephalexin [Keflex] Allergy Unknown Rash Verified 02/23/23 03:54 Sulfa (Sulfonamide Allergy Unknown Fever Verified 02/23/23 03:54 Antibiotics) tramadol [Ultram] Allergy Unknown Unknown Verified 02/23/23 03:54 mold Allergy Unknown Headache Uncoded 02/23/23 03:54 pollen Allergy Unknown Headache Uncoded 02/23/23 03:54 Review of Systems 2 Review of Systems: Yes all other systems are reviewed and are negative PMFSH Past Medical History Medical History Hypomagnesemia Alcohol dependence Bipolar disorder Endometriosis Alcohol use with withdrawal Anxiety Fracture of distal end of right fibula Hypertension Mood disorder Routine medical exam Social History Social History Household Members: None Household Members Other:: Cat Housing: House Do you presently have visiting nurse or other home services: Yes Alcohol intake: current Alcohol intake frequency: 3 or more drinks per day Alcohol type: beer and hard liquor Patient Tobacco Use Status: Never used Tobacco Tobacco use type: Cigarette Smoked in Last 30 Days: No e-Cigarette/Vaping Use: Never Used Second Hand Smoke Exposure: No Use of substances other than those prescribed or required for medical reasons: No Advance Directives: Yes Advance Directives on File: Yes Advance Directives Date on File: 06/16/22 service: No Current occupational status: unemployed Sexual orientation: Straight/Heterosexual Physical Exam 2 Vital Signs: Vital Signs: Last Vital Signs Temp 97.6 F 03/28/23 00:14 Pulse 102 H 03/28/23 00:14 Resp 14 03/28/23 00:14 BP 140/71 H 03/28/23 00:14 Pulse Ox 90 L 03/28/23 00:14 O2 Del Method Room Air 03/28/23 00:14 BMI result Body Mass Index 29.0 Appearance: Alert. Oriented X3. No acute distress. etoh+ Eyes: No pallor/ icterus ENT: Pharynx normal. Oral Mucosa moist Neck: Normal inspection. Neck supple. CVS: Normal heart rate and rhythm. Pulses normal. Respiratory: No respiratory distress. Equal air entry bilateral, no wheezing/rales/rhonchi Abdomen: Soft and nontender. Bowel sounds are present, no mass palpable, no CVA tenderness Skin: Skin warm and dry. Normal skin color. Normal skin turgor. Extremities: No lower extremity edema. No calf tenderness Neuro: Oriented X 3. No motor deficit. No sensory deficit.No cerebellar signs , cranial nerves II-XII intact Medications Administered Discontinued Medications Generic Name Dose Route Start Last Admin Trade Name Madelin PRN Reason Stop Dose Admin Sodium Chloride 1,000 mls @ 999 mls/hr 03/27/23 21:53 03/27/23 23:20 Ns IV 03/27/23 22:53 Infused .Q1H1M ONE Infusion Lorazepam 2 mg 03/27/23 21:53 03/27/23 22:19 Lorazepam 2 Mg/Ml Vial IVPUSH 03/27/23 21:54 2 mg ONCE ONE Administration Thiamine HCl 100 mg 03/27/23 21:53 03/27/23 22:19 Thiamine Hcl 100 Mg Tablet PO 03/27/23 21:54 100 mg ONCE ONE Administration Medical Decision Making Medical Decision Making [facility] Narrative: Patient nonspecific left-sided chest pain with history of alcohol use initial EKG and troponin is negative will repeat troponin in 2 hours for CAD delta change patient already received aspirin by the EMS currently patient does not have any chest pain patient repeat troponin negative for delta change will discharge patient home. At the time of discharge patient started feeling jittery shaky requesting want to detox. Patient was sober for 20 years after been to detox and started drinking for last 3 years and requesting seem to go to detox patient medically cleared will give Ativan for withdrawal according to CIWA scale care team see the patient for detox Differential Diagnosis Differential Diagnoses: The differential diagnosis associated with the presentation includes ACS/chest wall pain/gastritis Lab Data [facility] Lab Attestation statement: I reviewed the patient's lab results. 03/27/23 17:49 03/27/23 17:49 Labs: Lab Results 03/27/23 03/27/23 Range/Units 17:49 20:11 WBC 5.1 (4.8-10.8) X10*3/uL RBC 4.40 (4.20-5.50) X10*6/uL Hgb 12.5 (12.0-16.0) g/dl Hct 37.9 (37.0-47.0) % MCV 86.1 (80.0-98.0) fL MCH 28.4 (27.0-33.0) pg MCHC 33.0 (31.0-35.0) g/dl RDW 13.9 (11.0-16.0) % Plt Count 264 (160-400) X10*3/uL MPV 9.0 L (9.4-12.3) fL Immature Gran % (Auto) 1.0 H (0.0-0.4) % Neut % (Auto) 51.0 (45-73) % Lymph % (Auto) 36.3 (20-40) % [place] % (Auto) 9.7 (2-11) % Eos % (Auto) 1.4 (0-4) % Baso % (Auto) 0.6 (0-2) % Lymph # (Auto) 1.9 (1.2-4.9) X10*3/uL [place] # (Auto) 0.5 (0.1-1.2) X10*3/uL Eos # (Auto) 0.1 (0.0-0.4) X10*3/uL Baso # (Auto) 0.0 (0.0-0.2) X10*3/uL Abs Immat Gran (auto) 0.05 H (0.00-0.03) X10*3/uL Absolute Neuts (auto) 2.6 (2.0-8.3) x10*3/uL Absolute Nucleated RBC 0.000 (0.0-0.012) X10*3/uL Nucleated RBC % (auto) 0.0 (0.0-0.2) /100WBC PT 11.7 (11.1-13.3) SEC INR 1.0 (0.9-1.1) Sodium 144 (135-145) mmol/L Potassium 3.9 (3.3-5.1) mmol/L Chloride 107 (96-108) mmol/L Carbon Dioxide 23 (22-29) mmol/L Anion Gap 18 (12-20) BUN 12 (9-16) mg/dL Creatinine 0.72 (0.5-1.4) mg/dL Estim Creat Clear Calc 77.2 Estimated GFR > 60 Random Glucose 96 (60-115) mg/dL Calcium 9.1 D (8.4-10.2) mg/dL Magnesium 2.1 (1.6-2.6) mg/dL Total Bilirubin 0.1 (0.0-1.0) mg/dL AST 25 (5-31) U/L ALT 23 (0-31) U/L Alkaline Phosphatase 91 (39-117) U/L Troponin I High Sens 3.5 D 3.7 (<3.5-17.0) ng/L Total Protein 7.2 (6.5-8.0) g/dL Albumin 4.1 (3.5-5.0) g/dL Lipase 14 (8-78) U/L Ethyl Alcohol 116 mg/dL Independent Interpretation I performed an independent interpretation of an: EKG Interpretation: Sinus tachycardia heart rate 104 beats per minute normal intervals normal axis right bundle-branch block no acute ST-T changes Discharge Plan Discharge Clinical Impression: Chest pain, Alcohol dependence, Alcohol withdrawal Patient Disposition: Still a Patient Prescriptions: No Action omeprazole 40 mg Capsule,Delayed Release(Dr/Ec) 40 mg PO DAILY@0630 30 Days Qty: 30 0RF furosemide 20 mg Tablet 20 mg PO DAILY PRN (Reason: edema) 30 Days Qty: 30 0RF Protocol: Hold for SBP< HOLD for SBP < : 90 duloxetine 60 mg Capsule,Delayed Release(Dr/Ec) 60 mg PO BID 30 Days Qty: 60 0RF diazepam 5 mg tablet 5 mg PO DAILY PRN (Reason: Anxiety) cyclobenzaprine 10 mg tablet 10 mg PO BID PRN (Reason: Muscle Spasm) diphenhydramine HCl 25 mg Tablet 25 mg PO BEDTIME acetaminophen [Tylenol Extra Strength] 500 mg tablet 1,000 mg PO Q8H PRN (Reason: Pain, Moderate) naltrexone 50 mg tablet 50 mg PO DAILY olanzapine 5 mg tablet 5 mg PO DAILY hydroxyzine HCl 25 mg tablet 25 mg PO BEDTIME olanzapine [Zyprexa] 20 mg tablet 20 mg PO DAILY amlodipine 5 mg Tablet 5 mg PO DAILY 30 Days Qty: 30 0RF Protocol: Hold for SBP< HOLD for SBP < : 90 folic acid 1 mg Tablet 1 mg PO DAILY 30 Days Qty: 30 0RF thiamine HCl (vitamin B1) 100 mg tablet 100 mg PO DAILY 30 Days Qty: 30 0RF magnesium oxide [MagOx] 400 mg (241.3 mg magnesium) tablet 400 mg PO DAILY 30 Days Qty: 30 0RF
--- NOTE | 2023-03-27 17:38 | MHC.EDTECH ---
patient changed over
[2023-03-27 17:56] LABS: MANUAL DIFF FLAG NO
[2023-03-27 18:00] VITALS: PULSE 109; RESP 18; O2SAT 98
[2023-03-27 18:03] LABS: Prothrombin Time 11.7 SEC (11.1-13.3)
[2023-03-27 18:14] LABS: Ethanol 116 mg/dL
[2023-03-27 18:15] LABS: Alanine Aminotransferase 23 U/L (0-31); Albumin Level 4.1 g/dL (3.5-5.0); Alkaline Phosphatase 91 U/L (39-117); Anion Gap 18 (12-20); Aspartate Amino Transferase 25 U/L (5-31); Bilirubin Total 0.1 mg/dL (0.0-1.0); Blood Urea Nitrogen 12 mg/dL (9-16); Calcium 9.1 mg/dL (8.4-10.2); Carbon Dioxide 23 mmol/L (22-29); Chloride 107 mmol/L (96-108); Creatinine Clr Calc Pharmacy 77.2; Estimated Glomerular Filt Rate > 60; Glucose Random 96 mg/dL (60-115); Lipase 14 U/L (8-78); Magnesium 2.1 mg/dL (1.6-2.6); Potassium 3.9 mmol/L (3.3-5.1); Sodium 144 mmol/L (135-145); Total Protein 7.2 g/dL (6.5-8.0)
[2023-03-27 18:23] LABS: Basophils Percent Auto 0.6 % (0-2); Eosinophils Absolute Auto 0.1 X10*3/uL (0.0-0.4); Eosinophils Percent Auto 1.4 % (0-4); Hematocrit 37.9 % (37.0-47.0); Hemoglobin 12.5 g/dl (12.0-16.0); Imm Gran Abs Auto 0.05 X10*3/uL (0.00-0.03); Lymphocytes Absolute Auto 1.9 X10*3/uL (1.2-4.9); Lymphocytes Percent Auto 36.3 % (20-40); Mean Corpuscular Hemoglobin 28.4 pg (27.0-33.0); Mean Corpuscular Volume 86.1 fL (80.0-98.0); Monocytes Absolute Auto 0.5 X10*3/uL (0.1-1.2); Monocytes Percent Auto 9.7 % (2-11); Neutrophils Absolute Auto 2.6 x10*3/uL (2.0-8.3); Platelet Count 264 X10*3/uL (160-400); Red Cell Distribution Width 13.9 % (11.0-16.0); White Blood Count 5.1 X10*3/uL (4.8-10.8)
[2023-03-27 18:24] LABS: Troponin-I High Sensitivity 3.5 ng/L (<3.5-17.0)
[2023-03-27 19:35] VITALS: BP 112/74; PULSE 97; RESP 12; TEMP 36.8; O2SAT 94
--- NOTE | 2023-03-27 19:50 | PC.NURSE ---
This content writer assumed care of pt at 1900, Pt is AOx3, pt reporting 6/10 Left sided CP radiates to left shoulder. pt reporting increased anxiety at the moment, Pt requesting food and medication for anxiety.
--- NOTE | 2023-03-27 20:30 | MHC.EDTECH ---
Patient given sandwhich and gingerale
[2023-03-27 20:39] LABS: Troponin-I High Sensitivity 3.7 ng/L (<3.5-17.0)
[2023-03-27 20:49] VITALS: BP 129/85; PULSE 100; RESP 15; TEMP 36.6; O2SAT 95
[2023-03-27] MEDS: LORazepam 2 MG/ML VIAL IVPUSH (22:19)
[2023-03-27] MEDS: Thiamine HCL 100 MG TABLET PO (22:19)
[2023-03-27] MEDS: 0.9 % Sodium Chloride 1,000 ML 999 ML IV (22:19)
--- NOTE | 2023-03-27 22:33 | PC.NURSE ---
Upon D/C Pt reported to Riddhi ASHBY I'm not ready, I need add care provider Zahira made aware and at bedside with Riddhi. New orders. Pt medicated by Riddhi ASHBY.
--- NOTE | 2023-03-27 23:08 | MHC.CARE ---
CARE Team meets with pt who is seeking detox and providers a folder with recovery resources, harm reduction handouts, and other educational materials. Pt has Myron, so she may be eligible for RCA. Pt willing to stay the night to meet with the recovery team in the morning regarding detox. She is on naltrexone currently, but unsure how helpful it is. Pt had 20 years sober in the past, but relapsed 3 years ago.
[2023-03-28 00:14] VITALS: BP 140/71; PULSE 102; RESP 14; TEMP 36.4; O2SAT 90
[2023-03-28 02:05] VITALS: O2SAT 93
--- NOTE | 2023-03-28 02:31 | PC.NURSE ---
Pt resting quietly, ambulated to bathroom independently, pt aware of plan of care.
[2023-03-28 06:02] VITALS: BP 145/95; PULSE 111; RESP 17; TEMP 36.7; O2SAT 94
[2023-03-28] MEDS: Acetaminophen 325 MG TABLET 650 MG PO (08:10)
[2023-03-28] MEDS: LORazepam 1 MG TABLET 2 MG PO (08:11)
[2023-03-28 08:13] VITALS: BP 102/65; PULSE 109; RESP 16; TEMP 37.7; O2SAT 96
--- NOTE | 2023-03-28 08:43 | MHC.RECOVRN ---
Met with pt in [facility] after pt expressed interest in ATS. Pt reports drinking a 6 pack of beer and 2 nips of whiskey yesterday. Recently received Ativan, denies current withdrawal symptoms. Pt does have hx hospital admissions for alcohol withdrawal. Pt is willing to go to any ATS facility. T/w will conduct bedsearch.
--- NOTE | 2023-03-28 09:13 | MHC.RECOVRN ---
[facility] has probable bed availability, accepts pts insurance. Referral sent.
--- NOTE | 2023-03-28 10:31 | PC.NURSE ---
patient appears to be sleeping, respirations equal and unlabored. patient ate breakfast this morning, given tylenol for shoulder pain.
--- NOTE | 2023-03-28 10:43 | MHC.RECOVRN ---
Pt currently completing phone screen with [employer].
--- NOTE | 2023-03-28 11:13 | ED_ITS ---
HPI - Chest Pain General Chief Complaint: Chest Pain Stated Complaint: CHEST PAIN Time Seen by Provider: 03/27/23 17:27 Source: patient Mode of arrival: ambulatory Limitations: no limitations Related Data Home Medications Medication Instructions Recorded Confirmed acetaminophen 500 mg tablet 1,000 mg PO Q8H PRN Pain, Moderate 06/16/22 02/23/23 (Tylenol Extra Strength) cyclobenzaprine 10 mg tablet 10 mg PO BID PRN Muscle Spasm 06/16/22 02/23/23 diazepam 5 mg tablet 5 mg PO DAILY PRN Anxiety 06/16/22 02/23/23 diphenhydramine HCl 25 mg tablet 25 mg PO BEDTIME 06/16/22 02/23/23 hydroxyzine HCl 25 mg tablet 25 mg PO BEDTIME 10/09/22 02/23/23 olanzapine 20 mg tablet (Zyprexa) 20 mg PO DAILY 10/09/22 02/23/23 naltrexone 50 mg tablet 50 mg PO DAILY 02/23/23 02/23/23 olanzapine 5 mg tablet 5 mg PO DAILY 02/23/23 02/23/23 Previous Rx's Medication Instructions Recorded duloxetine 60 mg capsule,delayed 60 mg PO BID 30 days #60 caps 11/26/21 release furosemide 20 mg tablet 20 mg PO DAILY PRN edema 30 days 11/26/21 #30 tabs omeprazole 40 mg capsule,delayed 40 mg PO DAILY@0630 30 days #30 11/26/21 release caps amlodipine 5 mg tablet 5 mg PO DAILY 30 days #30 tabs 10/14/22 folic acid 1 mg tablet 1 mg PO DAILY 30 days #30 tabs 10/14/22 magnesium oxide 400 mg (241.3 mg 400 mg PO DAILY 30 days #30 tabs 10/14/22 magnesium) tablet (MagOx) thiamine HCl (vitamin B1) 100 mg 100 mg PO DAILY 30 days #30 tabs 10/14/22 tablet Allergies Allergy/AdvReac Type Severity Reaction Status Date / Time sulfamethoxazole Allergy Mild FEVER Verified 02/23/23 03:54 [From BACTRIM] trimethoprim [From BACTRIM] Allergy Mild FEVER Verified 02/23/23 03:54 cephalexin [Keflex] Allergy Unknown Rash Verified 02/23/23 03:54 Sulfa (Sulfonamide Allergy Unknown Fever Verified 02/23/23 03:54 Antibiotics) tramadol [Ultram] Allergy Unknown Unknown Verified 02/23/23 03:54 mold Allergy Unknown Headache Uncoded 02/23/23 03:54 pollen Allergy Unknown Headache Uncoded 02/23/23 03:54 [facility] Past Medical History Medical History Hypomagnesemia Alcohol dependence Bipolar disorder Endometriosis Alcohol use with withdrawal Anxiety Fracture of distal end of right fibula Hypertension Mood disorder Routine medical exam Social History Social History Household Members: None Household Members Other:: Cat Housing: House Do you presently have visiting nurse or other home services: Yes Alcohol intake: current Alcohol intake frequency: 3 or more drinks per day Alcohol type: beer and hard liquor Patient Tobacco Use Status: Never used Tobacco Tobacco use type: Cigarette Smoked in Last 30 Days: No e-Cigarette/Vaping Use: Never Used Second Hand Smoke Exposure: No Use of substances other than those prescribed or required for medical reasons: No Advance Directives: Yes Advance Directives on File: Yes Advance Directives Date on File: 06/16/22 service: No Current occupational status: unemployed Sexual orientation: Straight/Heterosexual Physical Exam 2 Vital Signs: Vital Signs: Last Vital Signs Temp 99.9 F 03/28/23 08:13 Pulse 109 H 03/28/23 08:13 Resp 16 03/28/23 08:13 BP 102/65 03/28/23 08:13 Pulse Ox 96 03/28/23 08:13 O2 Del Method Room Air 03/28/23 06:02 BMI result Body Mass Index 29.0 Course Course Course Narrative: 03/28/2023 1114: Patient cleared for discharge. Patient going to go to [facility] from home. Medications Administered Generic Name Dose Route Start Last Admin Trade Name Freq PRN Reason Stop Dose Admin Lorazepam 2 mg 03/27/23 21:54 03/28/23 08:11 Lorazepam 1 Mg Tablet PO 2 mg RQ4H WHILE AWAKE PRN Administration Alcohol Withdrawal Discontinued Medications Generic Name Dose Route Start Last Admin Trade Name Freq PRN Reason Stop Dose Admin Acetaminophen 650 mg 03/28/23 07:57 03/28/23 08:10 Acetaminophen 325 Mg Tablet PO 03/28/23 07:58 650 mg ONCE ONE Administration Sodium Chloride 1,000 mls @ 999 mls/hr 03/27/23 21:53 03/27/23 23:20 Ns IV 03/27/23 22:53 Infused .Q1H1M ONE Infusion Lorazepam 2 mg 03/27/23 21:53 03/27/23 22:19 Lorazepam 2 Mg/Ml Vial IVPUSH 03/27/23 21:54 2 mg ONCE ONE Administration Thiamine HCl 100 mg 03/27/23 21:53 03/27/23 22:19 Thiamine Hcl 100 Mg Tablet PO 03/27/23 21:54 100 mg ONCE ONE Administration Medical Decision Making Lab Data 03/27/23 17:49 03/27/23 17:49 Labs: Lab Results 03/27/23 03/27/23 Range/Units 17:49 20:11 WBC 5.1 (4.8-10.8) X10*3/uL RBC 4.40 (4.20-5.50) X10*6/uL Hgb 12.5 (12.0-16.0) g/dl Hct 37.9 (37.0-47.0) % MCV 86.1 (80.0-98.0) fL MCH 28.4 (27.0-33.0) pg MCHC 33.0 (31.0-35.0) g/dl RDW 13.9 (11.0-16.0) % Plt Count 264 (160-400) X10*3/uL MPV 9.0 L (9.4-12.3) fL Immature Gran % (Auto) 1.0 H (0.0-0.4) % Neut % (Auto) 51.0 (45-73) % Lymph % (Auto) 36.3 (20-40) % [place] % (Auto) 9.7 (2-11) % Eos % (Auto) 1.4 (0-4) % Baso % (Auto) 0.6 (0-2) % Lymph # (Auto) 1.9 (1.2-4.9) X10*3/uL [place] # (Auto) 0.5 (0.1-1.2) X10*3/uL Eos # (Auto) 0.1 (0.0-0.4) X10*3/uL Baso # (Auto) 0.0 (0.0-0.2) X10*3/uL Abs Immat Gran (auto) 0.05 H (0.00-0.03) X10*3/uL Absolute Neuts (auto) 2.6 (2.0-8.3) x10*3/uL Absolute Nucleated RBC 0.000 (0.0-0.012) X10*3/uL Nucleated RBC % (auto) 0.0 (0.0-0.2) /100WBC PT 11.7 (11.1-13.3) SEC INR 1.0 (0.9-1.1) Sodium 144 (135-145) mmol/L Potassium 3.9 (3.3-5.1) mmol/L Chloride 107 (96-108) mmol/L Carbon Dioxide 23 (22-29) mmol/L Anion Gap 18 (12-20) BUN 12 (9-16) mg/dL Creatinine 0.72 (0.5-1.4) mg/dL Estim Creat Clear Calc 77.2 Estimated GFR > 60 Random Glucose 96 (60-115) mg/dL Calcium 9.1 D (8.4-10.2) mg/dL Magnesium 2.1 (1.6-2.6) mg/dL Total Bilirubin 0.1 (0.0-1.0) mg/dL AST 25 (5-31) U/L ALT 23 (0-31) U/L Alkaline Phosphatase 91 (39-117) U/L Troponin I High Sens 3.5 D 3.7 (<3.5-17.0) ng/L Total Protein 7.2 (6.5-8.0) g/dL Albumin 4.1 (3.5-5.0) g/dL Lipase 14 (8-78) U/L Ethyl Alcohol 116 mg/dL Discharge Plan Discharge Clinical Impression: Chest pain, Alcohol dependence, Alcohol withdrawal Patient Disposition: Home, Self-Care Instructions: Alcohol Dependence (ED) Additional Instructions: Follow up with your primary care provider. Return to the emergency department immediately if your symptoms worsen or if you develop any dizziness, shortness of breath, difficulty breathing, chest pain, blurry vision, loss of vision, nausea, vomiting, abdominal pain, fever, chills, back pain, or any other complaints. Prescriptions: No Action omeprazole 40 mg Capsule,Delayed Release(Dr/Ec) 40 mg PO DAILY@0630 30 Days Qty: 30 0RF furosemide 20 mg Tablet 20 mg PO DAILY PRN (Reason: edema) 30 Days Qty: 30 0RF Protocol: Hold for SBP< HOLD for SBP < : 90 duloxetine 60 mg Capsule,Delayed Release(Dr/Ec) 60 mg PO BID 30 Days Qty: 60 0RF diazepam 5 mg tablet 5 mg PO DAILY PRN (Reason: Anxiety) cyclobenzaprine 10 mg tablet 10 mg PO BID PRN (Reason: Muscle Spasm) diphenhydramine HCl 25 mg Tablet 25 mg PO BEDTIME acetaminophen [Tylenol Extra Strength] 500 mg tablet 1,000 mg PO Q8H PRN (Reason: Pain, Moderate) naltrexone 50 mg tablet 50 mg PO DAILY olanzapine 5 mg tablet 5 mg PO DAILY hydroxyzine HCl 25 mg tablet 25 mg PO BEDTIME olanzapine [Zyprexa] 20 mg tablet 20 mg PO DAILY amlodipine 5 mg Tablet 5 mg PO DAILY 30 Days Qty: 30 0RF Protocol: Hold for SBP< HOLD for SBP < : 90 folic acid 1 mg Tablet 1 mg PO DAILY 30 Days Qty: 30 0RF thiamine HCl (vitamin B1) 100 mg tablet 100 mg PO DAILY 30 Days Qty: 30 0RF magnesium oxide [MagOx] 400 mg (241.3 mg magnesium) tablet 400 mg PO DAILY 30 Days Qty: 30 0RF
--- NOTE | 2023-03-28 11:17 | MHC.RECOVRN ---
Pt requesting to dc home and arrange transportation with [facility] from home. Provider aware.
== END 2023-03-28 11:41 | disposition home or self-care (01) ==
PROVIDERS: Emergency Provider Internal Medicine; PCP Family Medicine
DX: R07.89 Other chest pain (principal); F10.239 Alcohol dependence with withdrawal, unspecified; Y90.5 Blood alcohol level of 100-119 mg/100 ml; Z79.899 Other long term (current) drug therapy
CPT/HCPCS: 36415; 71045; 80053; 80307; 83690; 83735; 84484; 85025; 85610; 93005; 96361; 96374; 99284; 99285; J2060

== ENCOUNTER 2023-06-27 08:05 | Emergency (ER) | payer MEDICARE, SELFPAY ==
--- NOTE | ~2023-06-27 | XR_ITS ---
EXAMINATION: XR CHEST CLINICAL INFORMATION: Chest pain COMPARISON: Chest x-ray 03/27/2023 TECHNIQUE: Frontal view of the chest was obtained. FINDINGS: The lungs are expanded and clear. The heart size and pulmonary vascularity is normal. Is no pleural effusion or thickening. No gross bony abnormality seen. Partially visualized is lower ventral cervical plate and screws for fusion XR/XR chest 1V IMPRESSION: Unremarkable chest examination.. No change from 03/27/2023
[2023-06-27 08:26] VITALS: BP 128/62; BP 133/67; PULSE 50; PULSE 56; RESP 16; TEMP 36.8; O2SAT 94; O2SAT 95; BMI 29.0
--- NOTE | 2023-06-27 08:29 | ECG_ITS ---
Test Reason : chest pain Blood Pressure : / mmHG Vent. Rate : 054 BPM Atrial Rate : 054 BPM P-R Int : 194 ms QRS Dur : 090 ms QT Int : 536 ms P-R-T Axes : 074 -12 080 degrees QTc Int : 508 ms Sinus bradycardia Low voltage QRS Possible Inferior infarct (cited on or before 27-JUN-2023) Abnormal ECG When compared with ECG of 27-MAR-2023 17:18, Vent. rate has decreased BY 50 BPM Questionable change in initial forces of Inferior leads Referred By: Generic ED Physician Electronically Signed By:ELAN FERNANDEZ MD
--- NOTE | 2023-06-27 08:49 | ED.CHESTPAIN ---
HPI - Chest Pain General Chief Complaint: Chest Pain Stated Complaint: CHEST PAIN INTO L SHOULDER PER EMS Time Seen by Provider: 06/27/23 08:37 Source: patient and EMS Mode of arrival: EMS Limitations: no limitations History of Present Illness HPI narrative: 72 year old female with pmhx significant for bipolar disorder, hypertension, right bundle-branch block, endometriosis, ETOH dependence, presents to the ED today via EMS from home for evaluation chest pain that began acutely at 5:00 a.m. this morning. She states that she was sitting on her toilet when she suddenly felt pain in the left side of her chest. This then began to radiate to her back into her left shoulder. Reports looking in the mirror and seeing herself get pale. She became tremulous and diaphoretic, prompting her to call EMS. She denies LOC. Denies fall. Denies head strike. She endorses daily alcohol consumption, approximately 2-3 beers daily however occasionally she will have a 6 pack beer. She last consumed alcohol yesterday. Denies alcohol consumption today. Denies illicit substance use including marijuana. Denies //TH. Admits history of acute alcohol withdrawal with delirium tremens. Denies fever, chills, headache, dizziness, jaw pain, nausea or vomiting, palpitations, abdominal pain, calf pain. Denies recent illness, travel, long car rides. Related Data Home Medications Medication Instructions Recorded Confirmed acetaminophen 500 mg tablet 1,000 mg PO Q8H PRN Pain, Moderate 06/16/22 02/23/23 (Tylenol Extra Strength) cyclobenzaprine 10 mg tablet 10 mg PO BID PRN Muscle Spasm 06/16/22 02/23/23 diazepam 5 mg tablet 5 mg PO DAILY PRN Anxiety 06/16/22 02/23/23 diphenhydramine HCl 25 mg tablet 25 mg PO BEDTIME 06/16/22 02/23/23 hydroxyzine HCl 25 mg tablet 25 mg PO BEDTIME 10/09/22 02/23/23 olanzapine 20 mg tablet (Zyprexa) 20 mg PO DAILY 10/09/22 02/23/23 naltrexone 50 mg tablet 50 mg PO DAILY 02/23/23 02/23/23 olanzapine 5 mg tablet 5 mg PO DAILY 02/23/23 02/23/23 Previous Rx's Medication Instructions Recorded duloxetine 60 mg capsule,delayed 60 mg PO BID 30 days #60 caps 11/26/21 release furosemide 20 mg tablet 20 mg PO DAILY PRN edema 30 days 11/26/21 #30 tabs omeprazole 40 mg capsule,delayed 40 mg PO DAILY@0630 30 days #30 11/26/21 release caps amlodipine 5 mg tablet 5 mg PO DAILY 30 days #30 tabs 10/14/22 folic acid 1 mg tablet 1 mg PO DAILY 30 days #30 tabs 10/14/22 magnesium oxide 400 mg (241.3 mg 400 mg PO DAILY 30 days #30 tabs 10/14/22 magnesium) tablet (MagOx) thiamine HCl (vitamin B1) 100 mg 100 mg PO DAILY 30 days #30 tabs 10/14/22 tablet Allergies Allergy/AdvReac Type Severity Reaction Status Date / Time sulfamethoxazole Allergy Mild FEVER Verified 02/23/23 03:54 [From BACTRIM] trimethoprim [From BACTRIM] Allergy Mild FEVER Verified 02/23/23 03:54 cephalexin [Keflex] Allergy Unknown Rash Verified 02/23/23 03:54 Sulfa (Sulfonamide Allergy Unknown Fever Verified 02/23/23 03:54 Antibiotics) tramadol [Ultram] Allergy Unknown Unknown Verified 02/23/23 03:54 mold Allergy Unknown Headache Uncoded 02/23/23 03:54 pollen Allergy Unknown Headache Uncoded 02/23/23 03:54 Review of Systems Review of Systems: Constitutional: No fever, chills, fatigue, night sweats, weight changes ENT/Mouth: No ear pain, hearing loss, nasal congestion, sinus pain, rhinorrhea, sore throat Eyes: No eye pain, swelling, redness, vision changes, discharge Cardio: No palpitations, SANTIAGO, orthopnea, peripheral edema, +chest pain Pulm: No SOB, cough, sputum, wheezing, dyspnea, hemoptysis GI: No nausea, vomiting, hematemesis, abdominal pain, diarrhea, constipation, hematochezia, melena : No irregular bleeding, dysuria, frequency, urgency, hesitancy, hematuria, flank pain, urinary flow changes, urinary incontinence or retention MSK: No back pain, neck pain, joint pain, myalgias Skin: No lesions, rashes Neuro: No weakness, numbness, paresthesias, LOC, dizziness, headache Psych: +anxiety/panic, No depression, SI/HI, AH/VH All other systems reviewed and are negative. [facility] Past Medical History Attestation statement: The following information was validated with the patient. Source: old records reviewed and nursing notes reviewed Medical History Hypomagnesemia Alcohol dependence Bipolar disorder Endometriosis Alcohol use with withdrawal Anxiety Fracture of distal end of right fibula Hypertension Mood disorder Routine medical exam Social History Social History Household Members: None Household Members Other:: Cat Housing: House Do you presently have visiting nurse or other home services: Yes Alcohol intake: current Alcohol intake frequency: 3 or more drinks per day Alcohol type: beer and hard liquor Comment: Pt refusing bed/chair alarms Patient Tobacco Use Status: Never used Tobacco Tobacco use type: Cigarette e-Cigarette/Vaping Use: Never Used Second Hand Smoke Exposure: No Advance Directives: Yes Advance Directives on File: Yes Advance Directives Date on File: 06/16/22 service: No Current occupational status: unemployed Sexual orientation: Straight/Heterosexual Physical Exam Vital Signs: Vital Signs: Last Vital Signs Temp 98.3 F 06/27/23 14:00 Pulse 69 06/27/23 17:17 Resp 19 06/27/23 17:17 BP 149/48 H 06/27/23 17:17 Pulse Ox 93 06/27/23 17:17 O2 Del Method Room Air 06/27/23 17:17 BMI result Body Mass Index 29.0 Patient hypertensive to 143/61, vitals otherwise WNL. Const: Other: + tremulous + makes good eye contact General: cooperative, healthy appearing and no acute distress Orientation/consciousness: patient oriented x3 Limitations: no limitations Eyes: General: appearance normal, both eyes and all related structures Conjunctivae: conjunctivae normal Sclerae: sclerae normal Pupils: Equal, round and reactive pupils present Neck: Neck: Yes normal visual inspection Resp: Effort & Inspection: normal respiratory effort and able to speak in complete sentences Auscultation: clear to auscultation bilaterally Cardio: Jugular venous distension: no JVD Rate: regular rate Rhythm: regular rhythm Peripheral pulses: Peripheral pulses 2+ throughout GI: Other: + abdomen soft, nondistended, nontender to palpation, no rebound tenderness or guarding, normoactive bowel sounds x4. Skin: General skin exam: no rashes or lesions noted Neuro: General: patient oriented x3 Cranial nerves: Yes Equal, round and reactive pupils present Gait exam (Neuro): Normal gait present Motor exam (neuro): no asterixis, Motor fasciculations not present, Normal motor muscle tone present throughout and Tremors during motor activity present Pupils: Normal pupillary reactivity/response: bilateral Course Course Course Narrative: 1305-- EKG showing sinus bradycardia with right bundle-branch block and prolonged QTC at 508. Patient is noted to be on olanzapine for mood disorder. QT prolongation likely secondary to psychiatric medication however will complete cardiac workup. Patient is stable at this time. CBC without leukocytosis or left shift. H&H stable. Chemistry without acute electrolyte abnormality requiring intervention. Renal function WNL. Troponin detectable at 4.8 > will repeat for delta. I have low suspicion for ACS at this time. BNP acceptable at 70 > no concern for congestive heart failure. Urine is negative for infection > no UTI. Serology is negative for both COVID and influenza. Chest x-ray does not demonstrate any infiltrate or consolidation to suggest pneumonia. Cardiac silhouette is WNL. There is no change from chest x-ray obtained on 03/27/2023. Workup is overall unremarkable. > patient was noted to be tremulous on exam. She tells me that she drinks 2-3 beers daily however occasionally has a six-pack. She has history of ETOH withdrawals and DTs. CIWA score of 5 > patient receiving 2 mg Ativan. She is requesting detox. Consult placed. > physician observation initiated pending repeat trop, urinalysis, and care team consultation. 1351-- delta troponin flat. No concern for ACS at this time. UA without evidence of infection > no UTI. Physician observation continued pending care team consultation. Medications Administered Discontinued Medications Generic Name Dose Route Start Last Admin Trade Name Freq PRN Reason Stop Dose Admin Acetaminophen 650 mg 06/27/23 17:28 06/27/23 18:10 Acetaminophen 325 Mg Tablet PO 06/27/23 17:29 650 mg ONCE ONE Administration Lorazepam 0.5 mg 06/27/23 10:09 06/27/23 10:45 Lorazepam 0.5 Mg Tablet PO 06/27/23 10:10 0.5 mg ONCE ONE Administration Lorazepam 2 mg 06/27/23 11:46 06/27/23 12:10 Lorazepam 1 Mg Tablet PO 06/27/23 11:47 2 mg ONCE ONE Administration Medical Decision Making Medical Decision Making [facility] Narrative: 72 year old female with pmhx significant for bipolar disorder, hypertension, right bundle-branch block, endometriosis, ETOH dependence, presents to the ED today via EMS from home for evaluation chest pain that began acutely at 5:00 a.m. this morning. Patient hypertensive, vitals otherwise WNL. Patient is nontoxic appearing. No acute distress. Tremulous on exam. PERRLA. Making good eye contact. Exam nonfocal. Ambulating with steady gait. RRR. Lungs CTA bilaterally. No asterixis or tongue fasciculations. No peripheral edema or JVD. Clinical concern for arrhythmia, ACS, pneumonia, viral syndrome, electrolyte abnormality, anemia, dehydration, anxiety. Concern for ETOH abuse, ETOH intoxication, EtOH withdrawal. Unlikely pleural effusion, pulmonary embolism, dissection, CHF. Plan for labs, EKG, chest x-ray, UA, re-evaluation. I was informed by the patient's nurse that the patient no longer wants to wait for the care team or detox. Patient would like to be discharged home. Patient is alert and oriented x3, vitals stable, no signs of alcohol withdrawal. Patient states that she has enough medications at home, including benzodiazepines Differential Diagnosis Differential Diagnoses: The differential diagnosis associated with the presentation includes as above. Admission/Observation Consideration of admission/observation: Escalation of care including admission/observation considered In this patient with CIWA score 5, chest pain and history of DT, admission was considered. Lab Data [facility] Lab Attestation statement: I reviewed the patient's lab results. as above. 06/27/23 08:58 06/27/23 08:59 Labs: Lab Results 06/27/23 06/27/23 06/27/23 Range/Units 08:54 08:58 08:59 WBC 4.1 L (4.8-10.8) X10*3/uL RBC 4.46 (4.20-5.50) X10*6/uL Hgb 12.3 (12.0-16.0) g/dl Hct 37.0 (37.0-47.0) % MCV 83.0 (80.0-98.0) fL MCH 27.6 (27.0-33.0) pg MCHC 33.2 (31.0-35.0) g/dl RDW 17.4 H (11.0-16.0) % Plt Count 253 (160-400) X10*3/uL MPV 9.0 L (9.4-12.3) fL Immature Gran % (Auto) 0.2 (0.0-0.4) % Neut % (Auto) 62.1 (45-73) % Lymph % (Auto) 28.3 (20-40) % [place] % (Auto) 8.0 (2-11) % Eos % (Auto) 0.7 (0-4) % Baso % (Auto) 0.7 (0-2) % Lymph # (Auto) 1.2 (1.2-4.9) X10*3/uL [place] # (Auto) 0.3 (0.1-1.2) X10*3/uL Eos # (Auto) 0.0 (0.0-0.4) X10*3/uL Baso # (Auto) 0.0 (0.0-0.2) X10*3/uL Abs Immat Gran (auto) 0.01 (0.00-0.03) X10*3/uL Absolute Neuts (auto) 2.6 (2.0-8.3) x10*3/uL Absolute Nucleated RBC 0.000 (0.0-0.012) X10*3/uL Nucleated RBC % (auto) 0.0 (0.0-0.2) /100WBC Sodium 144 (135-145) mmol/L Potassium 4.5 (3.3-5.1) mmol/L Chloride 108 (96-108) mmol/L Carbon Dioxide 23 (22-29) mmol/L Anion Gap 18 (12-20) BUN 14 (9-16) mg/dL Creatinine 0.72 (0.5-1.4) mg/dL Estim Creat Clear Calc 77.1 Estimated GFR > 60 Random Glucose 104 (60-115) mg/dL Calcium 8.6 (8.4-10.2) mg/dL Magnesium 2.0 (1.6-2.6) mg/dL Troponin I High Sens 4.8 (<3.5-17.0) ng/L B-Natriuretic Peptide 70 (<100) pg/mL Urine Color Urine Appearance Urine pH (5.0-9.0) Ur Specific [place] (1.005-1.025) Urine Protein (Neg-Trace) mg/dL Urine Glucose (UA) (Negative) mg/dL Urine Ketones (Negative) mg/dL Urine Blood (Negative) Urine Nitrite (Negative) Ur Leukocyte Esterase (Negative) Urine Opiates Screen (Not Detect) Urine Fentanyl Screen (Not Detect) Ur Barbiturates Screen (Not Detect) Ur Phencyclidine Scrn (Not Detect) Ur Amphetamines Screen (Not Detect) U Benzodiazepines Scrn (Not Detect) Urine Cocaine Screen (Not Detect) U Marijuana (THC) Screen (Not Detect) Ethyl Alcohol 99 mg/dL COVID-19 ([facility]SON) Negative (Negative) COVID-19 Clin Com See Note Influenza Type A (CJ) Negative (Negative) Influenza Type B (CJ) Negative (Negative) Influenza A & B Note See Note 06/27/23 Range/Units 13:02 WBC (4.8-10.8) X10*3/uL RBC (4.20-5.50) X10*6/uL Hgb (12.0-16.0) g/dl Hct (37.0-47.0) % MCV (80.0-98.0) fL MCH (27.0-33.0) pg MCHC (31.0-35.0) g/dl RDW (11.0-16.0) % Plt Count (160-400) X10*3/uL MPV (9.4-12.3) fL Immature Gran % (Auto) (0.0-0.4) % Neut % (Auto) (45-73) % Lymph % (Auto) (20-40) % [place] % (Auto) (2-11) % Eos % (Auto) (0-4) % Baso % (Auto) (0-2) % Lymph # (Auto) (1.2-4.9) X10*3/uL [place] # (Auto) (0.1-1.2) X10*3/uL Eos # (Auto) (0.0-0.4) X10*3/uL Baso # (Auto) (0.0-0.2) X10*3/uL Abs Immat Gran (auto) (0.00-0.03) X10*3/uL Absolute Neuts (auto) (2.0-8.3) x10*3/uL Absolute Nucleated RBC (0.0-0.012) X10*3/uL Nucleated RBC % (auto) (0.0-0.2) /100WBC Sodium (135-145) mmol/L Potassium (3.3-5.1) mmol/L Chloride (96-108) mmol/L Carbon Dioxide (22-29) mmol/L Anion Gap (12-20) BUN (9-16) mg/dL Creatinine (0.5-1.4) mg/dL Estim Creat Clear Calc Estimated GFR Random Glucose (60-115) mg/dL Calcium (8.4-10.2) mg/dL Magnesium (1.6-2.6) mg/dL Troponin I High Sens 4.0 (<3.5-17.0) ng/L B-Natriuretic Peptide (<100) pg/mL Urine Color Yellow Urine Appearance Cloudy Urine pH 5.5 (5.0-9.0) Ur Specific [place] 1.025 (1.005-1.025) Urine Protein Negative (Neg-Trace) mg/dL Urine Glucose (UA) Negative (Negative) mg/dL Urine Ketones Negative (Negative) mg/dL Urine Blood Negative (Negative) Urine Nitrite Negative (Negative) Ur Leukocyte Esterase Negative (Negative) Urine Opiates Screen Not Detected (Not Detect) Urine Fentanyl Screen Not Detected (Not Detect) Ur Barbiturates Screen Not Detected (Not Detect) Ur Phencyclidine Scrn Not Detected (Not Detect) Ur Amphetamines Screen Not Detected (Not Detect) U Benzodiazepines Scrn POSITIVE H (Not Detect) Urine Cocaine Screen Not Detected (Not Detect) U Marijuana (THC) Screen Not Detected (Not Detect) Ethyl Alcohol mg/dL COVID-19 ([facility]SON) (Negative) COVID-19 Clin Com Influenza Type A (CJ) (Negative) Influenza Type B (CJ) (Negative) Influenza A & B Note Independent Interpretation I performed an independent interpretation of an: EKG and Plain X-Ray Interpretation: EKG showing sinus bradycardia with a rate of 54 beats per minute, right bundle-branch block and prolonged QT/QTC of 536/508. QT prolongation likely due to current psych medication however will rule out other etiologies. I personally review patient's chest x-ray and do not appreciate any infiltrate or consolidation. Agree with radiologist's interpretation. Radiology Impression Discussion of test interpretation with radiology: I have reviewed the radiologist's reading. Radiologist Impression: XR chest 1V IMPRESSION: Unremarkable chest examination.. No change from 03/27/2023 Independent Historian Clinical information obtained from an independent historian. History obtained from or confirmed by: EMS External Record Review External record reviewed: Inpatient record, Office record, Outpatient record, Prior outpatient labs, Prior outpatient radiology, Primary care record and Outside ED record Prescription Management I considered prescription management with: Pain Medication and Other (Anxiolytic) Chronic Conditions Patient?s care impacted by: Other (Mood disorder, ETOH dependence) Social Determinants Patient?s care significantly limited by Social Determinants of Health including: Other Social Determinant of Health Critical Care Time Critical Care Time Critical Care Time: Yes Total Critical Care Time: 40 Attestation: Critical care time in the amount of 40 minutes has been provided to the patient in terms of direct patient care, frequent reevaluation, consultation with care team, review and interpretation of medical data and results, and management of potentially life-threatening conditions. This is all outside of any medical procedures. Discharge Plan Discharge Clinical Impression: Chest pain, Anxiety, Alcohol withdrawal, Alcohol abuse Patient Disposition: Home, Self-Care Instructions: Abuse of Alcohol (ED), Chest Pain (ED), Anxiety (ED) Additional Instructions: Please follow-up with your primary care physician tomorrow. If you have any worsening or new symptoms, please return to the emergency room or call 911 Prescriptions: No Action omeprazole 40 mg Capsule,Delayed Release(Dr/Ec) 40 mg PO DAILY@0630 30 Days Qty: 30 0RF furosemide 20 mg Tablet 20 mg PO DAILY PRN (Reason: edema) 30 Days Qty: 30 0RF Protocol: Hold for SBP< HOLD for SBP < : 90 duloxetine 60 mg Capsule,Delayed Release(Dr/Ec) 60 mg PO BID 30 Days Qty: 60 0RF diazepam 5 mg tablet 5 mg PO DAILY PRN (Reason: Anxiety) cyclobenzaprine 10 mg tablet 10 mg PO BID PRN (Reason: Muscle Spasm) diphenhydramine HCl 25 mg Tablet 25 mg PO BEDTIME acetaminophen [Tylenol Extra Strength] 500 mg tablet 1,000 mg PO Q8H PRN (Reason: Pain, Moderate) naltrexone 50 mg tablet 50 mg PO DAILY olanzapine 5 mg tablet 5 mg PO DAILY hydroxyzine HCl 25 mg tablet 25 mg PO BEDTIME olanzapine [Zyprexa] 20 mg tablet 20 mg PO DAILY amlodipine 5 mg Tablet 5 mg PO DAILY 30 Days Qty: 30 0RF Protocol: Hold for SBP< HOLD for SBP < : 90 folic acid 1 mg Tablet 1 mg PO DAILY 30 Days Qty: 30 0RF thiamine HCl (vitamin B1) 100 mg tablet 100 mg PO DAILY 30 Days Qty: 30 0RF magnesium oxide [MagOx] 400 mg (241.3 mg magnesium) tablet 400 mg PO DAILY 30 Days Qty: 30 0RF
[2023-06-27 09:04] LABS: MANUAL DIFF FLAG NO
[2023-06-27 09:12] LABS: Basophils Percent Auto 0.7 % (0-2); Eosinophils Percent Auto 0.7 % (0-4); Hemoglobin 12.3 g/dl (12.0-16.0); Imm Gran Abs Auto 0.01 X10*3/uL (0.00-0.03); Imm Gran Pct Auto 0.2 % (0.0-0.4); Lymphocytes Absolute Auto 1.2 X10*3/uL (1.2-4.9); Lymphocytes Percent Auto 28.3 % (20-40); Mean Corpuscular HGB Conc 33.2 g/dl (31.0-35.0); Mean Corpuscular Hemoglobin 27.6 pg (27.0-33.0); Monocytes Absolute Auto 0.3 X10*3/uL (0.1-1.2); Neutrophils Absolute Auto 2.6 x10*3/uL (2.0-8.3); Neutrophils Percent Auto 62.1 % (45-73); Platelet Count 253 X10*3/uL (160-400); Red Blood Count 4.46 X10*6/uL (4.20-5.50); Red Cell Distribution Width 17.4 % (11.0-16.0); White Blood Count 4.1 X10*3/uL (4.8-10.8)
[2023-06-27 09:29] LABS: COVID-19 Test Negative (Negative); IDNOW Serial# 08D9AD1C
[2023-06-27 09:31] LABS: Anion Gap 18 (12-20); Blood Urea Nitrogen 14 mg/dL (9-16); Calcium 8.6 mg/dL (8.4-10.2); Carbon Dioxide 23 mmol/L (22-29); Chloride 108 mmol/L (96-108); Creatinine Clr Calc Pharmacy 77.1; Estimated Glomerular Filt Rate > 60; Ethanol 99 mg/dL; Glucose Random 104 mg/dL (60-115); Potassium 4.5 mmol/L (3.3-5.1); Sodium 144 mmol/L (135-145)
[2023-06-27 09:31] LABS: IDNOW Serial# 152EDE1D; Influenza A Negative (Negative); Influenza B2 Negative (Negative)
[2023-06-27 09:42] VITALS: BP 145/65; PULSE 56; RESP 16; TEMP 36.8; O2SAT 97
--- NOTE | 2023-06-27 09:54 | PC.NURSE ---
patient reporting feeling very tremulous, stating that she drinks up to a 6 pack of beer a day. appearing very anxious at this time. call ribera remains within reach
[2023-06-27 10:20] LABS: Troponin-I High Sensitivity 4.8 ng/L (<3.5-17.0)
[2023-06-27 10:24] LABS: B Type Natriuretic Peptide 70 pg/mL (<100)
[2023-06-27] MEDS: LORazepam 0.5 MG TABLET PO (10:45)
--- NOTE | 2023-06-27 11:40 | PC.NURSE ---
continues to ambulate to the bathroom for urine sample, patient thus far has been unable to provide sample. call ribera is within reach
[2023-06-27] MEDS: LORazepam 1 MG TABLET 2 MG PO (12:10)
[2023-06-27 12:12] VITALS: BP 143/61; PULSE 59; RESP 12; TEMP 36.8; O2SAT 95
[2023-06-27 13:09] LABS: Appearance Urine Cloudy; Color Urine Yellow; Glucose Urine UA Negative (Negative); Leukocyte Esterase Urine Negative (Negative); Nitrite Urine Negative (Negative); PH 5.5 (5.0-9.0); Specific Gravity - Urine 1.025 (1.005-1.025); Urine Blood Negative (Negative); Urine Ketones Negative (Negative); Urine Protein Negative (Neg-Trace)
[2023-06-27 13:19] LABS: Amphetamine Screen Urine Not Detected (Not Detect); Barbiturates, Urine Not Detected (Not Detect); Benzodiazepines Screen Urine POSITIVE (Not Detect); Cannabinoid Screen Urine Not Detected (Not Detect); Cocaine Screen Urine Not Detected (Not Detect); Opiate Screen Urine Not Detected (Not Detect); Phencyclidine Screen Urine Not Detected (Not Detect)
[2023-06-27 13:20] LABS: Fentanyl, urine Not Detected (Not Detect)
[2023-06-27 14:00] VITALS: BP 109/53; PULSE 62; RESP 16; TEMP 36.8; O2SAT 97
[2023-06-27 17:17] VITALS: BP 149/48; PULSE 69; RESP 19; O2SAT 93
--- NOTE | 2023-06-27 17:30 | PC.NURSE ---
patient reporting/visually improved with her tremors. stating she does not wish to go to rehab at this time, she wishes to go home and deal with it using her patience . reporting headache at this time
[2023-06-27] MEDS: Acetaminophen 325 MG TABLET 650 MG PO (18:10)
--- NOTE | 2023-06-27 19:36 | PC.NURSE ---
Pt reports she does not have a way to get home. The only relative she has lives in the [facility] and cannot come to get her at this time. Pt ambulated to the restroom w/o assist per tech. Pt back in bed resting at this time. Plan of care ongoing.
[2023-06-27 19:38] VITALS: BP 152/80; PULSE 108; RESP 20; O2SAT 97
--- NOTE | 2023-06-27 20:29 | PC.NURSE ---
Provider aware pt unable to get a ride home at this time. Plan of care ongoing.
--- NOTE | 2023-06-27 23:09 | PC.NURSE ---
Took over care of patient at 2300 per report patient unable to get ride home and will be spending the night. Per report provider aware.
== END 2023-06-28 00:21 | disposition home or self-care (01) ==
PROVIDERS: Physician Assistant Medical; Emergency Provider Emergency Medicine Emergency Medical Services; PCP Family Medicine
DX: R07.89 Other chest pain (principal); F10.239 Alcohol dependence with withdrawal, unspecified; R06.02 Shortness of breath; Y90.4 Blood alcohol level of 80-99 mg/100 ml; Z11.52 Encounter for screening for COVID-19; Z79.899 Other long term (current) drug therapy
CPT/HCPCS: 36415; 71045; 80048; 80307; 81003; 83735; 83880; 84484; 85025; 87502; 87635; 93005; 99285

== ENCOUNTER → 2023-06-27 08:29 | Outpatient (BNV) | payer MEDICARE, SELFPAY | PROVIDERS: Emergency Provider Emergency Medicine Emergency Medical Services; PCP Family Medicine; Visit Provider Internal Medicine Cardiovascular Disease | DX: R07.9 Chest pain, unspecified (principal) | CPT/HCPCS: 93010 ==

== ENCOUNTER 2023-11-20 15:48 | Emergency (ER) | payer MEDICARE, SELFPAY ==
[2023-11-20 16:06] VITALS: BP 143/51; BP 170/80; PULSE 58; PULSE 80; RESP 20; TEMP 37.2; O2SAT 95; BMI 25.8
--- NOTE | 2023-11-20 16:13 | ED_ITS ---
HPI - Anxiety General Chief Complaint: Anxiety Stated Complaint: HTN 180/100, SOB @ 95% RA Time Seen by Provider: 11/20/23 16:10 Source: patient Mode of arrival: EMS Limitations: no limitations History of Present Illness ED Provider: jono SNYDER narrative: Patient with history of anxiety depression lives alone alcoholic stopped drinking about 2 weeks ago feels very anxious with multiple complaints came by EMS denies any hallucination or delusions patient wants to stop drinking Related Data Home Medications ?Medication ?Instructions ?Recorded ?Confirmed acetaminophen 500 mg tablet 1,000 mg PO Q8H PRN Pain, Moderate 06/16/22 02/23/23 (Tylenol Extra Strength) cyclobenzaprine 10 mg tablet 10 mg PO BID PRN Muscle Spasm 06/16/22 02/23/23 diazepam 5 mg tablet 5 mg PO DAILY PRN Anxiety 06/16/22 02/23/23 diphenhydramine HCl 25 mg tablet 25 mg PO BEDTIME 06/16/22 02/23/23 hydroxyzine HCl 25 mg tablet 25 mg PO BEDTIME 10/09/22 02/23/23 olanzapine 20 mg tablet (Zyprexa) 20 mg PO DAILY 10/09/22 02/23/23 naltrexone 50 mg tablet 50 mg PO DAILY 02/23/23 02/23/23 olanzapine 5 mg tablet 5 mg PO DAILY 02/23/23 02/23/23 Previous Rx's ?Medication ?Instructions ?Recorded duloxetine 60 mg capsule,delayed 60 mg PO BID 30 days #60 caps 11/26/21 release furosemide 20 mg tablet 20 mg PO DAILY PRN edema 30 days 11/26/21 #30 tabs omeprazole 40 mg capsule,delayed 40 mg PO DAILY@0630 30 days #30 11/26/21 release caps amlodipine 5 mg tablet 5 mg PO DAILY 30 days #30 tabs 10/14/22 folic acid 1 mg tablet 1 mg PO DAILY 30 days #30 tabs 10/14/22 magnesium oxide 400 mg (241.3 mg 400 mg PO DAILY 30 days #30 tabs 10/14/22 magnesium) tablet (MagOx) thiamine HCl (vitamin B1) 100 mg 100 mg PO DAILY 30 days #30 tabs 10/14/22 tablet lorazepam 1 mg tablet (Ativan) 1 mg PO BID PRN anxiety #20 tabs 11/20/23 Allergies Allergy/AdvReac Type Severity Reaction Status Date / Time sulfamethoxazole Allergy Mild FEVER Verified 11/20/23 16:09 [From BACTRIM] trimethoprim [From BACTRIM] Allergy Mild FEVER Verified 11/20/23 16:09 cephalexin [Keflex] Allergy Unknown Rash Verified 11/20/23 16:09 Sulfa (Sulfonamide Allergy Unknown Fever Verified 11/20/23 16:09 Antibiotics) tramadol [Ultram] Allergy Unknown Unknown Verified 11/20/23 16:09 mold Allergy Unknown Headache Uncoded 02/23/23 03:54 pollen Allergy Unknown Headache Uncoded 02/23/23 03:54 Review of Systems 2 Review of Systems: Yes all other systems are reviewed and are negative PMFSH Past Medical History Medical History Hypomagnesemia Alcohol dependence Bipolar disorder Endometriosis Alcohol use with withdrawal Anxiety Fracture of distal end of right fibula Hypertension Mood disorder Routine medical exam Social History Social History Household Members: None Household Members Other:: Cat Housing: House Do you presently have visiting nurse or other home services: Yes Alcohol intake: current Alcohol intake frequency: 3 or more drinks per day Alcohol type: beer and hard liquor Comment: Pt refusing bed/chair alarms Patient Tobacco Use Status: Never used Tobacco Tobacco use type: Cigarette Smoked in Last 30 Days: No e-Cigarette/Vaping Use: Never Used Second Hand Smoke Exposure: No Use of substances other than those prescribed or required for medical reasons: No Advance Directives: Yes Advance Directives on File: Yes Advance Directives Date on File: 06/16/22 Do you have a plan to hurt others: No Plan service: No Current occupational status: unemployed Sexual orientation: Straight/Heterosexual Physical Exam 2 Vital Signs: Vital Signs: Last Vital Signs Temp 97.8 F 11/20/23 18:22 Pulse 87 11/20/23 18:22 Resp 16 11/20/23 18:22 BP 142/88 H 11/20/23 18:22 Pulse Ox 98 11/20/23 18:22 O2 Del Method Room Air 11/20/23 18:22 BMI result Body Mass Index 25.8 Appearance: Alert. Oriented X3. No acute distress. Anxious Eyes: PERRLA, No Nystagmus ENT: Pharynx normal. Oral Mucosa dry Neck: Normal inspection. Neck supple. CVS: Normal heart rate and rhythm. Pulses normal. Respiratory: No respiratory distress. Equal air entry bilateral, no wheezing/rales/rhonchi Abdomen: Soft and nontender. Bowel sounds are present, no mass palpable, no CVA tenderness Skin: Skin warm and dry. Normal skin color. Normal skin turgor. Extremities: No lower extremity edema. No calf tenderness Neuro: Oriented X 3. No motor deficit. No sensory deficit.No cerebellar signs , cranial nerves II-XII intact Medications Administered Discontinued Medications Generic Name Dose Route Start Last Admin Trade Name Freq PRN Reason Stop Dose Admin Sodium Chloride 1,000 mls @ 999 mls/hr 11/20/23 16:39 11/20/23 17:49 Ns IV 11/20/23 17:39 Infused .Q1H1M ONE Infusion Lorazepam 2 mg 11/20/23 16:46 11/20/23 16:50 Lorazepam 1 Mg Tablet PO 11/20/23 16:47 2 mg ONCE ONE Administration Medical Decision Making Medical Decision Making [facility] Narrative: Prevent increased anxiety alcohol withdrawal feeling much better after Ativan will discharge patient home on Ativan advised to follow with psychiatrist and detox Differential Diagnosis Differential Diagnoses: The differential diagnosis associated with the presentation includes Anxiety/alcohol withdrawal Lab Data [facility] Lab Attestation statement: I reviewed the patient's lab results. 11/20/23 16:27 11/20/23 16:27 Labs: Lab Results 11/20/23 11/20/23 Range/Units 16:27 16:43 WBC 6.7 (4.8-10.8) X10*3/uL RBC 4.54 (4.20-5.50) X10*6/uL Hgb 12.4 (12.0-16.0) g/dl Hct 36.5 L (37.0-47.0) % MCV 80.4 (80.0-98.0) fL MCH 27.3 (27.0-33.0) pg MCHC 34.0 (31.0-35.0) g/dl RDW 16.2 H (11.0-16.0) % Plt Count 237 (160-400) X10*3/uL MPV 9.4 (9.4-12.3) fL Immature Gran % (Auto) 0.3 (0.0-0.4) % Neut % (Auto) 74.8 H (45-73) % Lymph % (Auto) 17.9 L (20-40) % [place] % (Auto) 6.1 (2-11) % Eos % (Auto) 0.6 (0-4) % Baso % (Auto) 0.3 (0-2) % Lymph # (Auto) 1.2 (1.2-4.9) X10*3/uL [place] # (Auto) 0.4 (0.1-1.2) X10*3/uL Eos # (Auto) 0.0 (0.0-0.4) X10*3/uL Baso # (Auto) 0.0 (0.0-0.2) X10*3/uL Abs Immat Gran (auto) 0.02 (0.00-0.03) X10*3/uL Absolute Neuts (auto) 5.0 (2.0-8.3) x10*3/uL Absolute Nucleated RBC 0.000 (0.0-0.012) X10*3/uL Nucleated RBC % (auto) 0.0 (0.0-0.2) /100WBC Sodium 143 (135-145) mmol/L Potassium 3.8 (3.3-5.1) mmol/L Chloride 109 H (96-108) mmol/L Carbon Dioxide 27 (22-29) mmol/L Anion Gap 11 L (12-20) BUN 9 (9-16) mg/dL Creatinine 0.68 (0.5-1.4) mg/dL Estim Creat Clear Calc 76.2 Estimated GFR > 60 Random Glucose 110 (60-115) mg/dL Calcium 9.6 D (8.4-10.2) mg/dL Magnesium 1.9 (1.6-2.6) mg/dL Total Bilirubin 0.3 (0.0-1.0) mg/dL Direct Bilirubin 0.1 (0.0-0.5) mg/dL AST 21 (5-31) U/L ALT 19 (0-31) U/L Alkaline Phosphatase 78 (39-117) U/L Total Protein 7.4 (6.5-8.0) g/dL Albumin 4.3 (3.5-5.0) g/dL Urine Color Yellow Urine Appearance Clear Urine pH 7.0 (5.0-9.0) Ur Specific [place] <= 1.005 (1.005-1.025) Urine Protein Negative (Neg-Trace) mg/dL Urine Glucose (UA) Negative (Negative) mg/dL Urine Ketones Negative (Negative) mg/dL Urine Blood Negative (Negative) Urine Nitrite Negative (Negative) Ur Leukocyte Esterase Negative (Negative) Ethyl Alcohol < 10 mg/dL Discharge Plan Discharge Clinical Impression: Anxiety, Alcohol dependence Patient Disposition: Home, Self-Care Instructions: Anxiety (ED), Alcohol Dependence (ED) Additional Instructions: Stop drinking alcohol, drink plenty of fluids Ativan 1 tablet twice a day as needed for increased anxiety Follow up with your therapist/PCP Prescriptions: New lorazepam [Ativan] 1 mg tablet 1 mg PO BID PRN (Reason: anxiety) Qty: 20 0RF No Action omeprazole 40 mg Capsule,Delayed Release(Dr/Ec) 40 mg PO DAILY@0630 30 Days Qty: 30 0RF furosemide 20 mg Tablet 20 mg PO DAILY PRN (Reason: edema) 30 Days Qty: 30 0RF Protocol: Hold for SBP< HOLD for SBP < : 90 duloxetine 60 mg Capsule,Delayed Release(Dr/Ec) 60 mg PO BID 30 Days Qty: 60 0RF diazepam 5 mg tablet 5 mg PO DAILY PRN (Reason: Anxiety) cyclobenzaprine 10 mg tablet 10 mg PO BID PRN (Reason: Muscle Spasm) diphenhydramine HCl 25 mg Tablet 25 mg PO BEDTIME acetaminophen [Tylenol Extra Strength] 500 mg tablet 1,000 mg PO Q8H PRN (Reason: Pain, Moderate) naltrexone 50 mg tablet 50 mg PO DAILY olanzapine 5 mg tablet 5 mg PO DAILY hydroxyzine HCl 25 mg tablet 25 mg PO BEDTIME olanzapine [Zyprexa] 20 mg tablet 20 mg PO DAILY amlodipine 5 mg Tablet 5 mg PO DAILY 30 Days Qty: 30 0RF Protocol: Hold for SBP< HOLD for SBP < : 90 folic acid 1 mg Tablet 1 mg PO DAILY 30 Days Qty: 30 0RF thiamine HCl (vitamin B1) 100 mg tablet 100 mg PO DAILY 30 Days Qty: 30 0RF magnesium oxide [MagOx] 400 mg (241.3 mg magnesium) tablet 400 mg PO DAILY 30 Days Qty: 30 0RF Interventions: ED Discharge Assessment Last Done: 11/20/23 18:22 Discharge Date/Time: 11/20/23 18:23 Print Language: Thai
--- NOTE | 2023-11-20 16:19 | PC.NURSE ---
Patient reporting increased anxiety mainly brought up by being alone. She also reports mild tremors, nausea, and palpitations which she reports she usually feels when she is starting DTs from alcohol withdrawal. She reports last drink was 2ish weeks ago . She is sitting in bed, appears mildly anxious. She is also reporting burning with urination at this time
[2023-11-20 16:30] LABS: MANUAL DIFF FLAG NO
[2023-11-20 16:33] LABS: Basophils Percent Auto 0.3 % (0-2); Eosinophils Percent Auto 0.6 % (0-4); Hematocrit 36.5 % (37.0-47.0); Hemoglobin 12.4 g/dl (12.0-16.0); Imm Gran Abs Auto 0.02 X10*3/uL (0.00-0.03); Imm Gran Pct Auto 0.3 % (0.0-0.4); Lymphocytes Absolute Auto 1.2 X10*3/uL (1.2-4.9); Lymphocytes Percent Auto 17.9 % (20-40); Mean Corpuscular Hemoglobin 27.3 pg (27.0-33.0); Mean Corpuscular Volume 80.4 fL (80.0-98.0); Mean Platelet Volume 9.4 fL (9.4-12.3); Monocytes Absolute Auto 0.4 X10*3/uL (0.1-1.2); Monocytes Percent Auto 6.1 % (2-11); Neutrophils Percent Auto 74.8 % (45-73); Platelet Count 237 X10*3/uL (160-400); Red Blood Count 4.54 X10*6/uL (4.20-5.50); Red Cell Distribution Width 16.2 % (11.0-16.0); White Blood Count 6.7 X10*3/uL (4.8-10.8)
[2023-11-20 16:45] LABS: Anion Gap 11 (12-20); Blood Urea Nitrogen 9 mg/dL (9-16); Calcium 9.6 mg/dL (8.4-10.2); Carbon Dioxide 27 mmol/L (22-29); Chloride 109 mmol/L (96-108); Creatinine Clr Calc Pharmacy 76.2; Estimated Glomerular Filt Rate > 60; Ethanol < 10 mg/dL; Glucose Random 110 mg/dL (60-115); Potassium 3.8 mmol/L (3.3-5.1); Sodium 143 mmol/L (135-145)
[2023-11-20] MEDS: 0.9 % Sodium Chloride 1,000 ML 999 ML IV (16:48)
[2023-11-20] MEDS: LORazepam 1 MG TABLET 2 MG PO (16:50)
[2023-11-20 16:54] LABS: Appearance Urine Clear; Color Urine Yellow; Glucose Urine UA Negative (Negative); Leukocyte Esterase Urine Negative (Negative); Nitrite Urine Negative (Negative); Specific Gravity - Urine <= 1.005 (1.005-1.025); Urine Blood Negative (Negative); Urine Ketones Negative (Negative); Urine Protein Negative (Neg-Trace)
[2023-11-20 17:12] LABS: Alanine Aminotransferase 19 U/L (0-31); Albumin Level 4.3 g/dL (3.5-5.0); Alkaline Phosphatase 78 U/L (39-117); Aspartate Amino Transferase 21 U/L (5-31); Bilirubin Direct 0.1 mg/dL (0.0-0.5); Bilirubin Total 0.3 mg/dL (0.0-1.0); Magnesium 1.9 mg/dL (1.6-2.6); Total Protein 7.4 g/dL (6.5-8.0)
[2023-11-20 17:25] VITALS: PULSE 52; RESP 16; O2SAT 98
[2023-11-20 18:22] VITALS: BP 142/88; PULSE 87; RESP 16; TEMP 36.6; O2SAT 98
== END 2023-11-20 18:23 | disposition home or self-care (01) ==
PROVIDERS: Emergency Provider Internal Medicine
DX: F10.20 Alcohol dependence, uncomplicated (principal); Y90.0 Blood alcohol level of less than 20 mg/100 ml; F41.1 Generalized anxiety disorder; I10 Essential (primary) hypertension; F33.1 Major depressive disorder, recurrent, moderate; R11.0 Nausea; Z71.41 Alcohol abuse counseling and surveillance of alcoholic; Z79.899 Other long term (current) drug therapy; Z51.81 Encounter for therapeutic drug level monitoring
CPT/HCPCS: 36415; 80048; 80076; 80307; 81003; 83735; 85025; 96360; 99284

== ENCOUNTER 2023-12-05 12:01 | Emergency (ER) | payer MEDICARE, SELFPAY ==
--- NOTE | ~2023-12-05 | XR_ITS ---
EXAMINATION: XR CHEST CLINICAL INFORMATION: Chest pain COMPARISON: Chest x-ray June 27, 2023 TECHNIQUE: Frontal view of the chest was obtained. FINDINGS: No significant abnormality is noted involving the heart, lungs, mediastinum, bony thorax or soft tissues. Orthopedic hardware in cervical spine partially imaged. XR/XR chest 1V IMPRESSION: Unremarkable examination.
--- NOTE | ~2023-12-05 | CT_ITS ---
EXAMINATION: CT ABDOMEN AND PELVIS WITH CONTRAST CLINICAL INFORMATION: Epigastric pain, and attenuation COMPARISON: None available. TECHNIQUE: Multidetector volumetric images were obtained from the superior aspect of the liver through the pubic symphysis following administration 85 mL of Omnipaque 350 intravenous contrast. Sagittal and coronal reformatted images were obtained on the technologist's workstation. Oral contrast: No This CT examination was performed using dose optimization techniques as appropriate, variously including the following: *Automated exposure control *Adjustment of mA and/or kV according to patient size (this includes techniques or standardized protocols for targeted exams where dose is matched to indication/reason for exam; i.e. extremities or head) *Use of iterative reconstruction technique DLP: 516 mGy-cm FINDINGS: CURATOR OF EDUCATION:45 surgical hardware. Cholecystectomy clips. LUNG BASES: Mild lingular and left lower lobe atelectasis. Nonenlarged heart. Trace pericardial fluid. LIVER, GALLBLADDER, AND BILIARY TREE: Enlarged liver on mild diffuse hypoattenuation. No focal hepatic lesion or biliary ductal dilatation is present. The gallbladder has been surgically removed. Postcholecystectomy common bile duct measures 1 cm. PANCREAS: Unremarkable. SPLEEN: Unremarkable. ADRENAL GLANDS: Unremarkable. KIDNEYS AND URETERS: The kidneys are normal in size, shape, and attenuation. No hydronephrosis, hydroureter, or calculi seen. No perinephric stranding. BLADDER: Unremarkable. GASTROINTESTINAL TRACT: Small hiatal hernia. Decompressed stomach. Nonobstructive bowel pattern. Unremarkable terminal ileum and appendix. No colonic pathology recognized. ABDOMINAL WALL: No significant hernia is appreciated. LYMPH NODES: No pathologic lymphadenopathy. VASCULAR: Nonaneurysmal aorta with mild atherosclerotic calcifications. Unremarkable inferior vena cava. Left retroaortic renal vein. Patent portal system PELVIC VISCERA: Unremarkable. Phleboliths. OSSEOUS STRUCTURES: L4-L5 surgical hardware without evidence of failure. Degenerative changes. CT/CT abdomen pelvis w IV con IMPRESSION: No acute intra-abdominal or pelvic pathology. Enlarged liver with mild hepatic steatosis. Fleischner guidelines were followed.
--- NOTE | 2023-12-05 12:04 | ECG_ITS ---
Test Reason : CHEST TIGHTNESS Blood Pressure : / mmHG Vent. Rate : 051 BPM Atrial Rate : 000 BPM P-R Int : 000 ms QRS Dur : 068 ms QT Int : 420 ms P-R-T Axes : 000 031 264 degrees QTc Int : 387 ms Sinus bradycardia Nonspecific ST changes Abnormal ECG When compared with ECG of 27-JUN-2023 08:42, No significant changes seen Referred By: Generic ED Physician Electronically Signed By:Randell Hines
[2023-12-05 12:35] VITALS: BP 140/45; BP 144/53; PULSE 55; PULSE 80; RESP 18; TEMP 36.6; O2SAT 95; O2SAT 96; BMI 27.4
[2023-12-05 12:54] LABS: MANUAL DIFF FLAG NO
[2023-12-05 12:56] LABS: Basophils Percent Auto 0.5 % (0-2); Eosinophils Absolute Auto 0.1 X10*3/uL (0.0-0.4); Eosinophils Percent Auto 0.8 % (0-4); Hematocrit 37.1 % (37.0-47.0); Hemoglobin 12.3 g/dl (12.0-16.0); Imm Gran Abs Auto 0.02 X10*3/uL (0.00-0.03); Imm Gran Pct Auto 0.3 % (0.0-0.4); Lymphocytes Absolute Auto 1.6 X10*3/uL (1.2-4.9); Lymphocytes Percent Auto 24.8 % (20-40); Mean Corpuscular HGB Conc 33.2 g/dl (31.0-35.0); Mean Corpuscular Volume 81.5 fL (80.0-98.0); Mean Platelet Volume 9.1 fL (9.4-12.3); Monocytes Absolute Auto 0.5 X10*3/uL (0.1-1.2); Monocytes Percent Auto 7.6 % (2-11); Neutrophils Absolute Auto 4.2 x10*3/uL (2.0-8.3); Platelet Count 252 X10*3/uL (160-400); Red Blood Count 4.55 X10*6/uL (4.20-5.50); Red Cell Distribution Width 16.4 % (11.0-16.0); White Blood Count 6.3 X10*3/uL (4.8-10.8)
[2023-12-05 13:02] LABS: Appearance Urine Clear; Color Urine Dark Yellow; Glucose Urine UA Negative (Negative); Leukocyte Esterase Urine Large (3+) (Negative); Nitrite Urine Positive (Negative); Specific Gravity - Urine <= 1.005 (1.005-1.025); UMIC TRIGGER UACC YES; Urine Blood Negative (Negative); Urine Ketones Negative (Negative); Urine Protein Negative (Neg-Trace)
[2023-12-05 13:08] LABS: Anion Gap 13 (12-20); Blood Urea Nitrogen 19 mg/dL (9-16); Calcium 9.6 mg/dL (8.4-10.2); Carbon Dioxide 27 mmol/L (22-29); Chloride 106 mmol/L (96-108); Estimated Glomerular Filt Rate > 60; Glucose Random 115 mg/dL (60-115); Sodium 142 mmol/L (135-145)
--- NOTE | 2023-12-05 13:15 | ED.ANXIETY ---
HPI - Anxiety General Chief Complaint: Anxiety Stated Complaint: CHEST PRESSURE X 5 DAYS,H/O ANXIETY PER EMS Time Seen by Provider: 12/05/23 12:48 Source: patient, EMS, RN notes reviewed and old records reviewed Mode of arrival: EMS History of Present Illness ED Provider: Qi Panda PA-C HPI narrative: 73-year-old female with a past medical history of alcohol dependence, bipolar, anxiety, HTN, presenting to the ED via EMS complaining of increased anxiety and left chest/epigastric pain x5 days with associated SOB. Reports chest pain is constant with radiation to back. Admits to similar symptoms in the past associated with her anxiety which was relieved/improved with Ativan. Admits to ETOH use yesterday, denies use today, does report history of ETOH withdrawal, denies withdrawal seizures. Denies nausea, vomiting, diarrhea, dysuria/hematuria, fever. 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 Related Data Home Medications ?Medication ?Instructions ?Recorded ?Confirmed acetaminophen 500 mg tablet 1,000 mg PO Q8H PRN Pain, Moderate 06/16/22 02/23/23 (Tylenol Extra Strength) cyclobenzaprine 10 mg tablet 10 mg PO BID PRN Muscle Spasm 06/16/22 02/23/23 diazepam 5 mg tablet 5 mg PO DAILY PRN Anxiety 06/16/22 02/23/23 diphenhydramine HCl 25 mg tablet 25 mg PO BEDTIME 06/16/22 02/23/23 hydroxyzine HCl 25 mg tablet 25 mg PO BEDTIME 10/09/22 02/23/23 olanzapine 20 mg tablet (Zyprexa) 20 mg PO DAILY 10/09/22 02/23/23 naltrexone 50 mg tablet 50 mg PO DAILY 02/23/23 02/23/23 olanzapine 5 mg tablet 5 mg PO DAILY 02/23/23 02/23/23 Previous Rx's ?Medication ?Instructions ?Recorded duloxetine 60 mg capsule,delayed 60 mg PO BID 30 days #60 caps 11/26/21 release furosemide 20 mg tablet 20 mg PO DAILY PRN edema 30 days 11/26/21 #30 tabs omeprazole 40 mg capsule,delayed 40 mg PO DAILY@0630 30 days #30 11/26/21 release caps amlodipine 5 mg tablet 5 mg PO DAILY 30 days #30 tabs 05/19/23 folic acid 1 mg tablet 1 mg PO DAILY 30 days #30 tabs 10/14/22 magnesium oxide 400 mg (241.3 mg 400 mg PO DAILY 30 days #30 tabs 10/14/22 magnesium) tablet (MagOx) thiamine HCl (vitamin B1) 100 mg 100 mg PO DAILY 30 days #30 tabs 10/14/22 tablet lorazepam 1 mg tablet (Ativan) 1 mg PO BID PRN anxiety #20 tabs 11/20/23 Allergies Allergy/AdvReac Type Severity Reaction Status Date / Time sulfamethoxazole Allergy Mild FEVER Verified 12/05/23 12:40 [From BACTRIM] trimethoprim [From BACTRIM] Allergy Mild FEVER Verified 12/05/23 12:40 cephalexin [Keflex] Allergy Unknown Rash Verified 12/05/23 12:40 Sulfa (Sulfonamide Allergy Unknown Fever Verified 12/05/23 12:40 Antibiotics) tramadol [Ultram] Allergy Unknown Unknown Verified 12/05/23 12:40 mold Allergy Unknown Headache Uncoded 02/23/23 03:54 pollen Allergy Unknown Headache Uncoded 02/23/23 03:54 Review of Systems Review of Systems: Constitutional: No Fever, No Chills ENT/Mouth: No Ear Pain, No Nasal Congestion, No sore throat, No Rhinorrhea, No Swallowing Difficulty Cardiovascular: +Chest Pain, +SOB Respiratory: No Cough, No Sputum, No Wheezing Gastrointestinal: No Nausea, No Vomiting, No Diarrhea, No Constipation, + Abdominal pain Genitourinary: No Dysuria, No Hematuria, No Urinary Incontinence/retention, No Flank Pain Musculoskeletal: No joint pain, No Myalgias, No Joint Swelling Skin: No Skin Lesions, No rash Neuro: No Weakness, No Numbness, No Paresthesias Psych: +anxiety Yes all other systems are reviewed and are negative Constitutional: Constitutional: Reports as per [facility] Past Medical History Attestation statement: The following information was validated with the patient. Source: old records reviewed Medical History Hypomagnesemia Alcohol dependence Bipolar disorder Endometriosis Alcohol use with withdrawal Anxiety Fracture of distal end of right fibula Hypertension Mood disorder Routine medical exam Social History Social History Household Members: None Household Members Other:: Cat Housing: House Do you presently have visiting nurse or other home services: Yes Alcohol intake: current Alcohol intake frequency: a few times a week Alcohol type: beer and hard liquor Comment: Pt refusing bed/chair alarms Patient Tobacco Use Status: Never used Tobacco Tobacco use type: Cigarette Smoked in Last 30 Days: No e-Cigarette/Vaping Use: Never Used Second Hand Smoke Exposure: No Use of substances other than those prescribed or required for medical reasons: No Advance Directives: Yes Advance Directives on File: Yes Advance Directives Date on File: 06/16/22 Do you have a plan to hurt others: No Plan service: No Current occupational status: unemployed Sexual orientation: Straight/Heterosexual Physical Exam Vital Signs: Vital Signs: Last Vital Signs Temp 97.9 F 12/05/23 17:03 Pulse 54 12/05/23 17:03 Resp 16 12/05/23 17:03 BP 143/55 H 12/05/23 17:03 Pulse Ox 98 12/05/23 17:03 O2 Del Method Room Air 12/05/23 17:03 BMI result Body Mass Index 27.4 Const: General: cooperative and no acute distress Orientation/consciousness: patient oriented x3 Limitations: no limitations HEENT: Head: Yes normal to inspection and Yes atraumatic Ears: hearing grossly normal bilaterally General nose exam: Normal external nose present Face and sinus: Yes normal facial exam Eyes: General: appearance normal, both eyes and all related structures EOM: EOMs intact bilaterally Neck: Neck: Yes normal visual inspection and Yes no meningeal signs Resp: Effort & Inspection: normal respiratory effort and no respiratory distress Auscultation: clear to auscultation bilaterally, no crackles, no rhonchi and no wheezes Cardio: Rate: regular rate Heart sounds: S1 normal heart sound present and S2 normal heart sound present GI: Inspection: Yes normal to inspection Palpation (GI): Soft to palpation, Tenderness to palpation present (GI) in the epigastrum; with no rebound tenderness, no guarding and not rigid : General: Yes no CVA tenderness Back/Spine/Pelvis: Back: no CVA tenderness Skin: Rashes: no rashes Wounds: no wounds Neuro: General: patient oriented x3, tone normal and no meningeal signs Cranial nerves: Yes CN's II-XII intact bilaterally Gait exam (Neuro): Normal gait present Extrem: General: Yes normal to inspection Course Course Course Narrative: -no leukocytosis. Initial troponin 7.9 > will obtain 3 hour repeat. -1400--UA with wbc's in nitrate positive, however contaminated. Patient denies genital urinary symptoms at present. states is still currently taking Pyridium. Previous UA similar and culture was negative, will wait on culture prior to initiating antibiotics -ethanol --troponin x2 without rise, mi unlikely CT abdomen pelvis w IV con IMPRESSION: No acute intra-abdominal or pelvic pathology. Enlarged liver with mild hepatic steatosis. Fleischner guidelines were followed. XR chest 1V IMPRESSION: Unremarkable examination. -results discussed with patient, patient requesting prescription of anxiolytic for home. Discussed with patient will not be prescribing Ativan or other similar medication for home from the emergency department & w/history of ETOH use. Will give additional dose of Ativan prior to discharge. Discussed needed close follow-up with PCP Results discussed with patient including worrisome signs and symptoms and strict return precautions, and when to return to the emergency department. They verbalized understanding and feel safe for discharge at this time. Medications Administered Discontinued Medications Generic Name Dose Route Start Last Admin Trade Name Freq PRN Reason Stop Dose Admin Sodium Chloride 1,000 mls @ 999 mls/hr 12/05/23 13:15 12/05/23 14:43 Ns IV 12/05/23 14:15 Infused .Q1H1M KATHLEEN Infusion Iohexol 100 ml 12/05/23 14:12 12/05/23 14:12 Iohexol 350 Mg/Ml 100 Ml Infus..Btl IV 12/05/23 14:13 85 ml ONCE ONE Administration Lorazepam 1 mg 12/05/23 13:03 12/05/23 13:40 Lorazepam 1 Mg Tablet PO 12/05/23 13:04 1 mg ONCE ONE Administration Lorazepam 1 mg 12/05/23 16:42 12/05/23 17:03 Lorazepam 1 Mg Tablet PO 12/05/23 16:43 1 mg ONCE ONE Administration Medical Decision Making Medical Decision Making [facility] Narrative: 73-year-old female with a past medical history of alcohol dependence, bipolar, anxiety, HTN, presenting to the ED via EMS complaining of increased anxiety and left chest/epigastric pain x5 days with associated SOB. On exam vital signs stable, NAD, lungs CTA, abdomen soft with epigastric tenderness, no rebound or guarding. Concern for atypical ACS vs pancreatitis/PUD or gastritis/GERD. Concern for increased anxiety. Lower suspicion for dissection at this time. Cholecystitis/lithiasis on differential however lower. Unlikely appendicitis/diverticulitis. No evidence of ETOH withdrawal at present, we will continue to monitor Plan: EKG, labs, UA, CT AP, CXR, p.o. Ativan, IVF, re-evaluate Please refer to course for remaining clinical decision making, interpretation of labs/imaging results, and discussions with consultants and/or family members. Differential Diagnosis Differential Diagnoses: The differential diagnosis associated with the presentation includes As above Admission/Observation Consideration of admission/observation: Escalation of care including admission/observation considered Lab Data MDM Lab Attestation statement: I reviewed the patient's lab results. 12/05/23 12:50 12/05/23 12:50 Labs: Lab Results 12/05/23 12/05/23 12/05/23 Range/Units 12:48 12:50 15:47 WBC 6.3 (4.8-10.8) X10*3/uL RBC 4.55 (4.20-5.50) X10*6/uL Hgb 12.3 (12.0-16.0) g/dl Hct 37.1 (37.0-47.0) % MCV 81.5 (80.0-98.0) fL MCH 27.0 (27.0-33.0) pg MCHC 33.2 (31.0-35.0) g/dl RDW 16.4 H (11.0-16.0) % Plt Count 252 (160-400) X10*3/uL MPV 9.1 L (9.4-12.3) fL Immature Gran % (Auto) 0.3 (0.0-0.4) % Neut % (Auto) 66.0 (45-73) % Lymph % (Auto) 24.8 (20-40) % [place] % (Auto) 7.6 (2-11) % Eos % (Auto) 0.8 (0-4) % Baso % (Auto) 0.5 (0-2) % Lymph # (Auto) 1.6 (1.2-4.9) X10*3/uL [place] # (Auto) 0.5 (0.1-1.2) X10*3/uL Eos # (Auto) 0.1 (0.0-0.4) X10*3/uL Baso # (Auto) 0.0 (0.0-0.2) X10*3/uL Abs Immat Gran (auto) 0.02 (0.00-0.03) X10*3/uL Absolute Neuts (auto) 4.2 (2.0-8.3) x10*3/uL Absolute Nucleated RBC 0.000 (0.0-0.012) X10*3/uL Nucleated RBC % (auto) 0.0 (0.0-0.2) /100WBC Sodium 142 (135-145) mmol/L Potassium 4.0 (3.3-5.1) mmol/L Chloride 106 (96-108) mmol/L Carbon Dioxide 27 (22-29) mmol/L Anion Gap 13 (12-20) BUN 19 H (9-16) mg/dL Creatinine 0.71 (0.5-1.4) mg/dL Estim Creat Clear Calc 75.0 Estimated GFR > 60 Random Glucose 115 (60-115) mg/dL Calcium 9.6 (8.4-10.2) mg/dL Magnesium 2.0 1.9 (1.6-2.6) mg/dL Total Bilirubin 0.3 (0.0-1.0) mg/dL Direct Bilirubin 0.1 (0.0-0.5) mg/dL AST 18 (5-31) U/L ALT 20 (0-31) U/L Alkaline Phosphatase 84 (39-117) U/L Troponin I High Sens 7.9 D 6.9 (<3.5-17.0) ng/L Total Protein 7.3 (6.5-8.0) g/dL Albumin 4.3 (3.5-5.0) g/dL Lipase 15 (8-78) U/L Urine Color Dark Yellow Urine Appearance Clear Urine pH 6.0 (5.0-9.0) Ur Specific [place] <= 1.005 (1.005-1.025) Urine Protein Negative (Neg-Trace) mg/dL Urine Glucose (UA) Negative (Negative) mg/dL Urine Ketones Negative (Negative) mg/dL Urine Blood Negative (Negative) Urine Nitrite Positive H (Negative) Ur Leukocyte Esterase Large (3+) H (Negative) Urine RBC 0-2 (0-2) /HPF Urine WBC 21-50 H (0-5) /HPF Ur Squamous Epith Cells 6-10 (0-2) /HPF Ur Transition Epith Cell Present Ur Renal Epithelial Cell Present Urine Bacteria None Seen (None Seen) Hyaline Casts 0-2 (0-2) /LPF Ethyl Alcohol 12 mg/dL Independent Interpretation I performed an independent interpretation of an: EKG (My interpretation EKG accelerated junctional rhythm with PVCs at a rate of 82. No STEMI. QRS 68. ) Radiology Impression Discussion of test interpretation with radiology: I have reviewed the radiologist's reading. Independent Historian Clinical information obtained from an independent historian. History obtained from or confirmed by: EMS External Record Review External record reviewed: Inpatient record, Office record, Outpatient record, Prior outpatient labs, Prior outpatient radiology, Primary care record and Outside ED record Tests considered The following testing was considered but not selected: As above Prescription Management I considered prescription management with: Pain Medication Chronic Conditions Patient?s care impacted by: Other Social Determinants Patient?s care significantly limited by Social Determinants of Health including: Alcoholism and drug addiction in family and Problems related to primary support group Discharge Plan Discharge Clinical Impression: Anxiety, Chest pain Patient Disposition: Home, Self-Care Instructions: Chest Pain (DC), Anxiety (ED) Additional Instructions: Your blood work and imaging studies were reassuring Please have close follow-up with her doctor Please avoid alcohol and drug use If her symptoms persist or worsen or pain becomes unbearable please return to the emergency department Prescriptions: No Action omeprazole 40 mg Capsule,Delayed Release(Dr/Ec) 40 mg PO DAILY@0630 30 Days Qty: 30 0RF furosemide 20 mg Tablet 20 mg PO DAILY PRN (Reason: edema) 30 Days Qty: 30 0RF Protocol: Hold for SBP< HOLD for SBP < : 90 duloxetine 60 mg Capsule,Delayed Release(Dr/Ec) 60 mg PO BID 30 Days Qty: 60 0RF diazepam 5 mg tablet 5 mg PO DAILY PRN (Reason: Anxiety) cyclobenzaprine 10 mg tablet 10 mg PO BID PRN (Reason: Muscle Spasm) diphenhydramine HCl 25 mg Tablet 25 mg PO BEDTIME acetaminophen [Tylenol Extra Strength] 500 mg tablet 1,000 mg PO Q8H PRN (Reason: Pain, Moderate) naltrexone 50 mg tablet 50 mg PO DAILY olanzapine 5 mg tablet 5 mg PO DAILY lorazepam [Ativan] 1 mg tablet 1 mg PO BID PRN (Reason: anxiety) Qty: 20 0RF hydroxyzine HCl 25 mg tablet 25 mg PO BEDTIME olanzapine [Zyprexa] 20 mg tablet 20 mg PO DAILY amlodipine 5 mg Tablet 5 mg PO DAILY 30 Days Qty: 30 0RF Protocol: Hold for SBP< HOLD for SBP < : 90 folic acid 1 mg Tablet 1 mg PO DAILY 30 Days Qty: 30 0RF thiamine HCl (vitamin B1) 100 mg tablet 100 mg PO DAILY 30 Days Qty: 30 0RF magnesium oxide [MagOx] 400 mg (241.3 mg magnesium) tablet 400 mg PO DAILY 30 Days Qty: 30 0RF Referrals: [facility] [Provider Group] Physician,Unknown J [Primary Care Provider] - Interventions: ED Discharge Assessment Last Done: 12/05/23 17:03 Discharge Date/Time: 12/05/23 17:09 Print Language: Turkmen
[2023-12-05 13:17] LABS: Troponin-I High Sensitivity 7.9 ng/L (<3.5-17.0)
[2023-12-05 13:34] LABS: Alanine Aminotransferase 20 U/L (0-31); Albumin Level 4.3 g/dL (3.5-5.0); Alkaline Phosphatase 84 U/L (39-117); Aspartate Amino Transferase 18 U/L (5-31); Bilirubin Direct 0.1 mg/dL (0.0-0.5); Bilirubin Total 0.3 mg/dL (0.0-1.0); Ethanol 12 mg/dL; Lipase 15 U/L (8-78); Total Protein 7.3 g/dL (6.5-8.0)
[2023-12-05] MEDS: LORazepam 1 MG TABLET PO ×2 (13:40→17:03)
[2023-12-05] MEDS: 0.9 % Sodium Chloride 1,000 ML 999 ML IV (13:41)
[2023-12-05 13:48] LABS: Bacteria Urine None Seen (None Seen); Hyaline Casts Urine 0-2 /LPF (0-2); RBC Urine 0-2 /HPF (0-2); Renal Epithelial Cells Urine Present; Transitional Epi Cells Urine Present; UACC Culture Trigger YES; WBC Urine 21-50 /HPF (0-5)
[2023-12-05 13:49] VITALS: PULSE 88; RESP 18; O2SAT 97
[2023-12-05] MEDS: iohexoL 350 MG/ML 100 ML INFUS..BTL IV (14:12)
[2023-12-05 14:37] VITALS: BP 143/55; PULSE 53; RESP 20; TEMP 36.8; O2SAT 96
[2023-12-05 16:08] LABS: Magnesium 1.9 mg/dL (1.6-2.6)
[2023-12-05 16:15] LABS: Troponin-I High Sensitivity 6.9 ng/L (<3.5-17.0)
[2023-12-05 17:03] VITALS: BP 143/55; PULSE 54; RESP 16; TEMP 36.6; O2SAT 98
--- NOTE | 2023-12-05 17:06 | PC.NURSE ---
Pt cleared for dc home by PA via [facility].
== END 2023-12-05 17:09 | disposition home or self-care (01) ==
PROVIDERS: Physician Assistant; Emergency Provider Emergency Medicine
DX: F41.9 Anxiety disorder, unspecified (principal); R07.9 Chest pain, unspecified; I10 Essential (primary) hypertension; R06.02 Shortness of breath; R10.13 Epigastric pain; Z63.72 Alcoholism and drug addiction in family; Z63.9 Problem related to primary support group, unspecified; Z79.899 Other long term (current) drug therapy
CPT/HCPCS: 36415; 71045; 74177; 80048; 80076; 80307; 81001; 81003; 83690; 83735; 84484; 85025; 87086; 93005; 96360; 99284; 99285; Q9967

== ENCOUNTER → 2023-12-05 12:04 | Outpatient (BNV) | payer MEDICARE, SELFPAY | PROVIDERS: Emergency Provider Emergency Medicine; Visit Provider Internal Medicine Cardiovascular Disease | DX: R07.89 Other chest pain (principal) | CPT/HCPCS: 93010 ==

== ENCOUNTER 2023-12-17 12:52 | Emergency (ER) | payer MEDICARE, SELFPAY ==
--- NOTE | ~2023-12-17 | XR_ITS ---
EXAMINATION: XR CHEST CLINICAL INFORMATION: Shortness of breath. COMPARISON: Chest radiograph 12/05/2023. TECHNIQUE: Frontal view of the chest was obtained. FINDINGS: Normal appearance of the cardiomediastinal silhouette. No focal consolidation, pleural effusion or pneumothorax. No acute osseous findings. Partially seen cervical spinal hardware. Visualized upper abdomen is within normal limits. XR/XR chest 1V IMPRESSION: No acute cardiopulmonary findings.
[2023-12-17 13:00] VITALS: BP 143/61; BP 148/72; PULSE 57; PULSE 60; RESP 18; TEMP 37.6; O2SAT 95; O2SAT 98; BMI 26.2
--- NOTE | 2023-12-17 13:01 | ECG_ITS ---
Test Reason : CP Blood Pressure : / mmHG Vent. Rate : 104 BPM Atrial Rate : 104 BPM P-R Int : 192 ms QRS Dur : 094 ms QT Int : 366 ms P-R-T Axes : 076 -22 075 degrees QTc Int : 481 ms Sinus tachycardia Possible Left atrial enlargement Incomplete right bundle branch block Cannot rule out Inferior infarct , age undetermined Abnormal ECG When compared with ECG of 05-DEC-2023 12:14, Increase in ventricular rate Referred By: Frederick Leblanc Electronically Signed By:BEATRICE BLANCAS
--- NOTE | 2023-12-17 13:07 | ED.ANXIETY ---
HPI - Anxiety General Chief Complaint: Anxiety Stated Complaint: ANXIOUS DIFF BREATHING Time Seen by Provider: 12/17/23 13:01 Source: patient, EMS, RN notes reviewed and old records reviewed Mode of arrival: EMS Limitations: no limitations History of Present Illness ED Provider: Allyson Salazar PA-C HPI narrative: 73-year-old female with history of alcohol use disorder, hypertension, anxiety, bipolar disorder, mood disorder, endometriosis, cataract who presents to the ER from home for evaluation of increased anxiety for the last 4 days. She states since yesterday she started thinking about her eye appointment that is scheduled for tomorrow. She was told she is going to need another surgery on her eye for her cataracts. She states she has been more anxious due to this. She reports associated chest pressure on the left side that is nonradiating and constant. She reports episode of shortness of breath as well. She states she feels nauseous but has not vomited. No abdominal pain or diarrhea. She admits to excessive alcohol use 5 days ago, just prior to when her anxiety started. She states she drank 3/4 of a bottle of vodka. She reports her last drink before that was 2 weeks ago. She has a new psychiatrist who recently started her on BuSpar, increase the dose to 10 mg b.i.d. which she has been compliant with. She was previously on Valium for anxiety but this has been stopped and she has a new psychiatrist. She came to the ER in October and was given Ativan for anxiety. Her primary care doctor does not want a prescribe it to her because of her age and comorbidities. She states she takes daily hydroxyzine was no improvement in her symptoms. She follows with [facility] and is waiting for a therapist. MD complaint: anxiety, shortness of breath and other (Chest pressure) Onset (ago): day(s) (1) Symptoms: dyspnea, chest pain and dry mouth Severity: moderate Quality: worsening Place: home History of similar episodes: Yes Provoking factors: emotional stress Relieving factors: medication Exacerbating factors: thinking about event Associated symptoms: chest pain, shortness of breath, anorexia and nausea/vomiting Related Data Home Medications ?Medication ?Instructions ?Recorded ?Confirmed acetaminophen 500 mg tablet 1,000 mg PO Q8H PRN Pain, Moderate 06/16/22 02/23/23 (Tylenol Extra Strength) cyclobenzaprine 10 mg tablet 10 mg PO BID PRN Muscle Spasm 06/16/22 02/23/23 diazepam 5 mg tablet 5 mg PO DAILY PRN Anxiety 06/16/22 02/23/23 diphenhydramine HCl 25 mg tablet 25 mg PO BEDTIME 06/16/22 02/23/23 hydroxyzine HCl 25 mg tablet 25 mg PO BEDTIME 10/09/22 02/23/23 olanzapine 20 mg tablet (Zyprexa) 20 mg PO DAILY 10/09/22 02/23/23 naltrexone 50 mg tablet 50 mg PO DAILY 02/23/23 02/23/23 olanzapine 5 mg tablet 5 mg PO DAILY 02/23/23 02/23/23 Previous Rx's ?Medication ?Instructions ?Recorded duloxetine 60 mg capsule,delayed 60 mg PO BID 30 days #60 caps 11/26/21 release furosemide 20 mg tablet 20 mg PO DAILY PRN edema 30 days 11/26/21 #30 tabs omeprazole 40 mg capsule,delayed 40 mg PO DAILY@0630 30 days #30 11/26/21 release caps amlodipine 5 mg tablet 5 mg PO DAILY 30 days #30 tabs 10/14/22 folic acid 1 mg tablet 1 mg PO DAILY 30 days #30 tabs 10/14/22 magnesium oxide 400 mg (241.3 mg 400 mg PO DAILY 30 days #30 tabs 10/14/22 magnesium) tablet (MagOx) thiamine HCl (vitamin B1) 100 mg 100 mg PO DAILY 30 days #30 tabs 10/14/22 tablet lorazepam 1 mg tablet (Ativan) 1 mg PO BID PRN anxiety #20 tabs 11/20/23 Allergies Allergy/AdvReac Type Severity Reaction Status Date / Time sulfamethoxazole Allergy Mild FEVER Verified 12/17/23 13:03 [From BACTRIM] trimethoprim [From BACTRIM] Allergy Mild FEVER Verified 12/17/23 13:03 cephalexin [Keflex] Allergy Unknown Rash Verified 12/17/23 13:03 Sulfa (Sulfonamide Allergy Unknown Fever Verified 12/17/23 13:03 Antibiotics) tramadol [Ultram] Allergy Unknown Unknown Verified 12/17/23 13:03 mold Allergy Unknown Headache Uncoded 12/17/23 13:03 pollen Allergy Unknown Headache Uncoded 12/17/23 13:03 Review of Systems Review of Systems: Yes all other systems are reviewed and are negative PMFSH Past Medical History Medical History Hypomagnesemia Alcohol dependence Bipolar disorder Endometriosis Alcohol use with withdrawal Anxiety Fracture of distal end of right fibula Hypertension Mood disorder Routine medical exam Social History Social History Household Members: None Household Members Other:: Cat Housing: House Do you presently have visiting nurse or other home services: Yes Alcohol intake: current Alcohol intake frequency: a few times a week Alcohol type: beer and hard liquor Comment: Pt refusing bed/chair alarms Patient Tobacco Use Status: Never used Tobacco Tobacco use type: Cigarette Smoked in Last 30 Days: No e-Cigarette/Vaping Use: Never Used Second Hand Smoke Exposure: No Use of substances other than those prescribed or required for medical reasons: No Advance Directives: Yes Advance Directives on File: Yes Advance Directives Date on File: 06/16/22 Do you have a plan to hurt others: No Plan service: No Current occupational status: unemployed Sexual orientation: Straight/Heterosexual Physical Exam Vital Signs: Vital Signs: Last Vital Signs Temp 97.7 F 12/17/23 19:02 Pulse 91 12/17/23 19:02 Resp 16 12/17/23 19:02 BP 131/78 12/17/23 19:02 Pulse Ox 95 12/17/23 19:02 O2 Del Method Room Air 12/17/23 19:02 BMI result Body Mass Index 26.2 Appearance: Alert. Oriented X3. No acute distress. Head: normocephalic, atraumatic. Eyes: Pupils equal, round and reactive to light. ENT: Pharynx normal. No tonsillar swelling or exudate. Dry mouth Neck: Normal inspection. Neck supple. CVS: Normal heart rate and rhythm. Pulses normal. Respiratory: No respiratory distress. Breath sounds normal. Abdomen: Soft and nontender. +BS x4 Skin: Skin warm and dry. Normal skin color. Normal skin turgor. No rashes. Extremities: No lower extremity edema. No joint swelling. No tremors Neuro/psych: Oriented X 3. No motor deficit. No sensory deficit. CN II-XII intact. Normal speech and cognition. Course Reevaluation(s) Reevaluation #1: Your labs are normal. Patient is not in withdrawal. Patient would not be discharged with benzodiazepines. Her primary care provider discontinued her use of benzodiazepine. Patient is already have Atarax. I explained worrisome sign informed to return to the ED immediately. Informed to continue taking anxiety medications. No indication for care team evaluation. Patient is not suicidal or homicidal. Not suspecting pulmonary embolus, heart failure, pneumonia,or myocardial infarction. Patient is safe for discharge Time: 18:38 Medications Administered Discontinued Medications Generic Name Dose Route Start Last Admin Trade Name Madelin PRN Reason Stop Dose Admin Acetaminophen 975 mg 12/17/23 18:38 12/17/23 18:46 Acetaminophen 325 Mg Tablet PO 12/17/23 18:39 975 mg ONCE ONE Administration Lorazepam 1 mg 12/17/23 13:16 12/17/23 13:25 Lorazepam 1 Mg Tablet PO 12/17/23 13:17 1 mg ONCE ONE Administration Medical Decision Making Medical Decision Making MDM Narrative: 73-year-old female with a history of alcohol use disorder, anxiety, bipolar, mood disorder, history of alcohol withdrawal in the past who presents to the ER for evaluation of increased anxiety for the last 4 days after drinking heavy amounts of alcohol. She reports associated chest pressure, shortness of breath. On arrival to the ER she is slightly tachycardic with heart rates in the low 100s. While in the room interviewing the patient her heart rate normalized to the 60s. Her blood pressure was mildly elevated 143/61. She was afebrile. Patient given 1 time dose of oral Ativan with improvement in her symptoms. She is asking for more Ativan and to be discharged. Upon review of records she was discharged with 20 tablets of Ativan at the end of October. Her PCP refused to continue prescribing benzodiazepines. She has a new psychiatrist through [facility]. She is waiting therapy. No evidence of acute alcohol withdrawal or DTs. Last drink was 4 days ago. Patient advised on the importance of alcohol cessation. Discussed contraindication of benzodiazepines mixed with alcohol. She expressed understanding. Labs still pending. Signed out to Herminio CULP who will follow-up labs and determine safe disposition Differential Diagnosis Differential Diagnoses: The differential diagnosis associated with the presentation includes Anxiety, acute alcohol withdrawal, ACS/OH, CHF, polysubstance abuse, med seeking Admission/Observation Consideration of admission/observation: Escalation of care including admission/observation considered Elderly female with concern for alcohol withdrawal, observation/admission was considered Lab Data MDM Lab Attestation statement: I reviewed the patient's lab results. 12/17/23 14:22 12/17/23 14:22 Labs: Lab Results 12/17/23 12/17/23 12/17/23 Range/Units 14:22 14:56 17:30 WBC 4.9 (4.8-10.8) X10*3/uL RBC 4.65 (4.20-5.50) X10*6/uL Hgb 12.8 (12.0-16.0) g/dl Hct 38.3 (37.0-47.0) % MCV 82.4 (80.0-98.0) fL MCH 27.5 (27.0-33.0) pg MCHC 33.4 (31.0-35.0) g/dl RDW 16.9 H (11.0-16.0) % Plt Count 224 (160-400) X10*3/uL MPV 9.0 L (9.4-12.3) fL Immature Gran % (Auto) 0.2 (0.0-0.4) % Neut % (Auto) 70.8 (45-73) % Lymph % (Auto) 22.4 (20-40) % Atkinson % (Auto) 6.0 (2-11) % Eos % (Auto) 0.2 (0-4) % Baso % (Auto) 0.4 (0-2) % Lymph # (Auto) 1.1 L (1.2-4.9) X10*3/uL Atkinson # (Auto) 0.3 (0.1-1.2) X10*3/uL Eos # (Auto) 0.0 (0.0-0.4) X10*3/uL Baso # (Auto) 0.0 (0.0-0.2) X10*3/uL Abs Immat Gran (auto) 0.01 (0.00-0.03) X10*3/uL Absolute Neuts (auto) 3.5 (2.0-8.3) x10*3/uL Absolute Nucleated RBC 0.000 (0.0-0.012) X10*3/uL Nucleated RBC % (auto) 0.0 (0.0-0.2) /100WBC Sodium 144 (135-145) mmol/L Potassium 3.7 (3.3-5.1) mmol/L Chloride 107 (96-108) mmol/L Carbon Dioxide 25 (22-29) mmol/L Anion Gap 16 (12-20) BUN 9 (9-16) mg/dL Creatinine 0.72 (0.5-1.4) mg/dL Estim Creat Clear Calc 72.4 Estimated GFR > 60 Random Glucose 110 (60-115) mg/dL Calcium 9.5 (8.4-10.2) mg/dL Magnesium 1.9 (1.6-2.6) mg/dL Total Bilirubin 0.3 (0.0-1.0) mg/dL Direct Bilirubin 0.1 (0.0-0.5) mg/dL AST 19 (5-31) U/L ALT 17 (0-31) U/L Alkaline Phosphatase 92 (39-117) U/L Troponin I High Sens 6.2 7.0 (<3.5-17.0) ng/L Total Protein 7.0 (6.5-8.0) g/dL Albumin 4.1 (3.5-5.0) g/dL Urine Color Yellow Urine Appearance Clear Urine pH 7.5 (5.0-9.0) Ur Specific [place] 1.010 (1.005-1.025) Urine Protein Negative (Neg-Trace) mg/dL Urine Glucose (UA) Negative (Negative) mg/dL Urine Ketones Negative (Negative) mg/dL Urine Blood Negative (Negative) Urine Nitrite Negative (Negative) Ur Leukocyte Esterase Negative (Negative) Urine Opiates Screen Not Detected (Not Detect) Ur Buprenorphine Scrn Not Detected (Not Detect) ng/mL Ur Oxycodone Screen Not Detected (Not Detect) ng/mL Urine Methadone Screen Not Detected (Not Detect) ng/mL Urine Fentanyl Screen Not Detected (Not Detect) Ur Barbiturates Screen Not Detected (Not Detect) Ur Phencyclidine Scrn Not Detected (Not Detect) Ur Amphetamines Screen Not Detected (Not Detect) U Benzodiazepines Scrn Not Detected (Not Detect) Urine Cocaine Screen Not Detected (Not Detect) U Marijuana (THC) Screen Not Detected (Not Detect) Ethyl Alcohol < 10 mg/dL Independent Interpretation I performed an independent interpretation of an: EKG Interpretation: EKG with sinus tachycardia, ventricular rate 104 beats per minute, incomplete right bundle branch block present, no ST segment elevations or depressions cxr clear without focal infiltrate or effusion Radiology Impression Discussion of test interpretation with radiology: I have reviewed the radiologist's reading. Radiologist Impression: CLINICAL INFORMATION: Shortness of breath. COMPARISON: Chest radiograph 12/05/2023. TECHNIQUE: Frontal view of the chest was obtained. FINDINGS: Normal appearance of the cardiomediastinal silhouette. No focal consolidation, pleural effusion or pneumothorax. No acute osseous findings. Partially seen cervical spinal hardware. Visualized upper abdomen is within normal limits. XR/XR chest 1V IMPRESSION: No acute cardiopulmonary findings. Independent Historian Clinical information obtained from an independent historian. History obtained from or confirmed by: EMS External Record Review External record reviewed: Outpatient record, Prior outpatient labs, Prior outpatient radiology and Primary care record Prescription Management I considered prescription management with: Pain Medication and Other (Anxiolytic, benzodiazepine) Social Determinants Patient?s care significantly limited by Social Determinants of Health including: Alcoholism and drug addiction in family and Other Social Determinant of Health (Alcohol abuse) Discharge Plan Discharge Clinical Impression: Anxiety Patient Disposition: Home, Self-Care Instructions: Abuse of Alcohol (DC), Anxiety (ED) Additional Instructions: Do not drink alcohol. Follow-up with your psychiatrist. Follow-up with [facility] and recommend getting a therapist as soon as possible. Return to the ED immediately for any chest pain, shortness of breath, headache, dizziness, slurred speech, facial droop, tremors, auditory/visual hallucinations, suicidal/homicidal thoughts, nausea, vomiting, abdominal pain, or any other concerning symptoms. Prescriptions: No Action omeprazole 40 mg Capsule,Delayed Release(Dr/Ec) 40 mg PO DAILY@0630 30 Days Qty: 30 0RF furosemide 20 mg Tablet 20 mg PO DAILY PRN (Reason: edema) 30 Days Qty: 30 0RF Protocol: Hold for SBP< HOLD for SBP < : 90 duloxetine 60 mg Capsule,Delayed Release(Dr/Ec) 60 mg PO BID 30 Days Qty: 60 0RF diazepam 5 mg tablet 5 mg PO DAILY PRN (Reason: Anxiety) cyclobenzaprine 10 mg tablet 10 mg PO BID PRN (Reason: Muscle Spasm) diphenhydramine HCl 25 mg Tablet 25 mg PO BEDTIME acetaminophen [Tylenol Extra Strength] 500 mg tablet 1,000 mg PO Q8H PRN (Reason: Pain, Moderate) naltrexone 50 mg tablet 50 mg PO DAILY olanzapine 5 mg tablet 5 mg PO DAILY lorazepam [Ativan] 1 mg tablet 1 mg PO BID PRN (Reason: anxiety) Qty: 20 0RF hydroxyzine HCl 25 mg tablet 25 mg PO BEDTIME olanzapine [Zyprexa] 20 mg tablet 20 mg PO DAILY amlodipine 5 mg Tablet 5 mg PO DAILY 30 Days Qty: 30 0RF Protocol: Hold for SBP< HOLD for SBP < : 90 folic acid 1 mg Tablet 1 mg PO DAILY 30 Days Qty: 30 0RF thiamine HCl (vitamin B1) 100 mg tablet 100 mg PO DAILY 30 Days Qty: 30 0RF magnesium oxide [MagOx] 400 mg (241.3 mg magnesium) tablet 400 mg PO DAILY 30 Days Qty: 30 0RF Discharge Date/Time: 12/17/23 19:42 Print Language: Romanian
[2023-12-17] MEDS: LORazepam 1 MG TABLET PO (13:25)
[2023-12-17 14:27] LABS: Basophils Percent Auto 0.4 % (0-2); Eosinophils Percent Auto 0.2 % (0-4); Hematocrit 38.3 % (37.0-47.0); Hemoglobin 12.8 g/dl (12.0-16.0); Imm Gran Abs Auto 0.01 X10*3/uL (0.00-0.03); Imm Gran Pct Auto 0.2 % (0.0-0.4); Lymphocytes Absolute Auto 1.1 X10*3/uL (1.2-4.9); Lymphocytes Percent Auto 22.4 % (20-40); MANUAL DIFF FLAG NO; Mean Corpuscular HGB Conc 33.4 g/dl (31.0-35.0); Mean Corpuscular Hemoglobin 27.5 pg (27.0-33.0); Mean Corpuscular Volume 82.4 fL (80.0-98.0); Monocytes Absolute Auto 0.3 X10*3/uL (0.1-1.2); Neutrophils Absolute Auto 3.5 x10*3/uL (2.0-8.3); Neutrophils Percent Auto 70.8 % (45-73); Platelet Count 224 X10*3/uL (160-400); Red Blood Count 4.65 X10*6/uL (4.20-5.50); Red Cell Distribution Width 16.9 % (11.0-16.0); White Blood Count 4.9 X10*3/uL (4.8-10.8)
[2023-12-17 15:03] LABS: Appearance Urine Clear; Color Urine Yellow; Glucose Urine UA Negative (Negative); Leukocyte Esterase Urine Negative (Negative); Nitrite Urine Negative (Negative); PH 7.5 (5.0-9.0); Urine Blood Negative (Negative); Urine Ketones Negative (Negative); Urine Protein Negative (Neg-Trace)
[2023-12-17 15:12] LABS: Amphetamine Screen Urine Not Detected (Not Detect); Barbiturates, Urine Not Detected (Not Detect); Benzodiazepines Screen Urine Not Detected (Not Detect); Buprenorphine Scr Not Detected (Not Detect); Cannabinoid Screen Urine Not Detected (Not Detect); Cocaine Screen Urine Not Detected (Not Detect); Fentanyl, urine Not Detected (Not Detect); Methadone Screen, Urine Not Detected (Not Detect); Opiate Screen Urine Not Detected (Not Detect); Oxycodone Screen Urine Not Detected (Not Detect); Phencyclidine Screen Urine Not Detected (Not Detect)
[2023-12-17 16:03] VITALS: BP 130/82; PULSE 102; RESP 17; TEMP 36.7; O2SAT 97
--- NOTE | 2023-12-17 16:04 | PC.NURSE ---
patient resting quietly in bed, respirations equal and unlabored, skin dry and intact. patient CIWA 8. states she drinks two 6 packs of beer a week, and on monday she also had vodka. patient states she has gone through alcohol WD before with hallucinations, denies seizures.
[2023-12-17 16:14] LABS: Alanine Aminotransferase 17 U/L (0-31); Albumin Level 4.1 g/dL (3.5-5.0); Alkaline Phosphatase 92 U/L (39-117); Anion Gap 16 (12-20); Aspartate Amino Transferase 19 U/L (5-31); Bilirubin Direct 0.1 mg/dL (0.0-0.5); Bilirubin Total 0.3 mg/dL (0.0-1.0); Blood Urea Nitrogen 9 mg/dL (9-16); Calcium 9.5 mg/dL (8.4-10.2); Carbon Dioxide 25 mmol/L (22-29); Chloride 107 mmol/L (96-108); Creatinine Clr Calc Pharmacy 72.4; Estimated Glomerular Filt Rate > 60; Ethanol < 10 mg/dL; Glucose Random 110 mg/dL (60-115); Magnesium 1.9 mg/dL (1.6-2.6); Potassium 3.7 mmol/L (3.3-5.1); Sodium 144 mmol/L (135-145)
[2023-12-17 16:22] LABS: Troponin-I High Sensitivity 6.2 ng/L (<3.5-17.0)
[2023-12-17] MEDS: Acetaminophen 325 MG TABLET 975 MG PO (18:46)
[2023-12-17 19:02] VITALS: BP 131/78; PULSE 91; RESP 16; TEMP 36.5; O2SAT 95
== END 2023-12-17 19:42 | disposition home or self-care (01) ==
PROVIDERS: Physician Assistant; Emergency Provider Emergency Medicine; PCP Family Medicine
DX: F41.1 Generalized anxiety disorder (principal); R06.02 Shortness of breath; I10 Essential (primary) hypertension; R07.89 Other chest pain; R11.0 Nausea; M79.7 Fibromyalgia; Z79.899 Other long term (current) drug therapy
CPT/HCPCS: 36415; 71045; 80048; 80076; 80307; 81003; 83735; 84484; 85025; 93005; 99285

== ENCOUNTER → 2023-12-17 13:01 | Outpatient (BNV) | payer MEDICARE, SELFPAY | PROVIDERS: Emergency Provider Emergency Medicine; PCP Family Medicine; Visit Provider Internal Medicine | DX: R07.9 Chest pain, unspecified (principal) | CPT/HCPCS: 93010 ==

== ENCOUNTER 2024-02-02 09:11 | Emergency (ER) | payer MEDICARE, SELFPAY ==
--- NOTE | 2024-02-02 | ECG_ITS ---
Test Reason : chest pressure Blood Pressure : / mmHG Vent. Rate : 050 BPM Atrial Rate : 050 BPM P-R Int : 202 ms QRS Dur : 090 ms QT Int : 534 ms P-R-T Axes : 076 -22 066 degrees QTc Int : 486 ms Sinus bradycardia Inferior infarct (cited on or before 17-DEC-2023) Abnormal ECG When compared with ECG of 17-DEC-2023 13:02, Vent. rate has decreased BY 54 BPM Incomplete right bundle branch block is no longer Present Referred By: Generic ED Physician Electronically Signed By:KATHRYN TO
--- NOTE | ~2024-02-02 | XR_ITS ---
EXAMINATION: XR CHEST CLINICAL INFORMATION: Chest pain. Radiating to left shoulder and scapula. COMPARISON: Chest radiograph dated 12/17/2023. TECHNIQUE: 2 views of the chest were obtained. FINDINGS: The heart is normal in size. The lungs are clear. There is no pleural effusion. No pneumothorax. No acute osseous abnormality. There are surgical changes status post ACDF. There are cholecystectomy clips. XR/XR chest 2V IMPRESSION: No acute cardiopulmonary disease. Electronically signed by: Peter Leslie DO 02/02/2024 02:26 PM EDT RP
[2024-02-02 09:17] VITALS: BP 127/63; PULSE 62; O2SAT 96
[2024-02-02 09:30] VITALS: BP 130/52; PULSE 53; RESP 17; TEMP 36.9; O2SAT 96
[2024-02-02 09:35] VITALS: BP 130/52; PULSE 52; RESP 16; TEMP 36.9; O2SAT 96; BMI 25.5
[2024-02-02 09:52] LABS: MANUAL DIFF FLAG NO
[2024-02-02 09:56] LABS: Basophils Percent Auto 0.7 % (0-2); Eosinophils Absolute Auto 0.1 X10*3/uL (0.0-0.4); Eosinophils Percent Auto 1.2 % (0-4); Hematocrit 39.9 % (37.0-47.0); Hemoglobin 12.8 g/dl (12.0-16.0); Imm Gran Abs Auto 0.02 X10*3/uL (0.00-0.03); Imm Gran Pct Auto 0.3 % (0.0-0.4); Lymphocytes Absolute Auto 1.8 X10*3/uL (1.2-4.9); Lymphocytes Percent Auto 30.7 % (20-40); Mean Corpuscular HGB Conc 32.1 g/dl (31.0-35.0); Mean Corpuscular Hemoglobin 26.9 pg (27.0-33.0); Mean Corpuscular Volume 83.8 fL (80.0-98.0); Mean Platelet Volume 9.1 fL (9.4-12.3); Monocytes Absolute Auto 0.4 X10*3/uL (0.1-1.2); Monocytes Percent Auto 7.4 % (2-11); Neutrophils Absolute Auto 3.5 x10*3/uL (2.0-8.3); Neutrophils Percent Auto 59.7 % (45-73); Platelet Count 252 X10*3/uL (160-400); Red Blood Count 4.76 X10*6/uL (4.20-5.50); Red Cell Distribution Width 15.7 % (11.0-16.0); White Blood Count 5.8 X10*3/uL (4.8-10.8)
[2024-02-02 10:13] LABS: Alanine Aminotransferase 24 U/L (0-31); Albumin Level 4.3 g/dL (3.5-5.0); Alkaline Phosphatase 88 U/L (39-117); Anion Gap 13 (12-20); Aspartate Amino Transferase 35 U/L (5-31); Bilirubin Total 0.2 mg/dL (0.0-1.0); Blood Urea Nitrogen 17 mg/dL (9-16); Calcium 9.3 mg/dL (8.4-10.2); Carbon Dioxide 25 mmol/L (22-29); Chloride 106 mmol/L (96-108); Creatinine Clr Calc Pharmacy 64.4; Estimated Glomerular Filt Rate > 60; Glucose Random 103 mg/dL (60-115); Potassium 4.4 mmol/L (3.3-5.1); Sodium 140 mmol/L (135-145); Total Protein 7.4 g/dL (6.5-8.0)
[2024-02-02 10:21] LABS: Troponin-I High Sensitivity 2.9 ng/L (<3.5-17.0)
[2024-02-02 10:31] LABS: Influenza A PCR NEGATIVE (Negative); Influenza B PCR NEGATIVE (Negative); Resp Syncy Virus RNA Qual PCR NEGATIVE (Negative); SARS COV2 PCR INHOUSE NEGATIVE (Negative)
[2024-02-02 10:43] VITALS: BP 121/42; PULSE 61; RESP 19; O2SAT 96
--- NOTE | 2024-02-02 11:25 | ED.CHESTPAIN ---
HPI - Chest Pain General Chief Complaint: Chest Pain Stated Complaint: CP 6:30 am, anxiety did not subside w/ meds Time Seen by Provider: 02/02/24 11:24 Source: patient and EMS Mode of arrival: EMS Limitations: no limitations History of Present Illness ED Provider: Carmen Garrett PA-C HPI narrative: Patient is a 73 year old assigned female at with a history of HTN, alcohol dependence, anxiety, and mood disorder presenting to the emergency department today with chest pain. Patient states that she has been feeling much more anxious and is having chest pressure. Patient denies any dizziness, lightheadedness, abdominal pain, nausea, vomiting, fever, chills, blurry vision, double vision, loss of vision, difficulty breathing, shortness of breath, back pain, night sweats, pain with urination, increased urinary frequency, increased urinary urgency, blood in her urine or stool, syncope or a near syncopal episode, recent trauma or falls, bowel incontinence, bladder incontinence, or any other complaints at this time. MD complaint: chest pain Related Data Home Medications ?Medication ?Instructions ?Recorded ?Confirmed acetaminophen 500 mg tablet 1,000 mg PO Q8H PRN Pain, Moderate 06/16/22 02/23/23 (Tylenol Extra Strength) cyclobenzaprine 10 mg tablet 10 mg PO BID PRN Muscle Spasm 06/16/22 02/23/23 diazepam 5 mg tablet 5 mg PO DAILY PRN Anxiety 06/16/22 02/23/23 diphenhydramine HCl 25 mg tablet 25 mg PO BEDTIME 06/16/22 02/23/23 hydroxyzine HCl 25 mg tablet 25 mg PO BEDTIME 10/09/22 02/23/23 olanzapine 20 mg tablet (Zyprexa) 20 mg PO DAILY 10/09/22 02/23/23 naltrexone 50 mg tablet 50 mg PO DAILY 02/23/23 02/23/23 olanzapine 5 mg tablet 5 mg PO DAILY 02/23/23 02/23/23 Previous Rx's ?Medication ?Instructions ?Recorded duloxetine 60 mg capsule,delayed 60 mg PO BID 30 days #60 caps 11/26/21 release furosemide 20 mg tablet 20 mg PO DAILY PRN edema 30 days 11/26/21 #30 tabs omeprazole 40 mg capsule,delayed 40 mg PO DAILY@0630 30 days #30 11/26/21 release caps amlodipine 5 mg tablet 5 mg PO DAILY 30 days #30 tabs 10/14/22 folic acid 1 mg tablet 1 mg PO DAILY 30 days #30 tabs 10/14/22 magnesium oxide 400 mg (241.3 mg 400 mg PO DAILY 30 days #30 tabs 10/14/22 magnesium) tablet (MagOx) thiamine HCl (vitamin B1) 100 mg 100 mg PO DAILY 30 days #30 tabs 10/14/22 tablet lorazepam 1 mg tablet (Ativan) 1 mg PO BID PRN anxiety #20 tabs 11/20/23 Allergies Allergy/AdvReac Type Severity Reaction Status Date / Time sulfamethoxazole Allergy Mild FEVER Verified 02/02/24 09:37 [From BACTRIM] trimethoprim [From BACTRIM] Allergy Mild FEVER Verified 12/17/23 13:03 cephalexin [Keflex] Allergy Unknown Rash Verified 12/17/23 13:03 Sulfa (Sulfonamide Allergy Unknown Fever Verified 12/17/23 13:03 Antibiotics) tramadol [Ultram] Allergy Unknown Unknown Verified 12/17/23 13:03 mold Allergy Unknown Headache Uncoded 12/17/23 13:03 pollen Allergy Unknown Headache Uncoded 12/17/23 13:03 Review of Systems Constitutional: Constitutional: Reports no additional constitutional complaints, Denies chills, Denies fever(s) and Denies night sweats Eyes: Eyes: Reports no additional eye complaints, Denies blurry vision, Denies change in vision, Denies diplopia, Denies eye discharge, Denies loss of vision and Denies eye pain ENT: Denies dizziness Cardiovascular: Cardiovascular: Reports no additional cardiovascular complaints, Reports chest pain, Denies lightheadedness, Denies Loss of Consciousness and Denies dyspnea Respiratory: Respiratory: Reports no additional respiratory complaints and Denies dyspnea Gastrointestinal: Gastrointestinal: Reports no additional gastrointestinal complaints, Denies abdominal pain, Denies melena, Denies hematochezia, Denies change in bowel habits and Denies change in stool character Genitourinary: Genitourinary: Denies hematuria, Denies urinary frequency, Denies dysuria, Denies urinary incontinence, Denies urinary hesitancy and Denies urinary urgency Musculoskeletal: Musculoskeletal: Reports no additional musculoskeletal complaints, Denies numbness and Denies tingling Neurologic: Denies dizziness, Denies loss of vision, Denies numbness and Denies tingling Psychiatric: Psychiatric: Reports no additional psychiatric complaints and Reports anxiety Endocrine: Endocrine: Reports no additional endocrine complaints Hematologic/Lymphatic: Hematologic/Lymphatic: Reports no additional hematologic/lymphatic complaints Allergic/Immunologic: Allergic/Immunologic: Reports no additional allergic/immunologic complaints PMFSH Past Medical History Attestation statement: The following information was validated with the patient. Source: old records reviewed and nursing notes reviewed Medical History Hypomagnesemia Alcohol dependence Bipolar disorder Endometriosis Alcohol use with withdrawal Anxiety Fracture of distal end of right fibula Hypertension Mood disorder Routine medical exam Social History Social History Household Members: None Household Members Other:: Cat Housing: House Do you presently have visiting nurse or other home services: Yes Alcohol intake: current Alcohol intake frequency: a few times a week Alcohol type: beer and hard liquor Comment: Pt refusing bed/chair alarms Patient Tobacco Use Status: Never used Tobacco Tobacco use type: Cigarette Smoked in Last 30 Days: No e-Cigarette/Vaping Use: Never Used Second Hand Smoke Exposure: No Use of substances other than those prescribed or required for medical reasons: No Advance Directives: Yes Advance Directives on File: Yes Advance Directives Date on File: 06/16/22 service: No Current occupational status: unemployed Sexual orientation: Straight/Heterosexual Physical Exam Vital Signs: Vital Signs: Last Vital Signs Temp 98.4 F 02/02/24 13:13 Pulse 52 02/02/24 13:13 Resp 18 02/02/24 13:13 BP 121/42 L 02/02/24 13:13 Pulse Ox 96 02/02/24 13:13 O2 Del Method Room Air 02/02/24 13:13 BMI result Body Mass Index 25.5 Const: General: cooperative, no acute distress, alert and awake Nutritional Appearance: well nourished Orientation/consciousness: patient oriented x3 Limitations: no limitations HEENT: Head: Yes normal to inspection and Yes atraumatic Ears: hearing grossly normal bilaterally and external ears normal General nose exam: Normal external nose present, no nasal discharge noted and no epistaxis Face and sinus: Yes normal facial exam, No abrasion and No laceration Mouth: Normal oral and palatal mucosa present, no drooling and no muffled voice Eyes: General: appearance normal, both eyes and all related structures Periorbital: periorbital findings normal Eyelids: Yes eyelids normal Conjunctivae: conjunctivae normal Pupils: Equal, round and reactive pupils present EOM: EOMs intact bilaterally Neck: Neck: Yes normal visual inspection, Yes full ROM and Yes no lymphadenopathy Chest: Chest palpation & inspection: normal inspection of the chest Resp: Effort & Inspection: normal respiratory effort and able to speak in complete sentences GI: Inspection: Yes normal to inspection Neuro: General: patient oriented x3 and moves all extremities Cranial nerves: Yes Equal, round and reactive pupils present Cognition (Neuro): normal cognition Extrem: General: Yes normal to inspection, Yes full ROM and Yes capillary refill normal Psych: Appearance: grossly normal Mental Status: mental status grossly normal Affect: normal affect Attitude: cooperative Thought process: Normal thought process present Thought content: Normal thought content present Insight: Good insight present (Psych) Medications Administered Discontinued Medications Generic Name Dose Route Start Last Admin Trade Name Freq PRN Reason Stop Dose Admin Lorazepam 1 mg 02/02/24 11:25 02/02/24 12:17 Lorazepam 1 Mg Tablet PO 02/02/24 11:26 1 mg ONCE ONE Administration Medical Decision Making Medical Decision Making [facility] Narrative: Patient is a 73 year old assigned female at with a history of HTN, alcohol dependence, anxiety, and mood disorder presenting to the emergency department today with chest pain. Patient states that she has been feeling much more anxious and is having chest pressure. Patient's physical exam was unremarkable. Patient's blood work was unremarkable. Patient's EKG was unremarkable. Patient's chest x-ray showed no acute process. I explained my physical exam findings as well as all test results to the patient. I answered all questions asked by the patient. Patient received PO Ativan which she stated helped her symptoms significantly. Patient stated that she wants a prescription of ativan but her doctor refuses to give it to her because she is considered a fall risk. I stressed the importance of the patient taking her medication as directed (either prescribed or as the over the counter packaging recommends). I stressed the importance of the patient following up with her primary care provider. I stressed the importance of the patient returning to the emergency department immediately if her symptoms were to worsen or if she were to develop any dizziness, shortness of breath, difficulty breathing, chest pain, blurry vision, loss of vision, nausea, vomiting, abdominal pain, fever, chills, back pain, or any other complaints. Patient verbalized agreement and understanding with this treatment plan and discharge. Differential Diagnosis Differential Diagnoses: The differential diagnosis associated with the presentation includes Chest pain Atypical chest pain Anxiety NSTEMI STEMI Admission/Observation Consideration of admission/observation: Escalation of care including admission/observation considered Patient would have been admitted to the hospital had her work up had any findings where hospital admission was appropriate and her clinical presentation warranted hospital admission. Lab Data [facility] Lab Attestation statement: I reviewed the patient's lab results. My interpretation of these results are in the [facility] Rationale portion of this note. 02/02/24 09:46 02/02/24 09:46 Labs: Lab Results 02/02/24 02/02/24 Range/Units 09:46 11:31 WBC 5.8 (4.8-10.8) X10*3/uL RBC 4.76 (4.20-5.50) X10*6/uL Hgb 12.8 (12.0-16.0) g/dl Hct 39.9 (37.0-47.0) % MCV 83.8 (80.0-98.0) fL MCH 26.9 L (27.0-33.0) pg MCHC 32.1 (31.0-35.0) g/dl RDW 15.7 (11.0-16.0) % Plt Count 252 (160-400) X10*3/uL MPV 9.1 L (9.4-12.3) fL Immature Gran % (Auto) 0.3 (0.0-0.4) % Neut % (Auto) 59.7 (45-73) % Lymph % (Auto) 30.7 (20-40) % [place] % (Auto) 7.4 (2-11) % Eos % (Auto) 1.2 (0-4) % Baso % (Auto) 0.7 (0-2) % Lymph # (Auto) 1.8 (1.2-4.9) X10*3/uL [place] # (Auto) 0.4 (0.1-1.2) X10*3/uL Eos # (Auto) 0.1 (0.0-0.4) X10*3/uL Baso # (Auto) 0.0 (0.0-0.2) X10*3/uL Abs Immat Gran (auto) 0.02 (0.00-0.03) X10*3/uL Absolute Neuts (auto) 3.5 (2.0-8.3) x10*3/uL Absolute Nucleated RBC 0.000 (0.0-0.012) X10*3/uL Nucleated RBC % (auto) 0.0 (0.0-0.2) /100WBC Sodium 140 (135-145) mmol/L Potassium 4.4 (3.3-5.1) mmol/L Chloride 106 (96-108) mmol/L Carbon Dioxide 25 (22-29) mmol/L Anion Gap 13 (12-20) BUN 17 H (9-16) mg/dL Creatinine 0.80 (0.5-1.4) mg/dL Estim Creat Clear Calc 64.4 Estimated GFR > 60 Random Glucose 103 (60-115) mg/dL Calcium 9.3 (8.4-10.2) mg/dL Total Bilirubin 0.2 (0.0-1.0) mg/dL AST 35 H (5-31) U/L ALT 24 (0-31) U/L Alkaline Phosphatase 88 (39-117) U/L Troponin I High Sens 2.9 D 3.2 (<3.5-17.0) ng/L Total Protein 7.4 (6.5-8.0) g/dL Albumin 4.3 (3.5-5.0) g/dL Influenza Type A (PCR) NEGATIVE (Negative) Influenza Type B (PCR) NEGATIVE (Negative) RSV RNA Qual (PCR) NEGATIVE (Negative) SARS-CoV-2 RNA (RT-PCR) NEGATIVE (Negative) Independent Interpretation I performed an independent interpretation of an: EKG and Plain X-Ray Interpretation: My interpretation is in agreement with the radiologist's impression of this imaging study. EXAMINATION: XR CHEST CLINICAL INFORMATION: Chest pain. Radiating to left shoulder and scapula. COMPARISON: Chest radiograph dated 12/17/2023. TECHNIQUE: 2 views of the chest were obtained. FINDINGS: The heart is normal in size. The lungs are clear. There is no pleural effusion. No pneumothorax. No acute osseous abnormality. There are surgical changes status post ACDF. There are cholecystectomy clips. XR/XR chest 2V IMPRESSION: No acute cardiopulmonary disease. Electronically signed by: Peter Leslie DO 02/02/2024 02:26 PM EDT RP Dictated By: Peter Leslie Jr, DO Signed By: Electronically signed by Peter Leslie Jr, DO 02/02/24 1426 Vent. Rate: 050 BPM Atrial Rate: 050 BPM P-R Int: 202 ms QRS Dur: 090 ms QT Int: 534 ms P-R-T Axes: 076 -22 066 degrees QTc Int: 486 ms Sinus bradycardia Inferior infarct (cited on or before 17-DEC-2023) Abnormal ECG When compared with ECG of 17-DEC-2023 13:02, Vent. rate has decreased BY 54 BPM Incomplete right bundle branch block is no longer Present Electronically Signed By:KATHRYN BARCENAS DOCP Dictated By: Kathryn Barcenas DO Signed By: Electronically signed by Kathryn Barcenas DO 02/02/24 1352 Radiology Impression Discussion of test interpretation with radiology: I have reviewed the radiologist's reading. Independent Historian Clinical information obtained from an independent historian. History obtained from or confirmed by: EMS (EMS provided additional history and confirmed the history provided by thepatient.) Discharge Plan Discharge Clinical Impression: Atypical chest pain, Anxiety Patient Disposition: Home, Self-Care Instructions: Chest Pain (DC), Anxiety (ED) Additional Instructions: Your work up today was reassuring. No evidence of heart or lung emergencies. Follow up with your primary care provider. Return to the emergency department immediately if your symptoms worsen or if you develop any dizziness, shortness of breath, difficulty breathing, chest pain, blurry vision, loss of vision, nausea, vomiting, abdominal pain, fever, chills, back pain, or any other complaints. Prescriptions: No Action omeprazole 40 mg Capsule,Delayed Release(Dr/Ec) 40 mg PO DAILY@0630 30 Days Qty: 30 0RF furosemide 20 mg Tablet 20 mg PO DAILY PRN (Reason: edema) 30 Days Qty: 30 0RF Protocol: Hold for SBP< HOLD for SBP < : 90 duloxetine 60 mg Capsule,Delayed Release(Dr/Ec) 60 mg PO BID 30 Days Qty: 60 0RF diazepam 5 mg tablet 5 mg PO DAILY PRN (Reason: Anxiety) cyclobenzaprine 10 mg tablet 10 mg PO BID PRN (Reason: Muscle Spasm) diphenhydramine HCl 25 mg Tablet 25 mg PO BEDTIME acetaminophen [Tylenol Extra Strength] 500 mg tablet 1,000 mg PO Q8H PRN (Reason: Pain, Moderate) naltrexone 50 mg tablet 50 mg PO DAILY olanzapine 5 mg tablet 5 mg PO DAILY lorazepam [Ativan] 1 mg tablet 1 mg PO BID PRN (Reason: anxiety) Qty: 20 0RF hydroxyzine HCl 25 mg tablet 25 mg PO BEDTIME olanzapine [Zyprexa] 20 mg tablet 20 mg PO DAILY amlodipine 5 mg Tablet 5 mg PO DAILY 30 Days Qty: 30 0RF Protocol: Hold for SBP< HOLD for SBP < : 90 folic acid 1 mg Tablet 1 mg PO DAILY 30 Days Qty: 30 0RF thiamine HCl (vitamin B1) 100 mg tablet 100 mg PO DAILY 30 Days Qty: 30 0RF magnesium oxide [MagOx] 400 mg (241.3 mg magnesium) tablet 400 mg PO DAILY 30 Days Qty: 30 0RF Referrals: Reinaldo Willard MD [Primary Care Provider] - Interventions: ED Discharge Assessment Last Done: 02/02/24 13:13 Discharge Date/Time: 02/02/24 14:15 Print Language: Bulgarian
[2024-02-02 12:02] LABS: Troponin-I High Sensitivity 3.2 ng/L (<3.5-17.0)
[2024-02-02 12:16] VITALS: PULSE 52; RESP 18
[2024-02-02] MEDS: LORazepam 1 MG TABLET PO (12:17)
[2024-02-02 13:13] VITALS: BP 121/42; PULSE 52; RESP 18; TEMP 36.9; O2SAT 96
== END 2024-02-02 14:15 | disposition home or self-care (01) ==
PROVIDERS: Physician Assistant Medical; Emergency Provider Emergency Medicine Emergency Medical Services; PCP Family Medicine
DX: R07.89 Other chest pain (principal); F41.9 Anxiety disorder, unspecified; I10 Essential (primary) hypertension; Z79.899 Other long term (current) drug therapy; Z03.818 Encounter for observation for suspected exposure to other biological agents ruled out
CPT/HCPCS: 0241U; 36415; 71046; 80053; 84484; 85025; 93005; 99283; 99285

== ENCOUNTER 2024-02-10 16:18 | Emergency (ER) | payer MEDICARE, SELFPAY ==
--- NOTE | ~2024-02-10 | XR_ITS ---
EXAMINATION: XR CHEST CLINICAL INFORMATION: CP COMPARISON: Chest radiograph 02/02/2024 TECHNIQUE: One view of the chest FINDINGS: Lines and tubes: Partially imaged cervical fusion hardware. Streaky bibasilar airspace opacities likely reflect atelectasis. No pleural effusion. No pneumothorax. Unchanged cardiomediastinal silhouette. XR/XR chest 1V IMPRESSION: Streaky bibasilar airspace opacities likely reflect atelectasis. Electronically signed by: Sadaf Salas MD 02/10/2024 05:40 PM EDT
--- NOTE | 2024-02-10 16:24 | ECG_ITS ---
Test Reason : CHEST PAIN Blood Pressure : / mmHG Vent. Rate : 051 BPM Atrial Rate : 051 BPM P-R Int : 192 ms QRS Dur : 096 ms QT Int : 538 ms P-R-T Axes : 076 -19 100 degrees QTc Int : 495 ms Sinus bradycardia Possible Left atrial enlargement Low voltage QRS Incomplete right bundle branch block Cannot rule out Inferior infarct (cited on or before 17-DEC-2023) Abnormal ECG When compared with ECG of 02-FEB-2024 09:19, Incomplete right bundle branch block is now Present QT has lengthened Referred By: Raffi Bowles Electronically Signed By:KATHRYN TO
[2024-02-10 16:25] VITALS: BP 122/58; BP 122/65; PULSE 52; PULSE 66; RESP 20; TEMP 36.6; O2SAT 92; O2SAT 94; BMI 26.6
--- NOTE | 2024-02-10 16:43 | ED_ITS ---
HPI - Chest Pain General Chief Complaint: Chest Pain Stated Complaint: L sided chest pain Time Seen by Provider: 02/10/24 16:24 Source: patient Mode of arrival: EMS Limitations: no limitations History of Present Illness HPI narrative: 73 yo F PMHx AUD, HTN, bipolar, anxiety, RBBB, BIBA for left sided chest pain and SOB that started at 6:30 this morning and did not yvon with nitro. Patient states this happened a few weeks ago but her pain is much worse this time, rated 7/10, and radiates through her back. Patient endorses SOB and denies palpitations, fevers, chills, sick contacts, headache, N/V, abdominal pain, vision changes. Patient reports drinking two mixed drinks this afternoon around 12pm because she was shaky and anxious when she awoke this morning. States she has withdrawn from alcohol in the past but denies ever having a seizure. Patient also reports recently stopping her Cymbalta because she heard it makes people fearful and she's had increased levels of anxiety lately due to increasing life stressors; unable to identify anxiety triggers. No SI / HI. No fevers, chills, headache, vision changes, dizziness, weakness Related Data Home Medications ?Medication ?Instructions ?Recorded ?Confirmed acetaminophen 500 mg tablet 1,000 mg PO Q8H PRN Pain, Moderate 06/16/22 02/23/23 (Tylenol Extra Strength) cyclobenzaprine 10 mg tablet 10 mg PO BID PRN Muscle Spasm 06/16/22 02/23/23 diazepam 5 mg tablet 5 mg PO DAILY PRN Anxiety 06/16/22 02/23/23 diphenhydramine HCl 25 mg tablet 25 mg PO BEDTIME 06/16/22 02/23/23 hydroxyzine HCl 25 mg tablet 25 mg PO BEDTIME 10/09/22 02/23/23 olanzapine 20 mg tablet (Zyprexa) 20 mg PO DAILY 10/09/22 02/23/23 naltrexone 50 mg tablet 50 mg PO DAILY 02/23/23 02/23/23 olanzapine 5 mg tablet 5 mg PO DAILY 02/23/23 02/23/23 Previous Rx's ?Medication ?Instructions ?Recorded duloxetine 60 mg capsule,delayed 60 mg PO BID 30 days #60 caps 11/26/21 release furosemide 20 mg tablet 20 mg PO DAILY PRN edema 30 days 11/26/21 #30 tabs omeprazole 40 mg capsule,delayed 40 mg PO DAILY@0630 30 days #30 11/26/21 release caps amlodipine 5 mg tablet 5 mg PO DAILY 30 days #30 tabs 10/14/22 folic acid 1 mg tablet 1 mg PO DAILY 30 days #30 tabs 10/14/22 magnesium oxide 400 mg (241.3 mg 400 mg PO DAILY 30 days #30 tabs 10/14/22 magnesium) tablet (MagOx) thiamine HCl (vitamin B1) 100 mg 100 mg PO DAILY 30 days #30 tabs 10/14/22 tablet lorazepam 1 mg tablet (Ativan) 1 mg PO BID PRN anxiety #20 tabs 11/20/23 Allergies Allergy/AdvReac Type Severity Reaction Status Date / Time sulfamethoxazole Allergy Mild FEVER Verified 02/10/24 16:29 [From BACTRIM] trimethoprim [From BACTRIM] Allergy Mild FEVER Verified 02/10/24 16:29 cephalexin [Keflex] Allergy Unknown Rash Verified 02/10/24 16:29 Sulfa (Sulfonamide Allergy Unknown Fever Verified 02/10/24 16:29 Antibiotics) tramadol [Ultram] Allergy Unknown Unknown Verified 02/10/24 16:29 mold Allergy Unknown Headache Uncoded 02/10/24 16:29 pollen Allergy Unknown Headache Uncoded 02/10/24 16:29 Review of Systems 2 Review of Systems: Yes all other systems are reviewed and are negative Cardiovascular: Cardiovascular: Reports as per [facility] Past Medical History Attestation statement: The following information was validated with the patient. [facility] Narrative: Hx RBBB, anxiety, bipolar, alcohol use disorder with previous withdrawal, endometriosis with several laparoscopies, HTN, cholecystectomy Source: old records reviewed and nursing notes reviewed Medical History Hypomagnesemia Alcohol dependence Bipolar disorder Endometriosis Alcohol use with withdrawal Anxiety Fracture of distal end of right fibula Hypertension Mood disorder Routine medical exam Social History Social History Household Members: None Household Members Other:: Cat Housing: House Do you presently have visiting nurse or other home services: Yes Alcohol intake: current Alcohol intake frequency: a few times a week Alcohol type: beer and hard liquor Comment: Pt refusing bed/chair alarms Patient Tobacco Use Status: Never used Tobacco Tobacco use type: Cigarette e-Cigarette/Vaping Use: Never Used Second Hand Smoke Exposure: No Advance Directives: Yes Advance Directives on File: Yes Advance Directives Date on File: 06/16/22 Do you have a plan to hurt others: No Plan service: No Current occupational status: unemployed Sexual orientation: Straight/Heterosexual Physical Exam 2 Vital Signs: Vital Signs: Last Vital Signs Temp 98.4 F 02/10/24 19:51 Pulse 53 02/10/24 22:10 Resp 20 02/10/24 22:10 BP 123/49 L 02/10/24 22:10 Pulse Ox 98 02/10/24 22:10 O2 Del Method Room Air 02/10/24 22:10 BMI result Body Mass Index 26.6 VSS Appearance: Alert. Oriented X3. Anxious Head: Normal external exam. Normocephalic. Atraumatic. ? Eyes: PERRLA. EOMI. Conjunctiva and sclera normal. Eyelids normal. ? Neck: ?Soft full range of motion, no JVD CVS: ?Heart regular rate and rhythm no murmurs and rubs Respiratory: ?Breath sounds are clear to auscultation bilaterally. No wheezing or stridor.? No accessory muscle use noted. Abdomen: ?Soft nontender no rebound or guarding positive bowel sounds Skin: Skin warm and dry.? Normal skin color.? Normal skin turgor. No rashes/lesions/lacerations noted. Extremities: No lower extremity edema. ? Extremities exhibit normal range of motion.? Extremities nontender. 5/5 strength UE and LE b/l. Neuro: Oriented X 3.? Course Reevaluation(s) Reevaluation #1: CBC unremarkable. Chemistry no acute findings eating intervention. Troponin negative x2. D-dimer negative. Chest x-ray streaky bibasilar opacities likely atelectasis. Patient is saturating well on room air. UA without infection. Patient's toxicology ethanol 186 consistent with acute alcohol intoxication. Patient's COVID negative. Time: 22:20 Medications Administered Discontinued Medications Generic Name Dose Route Start Last Admin Trade Name Freq PRN Reason Stop Dose Admin Sodium Chloride 1,000 mls @ 999 mls/hr 02/10/24 20:00 02/10/24 20:31 Ns IV 02/10/24 21:00 999 mls/hr .Q1H1M KATHLEEN Administration Lorazepam 1 mg 02/10/24 17:39 02/10/24 17:49 Lorazepam 2 Mg/Ml Vial IVPUSH 02/10/24 17:40 1 mg STAT STA Administration Medical Decision Making Medical Decision Making [facility] Narrative: 73 year old female presents w/ cp that started earlier the AM and has been intermittent ever since, reports increasing stressors PE benign Hx and pe concerning for anxiety vs acs vs non cardiac related cp. Less likely dissection, PE, pneumothorax, pneumonia, ARDS . No signs of trauma to head, neck, chest, abdomen or pelvis plan- labs, imaging, urine Differential Diagnosis Differential Diagnoses: The differential diagnosis associated with the presentation includes Hx and pe concerning for anxiety vs acs vs non cardiac related cp. Less likely dissection, PE, pneumothorax, pneumonia, ARDS . No signs of trauma to head, neck, chest, abdomen or pelvis Admission/Observation Consideration of admission/observation: Escalation of care including admission/observation considered Possible Lab Data [facility] Lab Attestation statement: I reviewed the patient's lab results. 02/10/24 16:55 02/10/24 16:55 Labs: Lab Results 02/10/24 02/10/24 02/10/24 Range/Units 16:55 17:07 21:34 WBC 4.8 (4.8-10.8) X10*3/uL RBC 4.44 (4.20-5.50) X10*6/uL Hgb 12.4 (12.0-16.0) g/dl Hct 36.5 L (37.0-47.0) % MCV 82.2 (80.0-98.0) fL MCH 27.9 (27.0-33.0) pg MCHC 34.0 (31.0-35.0) g/dl RDW 15.8 (11.0-16.0) % Plt Count 237 (160-400) X10*3/uL MPV 9.1 L (9.4-12.3) fL Immature Gran % (Auto) 0.2 (0.0-0.4) % Neut % (Auto) 54.5 (45-73) % Lymph % (Auto) 34.0 (20-40) % [place] % (Auto) 8.4 (2-11) % Eos % (Auto) 2.3 (0-4) % Baso % (Auto) 0.6 (0-2) % Lymph # (Auto) 1.6 (1.2-4.9) X10*3/uL [place] # (Auto) 0.4 (0.1-1.2) X10*3/uL Eos # (Auto) 0.1 (0.0-0.4) X10*3/uL Baso # (Auto) 0.0 (0.0-0.2) X10*3/uL Abs Immat Gran (auto) 0.01 (0.00-0.03) X10*3/uL Absolute Neuts (auto) 2.6 (2.0-8.3) x10*3/uL Absolute Nucleated RBC 0.000 (0.0-0.012) X10*3/uL Nucleated RBC % (auto) 0.0 (0.0-0.2) /100WBC PT 11.0 L (11.1-13.3) SEC INR 0.9 (0.9-1.1) D-Dimer High Sensitivty 191 NG/ML Sodium 146 H (135-145) mmol/L Potassium 3.4 D (3.3-5.1) mmol/L Chloride 113 H (96-108) mmol/L Carbon Dioxide 21 L (22-29) mmol/L Anion Gap 15 (12-20) BUN 12 (9-16) mg/dL Creatinine 0.71 (0.5-1.4) mg/dL Estim Creat Clear Calc 74.0 Estimated GFR > 60 Random Glucose 113 (60-115) mg/dL Calcium 9.0 (8.4-10.2) mg/dL Magnesium 2.3 (1.6-2.6) mg/dL Total Bilirubin 0.2 (0.0-1.0) mg/dL AST 19 (5-31) U/L ALT 15 (0-31) U/L Alkaline Phosphatase 87 (39-117) U/L Troponin I High Sens 3.5 3.3 (<3.5-17.0) ng/L Total Protein 7.0 (6.5-8.0) g/dL Albumin 4.1 (3.5-5.0) g/dL Urine Color Yellow Urine Appearance Clear Urine pH 6.0 (5.0-9.0) Ur Specific [place] <= 1.005 (1.005-1.025) Urine Protein Negative (Neg-Trace) mg/dL Urine Glucose (UA) Negative (Negative) mg/dL Urine Ketones Negative (Negative) mg/dL Urine Blood Negative (Negative) Urine Nitrite Negative (Negative) Ur Leukocyte Esterase Small (1+) H (Negative) Urine RBC 0-2 (0-2) /HPF Urine WBC 6-10 H (0-5) /HPF Ur Squamous Epith Cells 0-2 (0-2) /HPF Urine Bacteria None Seen (None Seen) Hyaline Casts 0-2 (0-2) /LPF Ethyl Alcohol 186 mg/dL COVID-19 ([facility]) Negative (Negative) COVID-19 Clin Com See Note Independent Interpretation I performed an independent interpretation of an: EKG (Vent. Rate : 051 BPM Atrial Rate : 051 BPM P-R Int : 192 ms QRS Dur : 096 ms QT Int : 538 ms P-R-T Axes : 076 -19 100 degrees QTc Int : 495 ms Sinus bradycardia Possible Left atrial enlargement Low voltage QRS Incomplete right bundle branch block Cannot rule out Inferi) and Plain X-Ray (XR/XR chest 1V IMPRESSION: Streaky bibasilar airspace opacities likely reflect atelectasis. Electronically signed by: Sadaf Salas MD 02/10/2024 05:40 PM EDT RP ) Radiology Impression Discussion of test interpretation with radiology: I have reviewed the radiologist's reading. External Record Review External record reviewed: Inpatient record, Office record, Outpatient record, Prior outpatient labs, Prior outpatient radiology, Primary care record and Outside ED record Discharge Plan Discharge Clinical Impression: Chest pain, Alcohol intoxication Patient Disposition: Home, Self-Care Instructions: Abuse of Alcohol (DC), Alcohol Intoxication (ED), Chest Pain (ED) Additional Instructions: Take your medications as prescribed. If you were prescribed antibiotics today, it is important that you take your medication to their entirety, do not skip any doses, do not finish them early. Follow-up with your primary care provider this week. Return to the emergency department with new or worsening symptoms. Such as fevers, chills, chest pain, shortness of breath, nausea, vomiting, dizziness, headache, vision changes, lethargy In case of emergency call 911 Prescriptions: No Action omeprazole 40 mg Capsule,Delayed Release(Dr/Ec) 40 mg PO DAILY@0630 30 Days Qty: 30 0RF furosemide 20 mg Tablet 20 mg PO DAILY PRN (Reason: edema) 30 Days Qty: 30 0RF Protocol: Hold for SBP< HOLD for SBP < : 90 duloxetine 60 mg Capsule,Delayed Release(Dr/Ec) 60 mg PO BID 30 Days Qty: 60 0RF diazepam 5 mg tablet 5 mg PO DAILY PRN (Reason: Anxiety) cyclobenzaprine 10 mg tablet 10 mg PO BID PRN (Reason: Muscle Spasm) diphenhydramine HCl 25 mg Tablet 25 mg PO BEDTIME acetaminophen [Tylenol Extra Strength] 500 mg tablet 1,000 mg PO Q8H PRN (Reason: Pain, Moderate) naltrexone 50 mg tablet 50 mg PO DAILY olanzapine 5 mg tablet 5 mg PO DAILY lorazepam [Ativan] 1 mg tablet 1 mg PO BID PRN (Reason: anxiety) Qty: 20 0RF hydroxyzine HCl 25 mg tablet 25 mg PO BEDTIME olanzapine [Zyprexa] 20 mg tablet 20 mg PO DAILY amlodipine 5 mg Tablet 5 mg PO DAILY 30 Days Qty: 30 0RF Protocol: Hold for SBP< HOLD for SBP < : 90 folic acid 1 mg Tablet 1 mg PO DAILY 30 Days Qty: 30 0RF thiamine HCl (vitamin B1) 100 mg tablet 100 mg PO DAILY 30 Days Qty: 30 0RF magnesium oxide [MagOx] 400 mg (241.3 mg magnesium) tablet 400 mg PO DAILY 30 Days Qty: 30 0RF Referrals: Reinaldo Willard MD [Primary Care Provider] - 2 days Print Language: Togolese
[2024-02-10 17:06] LABS: MANUAL DIFF FLAG NO
[2024-02-10 17:08] VITALS: BP 117/50; PULSE 52; RESP 14; O2SAT 95
[2024-02-10 17:11] LABS: Basophils Percent Auto 0.6 % (0-2); Eosinophils Absolute Auto 0.1 X10*3/uL (0.0-0.4); Eosinophils Percent Auto 2.3 % (0-4); Hematocrit 36.5 % (37.0-47.0); Hemoglobin 12.4 g/dl (12.0-16.0); Imm Gran Abs Auto 0.01 X10*3/uL (0.00-0.03); Imm Gran Pct Auto 0.2 % (0.0-0.4); Lymphocytes Absolute Auto 1.6 X10*3/uL (1.2-4.9); Mean Corpuscular Hemoglobin 27.9 pg (27.0-33.0); Mean Corpuscular Volume 82.2 fL (80.0-98.0); Mean Platelet Volume 9.1 fL (9.4-12.3); Monocytes Absolute Auto 0.4 X10*3/uL (0.1-1.2); Monocytes Percent Auto 8.4 % (2-11); Neutrophils Absolute Auto 2.6 x10*3/uL (2.0-8.3); Neutrophils Percent Auto 54.5 % (45-73); Platelet Count 237 X10*3/uL (160-400); Red Blood Count 4.44 X10*6/uL (4.20-5.50); Red Cell Distribution Width 15.8 % (11.0-16.0); White Blood Count 4.8 X10*3/uL (4.8-10.8)
[2024-02-10 17:19] LABS: Ethanol 186 mg/dL; INTERNATIONAL NORM RATIO 0.9 (0.9-1.1)
[2024-02-10 17:20] LABS: Appearance Urine Clear; Color Urine Yellow; Glucose Urine UA Negative (Negative); Leukocyte Esterase Urine Small (1+) (Negative); Nitrite Urine Negative (Negative); Specific Gravity - Urine <= 1.005 (1.005-1.025); UMIC TRIGGER UACC YES; Urine Blood Negative (Negative); Urine Ketones Negative (Negative); Urine Protein Negative (Neg-Trace)
[2024-02-10 17:22] LABS: Alanine Aminotransferase 15 U/L (0-31); Albumin Level 4.1 g/dL (3.5-5.0); Alkaline Phosphatase 87 U/L (39-117); Anion Gap 15 (12-20); Aspartate Amino Transferase 19 U/L (5-31); Bilirubin Total 0.2 mg/dL (0.0-1.0); Blood Urea Nitrogen 12 mg/dL (9-16); Carbon Dioxide 21 mmol/L (22-29); Chloride 113 mmol/L (96-108); Estimated Glomerular Filt Rate > 60; Glucose Random 113 mg/dL (60-115); Magnesium 2.3 mg/dL (1.6-2.6); Potassium 3.4 mmol/L (3.3-5.1); Sodium 146 mmol/L (135-145)
[2024-02-10 17:29] LABS: Troponin-I High Sensitivity 3.5 ng/L (<3.5-17.0)
[2024-02-10 17:36] LABS: COVID-19 Test Negative (Negative); IDNOW Serial# 08D9AD1C
[2024-02-10 17:36] LABS: Bacteria Urine None Seen (None Seen); Hyaline Casts Urine 0-2 /LPF (0-2); RBC Urine 0-2 /HPF (0-2); Squamous Epithelial Cell Urine 0-2 /HPF (0-2); UACC Culture Trigger YES
[2024-02-10] MEDS: LORazepam 2 MG/ML VIAL 1 MG IVPUSH (17:49)
[2024-02-10 19:51] VITALS: BP 99/48; PULSE 48; RESP 16; TEMP 36.9; O2SAT 96
[2024-02-10 20:00] VITALS: PULSE 58
[2024-02-10 20:26] LABS: D Dimer High Sensitivity 191 NG/ML
[2024-02-10] MEDS: 0.9 % Sodium Chloride 1,000 ML 999 ML IV (20:31)
[2024-02-10 22:06] LABS: Troponin-I High Sensitivity 3.3 ng/L (<3.5-17.0)
[2024-02-10 22:10] VITALS: BP 123/49; PULSE 53; RESP 20; O2SAT 98
[2024-02-10] MEDS: LORazepam 0.5 MG TABLET PO (23:11)
--- NOTE | 2024-02-10 23:30 | PC.NURSE ---
pt states needs lyft home doesnt have a cell phone or anyone to call. [employer] able to book lyft pt educated on d/c paperwork and verbalizes understanding. axox4 ambulatory with steady gait.
[2024-02-10 23:31] VITALS: BP 123/49; PULSE 53; RESP 20; TEMP 36.6; O2SAT 98
== END 2024-02-10 23:32 | disposition home or self-care (01) ==
PROVIDERS: Physician Assistant; Emergency Provider Emergency Medicine Emergency Medical Services; PCP Family Medicine
DX: F10.220 Alcohol dependence with intoxication, uncomplicated (principal); Y90.6 Blood alcohol level of 120-199 mg/100 ml; R07.9 Chest pain, unspecified; R06.02 Shortness of breath; F41.9 Anxiety disorder, unspecified; Z11.52 Encounter for screening for COVID-19; I10 Essential (primary) hypertension; I45.10 Unspecified right bundle-branch block; Z79.899 Other long term (current) drug therapy
CPT/HCPCS: 36415; 71045; 80053; 80307; 81001; 83735; 84484; 85025; 85379; 85610; 87086; 87635; 93005; 96361; 96374; 99285; J2060

== ENCOUNTER 2024-02-12 09:13 | Emergency (ER) | payer MEDICARE, SELFPAY ==
--- NOTE | 2024-02-12 | ECG_ITS ---
Test Reason : CHEST PAIN Blood Pressure : / mmHG Vent. Rate : 056 BPM Atrial Rate : 056 BPM P-R Int : 196 ms QRS Dur : 098 ms QT Int : 482 ms P-R-T Axes : 074 -12 089 degrees QTc Int : 465 ms Sinus bradycardia Possible Left atrial enlargement Low voltage QRS Incomplete right bundle branch block Borderline ECG When compared with ECG of 10-FEB-2024 16:40, No significant change was found Referred By: Generic ED Physician Electronically Signed By:KATHRYN TO
[2024-02-12 09:15] VITALS: BP 128/78; BP 143/65; PULSE 58; PULSE 62; RESP 16; TEMP 36.4; O2SAT 95; O2SAT 97; BMI 26.5
--- NOTE | 2024-02-12 09:15 | PC.NURSE ---
a&ox4. vss and up to date. pt biba from home d/t - anxiety attack. pt reporting substernal chest pain radiating to LUE/back x last night. did not sleep. took 40mg of buspar for anxiety w/o relief. upon ED arrival - no sob/wob noted. ekg/labs obtained/sent to lab by tech. respirations even/unlabored. plan of care ongoing. call ribera placed within reach.
[2024-02-12 09:40] LABS: MANUAL DIFF FLAG NO
[2024-02-12 09:43] LABS: Basophils Percent Auto 0.7 % (0-2); Eosinophils Absolute Auto 0.1 X10*3/uL (0.0-0.4); Eosinophils Percent Auto 2.6 % (0-4); Hematocrit 35.3 % (37.0-47.0); Hemoglobin 11.9 g/dl (12.0-16.0); Lymphocytes Absolute Auto 1.1 X10*3/uL (1.2-4.9); Lymphocytes Percent Auto 34.4 % (20-40); Mean Corpuscular HGB Conc 33.7 g/dl (31.0-35.0); Mean Corpuscular Hemoglobin 27.7 pg (27.0-33.0); Mean Corpuscular Volume 82.1 fL (80.0-98.0); Mean Platelet Volume 8.8 fL (9.4-12.3); Monocytes Absolute Auto 0.2 X10*3/uL (0.1-1.2); Monocytes Percent Auto 7.2 % (2-11); Neutrophils Absolute Auto 1.7 x10*3/uL (2.0-8.3); Neutrophils Percent Auto 55.1 % (45-73); Platelet Count 212 X10*3/uL (160-400); White Blood Count 3.1 X10*3/uL (4.8-10.8)
--- NOTE | 2024-02-12 09:55 | ED_ITS ---
HPI - Anxiety General Chief Complaint: Anxiety Stated Complaint: ANXIETY SUINCE LAST NIGHT,MEDS NOT WORKING PER EMS Time Seen by Provider: 02/12/24 09:25 Source: patient Mode of arrival: EMS Limitations: no limitations History of Present Illness HPI narrative: 73 years old female with history of anxiety disorder brought in complaining of an anxiety attack she states she was not able to sleep last night she is also complaining of some sternal chest pain she took BuSpar without relief complaint: anxiety Onset (ago): hour(s) (12) Symptoms: chest pain Severity: moderate Quality: constant Place: home Provoking factors: none known Relieving factors: nothing Related Data Home Medications ?Medication ?Instructions ?Recorded ?Confirmed acetaminophen 500 mg tablet 1,000 mg PO Q8H PRN Pain, Moderate 06/16/22 02/23/23 (Tylenol Extra Strength) cyclobenzaprine 10 mg tablet 10 mg PO BID PRN Muscle Spasm 06/16/22 02/23/23 diazepam 5 mg tablet 5 mg PO DAILY PRN Anxiety 06/16/22 02/23/23 diphenhydramine HCl 25 mg tablet 25 mg PO BEDTIME 06/16/22 02/23/23 hydroxyzine HCl 25 mg tablet 25 mg PO BEDTIME 10/09/22 02/23/23 olanzapine 20 mg tablet (Zyprexa) 20 mg PO DAILY 10/09/22 02/23/23 naltrexone 50 mg tablet 50 mg PO DAILY 02/23/23 02/23/23 olanzapine 5 mg tablet 5 mg PO DAILY 02/23/23 02/23/23 Previous Rx's ?Medication ?Instructions ?Recorded duloxetine 60 mg capsule,delayed 60 mg PO BID 30 days #60 caps 11/26/21 release furosemide 20 mg tablet 20 mg PO DAILY PRN edema 30 days 11/26/21 #30 tabs omeprazole 40 mg capsule,delayed 40 mg PO DAILY@0630 30 days #30 11/26/21 release caps amlodipine 5 mg tablet 5 mg PO DAILY 30 days #30 tabs 10/14/22 folic acid 1 mg tablet 1 mg PO DAILY 30 days #30 tabs 10/14/22 magnesium oxide 400 mg (241.3 mg 400 mg PO DAILY 30 days #30 tabs 10/14/22 magnesium) tablet (MagOx) thiamine HCl (vitamin B1) 100 mg 100 mg PO DAILY 30 days #30 tabs 10/14/22 tablet lorazepam 1 mg tablet (Ativan) 1 mg PO BID PRN anxiety #20 tabs 11/20/23 Allergies Allergy/AdvReac Type Severity Reaction Status Date / Time sulfamethoxazole Allergy Mild FEVER Verified 02/12/24 09:20 [From BACTRIM] trimethoprim [From BACTRIM] Allergy Mild FEVER Verified 02/12/24 09:20 cephalexin [Keflex] Allergy Unknown Rash Verified 02/12/24 09:20 Sulfa (Sulfonamide Allergy Unknown Fever Verified 02/12/24 09:20 Antibiotics) tramadol [Ultram] Allergy Unknown Unknown Verified 02/12/24 09:20 mold Allergy Unknown Headache Uncoded 02/12/24 09:20 pollen Allergy Unknown Headache Uncoded 02/12/24 09:20 Review of Systems 2 Constitutional: Constitutional: Reports no additional constitutional complaints ENT: Reports system reviewed and no additional complaints, except as documented Respiratory: Respiratory: Reports no additional respiratory complaints PMFSH Past Medical History Medical History Hypomagnesemia Alcohol dependence Bipolar disorder Endometriosis Alcohol use with withdrawal Anxiety Fracture of distal end of right fibula Hypertension Mood disorder Routine medical exam Social History Social History Household Members: None Household Members Other:: Cat Housing: House Do you presently have visiting nurse or other home services: Yes Alcohol intake: current Alcohol intake frequency: a few times a week Alcohol type: beer and hard liquor Comment: Pt refusing bed/chair alarms Patient Tobacco Use Status: Never used Tobacco Tobacco use type: Cigarette e-Cigarette/Vaping Use: Never Used Second Hand Smoke Exposure: No Advance Directives: Yes Advance Directives on File: Yes Advance Directives Date on File: 06/16/22 Do you have a plan to hurt others: No Plan service: No Current occupational status: unemployed Sexual orientation: Straight/Heterosexual Physical Exam 2 Vital Signs: Vital Signs: Last Vital Signs Temp 97.9 F 02/12/24 12:46 Pulse 54 02/12/24 12:46 Resp 16 02/12/24 12:46 BP 136/66 02/12/24 12:46 Pulse Ox 98 02/12/24 12:46 O2 Del Method Room Air 02/12/24 12:46 BMI result Body Mass Index 26.5 Not acute distress Const: General: cooperative Nutritional Appearance: average body habitus Orientation/consciousness: patient oriented x3 HEENT: Head: Yes normal to inspection General nose exam: Normal external nose present Face and sinus: Yes normal facial exam Throat: Yes posterior oropharynx normal Neck: Neck: Yes normal visual inspection and Yes full ROM Chest: Chest palpation & inspection: normal inspection of the chest Resp: Effort & Inspection: normal respiratory effort Cardio: Jugular venous distension: no JVD Rate: regular rate Rhythm: r egular rhythm GI: Inspection: Yes normal to inspection Palpation (GI): Soft to palpation, not firm, nontender and no guarding Auscultation: normal bowel sounds Skin: General skin exam: elasticity normal Neuro: General: patient oriented x3 Course Reevaluation(s) Reevaluation #1: Patient is doing much better calm cooperative troponin is negative, she received Ativan she is feeling better, the initial hypernatremia is downtrending 148 to 146 at this time the patient can be safely discharged home she is comfortable with this. Time: 14:19 Medications Administered Generic Name Dose Route Start Last Admin Trade Name Freq PRN Reason Stop Dose Admin Sodium Chloride 1,000 mls @ 500 mls/hr 02/12/24 11:00 02/12/24 15:35 Sodium Chloride 0.45 % IVCONT Not Given .Q2H KATHLEEN Discontinued Medications Generic Name Dose Route Start Last Admin Trade Name Freq PRN Reason Stop Dose Admin Lorazepam 1 mg 02/12/24 09:55 02/12/24 10:42 Lorazepam 1 Mg Tablet PO 02/12/24 09:56 1 mg ONCE ONE Administration Lorazepam 0.5 mg 02/12/24 14:59 02/12/24 15:03 Lorazepam 0.5 Mg Tablet PO 02/12/24 15:00 0.5 mg ONCE ONE Administration Medical Decision Making Medical Decision Making MDM Narrative: Patient presented with weakness and anxiety will check lab Differential Diagnosis Differential Diagnoses: The differential diagnosis associated with the presentation includes Anxiety/ACS Admission/Observation Consideration of admission/observation: Escalation of care including admission/observation considered Lab Data MDM Lab Attestation statement: I reviewed the patient's lab results. 02/12/24 09:36 02/12/24 13:39 Labs: Lab Results 02/12/24 02/12/24 Range/Units 09:36 13:39 WBC 3.1 L (4.8-10.8) X10*3/uL RBC 4.30 (4.20-5.50) X10*6/uL Hgb 11.9 L (12.0-16.0) g/dl Hct 35.3 L (37.0-47.0) % MCV 82.1 (80.0-98.0) fL MCH 27.7 (27.0-33.0) pg MCHC 33.7 (31.0-35.0) g/dl RDW 16.0 (11.0-16.0) % Plt Count 212 (160-400) X10*3/uL MPV 8.8 L (9.4-12.3) fL Immature Gran % (Auto) 0.0 (0.0-0.4) % Neut % (Auto) 55.1 (45-73) % Lymph % (Auto) 34.4 (20-40) % [place] % (Auto) 7.2 (2-11) % Eos % (Auto) 2.6 (0-4) % Baso % (Auto) 0.7 (0-2) % Lymph # (Auto) 1.1 L (1.2-4.9) X10*3/uL [place] # (Auto) 0.2 (0.1-1.2) X10*3/uL Eos # (Auto) 0.1 (0.0-0.4) X10*3/uL Baso # (Auto) 0.0 (0.0-0.2) X10*3/uL Abs Immat Gran (auto) 0.00 (0.00-0.03) X10*3/uL Absolute Neuts (auto) 1.7 L (2.0-8.3) x10*3/uL Absolute Nucleated RBC 0.000 (0.0-0.012) X10*3/uL Nucleated RBC % (auto) 0.0 (0.0-0.2) /100WBC Sodium 148 H 146 H (135-145) mmol/L Potassium 3.5 3.8 (3.3-5.1) mmol/L Chloride 114 H 111 H (96-108) mmol/L Carbon Dioxide 23 24 (22-29) mmol/L Anion Gap 15 15 (12-20) BUN 13 12 (9-16) mg/dL Creatinine 0.77 0.72 (0.5-1.4) mg/dL Estim Creat Clear Calc 68.2 72.9 Estimated GFR > 60 > 60 Random Glucose 107 97 (60-115) mg/dL Calcium 8.9 9.2 (8.4-10.2) mg/dL Total Bilirubin 0.2 (0.0-1.0) mg/dL AST 17 (5-31) U/L ALT 15 (0-31) U/L Alkaline Phosphatase 84 (39-117) U/L Troponin I High Sens 2.8 (<3.5-17.0) ng/L Total Protein 6.8 (6.5-8.0) g/dL Albumin 4.0 (3.5-5.0) g/dL Independent Interpretation I performed an independent interpretation of an: EKG (Normal sinus rhythm 56 incomplete right bundle branch block unchanged from prior) Independent Historian Clinical information obtained from an independent historian. History obtained from or confirmed by: EMS External Record Review External record reviewed: Inpatient record Chronic Conditions Anxiety Discharge Plan Discharge Clinical Impression: Anxiety, Acute hypernatremia Patient Disposition: Home, Self-Care Instructions: Anxiety (ED) Prescriptions: No Action omeprazole 40 mg Capsule,Delayed Release(Dr/Ec) 40 mg PO DAILY@0630 30 Days Qty: 30 0RF furosemide 20 mg Tablet 20 mg PO DAILY PRN (Reason: edema) 30 Days Qty: 30 0RF Protocol: Hold for SBP< HOLD for SBP < : 90 duloxetine 60 mg Capsule,Delayed Release(Dr/Ec) 60 mg PO BID 30 Days Qty: 60 0RF diazepam 5 mg tablet 5 mg PO DAILY PRN (Reason: Anxiety) cyclobenzaprine 10 mg tablet 10 mg PO BID PRN (Reason: Muscle Spasm) diphenhydramine HCl 25 mg Tablet 25 mg PO BEDTIME acetaminophen [Tylenol Extra Strength] 500 mg tablet 1,000 mg PO Q8H PRN (Reason: Pain, Moderate) naltrexone 50 mg tablet 50 mg PO DAILY olanzapine 5 mg tablet 5 mg PO DAILY lorazepam [Ativan] 1 mg tablet 1 mg PO BID PRN (Reason: anxiety) Qty: 20 0RF hydroxyzine HCl 25 mg tablet 25 mg PO BEDTIME olanzapine [Zyprexa] 20 mg tablet 20 mg PO DAILY amlodipine 5 mg Tablet 5 mg PO DAILY 30 Days Qty: 30 0RF Protocol: Hold for SBP< HOLD for SBP < : 90 folic acid 1 mg Tablet 1 mg PO DAILY 30 Days Qty: 30 0RF thiamine HCl (vitamin B1) 100 mg tablet 100 mg PO DAILY 30 Days Qty: 30 0RF magnesium oxide [MagOx] 400 mg (241.3 mg magnesium) tablet 400 mg PO DAILY 30 Days Qty: 30 0RF Referrals: Reinaldo Willard MD [Primary Care Provider] - 2 days Print Language: Macedonian
[2024-02-12 10:01] LABS: Alanine Aminotransferase 15 U/L (0-31); Alkaline Phosphatase 84 U/L (39-117); Anion Gap 15 (12-20); Aspartate Amino Transferase 17 U/L (5-31); Bilirubin Total 0.2 mg/dL (0.0-1.0); Blood Urea Nitrogen 13 mg/dL (9-16); Calcium 8.9 mg/dL (8.4-10.2); Carbon Dioxide 23 mmol/L (22-29); Chloride 114 mmol/L (96-108); Creatinine Clr Calc Pharmacy 68.2; Estimated Glomerular Filt Rate > 60; Glucose Random 107 mg/dL (60-115); Potassium 3.5 mmol/L (3.3-5.1); Sodium 148 mmol/L (135-145); Total Protein 6.8 g/dL (6.5-8.0)
[2024-02-12 10:06] LABS: Troponin-I High Sensitivity 2.8 ng/L (<3.5-17.0)
[2024-02-12] MEDS: LORazepam 1 MG TABLET PO (10:42)
[2024-02-12] MEDS: Sodium Chloride 0.45 % 1,000 ML 500 ML IVCONT ×2 (10:53→12:07)
--- NOTE | 2024-02-12 10:54 | PC.NURSE ---
pt verbalizing increase in anxiety - medicated per provider order. 20gIV also placed in the right AC - IVF administered per provider order. pt continues to rest comfortably in no apparent distress. no sob/wob noted. respirations remain even/unlabored. plan of care ongoing.
[2024-02-12 12:46] VITALS: BP 136/66; PULSE 54; RESP 16; TEMP 36.6; O2SAT 98
--- NOTE | 2024-02-12 13:34 | PC.NURSE ---
repeat BMP obtained/sent to lab by tech.
[2024-02-12 14:01] LABS: Anion Gap 15 (12-20); Blood Urea Nitrogen 12 mg/dL (9-16); Calcium 9.2 mg/dL (8.4-10.2); Carbon Dioxide 24 mmol/L (22-29); Chloride 111 mmol/L (96-108); Creatinine Clr Calc Pharmacy 72.9; Estimated Glomerular Filt Rate > 60; Glucose Random 97 mg/dL (60-115); Potassium 3.8 mmol/L (3.3-5.1); Sodium 146 mmol/L (135-145)
[2024-02-12] MEDS: LORazepam 0.5 MG TABLET PO (15:03)
[2024-02-12 15:57] VITALS: BP 158/68; PULSE 84; RESP 16; TEMP 36.1; O2SAT 94
--- NOTE | 2024-02-12 15:57 | PC.NURSE ---
david arranged via coordinator, SYMONE Cárdenas at this time. pt leaving [facility].
[2024-02-12 15:58] VITALS: BP 158/68; PULSE 84; RESP 16; TEMP 36.1; O2SAT 94
== END 2024-02-12 15:59 | disposition home or self-care (01) ==
PROVIDERS: Emergency Provider Emergency Medicine; PCP Family Medicine
DX: F41.9 Anxiety disorder, unspecified (principal); E87.0 Hyperosmolality and hypernatremia; R07.89 Other chest pain; R00.1 Bradycardia, unspecified; Z79.899 Other long term (current) drug therapy
CPT/HCPCS: 36415; 80048; 80053; 84484; 85025; 93005; 99283; 99284

== ENCOUNTER 2024-02-18 10:55 | Emergency (ER) | payer MEDICARE, SELFPAY ==
--- NOTE | 2024-02-18 | ECG_ITS ---
Test Reason : CP Blood Pressure : / mmHG Vent. Rate : 057 BPM Atrial Rate : 057 BPM P-R Int : 186 ms QRS Dur : 084 ms QT Int : 470 ms P-R-T Axes : 080 -15 073 degrees QTc Int : 457 ms Sinus bradycardia Possible Left atrial enlargement Possible Inferior infarct , age undetermined Abnormal ECG When compared with ECG of 12-FEB-2024 09:19, No significant change was found Referred By: Generic ED Physician Electronically Signed By:KATHRYN TO
--- NOTE | ~2024-02-18 | XR_ITS ---
EXAMINATION: XR CHEST CLINICAL INFORMATION: Chest pain, weakness. COMPARISON: Chest radiograph dated 02/10/2024. TECHNIQUE: 2 views of the chest were obtained. FINDINGS: No airspace consolidation. No pleural effusion or pneumothorax. Stable cardiac mediastinal silhouette. Partially visualized cervical spine orthopedic hardware. Right upper quadrant surgical clips. XR/XR chest 2V IMPRESSION: No acute cardiopulmonary findings. Electronically signed by: Laci Berry MD 02/18/2024 12:42 PM EDT
[2024-02-18 10:58] VITALS: BP 128/55; PULSE 60; O2SAT 99
[2024-02-18 11:03] VITALS: BP 162/55; PULSE 58; RESP 18; TEMP 37; O2SAT 98; BMI 25.7
[2024-02-18 11:18] LABS: MANUAL DIFF FLAG NO
[2024-02-18 11:23] LABS: Basophils Percent Auto 0.5 % (0-2); Eosinophils Percent Auto 0.6 % (0-4); Hematocrit 42.4 % (37.0-47.0); Hemoglobin 14.1 g/dl (12.0-16.0); Imm Gran Abs Auto 0.01 X10*3/uL (0.00-0.03); Imm Gran Pct Auto 0.2 % (0.0-0.4); Lymphocytes Absolute Auto 1.2 X10*3/uL (1.2-4.9); Lymphocytes Percent Auto 18.9 % (20-40); Mean Corpuscular HGB Conc 33.3 g/dl (31.0-35.0); Mean Corpuscular Hemoglobin 27.8 pg (27.0-33.0); Mean Corpuscular Volume 83.5 fL (80.0-98.0); Mean Platelet Volume 9.1 fL (9.4-12.3); Monocytes Absolute Auto 0.3 X10*3/uL (0.1-1.2); Monocytes Percent Auto 5.5 % (2-11); Neutrophils Absolute Auto 4.6 x10*3/uL (2.0-8.3); Neutrophils Percent Auto 74.3 % (45-73); Platelet Count 280 X10*3/uL (160-400); Red Blood Count 5.08 X10*6/uL (4.20-5.50); Red Cell Distribution Width 15.6 % (11.0-16.0); White Blood Count 6.2 X10*3/uL (4.8-10.8)
[2024-02-18 11:43] LABS: Troponin-I High Sensitivity 3.5 ng/L (<3.5-17.0)
[2024-02-18 11:48] LABS: Alanine Aminotransferase 14 U/L (0-31); Albumin Level 4.5 g/dL (3.5-5.0); Alkaline Phosphatase 107 U/L (39-117); Anion Gap 15 (12-20); Aspartate Amino Transferase 17 U/L (5-31); Bilirubin Total 0.5 mg/dL (0.0-1.0); Blood Urea Nitrogen 14 mg/dL (9-16); Calcium 9.6 mg/dL (8.4-10.2); Carbon Dioxide 24 mmol/L (22-29); Chloride 108 mmol/L (96-108); Creatinine Clr Calc Pharmacy 58.1; Estimated Glomerular Filt Rate > 60; Glucose Random 127 mg/dL (60-115); Sodium 143 mmol/L (135-145); Total Protein 7.8 g/dL (6.5-8.0)
[2024-02-18 12:21] VITALS: PULSE 54
[2024-02-18 12:28] LABS: D Dimer High Sensitivity 217 NG/ML
--- NOTE | 2024-02-18 12:56 | ED.CHESTPAIN ---
HPI - Chest Pain General Chief Complaint: Chest Pain Stated Complaint: L CP,H/O ANXIETY PER EMS Time Seen by Provider: 02/18/24 11:51 Source: patient Mode of arrival: ambulatory Limitations: no limitations History of Present Illness ED Provider: DR. Leos HPI narrative: 73-year-old female history of anxiety came in for evaluation of left-sided chest pain started last night at 20:00 pain with on the left chest radiating to her left shoulder and left neck area, no shortness of breath, no other associated symptoms, patient feel anxious because tomorrow is her [facility]th [facility] anniversary and patient feels lonely, no SI, no HI, no hallucination. Pain now is better, no lower extremity swelling, no chest pain now. Related Data Home Medications ?Medication ?Instructions ?Recorded ?Confirmed acetaminophen 500 mg tablet 1,000 mg PO Q8H PRN Pain, Moderate 06/16/22 02/23/23 (Tylenol Extra Strength) cyclobenzaprine 10 mg tablet 10 mg PO BID PRN Muscle Spasm 06/16/22 02/23/23 diazepam 5 mg tablet 5 mg PO DAILY PRN Anxiety 06/16/22 02/23/23 diphenhydramine HCl 25 mg tablet 25 mg PO BEDTIME 06/16/22 02/23/23 hydroxyzine HCl 25 mg tablet 25 mg PO BEDTIME 10/09/22 02/23/23 olanzapine 20 mg tablet (Zyprexa) 20 mg PO DAILY 10/09/22 02/23/23 naltrexone 50 mg tablet 50 mg PO DAILY 02/23/23 02/23/23 olanzapine 5 mg tablet 5 mg PO DAILY 02/23/23 02/23/23 Previous Rx's ?Medication ?Instructions ?Recorded duloxetine 60 mg capsule,delayed 60 mg PO BID 30 days #60 caps 11/26/21 release furosemide 20 mg tablet 20 mg PO DAILY PRN edema 30 days 11/26/21 #30 tabs omeprazole 40 mg capsule,delayed 40 mg PO DAILY@0630 30 days #30 11/26/21 release caps amlodipine 5 mg tablet 5 mg PO DAILY 30 days #30 tabs 10/14/22 folic acid 1 mg tablet 1 mg PO DAILY 30 days #30 tabs 10/14/22 magnesium oxide 400 mg (241.3 mg 400 mg PO DAILY 30 days #30 tabs 10/14/22 magnesium) tablet (MagOx) thiamine HCl (vitamin B1) 100 mg 100 mg PO DAILY 30 days #30 tabs 10/14/22 tablet lorazepam 1 mg tablet (Ativan) 1 mg PO BID PRN anxiety #20 tabs 11/20/23 Allergies Allergy/AdvReac Type Severity Reaction Status Date / Time sulfamethoxazole Allergy Mild FEVER Verified 02/18/24 11:04 [From BACTRIM] trimethoprim [From BACTRIM] Allergy Mild FEVER Verified 02/18/24 11:04 cephalexin [Keflex] Allergy Unknown Rash Verified 02/18/24 11:04 Sulfa (Sulfonamide Allergy Unknown Fever Verified 02/18/24 11:04 Antibiotics) tramadol [Ultram] Allergy Unknown Unknown Verified 02/18/24 11:04 mold Allergy Unknown Headache Uncoded 02/12/24 09:20 pollen Allergy Unknown Headache Uncoded 02/12/24 09:20 Review of Systems Review of Systems: All other systems are reviewed and are negative Constitutional: Reports as per HPI and Reports no additional constitutional complaints Eyes: Reports as per HPI and Reports no additional eye complaints Reports system reviewed and no additional complaints, except as documented Cardiovascular: Reports as per HPI and Reports no additional cardiovascular complaints Respiratory: Reports as per HPI and Reports no additional respiratory complaints Gastrointestinal: Reports as per HPI and Reports no additional gastrointestinal complaints Genitourinary: Reports no additional female genitourinary complaints Musculoskeletal: Reports no additional musculoskeletal complaints Skin/Breast: Reports system reviewed and no additional complaints, except as docu Psychiatric: Reports no additional psychiatric complaints Endocrine: Reports no additional endocrine complaints Hematologic/Lymphatic: Reports no additional hematologic/lymphatic complaints Allergic/Immunologic: Reports no additional allergic/immunologic complaints Reports system reviewed and no additional complaints, except as documented and Reports Abnormal speech present [facility] Past Medical History Medical History Hypomagnesemia Alcohol dependence Bipolar disorder Endometriosis Alcohol use with withdrawal Anxiety Fracture of distal end of right fibula Hypertension Mood disorder Routine medical exam Social History Social History Household Members: None Household Members Other:: Cat Housing: House Do you presently have visiting nurse or other home services: Yes Alcohol intake: current Alcohol intake frequency: 3 or more drinks per day Alcohol type: beer Comment: Pt refusing bed/chair alarms Patient Tobacco Use Status: Never used Tobacco Tobacco use type: Cigarette Smoked in Last 30 Days: No e-Cigarette/Vaping Use: Never Used Second Hand Smoke Exposure: No Use of substances other than those prescribed or required for medical reasons: No Advance Directives: Yes Advance Directives on File: Yes Advance Directives Date on File: 06/16/22 service: No Current occupational status: unemployed Sexual orientation: Straight/Heterosexual Physical Exam Vital Signs: Vital Signs: Last Vital Signs Temp 98.6 F 02/18/24 11:03 Pulse 55 02/18/24 13:50 Resp 12 02/18/24 13:50 BP 129/62 02/18/24 13:50 Pulse Ox 97 02/18/24 13:50 O2 Del Method Room Air 02/18/24 13:50 BMI result Body Mass Index 25.7 Vital signs have been reviewed and appear to be correct. Blood pressure elevated. Heart rate normal. Respiratory rate normal. Temperature normal. Oxygen saturation normal. Appearance: Anxious, Alert. Oriented X3. No acute distress. Head: Normal external exam. Normocephalic. Atraumatic. No Culp signs noted. No raccoon eyes noted Eyes: PERRLA. EOMI. Conjunctiva and sclera normal. Eyelids normal. ENT: TM's Normal. Pharynx normal. Uvula midline. Moist mucous membranes. No trismus noted. No drooling noted. No muffled voice noted. Neck: Normal inspection. Neck supple. FROM. No adenopathy. Thyroid Normal. No meningeal signs. No neck mass noted. CVS: Normal heart rate and rhythm. Heart sound normal. No murmurs noted. Pulses normal throughout. Respiratory: No respiratory distress. Painless inspiration. Breath sounds normal. No wheezes/rales/rhonchi noted. Chest nontender. No accessory muscle usage noted or decreased air movement noted. Abdomen: Soft and nontender. Bowel sounds normal in all 4 quadrants. No distention noted. No organomegaly noted. No visible injury noted. Back: No CVA tenderness. Full range of motion noted. Skin: Skin warm and dry. Normal skin color. Normal skin turgor. No rashes/lesions/lacerations noted. Extremities: No lower extremity edema. Extremities exhibit normal range of motion. Extremities nontender. Neuro: Oriented X 3. Cranial nerve exam: II-XII are grossly intact No motor deficit. No sensory deficit. Reflexes normal. Course Reevaluation(s) Reevaluation #1: anxiety, chest pain, no EKG changes, troponin is negative x2, no risk for pulmonary embolism with negative D-dimer. Patient's anxiety has improved after Ativan was given in the emergency department. Will reassure and discharge home. Time: 15:10 Medications Administered Discontinued Medications Generic Name Dose Route Start Last Admin Trade Name Freq PRN Reason Stop Dose Admin Sodium Chloride 1,000 mls @ 999 mls/hr 02/18/24 12:58 02/18/24 13:49 Ns IV 02/18/24 13:58 999 mls/hr .Q1H1M ONE Administration Lorazepam 1 mg 02/18/24 12:58 02/18/24 13:06 Lorazepam 1 Mg Tablet PO 02/18/24 12:59 1 mg ONCE ONE Administration Medical Decision Making Differential Diagnosis Differential Diagnoses: The differential diagnosis associated with the presentation includes ( Anxiety, depression, SI, HI, ACS, pulmonary embolism, pneumonia, pneumothorax, pleural effusion , electrolyte derangement, severe anemia.) Admission/Observation Consideration of admission/observation: Escalation of care including admission/observation considered Lab Data MDM Lab Attestation statement: I reviewed the patient's lab results. 02/18/24 11:13 02/18/24 11:13 Labs: Lab Results 02/18/24 02/18/24 02/18/24 Range/Units 11:13 12:16 13:54 WBC 6.2 (4.8-10.8) X10*3/uL RBC 5.08 (4.20-5.50) X10*6/uL Hgb 14.1 (12.0-16.0) g/dl Hct 42.4 D (37.0-47.0) % MCV 83.5 (80.0-98.0) fL MCH 27.8 (27.0-33.0) pg MCHC 33.3 (31.0-35.0) g/dl RDW 15.6 (11.0-16.0) % Plt Count 280 D (160-400) X10*3/uL MPV 9.1 L (9.4-12.3) fL Immature Gran % (Auto) 0.2 (0.0-0.4) % Neut % (Auto) 74.3 H (45-73) % Lymph % (Auto) 18.9 L (20-40) % Gibson % (Auto) 5.5 (2-11) % Eos % (Auto) 0.6 (0-4) % Baso % (Auto) 0.5 (0-2) % Lymph # (Auto) 1.2 (1.2-4.9) X10*3/uL Gibson # (Auto) 0.3 (0.1-1.2) X10*3/uL Eos # (Auto) 0.0 (0.0-0.4) X10*3/uL Baso # (Auto) 0.0 (0.0-0.2) X10*3/uL Abs Immat Gran (auto) 0.01 (0.00-0.03) X10*3/uL Absolute Neuts (auto) 4.6 (2.0-8.3) x10*3/uL Absolute Nucleated RBC 0.000 (0.0-0.012) X10*3/uL Nucleated RBC % (auto) 0.0 (0.0-0.2) /100WBC D-Dimer High Sensitivty 217 NG/ML Sodium 143 (135-145) mmol/L Potassium 4.0 (3.3-5.1) mmol/L Chloride 108 (96-108) mmol/L Carbon Dioxide 24 (22-29) mmol/L Anion Gap 15 (12-20) BUN 14 (9-16) mg/dL Creatinine 0.89 (0.5-1.4) mg/dL Estim Creat Clear Calc 58.1 Estimated GFR > 60 Random Glucose 127 H (60-115) mg/dL Calcium 9.6 (8.4-10.2) mg/dL Total Bilirubin 0.5 (0.0-1.0) mg/dL AST 17 (5-31) U/L ALT 14 (0-31) U/L Alkaline Phosphatase 107 (39-117) U/L Troponin I High Sens 3.5 (<3.5-17.0) ng/L Total Protein 7.8 (6.5-8.0) g/dL Albumin 4.5 (3.5-5.0) g/dL Urine Color Yellow Urine Appearance Cloudy Urine pH 6.5 (5.0-9.0) Ur Specific [place] 1.015 (1.005-1.025) Urine Protein Negative (Neg-Trace) mg/dL Urine Glucose (UA) Negative (Negative) mg/dL Urine Ketones 15 (Negative) mg/dL Urine Blood Negative (Negative) Urine Nitrite Negative (Negative) Ur Leukocyte Esterase Large (3+) H (Negative) Urine RBC 0-2 (0-2) /HPF Urine WBC >50 H (0-5) /HPF Ur Squamous Epith Cells 3-5 (0-2) /HPF Urine Bacteria Trace (None Seen) Hyaline Casts 3-5 (0-2) /LPF 02/18/24 Range/Units 14:42 WBC (4.8-10.8) X10*3/uL RBC (4.20-5.50) X10*6/uL Hgb (12.0-16.0) g/dl Hct (37.0-47.0) % MCV (80.0-98.0) fL MCH (27.0-33.0) pg MCHC (31.0-35.0) g/dl RDW (11.0-16.0) % Plt Count (160-400) X10*3/uL MPV (9.4-12.3) fL Immature Gran % (Auto) (0.0-0.4) % Neut % (Auto) (45-73) % Lymph % (Auto) (20-40) % Gibson % (Auto) (2-11) % Eos % (Auto) (0-4) % Baso % (Auto) (0-2) % Lymph # (Auto) (1.2-4.9) X10*3/uL Gibson # (Auto) (0.1-1.2) X10*3/uL Eos # (Auto) (0.0-0.4) X10*3/uL Baso # (Auto) (0.0-0.2) X10*3/uL Abs Immat Gran (auto) (0.00-0.03) X10*3/uL Absolute Neuts (auto) (2.0-8.3) x10*3/uL Absolute Nucleated RBC (0.0-0.012) X10*3/uL Nucleated RBC % (auto) (0.0-0.2) /100WBC D-Dimer High Sensitivty NG/ML Sodium (135-145) mmol/L Potassium (3.3-5.1) mmol/L Chloride (96-108) mmol/L Carbon Dioxide (22-29) mmol/L Anion Gap (12-20) BUN (9-16) mg/dL Creatinine (0.5-1.4) mg/dL Estim Creat Clear Calc Estimated GFR Random Glucose (60-115) mg/dL Calcium (8.4-10.2) mg/dL Total Bilirubin (0.0-1.0) mg/dL AST (5-31) U/L ALT (0-31) U/L Alkaline Phosphatase (39-117) U/L Troponin I High Sens 3.7 (<3.5-17.0) ng/L Total Protein (6.5-8.0) g/dL Albumin (3.5-5.0) g/dL Urine Color Urine Appearance Urine pH (5.0-9.0) Ur Specific [place] (1.005-1.025) Urine Protein (Neg-Trace) mg/dL Urine Glucose (UA) (Negative) mg/dL Urine Ketones (Negative) mg/dL Urine Blood (Negative) Urine Nitrite (Negative) Ur Leukocyte Esterase (Negative) Urine RBC (0-2) /HPF Urine WBC (0-5) /HPF Ur Squamous Epith Cells (0-2) /HPF Urine Bacteria (None Seen) Hyaline Casts (0-2) /LPF Independent Interpretation I performed an independent interpretation of an: EKG ( Sinus bradycardia at 57 beats per minute, normal intervals, nonspecific T-wave inversions in no Significant change from previous EKG.) and Plain X-Ray ( Chest: No acute intrathoracic pathology.) Radiology Impression Discussion of test interpretation with radiology: I have reviewed the radiologist's reading. Chronic Conditions Patient?s care impacted by: Other ( anxiety and feeling lonely) Discharge Plan Discharge Clinical Impression: Anxiety, Atypical chest pain Patient Disposition: Home, Self-Care Instructions: Anxiety (ED) Prescriptions: No Action omeprazole 40 mg Capsule,Delayed Release(Dr/Ec) 40 mg PO DAILY@0630 30 Days Qty: 30 0RF furosemide 20 mg Tablet 20 mg PO DAILY PRN (Reason: edema) 30 Days Qty: 30 0RF Protocol: Hold for SBP< HOLD for SBP < : 90 duloxetine 60 mg Capsule,Delayed Release(Dr/Ec) 60 mg PO BID 30 Days Qty: 60 0RF diazepam 5 mg tablet 5 mg PO DAILY PRN (Reason: Anxiety) cyclobenzaprine 10 mg tablet 10 mg PO BID PRN (Reason: Muscle Spasm) diphenhydramine HCl 25 mg Tablet 25 mg PO BEDTIME acetaminophen [Tylenol Extra Strength] 500 mg tablet 1,000 mg PO Q8H PRN (Reason: Pain, Moderate) naltrexone 50 mg tablet 50 mg PO DAILY olanzapine 5 mg tablet 5 mg PO DAILY lorazepam [Ativan] 1 mg tablet 1 mg PO BID PRN (Reason: anxiety) Qty: 20 0RF hydroxyzine HCl 25 mg tablet 25 mg PO BEDTIME olanzapine [Zyprexa] 20 mg tablet 20 mg PO DAILY amlodipine 5 mg Tablet 5 mg PO DAILY 30 Days Qty: 30 0RF Protocol: Hold for SBP< HOLD for SBP < : 90 folic acid 1 mg Tablet 1 mg PO DAILY 30 Days Qty: 30 0RF thiamine HCl (vitamin B1) 100 mg tablet 100 mg PO DAILY 30 Days Qty: 30 0RF magnesium oxide [MagOx] 400 mg (241.3 mg magnesium) tablet 400 mg PO DAILY 30 Days Qty: 30 0RF Referrals: Reinaldo Willard MD [Primary Care Provider] - Print Language: Hebrew
[2024-02-18] MEDS: LORazepam 1 MG TABLET PO (13:06)
[2024-02-18] MEDS: 0.9 % Sodium Chloride 1,000 ML 999 ML IV (13:49)
[2024-02-18 13:50] VITALS: BP 129/62; PULSE 55; RESP 12; O2SAT 97
[2024-02-18 14:01] LABS: Appearance Urine Cloudy; Color Urine Yellow; Glucose Urine UA Negative (Negative); Leukocyte Esterase Urine Large (3+) (Negative); Nitrite Urine Negative (Negative); PH 6.5 (5.0-9.0); Specific Gravity - Urine 1.015 (1.005-1.025); UMIC TRIGGER UACC YES; Urine Blood Negative (Negative); Urine Ketones 15 mg/dL (Negative); Urine Protein Negative (Neg-Trace)
[2024-02-18 14:06] LABS: Bacteria Urine Trace (None Seen); RBC Urine 0-2 /HPF (0-2); UACC Culture Trigger YES; WBC Urine >50 /HPF (0-5)
[2024-02-18 15:08] LABS: Troponin-I High Sensitivity 3.7 ng/L (<3.5-17.0)
[2024-02-18 16:20] VITALS: BP 141/85; PULSE 91; RESP 18; TEMP 36.7; O2SAT 97
== END 2024-02-18 18:05 | disposition home or self-care (01) ==
PROVIDERS: Emergency Provider Emergency Medicine; PCP Family Medicine
DX: R07.89 Other chest pain (principal); F41.1 Generalized anxiety disorder; F43.0 Acute stress reaction; M54.2 Cervicalgia; M25.512 Pain in left shoulder; Z79.899 Other long term (current) drug therapy
CPT/HCPCS: 36415; 71046; 80053; 81001; 81003; 84484; 85025; 85379; 87086; 87147; 93005; 96360; 99284; 99285

== ENCOUNTER 2024-02-22 08:52 | Emergency (ER) | payer MEDICARE, SELFPAY ==
[2024-02-22] VITALS (9 sets, daily range): BP systolic 148–164; BP diastolic 62–100; PULSE 40–102; RESP 16–20; TEMP -17.7–37.3; O2SAT 96–97; BMI 26.1
--- NOTE | ~2024-02-22 | CT_ITS ---
EXAMINATION: CT ABDOMEN AND PELVIS WITH CONTRAST CLINICAL INFORMATION: Left upper quadrant and left lower quadrant tenderness. COMPARISON: CT abdomen pelvis dated December 05, 2023. TECHNIQUE: Multidetector volumetric images were obtained from the superior aspect of the liver through the pubic symphysis following administration 85 mL of Omnipaque 350 intravenous contrast. Sagittal and coronal reformatted images were obtained on the technologist's workstation. Oral contrast: No This CT examination was performed using dose optimization techniques as appropriate, variously including the following: *Automated exposure control *Adjustment of mA and/or kV according to patient size (this includes techniques or standardized protocols for targeted exams where dose is matched to indication/reason for exam; i.e. extremities or head) *Use of iterative reconstruction technique DLP: 532 mGy-cm FINDINGS: LUNG BASES: The visualized lung bases are unremarkable. There is a small pericardial effusion, similar to slightly larger than the prior examination. LIVER, GALLBLADDER, AND BILIARY TREE: The liver is normal in size, shape, and attenuation. No focal hepatic lesion or biliary ductal dilatation is present. The gallbladder is surgically absent. The common bile duct measures up to 9 mm; this is within normal limits in the postcholecystectomy state. PANCREAS: Unremarkable. SPLEEN: Unremarkable. ADRENAL GLANDS: Unremarkable. KIDNEYS AND URETERS: The kidneys are normal in size, shape, and attenuation. No hydronephrosis, hydroureter, or calculi seen. No perinephric stranding. BLADDER: Unremarkable. GASTROINTESTINAL TRACT: The small and large bowel are normal in caliber. There is no pericolonic inflammatory stranding. The appendix is not definitively identified, however, there are no inflammatory changes within the right lower quadrant to suspect acute appendicitis. ABDOMINAL WALL: No significant hernia is appreciated. LYMPH NODES: No lymphadenopathy VASCULAR: No abdominal aortic aneurysm. PELVIC VISCERA: The uterus is surgically absent. No adnexal mass. OSSEOUS STRUCTURES: There are surgical changes status post posterior fusion at L4-5. There is an intervertebral disc spacer at this level. There is mild anterolisthesis of L4 in relation L5, similar to the prior examination. CT/CT abdomen pelvis w IV con IMPRESSION: No acute intra-abdominal/intrapelvic abnormality. Incidental note is made of a small pericardial effusion, similar to slightly larger than on the prior CT examination dated December 05, 2023. Fleischner guidelines were followed. Electronically signed by: Peter Leslie DO 02/22/2024 04:15 PM EDT RP
--- NOTE | ~2024-02-22 | XR_ITS ---
EXAMINATION: XR CHEST CLINICAL INFORMATION: Chest pain COMPARISON: Chest radiograph 02/18/2024 TECHNIQUE: 2 views of the chest were obtained. FINDINGS: The lungs are well-expanded. No focal consolidation. No pleural effusions or pneumothorax. The cardiomediastinal silhouette is within normal limits. Mild degenerative changes of the visualized spine. Partially visualized cervical spinal fusion hardware. Right upper quadrant surgical clips. XR/XR chest 2V IMPRESSION: No acute pulmonary disease. Electronically signed by: Nick Soriano MD 02/22/2024 10:54 AM EDT
--- NOTE | 2024-02-22 09:09 | ECG_ITS ---
Test Reason : chest pain Blood Pressure : / mmHG Vent. Rate : 060 BPM Atrial Rate : 060 BPM P-R Int : 194 ms QRS Dur : 090 ms QT Int : 472 ms P-R-T Axes : 077 -20 080 degrees QTc Int : 472 ms Sinus rhythm with Premature atrial complexes Possible Left atrial enlargement Inferior infarct (cited on or before 18-FEB-2024) Abnormal ECG When compared with ECG of 18-FEB-2024 11:00, Premature atrial complexes are now Present Referred By: Generic ED Physician Electronically Signed By:KATHRYN TO
--- NOTE | 2024-02-22 09:12 | ED.GENADULT ---
HPI - General Adult General Chief complaint: Chest Pain Stated complaint: ANXIETY /CHEST PRESSURE PER EMS Time Seen by Provider: 02/22/24 09:10 Source: patient, EMS and RN notes reviewed Mode of arrival: EMS Limitations: no limitations History of Present Illness ED Provider: alexis SNYDER narrative: Patient is a 73-year-old female with history of alcohol dependence, anxiety, bipolar disorder, HTN presenting to the emergency department with complaint of feeling anxious with squeezing chest pain and shortness of breath since 06:30 this morning. States her symptoms woke her from sleep. Reports symptoms have been constant, chest pain radiates through to left upper back. Admits to drinking 6 beers which she finished prior to 8:00 p.m. last night. Denies any drug use. Denies recent cough or URI symptoms. Denies any fever, chills, body aches. Denies any nausea, vomiting, diarrhea or constipation but does report left-sided abdominal pain. MD complaint: chest pain, anxiety Onset (ago): hour(s) Location: chest Radiation: back Severity: similar to prior episodes Quality: sharp Pain Consistency: constant Relieving factors: none Exacerbating factors: none Associated symptoms: shortness of breath and other Treatments prior to arrival: none Related Data Home Medications ?Medication ?Instructions ?Recorded ?Confirmed acetaminophen 500 mg tablet 1,000 mg PO Q8H PRN Pain, Moderate 06/16/22 02/23/23 (Tylenol Extra Strength) cyclobenzaprine 10 mg tablet 10 mg PO BID PRN Muscle Spasm 06/16/22 02/23/23 diazepam 5 mg tablet 5 mg PO DAILY PRN Anxiety 06/16/22 02/23/23 diphenhydramine HCl 25 mg tablet 25 mg PO BEDTIME 06/16/22 02/23/23 hydroxyzine HCl 25 mg tablet 25 mg PO BEDTIME 10/09/22 02/23/23 olanzapine 20 mg tablet (Zyprexa) 20 mg PO DAILY 10/09/22 02/23/23 naltrexone 50 mg tablet 50 mg PO DAILY 02/23/23 02/23/23 olanzapine 5 mg tablet 5 mg PO DAILY 02/23/23 02/23/23 Previous Rx's ?Medication ?Instructions ?Recorded duloxetine 60 mg capsule,delayed 60 mg PO BID 30 days #60 caps 11/26/21 release furosemide 20 mg tablet 20 mg PO DAILY PRN edema 30 days 11/26/21 #30 tabs omeprazole 40 mg capsule,delayed 40 mg PO DAILY@0630 30 days #30 11/26/21 release caps amlodipine 5 mg tablet 5 mg PO DAILY 30 days #30 tabs 10/14/22 folic acid 1 mg tablet 1 mg PO DAILY 30 days #30 tabs 10/14/22 magnesium oxide 400 mg (241.3 mg 400 mg PO DAILY 30 days #30 tabs 10/14/22 magnesium) tablet (MagOx) thiamine HCl (vitamin B1) 100 mg 100 mg PO DAILY 30 days #30 tabs 10/14/22 tablet lorazepam 1 mg tablet (Ativan) 1 mg PO BID PRN anxiety #20 tabs 11/20/23 Allergies Allergy/AdvReac Type Severity Reaction Status Date / Time sulfamethoxazole Allergy Mild FEVER Verified 02/22/24 09:13 [From BACTRIM] trimethoprim [From BACTRIM] Allergy Mild FEVER Verified 02/22/24 09:13 cephalexin [Keflex] Allergy Unknown Rash Verified 02/22/24 09:13 Sulfa (Sulfonamide Allergy Unknown Fever Verified 02/22/24 09:13 Antibiotics) tramadol [Ultram] Allergy Unknown Unknown Verified 02/22/24 09:13 mold Allergy Unknown Headache Uncoded 02/22/24 09:13 pollen Allergy Unknown Headache Uncoded 02/22/24 09:13 Review of Systems Review of Systems: As per HPI. Yes all other systems are reviewed and are negative Constitutional: Constitutional: Reports as per HPI PMF Past Medical History Medical History Hypomagnesemia Alcohol dependence Bipolar disorder Endometriosis Alcohol use with withdrawal Anxiety Fracture of distal end of right fibula Hypertension Mood disorder Routine medical exam Social History Social History Household Members: None Household Members Other:: Cat Housing: House Do you presently have visiting nurse or other home services: Yes Alcohol intake: current Alcohol intake frequency: a few times a week Alcohol type: beer Comment: Pt refusing bed/chair alarms Patient Tobacco Use Status: Never used Tobacco Tobacco use type: Cigarette Smoked in Last 30 Days: No e-Cigarette/Vaping Use: Never Used Second Hand Smoke Exposure: No Use of substances other than those prescribed or required for medical reasons: No Advance Directives: Yes Advance Directives on File: Yes Advance Directives Date on File: 06/16/22 service: No Current occupational status: unemployed Sexual orientation: Straight/Heterosexual Physical Exam ED Vital Signs: Vital Signs - 24 hr 02/22/24 09:11 02/22/24 09:15 02/22/24 09:58 Temperature 99.2 F 98.2 F Pulse Rate 74 73 74 Respiratory Rate 16 20 19 Blood Pressure 159/62 H 150/70 H Pulse Oximetry 97 96 Oxygen Delivery Method Room Air Room Air 02/22/24 11:09 02/22/24 14:34 Temperature Pulse Rate 59 72 Respiratory Rate 16 18 Blood Pressure 154/67 H 154/73 H Pulse Oximetry 97 96 Oxygen Delivery Method Room Air Room Air BMI result Body Mass Index 26.1 Vital signs have been reviewed and appear to be correct. Blood pressure elevated. Heart rate normal. Respiratory rate normal. Temperature normal. Oxygen saturation normal. Const General: cooperative, healthy appearing and no acute distress Orientation/consciousness: oriented to person, oriented to place, oriented to time and patient oriented x3 Limitations: no limitations [facility] Head: Yes normocephalic and Yes atraumatic Ears: external ears normal General nose exam: Normal external nose present Face and sinus: Yes face symmetric Mouth: oropharynx normal and moist mucous membranes Throat: Yes uvula midline Eyes Pupils: Equal, round and reactive pupils present Neck Neck: Yes normal visual inspection and Yes supple Resp Effort & Inspection: normal respiratory effort and able to speak in complete sentences Auscultation: clear to auscultation bilaterally Cardio Rate: regular rate Rhythm: regular rhythm Heart sounds: S1 normal heart sound present and S2 normal heart sound present GI Palpation (GI): Soft to palpation, Tenderness to palpation present (GI) in the LLQ and in the LUQ, no guarding and No Rebound tenderness present Auscultation: normoactive bowel sounds General: Yes no CVA tenderness Back/Spine/Pelvis Back: no CVA tenderness Skin General skin exam: elasticity normal and turgor normal Neuro General: oriented to person, oriented to place, oriented to time, patient oriented x3, moves all extremities, no focal motor deficits and CN's II-XI intact bilaterally Cranial nerves: Yes Equal, round and reactive pupils present Cognition (Neuro): normal cognition Extrem General: Yes full ROM, Yes no pedal edema and Yes no calf tenderness Psych Mental Status: mental status grossly normal Affect: normal affect Thought process: Normal thought process present Course Reevaluation(s) Reevaluation #1: I Eva Loza PA-C have accepted care of the patient and signed out pending imaging. I have independently reviewed the following tests: CT abdomen and pelvis:CT ABDOMEN AND PELVIS WITH CONTRAST CLINICAL INFORMATION: Left upper quadrant and left lower quadrant tenderness. COMPARISON: CT abdomen pelvis dated December 05, 2023. TECHNIQUE: Multidetector volumetric images were obtained from the superior aspect of the liver through the pubic symphysis following administration 85 mL of Omnipaque 350 intravenous contrast. Sagittal and coronal reformatted images were obtained on the technologist's workstation. Oral contrast: No This CT examination was performed using dose optimization techniques as appropriate, variously including the following: *Automated exposure control *Adjustment of mA and/or kV according to patient size (this includes techniques or standardized protocols for targeted exams where dose is matched to indication/reason for exam; i.e. extremities or head) *Use of iterative reconstruction technique DLP: 532 mGy-cm FINDINGS: LUNG BASES: The visualized lung bases are unremarkable. There is a small pericardial effusion, similar to slightly larger than the prior examination. LIVER, GALLBLADDER, AND BILIARY TREE: The liver is normal in size, shape, and attenuation. No focal hepatic lesion or biliary ductal dilatation is present. The gallbladder is surgically absent. The common bile duct measures up to 9 mm; this is within normal limits in the postcholecystectomy state. PANCREAS: Unremarkable. SPLEEN: Unremarkable. ADRENAL GLANDS: Unremarkable. KIDNEYS AND URETERS: The kidneys are normal in size, shape, and attenuation. No hydronephrosis, hydroureter, or calculi seen. No perinephric stranding. BLADDER: Unremarkable. GASTROINTESTINAL TRACT: The small and large bowel are normal in caliber. There is no pericolonic inflammatory stranding. The appendix is not definitively identified, however, there are no inflammatory changes within the right lower quadrant to suspect acute appendicitis. ABDOMINAL WALL: No significant hernia is appreciated. LYMPH NODES: No lymphadenopathy VASCULAR: No abdominal aortic aneurysm. PELVIC VISCERA: The uterus is surgically absent. No adnexal mass. OSSEOUS STRUCTURES: There are surgical changes status post posterior fusion at L4-5. There is an intervertebral disc spacer at this level. There is mild anterolisthesis of L4 in relation L5, similar to the prior examination. CT/CT abdomen pelvis w IV con IMPRESSION: No acute intra-abdominal/intrapelvic abnormality. Incidental note is made of a small pericardial effusion, similar to slightly larger than on the prior CT examination dated December 05, 2023. Fleischner guidelines were followed. Electronically signed by: Peter Leslie DO 02/22/2024 04:15 PM EDT Dictated By: Peter Leslie Jr DO Signed By: <Electronically signed by Peter Leslie Jr, in OV> 02/22/24 1615 Time: 17:18 Medications Administered Discontinued Medications Generic Name Dose Route Start Last Admin Trade Name Freq PRN Reason Stop Dose Admin Diazepam 5 mg 02/22/24 10:56 02/22/24 11:08 Diazepam 5 Mg Tablet PO 02/22/24 10:57 5 mg ONCE ONE Administration Iohexol 85 ml 02/22/24 14:38 02/22/24 14:39 Iohexol 350 Mg/Ml 75 Ml Infus..Btl IV 02/22/24 14:39 85 ml ONCE ONE Administration Medical Decision Making Medical Decision Making [facility] Narrative: Patient is a 73-year-old female with history of alcohol dependence, anxiety, bipolar disorder, HTN presenting to the emergency department with complaint of feeling anxious with squeezing chest pain and shortness of breath since 06:30 this morning. On exam patient is awake, A+Ox3, VS WNL, afebrile, normal neurological exam without focal deficits, physical exam findings as above. Given reported symptoms and physical exam findings, initial differential includes anxiety, ACS, diverticulitis. Unlikely obstruction or PE, will check d-dimer. Labs notable for no leukocytosis, negative D-dimer, negative troponin, will obtain repeat, ethanol negative. Repeat troponin downtrending. Patient signed out to ROBBI Godinez pending results of CT A/P. Differential Diagnosis Differential Diagnoses: The differential diagnosis associated with the presentation includes As per [facility] Admission/Observation Consideration of admission/observation: Escalation of care including admission/observation considered Patient would have been admitted to the hospital had their work up had any findings where hospital admission was appropriate and their clinical presentation warranted hospital admission. Lab Data [facility] Lab Attestation statement: I reviewed the patient's lab results. As per MDM 02/22/24 09:42 02/22/24 09:42 Labs: Lab Results 02/22/24 02/22/24 Range/Units 09:42 11:38 WBC 5.0 (4.8-10.8) X10*3/uL RBC 4.82 (4.20-5.50) X10*6/uL Hgb 13.3 (12.0-16.0) g/dl Hct 39.9 (37.0-47.0) % MCV 82.8 (80.0-98.0) fL MCH 27.6 (27.0-33.0) pg MCHC 33.3 (31.0-35.0) g/dl RDW 15.9 (11.0-16.0) % Plt Count 232 (160-400) X10*3/uL MPV 9.3 L (9.4-12.3) fL Immature Gran % (Auto) 0.2 (0.0-0.4) % Neut % (Auto) 61.4 (45-73) % Lymph % (Auto) 28.4 (20-40) % Dickson % (Auto) 8.2 (2-11) % Eos % (Auto) 1.0 (0-4) % Baso % (Auto) 0.8 (0-2) % Lymph # (Auto) 1.4 (1.2-4.9) X10*3/uL Dickson # (Auto) 0.4 (0.1-1.2) X10*3/uL Eos # (Auto) 0.1 (0.0-0.4) X10*3/uL Baso # (Auto) 0.0 (0.0-0.2) X10*3/uL Abs Immat Gran (auto) 0.01 (0.00-0.03) X10*3/uL Absolute Neuts (auto) 3.1 (2.0-8.3) x10*3/uL Absolute Nucleated RBC 0.000 (0.0-0.012) X10*3/uL Nucleated RBC % (auto) 0.0 (0.0-0.2) /100WBC D-Dimer High Sensitivty 225 NG/ML Sodium 143 (135-145) mmol/L Potassium 4.2 (3.3-5.1) mmol/L Chloride 111 H (96-108) mmol/L Carbon Dioxide 24 (22-29) mmol/L Anion Gap 12 (12-20) BUN 14 (9-16) mg/dL Creatinine 0.75 (0.5-1.4) mg/dL Estim Creat Clear Calc 69.4 Estimated GFR > 60 Random Glucose 100 (60-115) mg/dL Calcium 9.2 (8.4-10.2) mg/dL Magnesium 2.2 (1.6-2.6) mg/dL Total Bilirubin 0.3 (0.0-1.0) mg/dL AST 20 (5-31) U/L ALT 13 (0-31) U/L Alkaline Phosphatase 94 (39-117) U/L Troponin I High Sens 3.0 2.7 (<3.5-17.0) ng/L Total Protein 7.5 (6.5-8.0) g/dL Albumin 4.3 (3.5-5.0) g/dL Ethyl Alcohol < 10 mg/dL Independent Interpretation I performed an independent interpretation of an: EKG (sinus rhythm with PACs, rate 60bpm, normal NE interval, prolonged QTc) External Record Review External record reviewed: Inpatient record, Office record and Outpatient record Discharge Plan Discharge Clinical Impression: Anxiety, Chest pain Patient Disposition: Home, Self-Care Instructions: Noncardiac Chest Pain (ED), Anxiety (ED) Additional Instructions: You were evaluated in the emergency department today for chest pain. Your evaluation has shown no signs of medical conditions requiring emergent intervention at this time, however we recommend that you follow-up with your primary care physician or your enameler for further testing as an outpatient. Please schedule an appointment for follow-up with your primary care physician as soon as possible. Return to the emergency department if you experience worsening or uncontrolled chest pain, shortness of breath, lightheadedness, feeling faint, loss of consciousness, nausea, vomiting, or any other concerning symptoms. The CT scan of your abdomen was negative. Prescriptions: No Action omeprazole 40 mg Capsule,Delayed Release(Dr/Ec) 40 mg PO DAILY@0630 30 Days Qty: 30 0RF furosemide 20 mg Tablet 20 mg PO DAILY PRN (Reason: edema) 30 Days Qty: 30 0RF Protocol: Hold for SBP< HOLD for SBP < : 90 duloxetine 60 mg Capsule,Delayed Release(Dr/Ec) 60 mg PO BID 30 Days Qty: 60 0RF diazepam 5 mg tablet 5 mg PO DAILY PRN (Reason: Anxiety) cyclobenzaprine 10 mg tablet 10 mg PO BID PRN (Reason: Muscle Spasm) diphenhydramine HCl 25 mg Tablet 25 mg PO BEDTIME acetaminophen [Tylenol Extra Strength] 500 mg tablet 1,000 mg PO Q8H PRN (Reason: Pain, Moderate) naltrexone 50 mg tablet 50 mg PO DAILY olanzapine 5 mg tablet 5 mg PO DAILY lorazepam [Ativan] 1 mg tablet 1 mg PO BID PRN (Reason: anxiety) Qty: 20 0RF hydroxyzine HCl 25 mg tablet 25 mg PO BEDTIME olanzapine [Zyprexa] 20 mg tablet 20 mg PO DAILY amlodipine 5 mg Tablet 5 mg PO DAILY 30 Days Qty: 30 0RF Protocol: Hold for SBP< HOLD for SBP < : 90 folic acid 1 mg Tablet 1 mg PO DAILY 30 Days Qty: 30 0RF thiamine HCl (vitamin B1) 100 mg tablet 100 mg PO DAILY 30 Days Qty: 30 0RF magnesium oxide [MagOx] 400 mg (241.3 mg magnesium) tablet 400 mg PO DAILY 30 Days Qty: 30 0RF Print Language: Kazakh
[2024-02-22 09:49] LABS: MANUAL DIFF FLAG NO
[2024-02-22 09:51] LABS: Basophils Percent Auto 0.8 % (0-2); Eosinophils Absolute Auto 0.1 X10*3/uL (0.0-0.4); Hematocrit 39.9 % (37.0-47.0); Hemoglobin 13.3 g/dl (12.0-16.0); Imm Gran Abs Auto 0.01 X10*3/uL (0.00-0.03); Imm Gran Pct Auto 0.2 % (0.0-0.4); Lymphocytes Absolute Auto 1.4 X10*3/uL (1.2-4.9); Lymphocytes Percent Auto 28.4 % (20-40); Mean Corpuscular HGB Conc 33.3 g/dl (31.0-35.0); Mean Corpuscular Hemoglobin 27.6 pg (27.0-33.0); Mean Corpuscular Volume 82.8 fL (80.0-98.0); Mean Platelet Volume 9.3 fL (9.4-12.3); Monocytes Absolute Auto 0.4 X10*3/uL (0.1-1.2); Monocytes Percent Auto 8.2 % (2-11); Neutrophils Absolute Auto 3.1 x10*3/uL (2.0-8.3); Neutrophils Percent Auto 61.4 % (45-73); Platelet Count 232 X10*3/uL (160-400); Red Blood Count 4.82 X10*6/uL (4.20-5.50); Red Cell Distribution Width 15.9 % (11.0-16.0)
[2024-02-22 09:58] LABS: D Dimer High Sensitivity 225 NG/ML
[2024-02-22 10:03] LABS: Ethanol < 10 mg/dL
[2024-02-22 10:05] LABS: Alanine Aminotransferase 13 U/L (0-31); Albumin Level 4.3 g/dL (3.5-5.0); Alkaline Phosphatase 94 U/L (39-117); Anion Gap 12 (12-20); Aspartate Amino Transferase 20 U/L (5-31); Bilirubin Total 0.3 mg/dL (0.0-1.0); Blood Urea Nitrogen 14 mg/dL (9-16); Calcium 9.2 mg/dL (8.4-10.2); Carbon Dioxide 24 mmol/L (22-29); Chloride 111 mmol/L (96-108); Creatinine Clr Calc Pharmacy 69.4; Estimated Glomerular Filt Rate > 60; Glucose Random 100 mg/dL (60-115); Magnesium 2.2 mg/dL (1.6-2.6); Potassium 4.2 mmol/L (3.3-5.1); Sodium 143 mmol/L (135-145); Total Protein 7.5 g/dL (6.5-8.0)
[2024-02-22] MEDS: diazePAM 5 MG TABLET PO (11:08)
--- NOTE | 2024-02-22 11:10 | PC.NURSE ---
Medicated forreports of anxiety. States at home meds not helping but unable to recall name. Up to bedside commode as needed to void. Remains NSR on tele. Reports chest squeezing sensation is sl improved at 7/10, dizziness remains. skin pwd.
[2024-02-22 12:06] LABS: Troponin-I High Sensitivity 2.7 ng/L (<3.5-17.0)
[2024-02-22] MEDS: iohexoL 350 MG/ML 75 ML INFUS..BTL 85 ML IV (14:39)
--- NOTE | 2024-02-22 19:58 | PC.NURSE ---
multiple attempts for lyft by sup for patient, unable to. devulcanizer charger aware. pt aware. pt d/c to waiting room. axox4 ambulates with steady gait.
== END 2024-02-22 20:02 | disposition home or self-care (01) ==
PROVIDERS: Registered Nurse Emergency; Emergency Provider Student in an Organized Health Care Education/Training Program; PCP Family Medicine
DX: F41.1 Generalized anxiety disorder (principal); R07.89 Other chest pain; R10.12 Left upper quadrant pain; I10 Essential (primary) hypertension; M54.50 Low back pain, unspecified; R06.02 Shortness of breath; Z79.899 Other long term (current) drug therapy; Z51.81 Encounter for therapeutic drug level monitoring
CPT/HCPCS: 36415; 71046; 74177; 80053; 80307; 83735; 84484; 85025; 85379; 93005; 99284; 99285; Q9967

== ENCOUNTER 2024-04-30 03:42 | Emergency (ER) | payer MEDICARE, SELFPAY ==
--- NOTE | ~2024-04-30 | CT_ITS ---
EXAMINATION: CT ABDOMEN AND PELVIS WITH CONTRAST CLINICAL INFORMATION: Abdominal pain. Questionable small bowel obstruction. COMPARISON: CT dated February 22, 2024. TECHNIQUE: Multidetector volumetric images were obtained from the superior aspect of the liver through the pubic symphysis following administration 85 mL of Omnipaque 350 intravenous contrast. Sagittal and coronal reformatted images were obtained on the technologist's workstation. Oral contrast: Yes This CT examination was performed using dose optimization techniques as appropriate, variously including the following: *Automated exposure control *Adjustment of mA and/or kV according to patient size (this includes techniques or standardized protocols for targeted exams where dose is matched to indication/reason for exam; i.e. extremities or head) *Use of iterative reconstruction technique DLP: 467 mGy-cm FINDINGS: LUNG BASES: Nonspecific pulmonary patchy groundglass/mosaic pattern with centrilobular emphysematous changes. Pericardial effusion, small to moderate volume. LIVER, GALLBLADDER, AND BILIARY TREE: Liver measures 14 cm. No focal mass. Portal vein, hepatic veins and intrahepatic portion of the IVC are patent. Status post cholecystectomy, likely laparoscopic. Common bile duct measures 8 mm in maximum diameter with a focal narrowing near the junction at the second portion of the duodenum. PANCREAS: No peripancreatic fluid collection. No focal pancreatic lesion. No main pancreatic ductal dilatation. SPLEEN: 11 cm. No focal mass. ADRENAL GLANDS: No nodular lesions. KIDNEYS AND URETERS: Normal enhancement pattern of the renal parenchyma. Subcentimeter cystic lesions in the right kidney. No gross renal mass. No hydronephrosis. BLADDER: Fluid-filled. GASTROINTESTINAL TRACT: There is contrast cast and stool within the prominent large intestine. There is a segmental narrowing of the rectosigmoid colon junction. There is no intestinal obstruction pattern. There is swirling of the mesentery and involving the proximal small bowel loops. No pneumatosis intestinalis. No pneumoperitoneum. The appendix is normal. Hiatal hernia, small size.. ABDOMINAL WALL: No gross hernia. LYMPH NODES: No gross lymphadenopathy. VASCULAR: No aneurysm or dissection, abdominal aorta. Mixed plaques distal abdominal aorta wall. 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 PELVIC VISCERA: Absent uterus and adnexa. OSSEOUS STRUCTURES: Metallic beam hardening artifact secondary to a posterior lumbar fusion with transpedicular screws at L4-5 and intervertebral disc spacer at L4-5. Grade 1 anterolisthesis L4-5. Multilevel thoracolumbar spondylosis. CT/CT abdomen pelvis w IV con IMPRESSION: No intestinal obstruction pattern. No ascites or pneumoperitoneum. No peripheral enhancing fluid collection, peritoneal cavity. Mild intrahepatic and extrahepatic biliary ductal dilatation. Stricture/stenosis at the sphincter Oddi cannot be excluded. Pericardial effusion, small to moderate volume. Fleischner guidelines were followed. Electronically signed by: Orlando Johnson MD 04/30/2024 12:55 PM JARED BARRY
[2024-04-30 03:48] VITALS: BP 147/82; PULSE 116; RESP 18; TEMP 36.4; O2SAT 99; BMI 24.0
[2024-04-30 04:05] LABS: Basophils Percent Auto 0.7 % (0-2); Eosinophils Absolute Auto 0.1 X10*3/uL (0.0-0.4); Eosinophils Percent Auto 1.4 % (0-4); Hematocrit 40.1 % (37.0-47.0); Hemoglobin 13.5 g/dl (12.0-16.0); Lymphocytes Absolute Auto 1.3 X10*3/uL (1.2-4.9); Lymphocytes Percent Auto 29.1 % (20-40); MANUAL DIFF FLAG NO; Mean Corpuscular HGB Conc 33.7 g/dl (31.0-35.0); Mean Corpuscular Hemoglobin 28.1 pg (27.0-33.0); Mean Corpuscular Volume 83.5 fL (80.0-98.0); Mean Platelet Volume 8.8 fL (9.4-12.3); Monocytes Absolute Auto 0.3 X10*3/uL (0.1-1.2); Monocytes Percent Auto 7.3 % (2-11); Neutrophils Absolute Auto 2.7 x10*3/uL (2.0-8.3); Neutrophils Percent Auto 61.5 % (45-73); Platelet Count 228 X10*3/uL (160-400); Red Cell Distribution Width 15.3 % (11.0-16.0); White Blood Count 4.4 X10*3/uL (4.8-10.8)
[2024-04-30 04:25] LABS: Alanine Aminotransferase 18 U/L (0-31); Albumin Level 4.3 g/dL (3.5-5.0); Alkaline Phosphatase 81 U/L (39-117); Anion Gap 16 (12-20); Aspartate Amino Transferase 26 U/L (5-31); Bilirubin Total 0.3 mg/dL (0.0-1.0); Blood Urea Nitrogen 12 mg/dL (9-16); Calcium 9.7 mg/dL (8.4-10.2); Carbon Dioxide 24 mmol/L (22-29); Chloride 108 mmol/L (96-108); Creatinine Clr Calc Pharmacy 54.7; Estimated Glomerular Filt Rate > 60; Glucose Random 120 mg/dL (60-115); Potassium 4.2 mmol/L (3.3-5.1); Sodium 144 mmol/L (135-145); Total Protein 7.3 g/dL (6.5-8.0)
--- NOTE | 2024-04-30 08:47 | ED.GENADULT ---
HPI - General Adult General Chief complaint: General Medical Stated complaint: Constipated for 8 days Time Seen by Provider: 04/30/24 08:38 Source: patient Limitations: no limitations History of Present Illness HPI narrative: This is 73 years old the patient presented to the emergency department with a chief complaint of constipation she states she has not gone to the bathroom for about 8 days. Denies any vomiting. She states that she has history of small-bowel obstruction in the past Onset (ago): day(s) (8) Radiation: non-radiation Severity: moderate Quality: burning Pain Consistency: constant Relieving factors: none Exacerbating factors: none Related Data Home Medications ?Medication ?Instructions ?Recorded ?Confirmed acetaminophen 500 mg tablet 1,000 mg PO Q8H PRN Pain, Moderate 06/16/22 02/23/23 (Tylenol Extra Strength) cyclobenzaprine 10 mg tablet 10 mg PO BID PRN Muscle Spasm 06/16/22 02/23/23 diazepam 5 mg tablet 5 mg PO DAILY PRN Anxiety 06/16/22 02/23/23 diphenhydramine HCl 25 mg tablet 25 mg PO BEDTIME 06/16/22 02/23/23 hydroxyzine HCl 25 mg tablet 25 mg PO BEDTIME 10/09/22 02/23/23 olanzapine 20 mg tablet (Zyprexa) 20 mg PO DAILY 10/09/22 02/23/23 naltrexone 50 mg tablet 50 mg PO DAILY 02/23/23 02/23/23 olanzapine 5 mg tablet 5 mg PO DAILY 02/23/23 02/23/23 Previous Rx's ?Medication ?Instructions ?Recorded duloxetine 60 mg capsule,delayed 60 mg PO BID 30 days #60 caps 11/26/21 release furosemide 20 mg tablet 20 mg PO DAILY PRN edema 30 days 11/26/21 #30 tabs omeprazole 40 mg capsule,delayed 40 mg PO DAILY@0630 30 days #30 11/26/21 release caps amlodipine 5 mg tablet 5 mg PO DAILY 30 days #30 tabs 10/14/22 folic acid 1 mg tablet 1 mg PO DAILY 30 days #30 tabs 10/14/22 magnesium oxide 400 mg (241.3 mg 400 mg PO DAILY 30 days #30 tabs 10/14/22 magnesium) tablet (MagOx) thiamine HCl (vitamin B1) 100 mg 100 mg PO DAILY 30 days #30 tabs 10/14/22 tablet lorazepam 1 mg tablet (Ativan) 1 mg PO BID PRN anxiety #20 tabs 11/20/23 Allergies Allergy/AdvReac Type Severity Reaction Status Date / Time sulfamethoxazole Allergy Mild FEVER Verified 04/30/24 03:50 [From BACTRIM] trimethoprim [From BACTRIM] Allergy Mild FEVER Verified 04/30/24 03:50 cephalexin [Keflex] Allergy Unknown Rash Verified 04/30/24 03:50 Sulfa (Sulfonamide Allergy Unknown Fever Verified 04/30/24 03:50 Antibiotics) tramadol [Ultram] Allergy Unknown Unknown Verified 04/30/24 03:50 mold Allergy Unknown Headache Uncoded 04/30/24 03:50 pollen Allergy Unknown Headache Uncoded 04/30/24 03:50 Review of Systems Constitutional: Constitutional: Reports no additional constitutional complaints Eyes: Eyes: Reports no additional eye complaints [facility] Past Medical History Attestation statement: The following information was validated with the patient. Source: unable to obtain Medical History Hypomagnesemia Alcohol dependence Bipolar disorder Endometriosis Alcohol use with withdrawal Anxiety Fracture of distal end of right fibula Hypertension Mood disorder Routine medical exam Social History Social History Household Members: None Household Members Other:: Cat Housing: House Do you presently have visiting nurse or other home services: Yes Alcohol intake: current Alcohol intake frequency: a few times a week Alcohol type: beer Comment: Pt refusing bed/chair alarms Patient Tobacco Use Status: Never used Tobacco Tobacco use type: Cigarette Smoked in Last 30 Days: No e-Cigarette/Vaping Use: Never Used Second Hand Smoke Exposure: No Use of substances other than those prescribed or required for medical reasons: No Advance Directives: Yes Advance Directives on File: Yes Advance Directives Date on File: 06/16/22 Do you have a plan to hurt others: No Plan service: No Current occupational status: unemployed Sexual orientation: Straight/Heterosexual Physical Exam ED Vital Signs: Vital Signs - 24 hr 04/30/24 03:48 04/30/24 09:12 04/30/24 12:28 Temperature 97.5 F 98.0 F 97.9 F Pulse Rate 116 H 100 92 Respiratory Rate 18 18 15 Blood Pressure 147/82 H 137/73 129/80 Pulse Oximetry 99 99 94 Oxygen Delivery Method Room Air Room Air Room Air BMI result Body Mass Index 24.0 No acute distress looks well Const General: cooperative Orientation/consciousness: patient oriented x3 HENMT Head: Yes normal to inspection Neck Neck: Yes normal visual inspection Chest Chest palpation & inspection: normal inspection of the chest Resp Effort & Inspection: normal respiratory effort Auscultation: clear to auscultation bilaterally Cardio Jugular venous distension: no JVD Palpation: normal PMI Rate: regular rate Rhythm: regular rhythm GI Inspection: Yes normal to inspection Palpation (GI): Soft to palpation, not firm, nontender and no guarding Auscultation: normal bowel sounds Skin General skin exam: no rashes or lesions noted Rashes: no rashes Neuro General: patient oriented x3 Course Reevaluation(s) Reevaluation #1: The patient was re-examined at this time by me remain stable her abdomen is soft nontender no distention CT scan of the abdomen and pelvis showed no bowel obstruction at this time the patient can be discharged home she is comfortable with that Time: 13:50 Medications Administered Discontinued Medications Generic Name Dose Route Start Last Admin Trade Name Freq PRN Reason Stop Dose Admin Diatrizoate Meglum/Diatrizoate Sod 30 ml 04/30/24 11:19 04/30/24 11:19 Diatrizoate Meglumine, Sodium 30 Ml Solution PO 04/30/24 11:20 30 ml ONCE ONE Administration Iohexol 100 ml 04/30/24 11:20 04/30/24 11:20 Iohexol 350 Mg/Ml 100 Ml Infus..Btl IV 04/30/24 11:21 85 ml ONCE ONE Administration Lorazepam 1 mg 04/30/24 08:49 04/30/24 09:03 Lorazepam 1 Mg Tablet PO 04/30/24 08:50 1 mg ONCE ONE Administration Medical Decision Making Medical Decision Making MDM Narrative: Patient presented with constipation question SBO we will get CT labs Differential Diagnosis Differential Diagnoses: The differential diagnosis associated with the presentation includes Small bowel obstruction/colitis/diverticulitis/constipation Admission/Observation Consideration of admission/observation: Escalation of care including admission/observation considered Lab Data [facility] Lab Attestation statement: I reviewed the patient's lab results. 04/30/24 04:00 12/03/24 04:00 Labs: Lab Results 04/30/24 04/30/24 Range/Units 04:00 09:09 WBC 4.4 L (4.8-10.8) X10*3/uL RBC 4.80 (4.20-5.50) X10*6/uL Hgb 13.5 (12.0-16.0) g/dl Hct 40.1 (37.0-47.0) % MCV 83.5 (80.0-98.0) fL MCH 28.1 (27.0-33.0) pg MCHC 33.7 (31.0-35.0) g/dl RDW 15.3 (11.0-16.0) % Plt Count 228 (160-400) X10*3/uL MPV 8.8 L (9.4-12.3) fL Immature Gran % (Auto) 0.0 (0.0-0.4) % Neut % (Auto) 61.5 (45-73) % Lymph % (Auto) 29.1 (20-40) % [place] % (Auto) 7.3 (2-11) % Eos % (Auto) 1.4 (0-4) % Baso % (Auto) 0.7 (0-2) % Lymph # (Auto) 1.3 (1.2-4.9) X10*3/uL [place] # (Auto) 0.3 (0.1-1.2) X10*3/uL Eos # (Auto) 0.1 (0.0-0.4) X10*3/uL Baso # (Auto) 0.0 (0.0-0.2) X10*3/uL Abs Immat Gran (auto) 0.00 (0.00-0.03) X10*3/uL Absolute Neuts (auto) 2.7 (2.0-8.3) x10*3/uL Absolute Nucleated RBC 0.000 (0.0-0.012) X10*3/uL Nucleated RBC % (auto) 0.0 (0.0-0.2) /100WBC Sodium 144 (135-145) mmol/L Potassium 4.2 (3.3-5.1) mmol/L Chloride 108 (96-108) mmol/L Carbon Dioxide 24 (22-29) mmol/L Anion Gap 16 (12-20) BUN 12 (9-16) mg/dL Creatinine 0.87 (0.5-1.4) mg/dL Estim Creat Clear Calc 54.7 Estimated GFR > 60 Random Glucose 120 H (60-115) mg/dL Calcium 9.7 (8.4-10.2) mg/dL Total Bilirubin 0.3 (0.0-1.0) mg/dL AST 26 (5-31) U/L ALT 18 (0-31) U/L Alkaline Phosphatase 81 (39-117) U/L Total Protein 7.3 (6.5-8.0) g/dL Albumin 4.3 (3.5-5.0) g/dL Lipase 13 (8-78) U/L Independent Interpretation I performed an independent interpretation of an: CT Scan Radiology Impression Discussion of test interpretation with radiology: I have reviewed the radiologist's reading. External Record Review External record reviewed: Inpatient record Chronic Conditions anxiety Discharge Plan Discharge Clinical Impression: Constipation Qualifiers: Constipation type: unspecified constipation type Qualified Code(s): K59.00 - Constipation, unspecified Patient Disposition: Home, Self-Care Instructions: Constipation (ED) Additional Instructions: Your CT scan showed no bowel obstruction, you could take MiraLax as needed. Return to the emergency room if you are worse if you vomiting any concern Prescriptions: No Action omeprazole 40 mg Capsule,Delayed Release(Dr/Ec) 40 mg PO DAILY@0630 30 Days Qty: 30 0RF furosemide 20 mg Tablet 20 mg PO DAILY PRN (Reason: edema) 30 Days Qty: 30 0RF Protocol: Hold for SBP< HOLD for SBP < : 90 duloxetine 60 mg Capsule,Delayed Release(Dr/Ec) 60 mg PO BID 30 Days Qty: 60 0RF diazepam 5 mg tablet 5 mg PO DAILY PRN (Reason: Anxiety) cyclobenzaprine 10 mg tablet 10 mg PO BID PRN (Reason: Muscle Spasm) diphenhydramine HCl 25 mg Tablet 25 mg PO BEDTIME acetaminophen [Tylenol Extra Strength] 500 mg tablet 1,000 mg PO Q8H PRN (Reason: Pain, Moderate) naltrexone 50 mg tablet 50 mg PO DAILY olanzapine 5 mg tablet 5 mg PO DAILY lorazepam [Ativan] 1 mg tablet 1 mg PO BID PRN (Reason: anxiety) Qty: 20 0RF hydroxyzine HCl 25 mg tablet 25 mg PO BEDTIME olanzapine [Zyprexa] 20 mg tablet 20 mg PO DAILY amlodipine 5 mg Tablet 5 mg PO DAILY 30 Days Qty: 30 0RF Protocol: Hold for SBP< HOLD for SBP < : 90 folic acid 1 mg Tablet 1 mg PO DAILY 30 Days Qty: 30 0RF thiamine HCl (vitamin B1) 100 mg tablet 100 mg PO DAILY 30 Days Qty: 30 0RF magnesium oxide [MagOx] 400 mg (241.3 mg magnesium) tablet 400 mg PO DAILY 30 Days Qty: 30 0RF Referrals: Reinaldo Willard MD [Primary Care Provider] - 2 days Print Language: Iraqi
[2024-04-30] MEDS: LORazepam 1 MG TABLET PO (09:03)
[2024-04-30 09:12] VITALS: BP 137/73; PULSE 100; RESP 18; TEMP 36.7; O2SAT 99
--- NOTE | 2024-04-30 09:19 | PC.NURSE ---
20G peripheral IV inserted to pt.'s LAC. Tolerated well. Good blood return and flushes without difficulty or discomfort.
--- NOTE | 2024-04-30 09:20 | PC.NURSE ---
Medicated pt. per JUL with Ativan 1mg PO. ct scan technologist to bedside to give pt. prep drink. States that pt. will not be able to go to scan for 2-3 hours after finishing prep drink.
[2024-04-30 09:40] LABS: Lipase 13 U/L (8-78)
[2024-04-30] MEDS: Diatrizoate Meglumine, Sodium 30 ML SOLUTION PO (11:19)
[2024-04-30] MEDS: iohexoL 350 MG/ML 100 ML INFUS..BTL IV (11:20)
--- NOTE | 2024-04-30 11:37 | PC.NURSE ---
this nurse took over pt care from radha at 1130, pt a&ox3, ambulatory with steady gait, pt c/o 6/10 abd pain- BS are hypoactive all quadrants, rr equal/non labored, vss, pt previously had ct scan and awaiting results, will continue plan of care
[2024-04-30 12:28] VITALS: BP 129/80; PULSE 92; RESP 15; TEMP 36.6; O2SAT 94
[2024-04-30 14:05] VITALS: BP 129/80; PULSE 92; RESP 15; TEMP 36.6; O2SAT 94
== END 2024-04-30 14:08 | disposition home or self-care (01) ==
PROVIDERS: Emergency Provider Emergency Medicine; PCP Family Medicine
DX: K59.00 Constipation, unspecified (principal); R10.2 Pelvic and perineal pain; Z79.899 Other long term (current) drug therapy
CPT/HCPCS: 36415; 74177; 80053; 83690; 85025; 99284; Q9967

== ENCOUNTER → 2024-04-30 08:46 | Outpatient (BNV) | payer MEDICARE, SELFPAY | PROVIDERS: Emergency Provider Emergency Medicine; PCP Family Medicine; Visit Provider Radiology Diagnostic Radiology | DX: R10.9 Unspecified abdominal pain (principal) | CPT/HCPCS: 74177 ==

== ENCOUNTER 2024-11-20 14:46 | Emergency (ER) | payer OTHER, SELFPAY ==
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
[2024-11-20 14:50] VITALS: BP 150/60; PULSE 93; O2SAT 95
[2024-11-20 14:53] VITALS: BP 120/53; PULSE 57; RESP 20; TEMP 36.7; O2SAT 95
[2024-11-20 14:57] VITALS: BP 120/53; PULSE 55; RESP 16; TEMP 36.7; O2SAT 97; BMI 24.1
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
[2024-11-20] MEDS: diazePAM 2 MG TABLET 4 MG PO (15:21)
[2024-11-20 16:19] VITALS: BP 110/71; PULSE 94; RESP 18; TEMP 36.9; O2SAT 96
[2024-11-20 16:50] VITALS: BP 110/71; PULSE 94; RESP 18; TEMP 36.9; O2SAT 96
--- OUTSIDE RECORDS SUMMARY | 2024-11-20 18:47 | XMS_ITS | Data Portability ---
Author Organization [facility] [employer], Creditable Address [address] [place] [address] [place] [address] Care Team Providers Care Weeder Name Role Phone SYLVIA BHAKTA Referring Provider [phone] SYLVIA BHAKTA Primary Care Provider Assessment Encounter Date Assessment Date Assessment LastModified by Organization Details LastModified Time 10/24/2024 10/24/2024 IMPRESSION: Cervical spinal cord injury versus subtle right C8-T1 nerve root injury not detected as acute denervation by needle EMG studies as explanation of persistent continuous buzzing in right upper extremity medial upper arm extending to medial hand and fingers, intensity helped partially by Lyrica and a feeling of weakness in right upper extremity, emerging winter 2024, about 1 week after a fall from slipping on the ice during which she hit her head. No large fiber polyneuropathy found electrodiagnostically to explain 1 year of continuous symmetric top and bottom foot and toe buzzing. Mild parkinsonian on exam that may relate to usage of olanzapine; Gait imbalance with multiple potential etiologies: Foot pain from bunion; foot buzzing and numb great toes; possible cervical myelopathy; mild parkinsonism. October 23, 2024 EMG & NCS of right upper and lower extremities: Suggestive but not diagnostic of right median neuropathy at the wrist which is unrelated to presenting medial hand and arm buzzing; possible remote inactive (C7 more likely than C6, C8) radiculopathy, unlikely related to presenting symptomatology, possibly related to neck surgery in the early reported by patient. Right lower extremity studies normal. >>>>>>>>>>>>October 24, 2024 Initial diagnostic and management directions: Medications per patient, October 24, 2024: Hydroxyzine, Lyrica, omeprazole, vitamin B-1, B6, magnesium, folate, Celebrex, olanzapine, Lexapro, Voltaren, amlodipine, cyclobenzaprine, diclofenac, Tylenol We will pursue MRI cervical spine with contrast given previous surgery given possibility of traumatic myelopathy from fall causing her right upper extremity buzzing. The buzzing in her feet could relate to B12 deficiency affecting her spinal cord but not her peripheral nerves explaining her normal right lower extremity nerve conduction studies. I will get appropriate laboratory assays for that and for copper and vitamin E, Lyme titer that can cause gait imbalance. I offered physical therapy for balance and gait posture. She understands the potential danger of a fall. She does not want physical therapy. She does not want to consider using a gait aid. >>>>>>>>>>>> PLAN Opal Chaim EMG HPI & PE October 23, 2024 MRI cervical spine with concern for traumatic myelopathy as explanation of continuous buzzing in right upper extremity medial upper arm extending to medial hand and fingers following fall onto the ice early winter 2024, electrodiagnostic studies unrevealing, with and without contrast context previous cervical spine surgery with anterior approach and with hardware. Laboratory assays: B12 panel, vitamin E, copper, Lyme titer Follow-up after mrossen Not available 10/24/2024 11:46:32 11/19/2024 11/19/2024 IMPRESSION: Cervical spinal cord injury versus subtle right C8-T1 nerve root injury not detected as acute denervation by needle EMG studies as explanation of persistent continuous buzzing in right upper extremity medial upper arm extending to medial hand and fingers, intensity helped partially by Lyrica and a feeling of weakness in right upper extremity, emerging winter 2024, about 1 week after a fall from slipping on the ice during which she hit her head. No large fiber polyneuropathy found electrodiagnostically to explain 1 year of continuous symmetric top and bottom foot and toe buzzing. Mild parkinsonian on exam that may relate to usage of olanzapine; Gait imbalance with multiple potential etiologies: Foot pain from bunion; foot buzzing and numb great toes; possible cervical myelopathy; mild parkinsonism. October 23, 2024 EMG & NCS of right upper and lower extremities: Suggestive but not diagnostic of right median neuropathy at the wrist which is unrelated to presenting medial hand and arm buzzing; possible remote inactive (C7 more likely than C6, C8) radiculopathy, unlikely related to presenting symptomatology, possibly related to neck surgery in the early reported by patient. Right lower extremity studies normal. October 24, 2024: Lyme titer negative, copper normal, vitamin B12 panel unremarkable, vitamin E normal November 14, 2024 MRI cervical spine with and without contrast: moderate to severe right neural foraminal narrowing with crowding of C8 root ; Normal cervical cord, no central canal narrowing, no abnormal enhancement. --November 19, 2024 right medial hand/arm buzzing unchanged and bothersome. >>>>>>>>>>>>November 19, 2024 MRI C-spine -> right C8 nerve root crowding suggest that there is a good chance that the buzzing is from that right C8 nerve root being damaged by her winter 2024 fall on the ice. In such a case, the nerve root damage was to mild neural physiologically for detection by needle EMG studies. I cannot exclude that there is continual irritation that could be helped by surgery. However, with only moderate to severe narrowing from degenerative changes is likely not enough for one of the conservative neurosurgeons at [facility] to consider surgery. There is too much possibility that there is permanent damage to the nerve and so surgery would not help the symptom. Moderate to severe narrowing is less likely to be causing continual irritation. The risk of surgery is likely higher than the possible benefit. Yet I cannot speak for neurosurgery at [facility] definitively. I offer her referral. She declines as she has too much going on. She would like some help for the symptoms. She has been on Cymbalta before for reasons of helping her mood and she had no side effects. We will start Cymbalta at 30 mg. She will call after one or 2 weeks if this is not sufficient and if there are no side effects and we will bump it to 60 mg. >>>>>>>>>>>>October 24, 2024 Initial diagnostic and management directions: Medications per patient, October 24, 2024: Hydroxyzine, Lyrica, omeprazole, vitamin B-1, B6, magnesium, folate, Celebrex, olanzapine, Lexapro, Voltaren, amlodipine, cyclobenzaprine, diclofenac, Tylenol We will pursue MRI cervical spine with contrast given previous surgery given possibility of traumatic myelopathy from fall causing her right upper extremity buzzing. The buzzing in her feet could relate to B12 deficiency affecting her spinal cord but not her peripheral nerves explaining her normal right lower extremity nerve conduction studies. I will get appropriate laboratory assays for that and for copper and vitamin E, Lyme titer that can cause gait imbalance. I offered physical therapy for balance and gait posture. She understands the potential danger of a fall. She does not want physical therapy. She does not want to consider using a gait aid. >>>>>>>>>>>> PLAN Opal Chaim November 19, 2024 Duloxetine 30 mg every morning with food. Prescription started November 19, 2024 Follow-up 4-6 weeks mrossen Not available 11/19/2024 10:22:21 Plan of Treatment Reminders Order Date Submit Date Provider Last Modified By Organization Details Last Modified Time Details Appointments FOLLOW UP EXT 2024 09:00A Liliana Graham MD PhD Not available Not available Not available Lab vitami n B12, serum 2024 025 [facility] (Outpatient), [address] [place] [address], [id number], 10/24/2024 16:40:54 folate , serum 2024 025 [facility] (Outpatient), [address] [place] [address], [id number], 11/06/2024 12:31:36 homocy steine , serum or plasma 2024 025 [facility] (Outpatient), [address] [place] [address], [id number], 10/26/2024 13:02:32 methyl malona te, QN, serum or plasma 2024 025 [facility] (Outpatient), [address] [place] [address], [id number], 11/05/2024 15:17:23 lyme diseas e igg+ig m, serum, reflex jacob n blot 2024 025 [facility] (Outpatient), [address] [place] [address], [id number], 10/25/2024 11:20:48 unlist ed lab - vitami n E 2024 [facility] (Outpatient), [address] [place] [address], [id number], 11/13/2024 11:16:46 copper , serum or plasma - E83.00 2024 [facility] (Outpatient), [address] [place], [id number], 10/28/2024 13:14:49 copper , blood 2024 [facility] (Outpatient), [address] [place] [address], [id number], 11/13/2024 11:16:08 Referral None record ed. Procedures None record ed. Surgeries None record ed. Imaging MRI, cervic al spine, w/wo contra st - 3T magnet please ; with concer n for trauma tic myelop athy as explan ation of contin uous buzzin g in right upper extrem ity medial upper arm extend ing to medial hand and finger s follow ing fall onto the ice early winter 2024, electr odiagn ostic studie s unreve aling, with and withou t contra st contex t previo us cervic al spine surger y with anteri or approa ch and with hardwa re. 2024 [facility] [address], [place], [id number], 11/18/2024 08:29:16 Medication Orders duloxe vahid 30 mg capsul e,royal yed releas e 2024 [id number], [address] [place], [id number], 11/19/2024 10:10:01 Patient TargetsNo targets recorded. Patient Instructions Encounter Date Encounter Id Patient Instructions Last Modified By Organization Details Last Modified Time 10/24/2024 [id number] Discussion acros s issues of diagnoses and management and same day associated chart review and management greater than 50% greater than 60 minutes mrossen Not available 10/24/2024 11:52:10 11/19/2024 [id number] Chronic conditio n with exacerbation; prescription medication management; Discussion across issues of diagnoses and management and same day associated chart review and management greater than 50% greater than 40 minutes mrossen Not available 11/19/2024 10:22:56 Reason for Referral None Reported. Results Created Date Observation Date Name Description Value Unit Range Abnormal Flag Note LastModifiedBy Organization Detail LastModifiedTime 11/19/1911/14/2024 MRI, cervi susan spine , w/wo contr ast [facility] Access ion Number : [id number] Padminisameer alvarez Name: DANIEL MARTINEZ, ANAHI Reynoldsa l Record Number : [id number] Date of : 1950 Date of Exam: 2024 Referr ing Physic beth: Karel Graham [facility] [address] [facility] [address] [place] [address] Exam: MR Cervic al Spine (C-/C+ ) CPT 82590 Room Descri ption: Fuentes Siem Espr 1.5 MR Cervic al Spine (C-/C+ ) CPT 35806 INDICA TION: - Cervic al disc disord er at C6-C7 level with myelop athy, , 3T magnet please ; with concer n for trauma tic myelop athy as explan ation of contin uous buzzin g in right upper extrem itya?? medial upper arm extend ing to medial hand and finger s follow ing fall onto the ice early winter 2024, electr odiagn ostic studie s unreve aling, with and withou t contra st contex t previo us cervic al spine surger y with anteri or - Cervic al disc disord er at C6-C7 level with myelop athy, , 3T magnet please ; with concer n for trauma tic myelop athy as explan ation of contin uous buzzin g in right upper extrem itya?? medial upper arm extend ing to medial hand and finger s follow ing fall onto the ice early winter 2024, electr odiagn ostic studie s unreve aling, with and withou t contra st contex t previo us cervic al spine surger y with anteri or TECHNI QUE: MRI of the cervic al spine was perfor med with and withou t intrav enous contra st utiliz ing sagitt al T1, sagitt al T2, sagitt al STIR, axial gradie nt echo, axial T1, and axial T2-lay ghted sequen glenys, and post-c ontras t sagitt al T1 and axial T1-lay ghted sequen glenys. 7 mL Elucir em intrav enous contra st was admini stered . COMPAR ALYCE: None. FINDIN GS: ALIGNM ENT, VERTEB MARYLIN, MARROW , AND DISCS: There are postsu rgical change s from ACDF from the C3 throug h C7 levels . As well as postsu rgical change s from salesperson flowers ior fusion at these levels . Artifa ct from the fusion hardwa re partia lly obscur es the verteb ral bodies and disc spaces at these levels . There is loss of interv ertebr al disc height at C7-T1 with margin al osteop hytes as well as minima l Modic type I and Modic type II signal change s at C7-T1. Verteb ral body height s are preser mateus. Alignm ent is mainta ined. NETWORK TECHNICIAN IOR FOSSA AND CORD: Visual ized salesperson flowers ior fossa is normal . The cervic al cord is normal in signal and calibe r. There is no abnorm al enhanc ement. PARASP INAL TISSUE S: There is atroph y of the salesperson flowers ior parasp inal muscul ature as well as postsu rgical change s in the soft tissue s. Subcen timete r left thyroi d nodule which does not requir e dedica alex follow -up given its small size. The expect ed major vascul ar flow voids are mainta ined. DETAIL ED FINDIN GS BY LEVEL: C2-C3: Broad disc osteop hyte comple x and facet spurri ng. No signif icant canal stenos is or neural forami nal narrow ing. C3-C4: Postsu rgical change s from spinal fusion . Margin al osteop hytes. No signif icant canal stenos is or neural forami nal narrow ing. C4-C5: Postsu rgical change s from spinal fusion . Margin al osteop hytes. No signif icant canal stenos is or neural forami nal narrow ing. C5-C6: Postsu rgical change s from spinal fusion . Margin al osteop hytes. No signif icant canal stenos is or neural forami nal narrow ing. C6-C7: Postsu rgical change s from spinal fusion . Margin al osteop hytes. No signif icant canal stenos is or left neural forami nal narrow ing. Mild to modera te right neural forami nal narrow ing. C7-T1: Disc osteop hyte comple x, ligame ntum flavum thicke laly, and facet spurri ng. There is modera te to severe right neural forami nal narrow ing crowdi ng of the exitin g right C8 nerve root. Mild canal stenos is. No signif icant left neural forami nal narrow ing. IMPRES AGUEDA: Postsu rgical and degene rative change s of the cervic al spine as descri bed above. There is modera te to severe right neural forami nal narrow ing at C7-T1 with crowdi ng of the exitin g right C8 nerve root. There is also mild to modera te right neural forami nal narrow ing at C6-C7. Electr onical ly Signed By: Ammy solorzano [facility] ([facility]) [address] [place] [address], [id number], 11/20/2024 06:49:30 Result Notes Documentation Provider Name and Address Organization Details Recorded Time Mri, Cervical Spine, W/wo Contrast : [facility] Accession Number: [id number] Patient Name: ANAHI RUCKER Date of : 1950 Date of Exam: 11-14-2024 Referring Physician: Herb Graham [facility] [address] [place] [address] - [facility] [place] [address] Exam: MR Cervical Spine (C-/C+) CPT 39478 Room Description: Fuentes Ling Espr 1.5 MR Cervical Spine (C-/C+) CPT 89369 INDICATION: - Cervical disc disorder at C6-C7 level with myelopathy, , 3T magnet please; with concern for traumatic myelopathy as explanation of continuous buzzing in right upper extremitya??medial upper arm extending to medial hand and fingers following fall onto the ice early winter 2024, electrodiagnostic studies unrevealing, with and without contrast context previous cervical spine surgery with anterior - Cervical disc disorder at C6-C7 level with myelopathy, , 3T magnet please; with concern for traumatic myelopathy as explanation of continuous buzzing in right upper extremitya??medial upper arm extending to medial hand and fingers following fall onto the ice early winter 2024, electrodiagnostic studies unrevealing, with and without contrast context previous cervical spine surgery with anterior TECHNIQUE: MRI of the cervical spine was performed with and without intravenous contrast utilizing sagittal T1, sagittal T2, sagittal STIR, axial gradient echo, axial T1, and axial T2-weighted sequences, and post-contrast sagittal T1 and axial T1-weighted sequences. 7 mL Elucirem intravenous contrast was administered. COMPARISON: None. FINDINGS: ALIGNMENT, VERTEBRAE, MARROW, AND DISCS: There are postsurgical changes from ACDF from the C3 through C7 levels. As well as postsurgical changes from posterior fusion at these levels. Artifact from the fusion hardware partially obscures the vertebral bodies and disc spaces at these levels. There is loss of intervertebral disc height at C7-T1 with marginal osteophytes as well as minimal Modic type I and Modic type II signal changes at C7-T1. Vertebral body heights are preserved. Alignment is maintained. POSTERIOR FOSSA AND CORD: Visualized posterior fossa is normal. The cervical cord is normal in signal and caliber. There is no abnormal enhancement. PARASPINAL TISSUES: There is atrophy of the posterior paraspinal musculature as well as postsurgical changes in the soft tissues. Subcentimeter left thyroid nodule which does not require dedicated follow-up given its small size. The expected major vascular flow voids are maintained. DETAILED FINDINGS BY LEVEL: C2-C3: Broad disc osteophyte complex and facet spurring. No significant canal stenosis or neural foraminal narrowing. C3-C4: Postsurgical changes from spinal fusion. Marginal osteophytes. No significant canal stenosis or neural foraminal narrowing. C4-C5: Postsurgical changes from spinal fusion. Marginal osteophytes. No significant canal stenosis or neural foraminal narrowing. C5-C6: Postsurgical changes from spinal fusion. Marginal osteophytes. No significant canal stenosis or neural foraminal narrowing. C6-C7: Postsurgical changes from spinal fusion. Marginal osteophytes. No significant canal stenosis or left neural foraminal narrowing. Mild to moderate right neural foraminal narrowing. C7-T1: Disc osteophyte complex, ligamentum flavum thickening, and facet spurring. There is moderate to severe right neural foraminal narrowing crowding of the exiting right C8 nerve root. Mild canal stenosis. No significant left neural foraminal narrowing. IMPRESSION: Postsurgical and degenerative changes of the cervical spine as described above. There is moderate to severe right neural foraminal narrowing at C7-T1 with crowding of the exiting right C8 nerve root. There is also mild to moderate right neural foraminal narrowing at C6-C7. Electronically Signed By: Ammy Gomez [facility] 11/20/2024 06:49:31 Procedures Surgical History Date Name Laterality Status Provider Name and Address Organization Details Recorded Time 11/19/2024 DATA REVIEW completed Herb Graham MD [address] [place] [address] [place], [phone], [facility] 11/19/2024 09:56:27 10/24/2024 DATA REVIEW completed Herb Graham MD [address] [place] [address] [place], [phone], [facility] 10/24/2024 11:09:28 10/23/2024 EMG & NCS completed Herb Graham MD [address] [place] [address] [place], [phone], [facility] 10/23/2024 19:45:52 Imaging Results None recorded. Procedure Notes None recorded. Medical Equipment None Reported. Allergies Allergen ID Allergen Name Allergen Category Reaction Reaction Severity Criticality Documentation Date Start Date Code Code System Note Provider Name and Address Organization Details Recorded Time 5123 sulfameth oxazole / trimethop rim medicatio n Not available Not available Not available 10/24/2024 23681 [facility] 10:59:06 5124 Ultram medicatio n Not available Not available Not available 10/24/2024 34363 6 [facility] on [facility] 5 10:59:27 Medications Name Sig Start Date Stop Date Status Note LastModified by Organization Details LastModified Time cyclobenzapr ine 10 mg tablet TAKE 1 TABLET BY MOUTH TWICE A DAY NEEDED active Not Available Not Available No t Available buspirone 5 mg tablet TAKE 1 TABLET BY MOUTH TWICE A DAY active Not Available Not Available No t Available cromolyn 5.2 mg/spray (4 %) nasal spray 1 SPRAY BY NASAL ROUTE 4 (FOUR) TIMES A DAY. active Not Available Not Available No t Available prednisone 20 mg tablet PLEASE SEE ATTACHED FOR DETAILED DIRECTIONS active Not Available Not Available N ot Available thiamine HCl (vitamin B1) 100 mg tablet TAKE 1 TABLET BY MOUTH EVERY DAY active Not Available Not Available No t Available amlodipine 2.5 mg tablet TAKE 1 TABLET BY MOUTH EVERY DAY active Not Available Not Available No t Available hydroxyzine HCl 50 mg tablet TAKE 1 TABLET BY ORAL ROUTE 2 TIMES PER DAY NEEDED ANXIETY (D/C 25 MG DOSE) active Not Available Not Available No t Available amlodipine 5 mg tablet TAKE 2 TABLETS BY MOUTH EVERY DAY active Not Available Not Available No t Available olanzapine 2.5 mg tablet TAKE 1 TABLETS BY ORAL ROUTE 2 TIME PER DAY NEEDED ANXIETY active Not Available Not Available No t Available omeprazole 40 mg capsule,royal yed release TAKE 1 CAPSULE BY MOUTH EVERY DAY 30 MINUTES BEFORE MORNING MEAL active Not Available Not Available No t Available ketorolac 0.5 % eye drops INSTILL 1 DROP IN LEFT EYE THREE TIMES A DAY FOR THREE WEEKS FOLLOWING CATARACT SURGERY active Not Available Not Available No t Available magnesium oxide 400 mg (241.3 mg magnesium) tablet TAKE 1 TABLET BY MOUTH EVERY DAY active Not Available Not Available No t Available phenazopyrid ine 100 mg tablet TAKE 1 TABLET (100 MG TOTAL) BY MOUTH 3 TIMES A DAY NEEDED FOR PAIN active Not Available Not Available No t Available buspirone 30 mg tablet TAKE 1 TABLET BY MOUTH TWICE A DAY active Not Available Not Available No t Available buspirone 10 mg tablet TAKE 2 TABLETS BY MOUTH TWICE A DAY active Not Available Not Available No t Available nitroglyceri n 0.[address] 1 TABLET UNDER THE TONGUE EVERY 5 MINUTES NEEDED FOR CHEST PAIN. active Not Available Not Available Not Available folic acid 1 mg tablet TAKE 1 TABLET BY MOUTH EVERY DAY active Not Available Not Available No t Available hydroxyzine HCl 25 mg tablet TAKE 1 TABLET BY MOUTH EVERY 6 HOURS NEEDED FOR ANXIETY. active Not Available Not Available No t Available diclofenac sodium 50 mg tablet,delay ed release TAKE 1 TABLET BY MOUTH TWICE A DAY active Not Available Not Available No t Available lorazepam 1 mg tablet TAKE 1 TABLET BY MOUTH TWICE A DAY NEEDED FOR ANXIETY active Not Available Not Available No t Available celecoxib 100 mg capsule TAKE 1 CAPSULE BY MOUTH TWICE A DAY active Not Available Not Available No t Available olanzapine 20 mg tablet TAKE 1 TABLET BY MOUTH EVERY DAY active Not Available Not Available No t Available buspirone 15 mg tablet TAKE 1 TABLET BY MOUTH TWICE A DAY active Not Available Not Available No t Available escitalopram 10 mg tablet TAKE 1 TABLET BY MOUTH EVERY DAY active Not Available Not Available No t Available escitalopram 20 mg tablet TAKE 1 TABLET BY ORAL ROUTE 1 TIME PER DAY STOP ALL OTHER SCRIPTS FOR ANTIDEPRESS ANTS active Not Available Not Available No t Available nitrofuranto in monohydrate/ macrocrystal s 100 mg capsule TAKE 1 CAPSULE BY MOUTH TWICE A DAY FOR 5 DAYS active Not Available Not Available No t Available duloxetine 30 mg capsule,royal yed release Take 1 capsule every day by oral route in the morning for 30 days, for right arm nerve pain. 2024 active Not Available Not Available Not Avai lable duloxetine 60 mg capsule,royal yed release TAKE 1 CAPSULE BY MOUTH TWICE A DAY active Not Available Not Available No t Available pregabalin 50 mg capsule TAKE 1 CAPSULE BY MOUTH 3 TIMES A DAY. active Not Available Not Available No t Available Vitals Date Recorded Body height Body mass index (BMI) Body weight Respiratory rate Provider Name and Address Organization Details Last Updated DateTime 10/24/2024 167.64 cm 23.4 kg/m2 85649.89 g 12 /min [place] [facility] 10/24/2024 10:58:51 Social History Question Answer Notes LastModified by Organizat ion Details LastModified Time Tobacco Smoking Status Former Smoker [facility] 10/24/2024 11:01:26 What Is Your Level Of Caffeine Consumption? Moderate [facility] Information not available 10/24/2024 What Is The Highest Grade Or Level Of School You Have Completed Or The Highest Degree You Have Received? [id number] [facility] Information not available 10/24/2024 Which Of Your Hands Is Dominant? Right [place] Information not available 10/24/2024 What Is Your Relationship Status? [email or web address] Information not available 10/24/2024 Sex: Unknown Functional Status Question Answer Note LastModified by Organization D etails LastModified Time What is your level of alcohol consumption? None [facility] Information not available 10/24/2024 Mental Status None recorded. Family History Relationship Description Onset Age of this Age Resolved Age Notes LastModified by Organization Details LastModified Time Unspecified Relation Neuropathy self-r ight should er to 3 finger s [email or web address] Not available 10/24/2024 11:00:28 Unspecified Relation Disorder of thyroid gland [email or web address] Not available 11:00:42 Unspecified Relation Tremor self-h and [email or web address] Not available 10/24/2024 11:00:57 Medical History Condition Response Depression Y Alcoholism Y Headaches Y High Blood Pressure or Hypertension Y Gynecological HistoryNo gynecological history recorded. Obstetrics History GPAL:G 0 P 0 0 0 0 Past Encounters Encounter ID Performer Location Encounter Start Date Encounter Closed Date Diagnosis/Indication Diagnosis SNOMED-CT Code Diagnosis ICD10 Code Diagnosis Note [id number] Herb Graham MD [address] [place] [address] 10/23/2024 16:17:29 10/24/2024 06:34:35 Idiopathic progressive polyneuropathy 90048629 G60.3 Carpal luis daniel heidi syndrome of right wrist [id number] 76660 G56.01 Cervical radiculopathy 02550987 M54.12 Lumbosacra l radiculopathy 1595827 M54.16 [id number] Herb Graham MD [facility] [address] [place] [address] [place] [address] 10/24/2024 10:41:37 10/24/2024 11:55:07 Intervertebral disc disorder of cervical region with myelopathy 00760220 M50.023 Vitamin B1 2 deficiency anemia due to dietary causes 891043375 D51.0 Acute lyme disease 00433 7005 A69.20 Unsteady when walking 22 088104 R26.81 Serum rashmi er level outside reference range 536660297 R79.0 [id number] Herb Graham MD [facility] [address] [place] [address] [place] [address] 11/19/2024 09:10:50 11/19/2024 10:43:11 Unsteady when walking 99703083 R26.81 Right cerv ical root neuropathy [id number] 0806071 M54.12 Health Concerns Section Related Observation LastModified by Organization [place] ls LastModified Time None Recorded Concern Status LastModified by Organization Details LastModified Time None Recorded Advance Directives Directive None Recorded Payers Insurance Date Sequence Insurance Name Policy Number Policy Gage Covered Member ID Gage Member ID Guarantor Name 11/16/2024 1 [facility] - MEDICARE PREFERRED (MEDICARE REPLACEMENT HMO) ESTEFANIA De Los Santos Jennacatrachita [id number] 1 Anahi Rucker Notes Date Note Type Note Provider Name and Address Organization Details Recorded Time 10/24/2024 text/html Opal Rucker presents for initial neurology consultation for assessment and management of: Persistent continuous buzzing in right upper extremity medial upper arm extending to medial hand and fingers, intensity helped partially by Lyrica and a feeling of weakness in right upper extremity, emerging winter 2024, about 1 week after a fall from slipping on the ice during which she hit her head; 1 year of continuous symmetric top and bottom foot and toe buzzing, together with pain from bilateral bunions causing gait imbalance; gait imbalance worse since fall on ice.>>>>>>>>>>>>October 23, 2024 presenting symptomatology:Two or 3 months ago, early 2024, she slipped on the ice and hit her head. She had immediate headache which was continuous at that time. That has slowly improved so that she only has a milder headache only about twice a week more recently. She rests on her bed for two or 3 hours until it is gone.However, about a week after that fall, she began noticing buzzing in her right upper extremity. The buzzing was continuous. She started Lyrica after which the buzzing became less intense. However it has remained continuous. The buzzing seems to start in the upper bottom/medial arm and course along the bottom medial portion of her forearm into her medial hand and first two fingers. Her first two fingers and medial hand feel numb. She feels a little weakness in the right upper extremity.Her left upper extremity is unaffected. She has no neck pain and has had no neck pain since her fall.She had neck pain and pain in her right upper extremity along with right upper extremity weakness about two decades ago. She had neck surgery after which the neck pain disappeared. Her right upper extremity pain also resolved and eventually her right extremity weakness went away.About 5 years ago, ~2019, she developed a painful left foot bunion at the site of her great toe. About 1 year ago she noticed significant worsening of that left foot bunion pain and new right foot painful bunion. Around the same time, she began noticing uncomfortable buzzing in the region of both left and right foot bunions and numbness in both left and right great toes. Subsequently, the pain of both left and right bunions has slowly worsened and the buzzing in both feet has slowly extended from location around bunion to eventually encompass both entire feet and all the toes.Around 1 year ago, she began noticing difficulty walking with imbalance and Wolfram pain from the left and right foot bunions. She notes that before a year ago, even with the existing pain in the left sided bunion, she had no difficulty walking at all. This walking difficulty has steadily increased. It seemed to increase particularly after her fall on the ice in early winter 2024.Her imbalance has caused falls separate from her fall on the ice.She takes olanzapine, managed by psychiatry, with diagnosis of schizophrenia. She has historically had hallucination hearing voices. She has had no hearing voices or hallucination more generally in recent times. She sleeps alone. She does not fall out of bed. She has frequent intermittent constipation that started after multiple laparotomies. She has had diagnosis of megacolon. Constipation has not changed in recent years. Herb Graham MD [address] [place] [address], [phone], formerly [facility] 10/24/2024 11:52:26 11/19/2024 text/html Opal Chaim presents for initial neurology consultation for assessment and management of: Persistent continuous buzzing in right upper extremity medial upper arm extending to medial hand and fingers, intensity helped partially by Lyrica and a feeling of weakness in right upper extremity, emerging winter 2024, about 1 week after a fall from slipping on the ice during which she hit her head; 1 year of continuous symmetric top and bottom foot and toe buzzing, together with pain from bilateral bunions causing gait imbalance; gait imbalance worse since fall on ice. 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 >>>>>>>>>>>>November 19, 2024Since October 24, 2024 Neurology follow-up encounter, she is doing not great. The buzzing in her right medial hand and arm is unchanged and bothers her. She is on Lyrica from primary care which is not helping sufficiently. She also has a lot of other things going on which we did not discuss in more detail than that. >>>>>>>>>>>>October 23, 2024 presenting symptomatology:Two or 3 months ago, early 2024, she slipped on the ice and hit her head. She had immediate headache which was continuous at that time. That has slowly improved so that she only has a milder headache only about twice a week more recently. She rests on her bed for two or 3 hours until it is gone.However, about a week after that fall, she began noticing buzzing in her right upper extremity. The buzzing was continuous. She started Lyrica after which the buzzing became less intense. However it has remained continuous. The buzzing seems to start in the upper bottom/medial arm and course along the bottom medial portion of her forearm into her medial hand and first two fingers. Her first two fingers and medial hand feel numb. She feels a little weakness in the right upper extremity.Her left upper extremity is unaffected. She has no neck pain and has had no neck pain since her fall.She had neck pain and pain in her right upper extremity along with right upper extremity weakness about two decades ago. She had neck surgery after which the neck pain disappeared. Her right upper extremity pain also resolved and eventually her right extremity weakness went away.About 5 years ago, ~2019, she developed a painful left foot bunion at the site of her great toe. About 1 year ago she noticed significant worsening of that left foot bunion pain and new right foot painful bunion. Around the same time, she began noticing uncomfortable buzzing in the region of both left and right foot bunions and numbness in both left and right great toes. Subsequently, the pain of both left and right bunions has slowly worsened and the buzzing in both feet has slowly extended from location around bunion to eventually encompass both entire feet and all the toes.Around 1 year ago, she began noticing difficulty walking with imbalance and Wolfram pain from the left and right foot bunions. She notes that before a year ago, even with the existing pain in the left sided bunion, she had no difficulty walking at all. This walking difficulty has steadily increased. It seemed to increase particularly after her fall on the ice in early winter 2024.Her imbalance has caused falls separate from her fall on the ice.She takes olanzapine, managed by psychiatry, with diagnosis of schizophrenia. She has historically had hallucination hearing voices. She has had no hearing voices or hallucination more generally in recent times. She sleeps alone. She does not fall out of bed. She has frequent intermittent constipation that started after multiple laparotomies. She has had diagnosis of megacolon. Constipation has not changed in recent years. Herb Graham MD [address] [place] [address] [place], [phone], formerly [facility] 11/19/2024 10:23:00 OBGyn Episode No OBEpisode recorded.
== END 2024-11-20 16:51 | disposition home or self-care (01) ==
PROVIDERS: Emergency Provider Emergency Medicine; PCP Family Medicine
DX: Z04.1 Encounter for examination and observation following transport accident (principal); M54.2 Cervicalgia; F41.9 Anxiety disorder, unspecified; Z79.899 Other long term (current) drug therapy; Z98.1 Arthrodesis status
CPT/HCPCS: 70450; 72125; 99284

== ENCOUNTER → 2024-11-20 15:15 | Outpatient (BNV) | payer MEDICARE, SELFPAY | PROVIDERS: Emergency Provider Emergency Medicine; PCP Family Medicine; Visit Provider Radiology Diagnostic Radiology | DX: M43.22 Fusion of spine, cervical region (principal); S09.90XA Unspecified injury of head, initial encounter; V89.2XXA Person injured in unspecified motor-vehicle accident, traffic, initial encounter | CPT/HCPCS: 70450; 72125 ==

== ENCOUNTER 2025-01-02 09:55 | Emergency (ER) | payer MEDICARE, SELFPAY ==
[2025-01-02 10:00] VITALS: BP 134/72; PULSE 110; O2SAT 97
[2025-01-02 10:18] VITALS: BP 158/77; PULSE 116; RESP 24; O2SAT 98; BMI 24.7
[2025-01-02 15:23] VITALS: BP 150/80; PULSE 115; RESP 18; TEMP 36.7; O2SAT 99
--- OUTSIDE RECORDS SUMMARY | 2025-01-02 15:25 | XMS_ITS | Clinical Summary ---
Author Organization [facility] it Address [address] [place] [address] Care Team Providers Care Mgmt Consultant Name Role Phone Unavailable Primary Care Provider Unavailabl e Social History Tobacco Use Types Packs/Day Years Used Date Smoking Tobacco: Never Assessed Comments Unknown Sex and Gender Information Value Date Recorded Sex Assigned at Not on file Legal Sex Female 6:09 PM EST Gender Identity Not on file Sexual Orientation Not on file Plan of Treatment Health Maintenance Due Date Last Done Comments Breast Cancer Screening 1950 DTaP,Tdap,and Td Vaccines (1 - Tdap) 09/10/1970 Pneumococcal Vaccine: 50+ Ye ars (1 of 1 - PCV) 09/10/2001 Zoster Vaccines (1 of 2) 09/10/2001 Colorectal Cancer Screening: Colonoscopy 01/22/2024 Falls Risk Assessment 01/22/2024 Hepatitis C Screening 01/22/2024 Osteoporosis Screening (Bone Density Screening) 01/22/2024 Social Influencers of Health Screening 01/22/2024 COVID-19 Vaccine (1 - 2023-2 5 season) 2024 Depression Screening 05/29/2024 Influenza Vaccine (#1) 2025 RSV Immunization Adult Patie nts (1 - 1-dose 75+ series) 09/10/2026 HIB Vaccines Aged Out No longer eligi ble based on patient's age to complete this topic HPV Vaccines Aged Out No longer eligi ble based on patient's age to complete this topic Hepatitis A Vaccines Aged Out No long er eligible based on patient's age to complete this topic Hepatitis B Vaccines Aged Out No long er eligible based on patient's age to complete this topic IPV Vaccines Aged Out No longer eligi ble based on patient's age to complete this topic MMR Vaccines Aged Out No longer eligi ble based on patient's age to complete this topic Meningococcal ACWY Vaccine Aged Out N o longer eligible based on patient's age to complete this topic Meningococcal B Vaccine Aged Out No l onger eligible based on patient's age to complete this topic RSV Immunization Patients Un elsa 20 months Aged Out No longer eligible b ased on patient's age to complete this topic Varicella Vaccines Aged Out No longer eligible based on patient's age to complete this topic
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
[2025-01-02 16:20] VITALS: BP 150/80; PULSE 115; RESP 18; TEMP 36.7; O2SAT 99
== END 2025-01-02 16:20 | disposition home or self-care (01) ==
PROVIDERS: Emergency Provider Emergency Medicine; PCP Family Medicine
DX: F41.0 Panic disorder [episodic paroxysmal anxiety] (principal); F41.9 Anxiety disorder, unspecified; I10 Essential (primary) hypertension; R07.89 Other chest pain; Z79.899 Other long term (current) drug therapy
CPT/HCPCS: 99283; 99284

== ENCOUNTER 2025-03-20 17:16 | Inpatient (IN) | payer MEDICARE, SELFPAY ==
[2025-03-20 17:40] VITALS: BMI 22.6
[2025-03-20 17:41] VITALS: BP 133/73; PULSE 110; TEMP 36.4; O2SAT 95
--- OUTSIDE RECORDS SUMMARY | 2025-03-20 19:39 | XMS_ITS | Data Portability ---
Author Organization [facility], [facility] Address [address] [place] [address] [place] [address] Care Team Providers Care Ad Compositor Name Role Phone SYLVIA BHAKTA Referring Provider [phone] SYLVIA BHAKTA Primary Care Provider Assessment Encounter Date Assessment Date Assessment LastModified by Organization Details LastModified Time 10/24/2024 10/24/2024 IMPRESSION: C ervical spinal cord injury versus subtle right C8-T1 nerve root injury not detected as acute denervation by needle EMG studies as explanation of persistent continuous buzzing in right upper extremity m edial upper arm extending to medial hand and fingers, intensity helped partially by Homa velázquez nd a feeling of weakness in right upper [...] great toes; possible cervical myelopathy; mild parkinsonism. M ay 2024 EMG & NCS of right upper [...] Tylenol We will pursue MRI cervical spine w ith contrast given previous surgery nigel valenzuela possibility of traumatic myelopathy from fall causing her right upper extremity buzzing. The buzzing in her feet could relate to B12 deficiency affecting her spinal cord but not her peripheral nerves e xplaining her normal right lower extremity nerve conduction [...] using a gait aid. >>>>>>>>>>>> PLAN Opal Rucker EMG HPI & PE October 23, 2024 MRI cervical spine with concern for traumatic myelopathy as explanation of continuous buzzing in right upper extremity m edial upper arm extending to medial hand and fingers following fall onto the ice early winter 2024, electrodiagnostic studies unrevealing, with and without contrast context previous cervical spine surgery with anterior approach and with hardware. Laboratory assays: B12 panel, vitamin E, copper, Lyme titer Follow-up after mrossen Not available 10/24/2024 11:46:32 11/19/2024 11/19/2024 IMPRESSION: C ervical spinal cord injury versus subtle right C8-T1 nerve root injury not detected as acute denervation by needle EMG studies as explanation of persistent continuous buzzing in right upper extremity m edial upper arm extending to medial hand and fingers, intensity helped partially by Lynadege velázquez nd a feeling of weakness in right upper [...] great toes; possible cervical myelopathy; mild parkinsonism. M ay 2024 EMG & NCS of right upper and lower extremities: Suggestive but not diagnostic of right median neuropathy at the wrist which is unrelated to presenting medial hand and arm buzzing; possible remote inactive (C7 more likely than C6, C8) radiculopathy, unlikely related to presenting symptomatology, possibly related to neck surgery in the early reported by patient. Right lower extremity studies normal. M ay 2024: Lyme titer negative, copper normal, vitamin B12 panel unremarkable, vitamin E normal J une 2024 MRI cervical spine with and without [...] for one of the conservative neurosurgeons at [facility] to consider surgery. There is too much possibility that there is permanent damage to the nerve and so surgery would not help the symptom. Moderate to severe narrowing is less likely to be causing continual irritation. The risk of surgery is likely higher than the possible benefit. Yet I cannot speak for neurosurgery at [facility] definitively. I offer her referral. She declines [...] Tylenol We will pursue MRI cervical spine w ith contrast given previous surgery g iven possibility of traumatic myelopathy from fall causing her right upper extremity buzzing. The buzzing in her feet could relate to B12 deficiency affecting her spinal cord but not her peripheral nerves e xplaining her normal right lower extremity nerve conduction [...] 4-6 weeks mrossen Not available 11/19/2024 10:22:21 02/13/2025 02/13/2025 IMPRESSION: S ubtle Cervical spinal cord injury (not evident on cspine MRI October 2024) versus subtle right C8-T1 nerve root injury (not evident as acute denervation on October 23, 2024 EMG ) as explanation ofpersistent continuous buzzing in right upper extremity m edial upper arm extending to medial hand and fingers, intensity helped partially by Homa velázquez nd a feeling of weakness in right upper [...] great toes; possible cervical myelopathy; mild parkinsonism. M ay 2024 EMG & NCS of right upper and lower extremities: Suggestive but not diagnostic of right median neuropathy at the wrist which is unrelated to presenting medial hand and arm buzzing; possible remote inactive (C7 more likely than C6, C8) radiculopathy, unlikely related to presenting symptomatology, possibly related to neck surgery in the early reported by patient. Right lower extremity studies normal. M ay 2024: Lyme titer negative, copper normal, vitamin B12 panel unremarkable, vitamin E normal J une 2024 MRI cervical spine with and without contrast: moderate to severe right neural foraminal narrowing with crowding of C8 root ; Normal cervical cord, no central canal narrowing, no abnormal enhancement. --November 19, 2024 right medial hand/arm buzzing unchanged and bothersome. Declines neurosurgery referral. --February 13, 2025 duloxetine 30 mg every morning added to pre-existing pregabalin 50 mg 3 times daily: Right medial arm/hand buzzing completely resolved; patient bothered by weight gain. >>>>>>>>>>>>February 13, 2025 As discussed in HPI, she will call primary care to consider pregabalin discontinuation because of weight gain. She will call me to consider increase duloxetine if such a scenario results and return of right medial arm/hand buzzing. >>>>>>>>>>>>November 19, 2024 MRI C-spine -> right [...] for one of the conservative neurosurgeons at [facility] to consider surgery. There is too much possibility that there is permanent damage to the nerve and so surgery would not help the symptom. Moderate to severe narrowing is less likely to be causing continual irritation. The risk of surgery is likely higher than the possible benefit. Yet I cannot speak for neurosurgery at [facility] definitively. I offer her referral. She declines [...] Tylenol We will pursue MRI cervical spine w ith contrast given previous surgery g iven possibility of traumatic myelopathy from fall causing her right upper extremity buzzing. The buzzing in her feet could relate to B12 deficiency affecting her spinal cord but not her peripheral nerves e xplaining her normal right lower extremity nerve conduction [...] using a gait aid. >>>>>>>>>>>> PLAN Opal Borjaslucretia February 13, 2025 CONTINUE Duloxetine 30 mg every morning with food. Prescription started November 19, 2024 Follow-up in 8 months or earlier as for reasons as detailed above and in HPI mrossen Not available 02/13/2025 08:31:29 Plan of Treatment Reminders Order Date Submit Date Provider Last Modified By Organization Details Last Modified Time Details Appointments FOLLOW UP EXT 2025 08:00A Liliana Graham MD PhD Not available Not available Not available Lab vitami n B12, serum 2024 025 [facility] (Outpatient), [address] [place] [address], [id number], 10/24/2024 16:40:54 folate , serum 2024 025 [facility] (Outpatient), [address] [place] [address], [id number], 11/06/2024 12:31:36 homocy steine , serum or plasma 2024 025 [facility] (Outpatient), [address] [place] [address], [id number], 10/26/2024 13:02:32 methyl malona te, QN, serum or plasma 2024 025 [facility] (Outpatient), [address] [place] [address], [id number], 11/05/2024 15:17:23 lyme diseas e igg+ig m, serum, reflex jacob n blot 2024 [facility] (Outpatient), [address] [place] [address], [id number], 10/25/2024 11:20:48 unlist ed lab - vitami n E 2024 025 [facility] (Outpatient), [address] [place] [address], [id number], 11/13/2024 11:16:46 copper , serum or plasma - E83.00 2024 [facility] (Outpatient), [address] [place] [address], [id number], 10/28/2024 13:14:49 copper , blood 2024 [facility] (Outpatient), [address] [place], [address], 11/13/2024 11:16:08 Referral None record ed. Procedures None record ed. Surgeries None record ed. Imaging MRI, cervic al spine, w/wo contra st - 3T magnet please ; with concer n for trauma tic myelop athy as explan ation of contin uous buzzin g in right upper extrem ity m edial upper arm extend ing to medial hand and finger s follow ing fall onto the ice early winter 2024, electr odiagn ostic studie s unreve aling, with and withou t contra st contex t previo us cervic al spine surger y with anteri or approa ch and with guillaumewa re. 2024 [facility] ([facility] [address], [place], [address], 11/18/2024 08:29:16 Medication Orders duloxe vahid 30 mg capsul e,royal yed releas e 2024 025 [id number], [address], [place], [address], 12/19/2024 11:47:27 Patient TargetsNo targets recorded. Patient Instructions Encounter Date Encounter Id Patient Instructions Last Modified By Organization Details Last Modified Time 10/24/2024 [id number] Discussion acros s issues of diagnoses and management and same day associated chart review and management greater than 50% greater than 60 minutes mrossen Not available 10/24/2024 11:52:10 11/19/2024 [id number] Chronic conditio n with exacerbation; prescription medication management; Discussion across issues of diagnoses and management and same day associated chart review and management greater than 50% greater than 40 minutes mrossen Not available 11/19/2024 10:22:56 02/13/2025 [id number] Chronic conditio n with exacerbation; prescription medication management; mrossen Not available 02/13/2025 08:31:36 Reason for Referral None Reported. Results Created Date Observation Date Name Description Value Unit Range Abnormal Flag Note LastModifiedBy Organization Detail LastModifiedTime 11/19/1911/14/2024 MRI, cervi susan spine , w/wo contr larry Vargas in [facility] Access ion Number : [id number] Padminisameer antonio Name: DANIEL MARTINEZ, ANAHI Reynoldsa l Record Number : [id number] Date of : 1950 Date of Exam: 2024 Referr ing Physic beth: Karel Graham [facility]is Neurol [facility] [address] [facility] [address] [place] [address] Exam: MR Cervic al Spine (C-/C+ ) CPT 03383 Room Descri ption: Fuentes Siem Espr 1.5 MR Cervic al Spine (C-/C+ ) CPT 32276 INDICA TION: - Cervic al disc disord [...] well as postsu rgical change s from naval gunfire spotter ior fusion at these levels . Artifa [...] preser mateus. Alignm ent is mainta ined. DRY HOUSE TENDER IOR FOSSA AND CORD: Visual ized naval gunfire spotter ior fossa is normal . The cervic al cord is normal in signal and calibe r. There is no abnorm al enhanc ement. PARASP INAL TISSUE S: There is atroph y of the naval gunfire spotter ior parasp inal muscul ature as well [...] Electr onical ly Signed By: Ammy solorzano [facility] ([facility]) [address] [place] [address], [place], [address], 11/20/2024 06:49:30 Result Notes Documentation Provider Name and Address Organization Details Recorded Time Mri, Cervical Spine, W/wo Contrast : [facility] Accession Number: [id number] Patient Name: ANAHI RUCKER Date of : 1950 Date of Exam: 11-14-2024 Referring Physician: Herb Graham [facility] [address] [place] [address] - [address] [place], [place] [address] Exam: MR Cervical Spine (C-/C+) CPT 33349 Room Description: Fuentes Dominguez 1.5 MR Cervical Spine (C-/C+) CPT 30800 INDICATION: - Cervical disc disorder at C6-C7 [...] narrowing at C6-C7. Electronically Signed By: [facility] 11/20/2024 06:49:31 Procedures Surgical History Date Name Laterality Status Provider Name and Address Organization Details Recorded Time 02/13/2025 DATA REVIEW completed Herb Graham MD [address] [place], [place] [address], [phone], [facility] 02/13/2025 08:05:10 11/19/2024 DATA REVIEW completed Herb Graham MD [address] [place] [address] [place], [phone], [facility] 11/19/2024 09:56:27 10/24/2024 DATA REVIEW completed Herb Graham MD [address] [place], [place] [address], [address], [facility] 10/24/2024 11:09:28 10/23/2024 EMG & NCS completed Herb Graham MD [address] [place], [place] [address], [address], [facility] 10/23/2024 19:45:52 Imaging Results None recorded. Procedure Notes None recorded. Medical Equipment None Reported. Allergies Allergen ID Allergen Name Allergen Category Reaction Reaction Severity Criticality Documentation Date Start Date Code Code System Note Provider Name and Address Organization Details Recorded Time 5123 sulfameth oxazole / trimethop rim medicatio n Not available Not available Not available 10/24/2024 99339 [facility] 10:59:06 5124 Ultram medicatio n Not available Not available Not available 10/24/2024 06445 6 RxNorm Michelle Worthingt on [facility] 10:59:27 Medications Name Sig Start Date Stop [...] Available olanzapine 2.5 mg tablet TAKE 1 TABLET BY [...] Available Not Available No t Available lorazepam 0.5 mg tablet TAKE 1 TABLET BY MOUTH EVERY 8 HOURS NEEDED FOR ANXIETY. active Not Available [...] t Available lorazepam 1 mg tablet TAKE 0.5 TO 1 TABLET TWICE DAILY NEEDED FOR PANIC ATTACK/ HEIGHTENED ANXIETY active Not Available Not Available No [...] Not Available Not Available No t Available oxycodone 5 mg tablet PLEASE SEE ATTACHED FOR DETAILED DIRECTIONS active Not Available Not Available N ot Available escitalopram 10 mg tablet TAKE 1 [...] Available duloxetine 30 mg capsule,royal yed release TAKE 1 CAPSULE EVERY DAY BY ORAL ROUTE IN THE MORNING FOR 30 DAYS, FOR RIGHT ARM NERVE PAIN. 2024 active Not Available Not Available Not Avai lable duloxetine 60 mg capsule,royal yed release TAKE 1 CAPSULE BY MOUTH TWICE A DAY active Not Available Not Available No t Available pregabalin 50 mg capsule TAKE 1 CAPSULE BY MOUTH THREE TIMES A DAY active Not Available Not Available Not Available Vitals Date Recorded Body height Body mass index (BMI) Body weight Respiratory rate Provider Name and Address Organization Details Last Updated DateTime 10/24/2024 167.64 cm 23.4 kg/m2 44924.89 g 12 /min [facility] 10/24/[facility]24 10:58:51 Social History Question Answer Notes LastModified by Organizat ion Details LastModified Time Tobacco Smoking Status Former Smoker [facility] lee ann, [facility] 10/24/2024 11:01:26 What Is Your Level Of Caffeine Consumption? Moderate Information not available 10/24/2024 What Is The Highest Grade Or Level Of School You Have Completed Or The Highest Degree You Have Received? [id number] [facility] Information not available 10/24/2024 Which Of Your Hands Is Dominant? Right Information not available 10/24/2024 What Is Your Relationship Status? Information not available 10/24/2024 Sex: Unknown Functional Status Question Answer Note LastModified by Organization D etails LastModified Time What is your level of alcohol consumption? None Information not available 10/24/2024 Mental Status None [...] available 10/24/2024 11:00:57 Medical History Condition Response High Blood Pressure or Hypertension Y Headaches Y Depression Y Alcoholism Y Gynecological HistoryNo gynecological history recorded. 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 Carpal luis daniel heidi syndrome of right wrist 7336599455 68560 G56.01 Cervical radiculopathy 09645341 M54.12 Lumbosacra l radiculopathy 1996800 M54.16 [id number] Herb Graham MD [facility] [address] [place] [address] [place] [address] 10/24/2024 10:41:37 10/24/2024 11:55:07 Intervertebral disc disorder of cervical region with myelopathy 76724077 M50.023 91993444 Vitamin B1 2 deficiency anemia due to dietary causes 251988053 D51.0 Acute lyme disease 03831 7005 A69.20 Unsteady when walking 22 171222 R26.81 5314923806 Serum rashmi er level outside reference range 240265156 R79.0 [id number] Herb Graham MD [facility] [address] [place] [address] [place] [address] 11/19/2024 09:10:50 11/19/2024 10:43:11 Unsteady when walking 07906235 R26.81 8935530571 Right cerv ical root neuropathy 6029723342 0955961 M54.12 [id number] Herb Graham MD [facility] [address] [place] [address] JUAN PABLO Kyra MORRISBRITTDENA BENJAMIN [address] 02/13/2025 07:53:16 02/17/2025 17:14:56 Unsteady when walking 99367331 R26.81 [id number] Health Concerns Section Related Observation LastModified by Organization Detai ls LastModified Time None Recorded Concern Status LastModified by Organization Details LastModified Time None Recorded Advance Directives Directive None Recorded Payers Insurance Date Sequence Insurance Name Policy Number Policy Gage Covered Member ID Gage Member ID Guarantor Name 02/17/2025 1 [facility] - MEDICARE PREFERRED (MEDICARE REPLACEMENT HMO) ESTEFANIA Rucker [id number] Anahi Rucker Notes Date Note Type Note Provider Name and Address Organization Details Recorded Time 10/24/2024 text/html Opal Rucker presents for initial neurology consultation for assessment and management of: P ersistent continuous buzzing in right upper extremity m edial upper arm extending to medial hand and fingers, intensity helped partially by Lyrica eber adair a feeling of weakness in right upper [...] year ago, she began noticing difficulty walking w ith imbalance and Wolfram pain from the left and right foot bunions. She notes that before a year ago, even with the existing pain in the left sided bunion, she had no difficulty walking at all. This walking difficulty has steadily increased. It seemed to increase particularly after her fall on the ice in early winter 2024.Her imbalance has caused falls s eparate from her fall on the ice.She takes olanzapine, managed by psychiatry, with diagnosis of schizophrenia. She has historically had hallucination h earing voices. She has had no hearing voices or hallucination more generally in recent times. She sleeps alone. She does not fall out of bed. She has frequent intermittent constipation that started after multiple laparotomies. She has had diagnosis of megacolon. Constipation has not changed in recent years. Herb Graham MD [address] [place] [address], [phone], [facility] 10/24/2024 11:52:26 11/19/2024 text/html Opal Rcuker presents for initial neurology consultation for assessment and management of: P ersistent continuous buzzing in right upper extremity m edial upper arm extending to medial hand and fingers, intensity helped partially by Lyrica a nd a feeling of weakness in right upper [...] year ago, she began noticing difficulty walking w ith imbalance and Wolfram pain from the left and right foot bunions. She notes that before a year ago, even with the existing pain in the left sided bunion, she had no difficulty walking at all. This walking difficulty has steadily increased. It seemed to increase particularly after her fall on the ice in early winter 2024.Her imbalance has caused falls s eparate from her fall on the ice.She takes olanzapine, managed by psychiatry, with diagnosis of schizophrenia. She has historically had hallucination h earing voices. She has had no hearing voices or hallucination more generally in recent times. She sleeps alone. She does not fall out of bed. She has frequent intermittent constipation that started after multiple laparotomies. She has had diagnosis of megacolon. Constipation has not changed in recent years. 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 >>>>>>>>>>>>Septemb 2024Since November 19, 2024 Neurology follow-up encounter, she has started Cymbalta (duloxetine generic) 30 mg every morning. Her continuous uncomfortable buzzing in medial upper arm to medial hands and fingers has completely resolved. She has no side effects of nausea or negative change of mood.She has continued on the Lyrica (generic pregabalin) 50 mg 3 times daily started by primary care in August 2024 that had helped the buzzing partially but not sufficiently.She notices that she has had increased appetite and has gained 20 pounds. This bothers her. She had never had such a problem with Cymbalta/duloxetine when she had been on it previously. I did tell her that pregabalin has much more of a reputation for increased appetite/weight gain than Cymbalta/duloxetine .She understands. She agrees to talk with primary care about the possibility of discontinuing Lyrica/pregabalin.S he also understands that as Lyrica/pregabalin had helped partially, it is possible that if she discontinues Lyrica/pregabalin, her right medial upper arm/hand buzzing will reemerge a s the Cymbalta/duloxetine 30 mg every morning may be too small dose.In such a case, there is room to go up on duloxetine although blood pressure would have to be monitored. I believe she has baseline hypertension and she is on amlodipine.We will address that situation if it emerges. We agree that we will set up follow-up for 8 months but she will call for earlier follow-up if she needs it for the above situation or for neurological issue more generally. >>>>>>>>>>>>November 19, 2024Since October 24, 2024 Neurology [...] year ago, she began noticing difficulty walking w ith imbalance and Wolfram pain from the left and right foot bunions. She notes that before a year ago, even with the existing pain in the left sided bunion, she had no difficulty walking at all. This walking difficulty has steadily increased. It seemed to increase particularly after her fall on the ice in early winter 2024.Her imbalance has caused falls s eparate from her fall on the ice.She takes olanzapine, managed by psychiatry, with diagnosis of schizophrenia. She has historically had hallucination h earing voices. She has had no hearing voices or hallucination more generally in recent times. She sleeps alone. She does not fall out of bed. She has frequent intermittent constipation that started after multiple laparotomies. She has had diagnosis of megacolon. Constipation has not changed in recent years. Herb Graham MD [address] [place] [address] [place], [phone], [facility] 02/13/2025 08:31:47 OBGyn Episode No OBEpisode recorded.
--- OUTSIDE RECORDS SUMMARY | 2025-03-20 19:39 | XMS_ITS | Clinical Summary ---
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
[2025-03-20 20:00] VITALS: BP 116/73; PULSE 112; RESP 16; TEMP 36.1; O2SAT 98
[2025-03-21 08:00] VITALS: BP 118/67; PULSE 108; RESP 16; TEMP 36.1; O2SAT 93
--- NOTE | 2025-03-21 08:15 | HO.PM.IMCN ---
History of Present Illness Data of Consult Service Date: 03/21/25 Primary Care Provider: Reinaldo Willard MD [facility] Reason for consult: Medical consult 71-year-old female with a past medical history of complete heart block with a dual-chamber pacemaker inserted November 2024, EtOH abuse, anxiety disorder, schizoaffective disorder, hypertension, hyperlipidemia, GERD, migraines, major depressive disorder, chronic pain syndrome presented to the ED at [facility] due to panic attack. Initial laboratory evaluation included a normal TSH, normal chest x-ray, EKG and cardiac enzymes within normal limits. D-dimer normal age adjusted. No significant electrolyte imbalances, no anemia. Urine without evidence of infection. On exam she has no medical concerns except for anxiety and shakiness which are noted in her initial evaluation. Review of Systems Review of Systems: Denies any shortness of breath, chest pain, headaches, dysuria, abdominal pain or discomfort, nausea, vomiting or diarrhea. Denies fever or chills. [facility] Medical History Hypomagnesemia Alcohol dependence Bipolar disorder Endometriosis Alcohol use with withdrawal Anxiety Fracture of distal end of right fibula Hypertension Mood disorder Routine medical exam Social History Household Members: None Household Members Other:: Cat Housing: House Do you presently have visiting nurse or other home services: Yes (home health aide) Alcohol intake: current Alcohol intake frequency: a few times a week Alcohol type: beer Comment: Pt refusing bed/chair alarms Patient Tobacco Use Status: Never used Tobacco Tobacco use type: Cigarette Smoked in Last 30 Days: No e-Cigarette/Vaping Use: Never Used Second Hand Smoke Exposure: No Currently Displaying Signs/Symptoms of Drug Intoxication Withdrawal: No Have you been hit, kicked, punched, or otherwise hurt by someone within the past year? If so, by whom?: No Do you feel safe in your current relationship?: No Is there a partner from a previous relationship who is making you feel unsafe now?: No Are you made to feel afraid or neglected: No Advance Directives: Yes Advance Directives on File: Yes Advance Directives Date on File: 06/16/22 Do you have thoughts of harming others: None Do you have a plan to hurt others: No Plan Recently lost weight without trying: No Nutrition Risks: No Nutritional Risk Patient : No : No service: No Current occupational status: unemployed Sexual orientation: Straight/Heterosexual Meds Allergies Allergy/AdvReac Type Severity Reaction Status Date / Time sulfamethoxazole (From Allergy Mild FEVER Verified 01/02/25 10:20 BACTRIM) trimethoprim (From BACTRIM) Allergy Mild FEVER Verified 01/02/25 10:20 cephalexin (Keflex) Allergy Unknown Rash Verified 01/02/25 10:20 Sulfa (Sulfonamide Allergy Unknown Fever Verified 01/02/25 10:20 Antibiotics) tramadol (Ultram) Allergy Unknown Unknown Verified 01/02/25 10:20 mold Allergy Unknown Headache Uncoded 01/02/25 10:20 pollen Allergy Unknown Headache Uncoded 01/02/25 10:20 Active Medications: Current Medications Acetaminophen (Acetaminophen 325 Mg Tablet) 650 mg PO Q6H PRN PRN Reason: Headache/Pain, Scale 1-10 Last Admin: 03/20/25 18:33 Dose: 650 mg Al Hydroxide/Mg Hydroxide (Magnesium Hydrox/Alum Hydrox 30 Ml Oral.Susp) 30 ml PO Q6H PRN PRN Reason: Heartburn/Nausea Amlodipine Besylate (Amlodipine Besylate 10 Mg Tablet) 10 mg PO DAILY [facility]; Protocol Cromolyn Sodium (Cromolyn Sodium Nasal 26 Ml Bottle) 1 spray NOSTRIL-B QID [facility] Last Admin: 03/20/25 23:02 Dose: Not Given Cyclobenzaprine HCl (Cyclobenzaprine Hcl 10 Mg Tablet) 10 mg PO BID PRN PRN Reason: Muscle Spasm Diclofenac Sodium (Diclofenac Sodium Delayed Rel 50 Mg Tablet.) 50 mg PO BIDWM [facility] Duloxetine HCl (Duloxetine Hcl 60 Mg Capsule.) 60 mg PO BID [facility] Last Admin: 03/20/25 22:48 Dose: 60 mg Folic Acid (Folic Acid 1 Mg Tablet) 1 mg PO DAILY [facility] Hydroxyzine HCl (Hydroxyzine Hcl 50 Mg Tablet) 50 mg PO BID PRN PRN Reason: Anxiety Last Admin: 03/20/25 22:57 Dose: 50 mg Lorazepam (Lorazepam 1 Mg Tablet) 1 mg PO Q2H PRN PRN Reason: ciwa 6-10 Lorazepam (Lorazepam 1 Mg Tablet) 2 mg PO Q2H PRN PRN Reason: ciwa 11+ Magnesium Hydroxide (Milk Of Magnesia 30 Ml Oral.Susp) 30 ml PO DAILY PRN PRN Reason: Constipation Magnesium Oxide (Magnesium Oxide 400 Mg Tablet) 400 mg PO DAILY [facility] Multivitamins/Vitamin C (Multivitamin Tablet) 1 tab PO DAILY [facility] Nicotine Polacrilex (Nicotine Polacrilex 2 Mg Gum) 4 mg BUCCAL Q2H PRN PRN Reason: Nicotine Cravings Olanzapine (Olanzapine 2.5 Mg Tablet) 2.5 mg PO BID PRN PRN Reason: agitation Omeprazole (Omeprazole 40 Mg Capsule.Dr) 40 mg PO DAILY@0630 [facility] Last Admin: 03/21/25 06:42 Dose: 40 mg Pregabalin (Pregabalin 50 Mg Capsule) 50 mg PO TID [facility] Last Admin: 03/20/25 22:48 Dose: 50 mg Pyridoxine HCl (Pyridoxine Hcl (Vitamin B6) 50 Mg Tablet) 25 mg PO DAILY [facility] Thiamine HCl (Thiamine Hcl 100 Mg Tablet) 100 mg PO DAILY [facility] Trazodone HCl (Trazodone Hcl 50 Mg Tablet) 50 mg PO BEDTIME MRX1 PRN PRN Reason: Insomnia Last Admin: 03/20/25 23:00 Dose: 50 mg Home Medications ?Medication ?Instructions ?Recorded ?Confirmed ?Last Taken ?Type cyclobenzaprine 10 mg tablet 10 mg PO BID PRN Muscle Spasm 06/16/22 03/20/25 02/22/23 History hydroxyzine HCl 25 mg tablet 50 mg PO BID PRN Anxiety 10/09/22 03/20/25 02/22/23 History olanzapine 20 mg tablet (Zyprexa) 20 mg PO DAILY 10/09/22 03/20/25 02/22/23 History olanzapine 5 mg tablet 2.5 mg PO BID PRN Anxiety 02/23/23 03/20/25 02/22/23 History amlodipine 5 mg tablet 10 mg PO DAILY 03/20/25 03/20/25 Unknown History cromolyn 5.2 mg/spray (4 %) nasal 1 spray intranasal QID 03/20/25 03/20/25 Unknown History spray diclofenac sodium 50 mg 50 mg PO BID 03/20/25 03/20/25 Unknown History tablet,delayed release lorazepam 1 mg tablet (Ativan) 0.5 mg PO TID PRN anxiety 03/20/25 03/20/25 Unknown History pregabalin 50 mg capsule 50 mg PO TID 03/20/25 03/20/25 Unknown History Physical Exam Vital Signs and Narrative: Vital Signs: Last Vital Signs Temp 97 F 03/20/25 20:00 Pulse 112 H 03/20/25 20:00 Resp 16 03/20/25 20:00 BP 116/73 03/20/25 20:00 Pulse Ox 98 03/20/25 20:00 O2 Del Method Room Air 03/20/25 20:00 BMI result Body Mass Index 22.6 Alert and oriented X3, calm and cooperative. Answers questions. Neuro: CN II-X11 intact, no deficits, visual acuity intact, gait steady, moves all extremities. Bilateral hand shaking EYES: PERRLA, EOM intact ENT: Hearing intact, MMM Cardiac: S1 S2 RRR, No ectopy Pulmonary: lungs clear to auscultation, No increased WOB. Abdominal: BS active in all 4 quadrants, no guarding or tenderness MSK: Strength 5/5 upper and lower extremities : Deferred Extremities: No edema in lower extremities Psych: Mood stable, Quiet and cooperative. Skin: Warm and dry, Intact Assessment and Plan (1) Hypertension: Status: Acute Plan 74-year-old female with past medical history listed below presented to [facility] ED with panic attack. She is admitted here for further care and treatment. Anxiety disorder/schizoaffective disorder/major depressive disorder/EtOH abuse Treatment per psychiatric team Complete heart block with a dual chamber pacemaker inserted November 2024 Followed by Cardiology outpatient HTN/HLD Continue amlodipine, not on statin Lifestyle changes Chronic pain syndrome Takes Steven b.i.Adrian mcpherson Thank you for allowing me to participate in the care of this patient. Will follow with you, please notify medical provider with any changes in condition or concerns.
[2025-03-21 08:47] LABS: Cholesterol 196 mg/dL (<200); HDL Cholesterol 77 mg/dL (>40); Magnesium 1.9 mg/dL (1.6-2.6); Triglycerides 93 mg/dL (<150)
[2025-03-21] MEDS: Diclofenac Sodium Delayed Rel 50 MG TABLET.DR PO ×2 (08:56→16:59)
[2025-03-21 09:04] LABS: Free T4 (Free Thyroxine) 1.03 ng/dL (0.71-1.85); Thyroid Stimulating Hormone 1.28 uIU/mL (0.32-4.0)
[2025-03-21 09:17] LABS: Folate 13.1 ng/mL (> or = 4.0); Vitamin B12 358 pg/mL (200-900)
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
[2025-03-21 20:00] VITALS: BP 101/58; PULSE 93; TEMP 35.7; O2SAT 94
[2025-03-21] MEDS: Milk of Magnesia 30 ML ORAL.SUSP PO (20:58)
[2025-03-22 08:00] VITALS: BP 111/62; PULSE 97; RESP 17; TEMP 36.5; O2SAT 97
[2025-03-22 08:30] VITALS: BP 111/62
[2025-03-22] MEDS: Diclofenac Sodium Delayed Rel 50 MG TABLET.DR PO ×2 (09:24→17:18)
[2025-03-22] MEDS: Milk of Magnesia 30 ML ORAL.SUSP PO (13:48)
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
[2025-03-22 20:00] VITALS: BP 131/63; PULSE 105; TEMP 36.3; O2SAT 95
[2025-03-23 08:00] VITALS: BP 121/66; PULSE 98; RESP 18; TEMP 36.3
[2025-03-23] MEDS: Milk of Magnesia 30 ML ORAL.SUSP PO (08:39)
[2025-03-23] MEDS: Diclofenac Sodium Delayed Rel 50 MG TABLET.DR PO ×2 (08:40→17:46)
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
[2025-03-23 20:00] VITALS: BP 108/54; PULSE 93; RESP 16; TEMP 36.2; O2SAT 100
--- NOTE | 2025-03-24 06:53 | PC.NURSE ---
Patient reported that she finally had a bowel movement.
[2025-03-24 08:00] VITALS: BP 112/63; PULSE 102; RESP 18; TEMP 36.5; O2SAT 94
[2025-03-24 08:04] VITALS: BP 112/63
[2025-03-24] MEDS: Diclofenac Sodium Delayed Rel 50 MG TABLET.DR PO ×2 (08:05→17:43)
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
[2025-03-24 19:53] VITALS: BP 131/70; PULSE 114; TEMP 36.8; O2SAT 97
[2025-03-25 08:00] VITALS: BP 127/71; PULSE 109; RESP 16; TEMP 36.4; O2SAT 96
[2025-03-25] MEDS: Diclofenac Sodium Delayed Rel 50 MG TABLET.DR PO ×2 (08:51→17:34)
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
[2025-03-25 20:00] VITALS: BP 105/57; PULSE 107; RESP 16; TEMP 36.4; O2SAT 95
[2025-03-26 08:00] VITALS: BP 105/53; PULSE 107; TEMP 36.4; O2SAT 95
[2025-03-26] MEDS: Diclofenac Sodium Delayed Rel 50 MG TABLET.DR PO ×2 (08:55→17:50)
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
[2025-03-26 20:00] VITALS: BP 107/63; PULSE 74; RESP 16; TEMP 36.6; O2SAT 95
[2025-03-27 07:00] VITALS: BMI 26.9
[2025-03-27 08:00] VITALS: BP 105/60; PULSE 99; RESP 14; TEMP 36.4; O2SAT 99
[2025-03-27] MEDS: Diclofenac Sodium Delayed Rel 50 MG TABLET.DR PO ×2 (09:05→17:39)
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
[2025-03-27] MEDS: Milk of Magnesia 30 ML ORAL.SUSP PO (14:03)
[2025-03-27 20:00] VITALS: BP 105/58; PULSE 99; RESP 16; TEMP 36.4; O2SAT 96
[2025-03-28] MEDS: Diclofenac Sodium Delayed Rel 50 MG TABLET.DR PO (09:29)
[2025-03-28 09:32] VITALS: BP 108/60
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
== END 2025-03-28 11:30 | disposition home or self-care (01) | DRG 885 ==
PROVIDERS: Admitting Provider Psychiatry & Neurology Psychiatry; PCP Family Medicine; Visit Provider Clinical Nurse Specialist Psychiatric/Mental Health, Adult
DX: F25.0 Schizoaffective disorder, bipolar type (principal); I44.2 Atrioventricular block, complete; F10.20 Alcohol dependence, uncomplicated; F41.9 Anxiety disorder, unspecified; I10 Essential (primary) hypertension; E78.5 Hyperlipidemia, unspecified; G89.4 Chronic pain syndrome; Z95.0 Presence of cardiac pacemaker; Z79.899 Other long term (current) drug therapy
CPT/HCPCS: 36415; 80061; 82607; 82746; 83036; 83735; 84439; 84443

== ENCOUNTER → 2025-03-20 17:16 | Outpatient (BNV) | payer MEDICARE, SELFPAY | PROVIDERS: Admitting Provider Psychiatry & Neurology Psychiatry; PCP Family Medicine; Visit Provider Nurse Practitioner Family | DX: I10 Essential (primary) hypertension (principal) | CPT/HCPCS: 99221 ==

== ENCOUNTER → 2025-03-20 17:16 | Outpatient (BNV) | payer MEDICARE, SELFPAY | PROVIDERS: Admitting Provider Psychiatry & Neurology Psychiatry; PCP Family Medicine; Visit Provider Clinical Nurse Specialist Psychiatric/Mental Health, Adult | DX: F25.0 Schizoaffective disorder, bipolar type (principal); F41.9 Anxiety disorder, unspecified; F10.20 Alcohol dependence, uncomplicated | CPT/HCPCS: 90792; 99232 ==

== ENCOUNTER 2025-04-18 17:15 | Emergency (ER) | payer MEDICARE, SELFPAY ==
[2025-04-18 17:27] VITALS: BP 119/65; BP 128/80; PULSE 93; PULSE 96; RESP 16; TEMP 36; O2SAT 95; O2SAT 98; BMI 25.8
[2025-04-18 17:41] VITALS: RESP 16
[2025-04-18 17:55] LABS: MANUAL DIFF FLAG NO
[2025-04-18 17:56] LABS: Hematocrit 34.3 % (37.0-47.0); Hemoglobin 11.1 g/dl (12.0-16.0); Imm Gran Abs Auto 0.02 X10*3/uL (0.00-0.03); Imm Gran Pct Auto 0.4 % (0.0-0.4); Lymphocytes Absolute Auto 1.4 X10*3/uL (1.2-4.9); Mean Corpuscular HGB Conc 32.4 g/dl (31.0-35.0); Mean Corpuscular Hemoglobin 26.2 pg (27.0-33.0); Mean Corpuscular Volume 81.1 fL (80.0-98.0); NRBC Abs Auto 0.000 X10*3/uL (0.0-0.012); NRBC Pct Auto 0.0 /100WBC (0.0-0.2); Platelet Count 240 X10*3/uL (160-400); Red Blood Count 4.23 X10*6/uL (4.20-5.50); White Blood Count 5.6 X10*3/uL (4.8-10.8)
[2025-04-18 17:56] LABS: Appearance Urine Clear; Glucose Urine UA Negative (Negative); PH 7.0 (5.0-9.0); Specific Gravity - Urine 1.020 (1.005-1.025); UMIC TRIGGER UACC YES
[2025-04-18 17:58] LABS: UACC Culture Trigger YES
--- NOTE | 2025-04-18 18:02 | PC.NURSE ---
Anahi presents to the ED today reporting increased panic attacks and anxiety related to life stressors. She reports that she gets anxiety and then begins to panic thinking about completing her daily activities so she just stays in bed all day instead. She reports that is impeding her completing her ADLs some days. Pt is calm and cooperative at this time, offering no complaints to this RN. Pt provided with walker to due unsteadiness
[2025-04-18 18:07] LABS: Cannabinoid Screen Urine Not Detected (Not Detect)
--- NOTE | 2025-04-18 18:15 | PC.NURSE ---
RE: med rec This RN verified medications with patient verbally, and cross checked with medical record
--- NOTE | 2025-04-18 18:16 | PC.NURSE ---
Pt reports that she occasionally binge drinks, last drink was saturday 04/14, where she drank 5-6 Gee Whitten and Kusum Viridiana. She reports that she does have a withdrawal history where she experiences DTs and seziures
[2025-04-18 18:19] LABS: Alanine Aminotransferase 13 U/L (0-31); Albumin Level 4.2 g/dL (3.5-5.0); Alkaline Phosphatase 93 U/L (39-117); Anion Gap 9 (12-20); Aspartate Amino Transferase 20 U/L (5-31); Blood Urea Nitrogen 16 mg/dL (9-16); Calcium 8.6 mg/dL (8.4-10.2); Carbon Dioxide 27 mmol/L (22-29); Chloride 111 mmol/L (96-108); Creatinine Clr Calc Pharmacy 64.7; Estimated Glomerular Filt Rate > 60; Potassium 4.0 mmol/L (3.3-5.1); Sodium 143 mmol/L (135-145); Total Protein 6.8 g/dL (6.5-8.0)
--- OUTSIDE RECORDS SUMMARY | 2025-04-18 18:23 | XMS_ITS | Data Portability ---
Author Organization [facility], Portr Address [address] [place] [address] [place] [address] Care Team Providers Care Inbound Sales Manager Name Role Phone SYLVIA BHAKTA Referring Provider [phone] SYLVIA BHAKTA Primary Care Provider Assessment Encounter [...] for one of the conservative neurosurgeons at [facility] to consider surgery. There is too much possibility that there is permanent damage to the nerve and so surgery would not help the symptom. Moderate to severe narrowing is less likely to be causing continual irritation. The risk of surgery is likely higher than the possible benefit. Yet I cannot speak for neurosurgery at [facility] definitively. I offer her referral. She [...] for one of the conservative neurosurgeons at [facility] to consider surgery. There is too much possibility that there is permanent damage to the nerve and so surgery would not help the symptom. Moderate to severe narrowing is less likely to be causing continual irritation. The risk of surgery is likely higher than the possible benefit. Yet I cannot speak for neurosurgery at [facility] definitively. I offer her referral. She [...] Lab vitami n B12, serum 2024 025 [facility] ([facility] [address] [place] [address], [id number], 10/24/2024 16:40:54 folate , serum 2024 025 [facility]), [address] [place] [address], [id number], 11/06/2024 12:31:36 homocy steine , serum or plasma 2024 025 [facility]), [address] [place] [address], [id number], 10/26/2024 13:02:32 methyl malona te, QN, serum or plasma 2024 025 [facility] [address] [place] [address], [id number], 11/05/2024 15:17:23 lyme diseas e igg+ig m, serum, reflex jacob n blot 2024 [facility] ([facility]), [address] [place] [address], [id number], 10/25/2024 11:20:48 unlist ed lab - vitami n E 2024 025 [facility] (Outpatient), [address] [place] [address], [id number], 11/13/2024 11:16:46 copper , serum or plasma - E83.00 2024 [facility] ([facility]), [address] [place] [address], [id number], 10/28/2024 13:14:49 copper , blood 2024 [facility] (Outpatient), [address] [place], [address], 11/13/2024 11:16:08 Referral None record ed. Procedures [...] approa ch and with guillaumewa re. 2024 [facility] [address], [place], [address], 11/18/2024 08:29:16 Medication Orders duloxe vahid 30 mg capsul e,royal yed releas e 2024 025 [id number], [address] [facility], [place], [address], 12/19/2024 11:47:27 Patient TargetsNo targets recorded. Patient Instructions Encounter Date Encounter Id Patient Instructions Last Modified By Organization Details Last Modified Time 10/24/2024 [id number] Discussion acros s issues of diagnoses and management and same day associated chart review and management greater than 50% greater than 60 minutes mrossen Not available 10/24/2024 11:52:10 11/19/2024 [id number] Chronic conditio n with exacerbation; prescription medication management; Discussion across issues of diagnoses and management and same day associated chart review and management greater than 50% greater than 40 minutes mrossen Not available 11/19/2024 10:22:56 02/13/2025 [id number] Chronic conditio n with exacerbation; prescription medication management; mrossen Not available 02/13/2025 08:31:36 Reason for Referral None Reported. Results Created Date Observation Date Name Description Value Unit Range Abnormal Flag Note LastModifiedBy Organization Detail LastModifiedTime 11/19/1911/14/2024 MRI, cervi susan spine , w/wo contr larry Vargas in [facility] Access ion Number : [id number] Padminisameer antonio Name: DANIEL MARTINEZ, ANAHI Reynoldsa l Record Number : [id number] Date of : 1950 Date of Exam: 2024 Referr ing Physic beth: Karel Graham [facility] [address] [facility] [address] [place] [address] Exam: MR Cervic al Spine (C-/C+ ) CPT 04211 Room Descri ption: Fuentes Siem Espr 1.5 MR Cervic al Spine (C-/C+ ) CPT 10400 INDICA TION: - Cervic al disc disord [...] well as postsu rgical change s from water softener servicer and installer ior fusion at these levels . Artifa [...] preser mateus. Alignm ent is mainta ined. PATIENT ACCOUNTING REPRESENTATIVE IOR FOSSA AND CORD: Visual ized water softener servicer and installer ior fossa is normal . The cervic al cord is normal in signal and calibe r. There is no abnorm al enhanc ement. PARASP INAL TISSUE S: There is atroph y of the water softener servicer and installer ior parasp inal muscul ature as well [...] Electr onical ly Signed By: Ammy solorzano [facility] ([facility]) [address] [place] [address], [place], [address], 11/20/2024 06:49:30 Result Notes Documentation Provider Name and Address Organization Details Recorded Time Mri, Cervical Spine, W/wo Contrast : [facility] Accession Number: [id number] Patient Name: ANAHI RUCKER Date of : 1950 Date of Exam: 11-14-2024 Referring Physician: Herb Graham [facility] [address] [place] [address] - [address] [place], [place] [address] Exam: MR Cervical Spine (C-/C+) CPT 21194 Room Description: Fuentes Dominguez 1.5 MR Cervical Spine (C-/C+) CPT 03683 INDICATION: - Cervical disc disorder at C6-C7 [...] narrowing at C6-C7. Electronically Signed By: [facility] 11/20/2024 06:49:31 Procedures Surgical History Date Name Laterality Status Provider Name and Address Organization Details Recorded Time 02/13/2025 DATA REVIEW completed Herb Graham MD [address] [place], [place] [address], [address], [facility] 02/13/2025 08:05:10 11/19/2024 DATA REVIEW completed Herb Graham MD [address] [place] [address] [place], [phone], [facility] 11/19/2024 09:56:27 10/24/2024 DATA REVIEW completed Herb Graham MD [address] [place], [place] [address], [address], [facility] 10/24/2024 11:09:28 10/23/2024 EMG & NCS completed Herb Graham MD [address] [place], [place] [address], [address], [facility] 10/23/2024 19:45:52 Imaging Results None recorded. Procedure Notes None recorded. Medical Equipment None Reported. Allergies Allergen ID Allergen Name Allergen Category Reaction Reaction Severity Criticality Documentation Date Start Date Code Code System Note Provider Name and Address Organization Details Recorded Time 5123 sulfameth oxazole / trimethop rim medicatio n Not available Not available Not available 10/24/2024 52973 [facility] [place] [facility] 10:59:06 5124 Ultram medicatio n Not available Not available Not available 10/24/2024 72185 6 RxNorm Michelle Worthingt on [facility] 10:59:27 Medications Name Sig Start Date Stop [...] Updated DateTime 10/24/2024 167.64 cm 23.4 kg/m2 20569.89 g 12 /min [facility] 10/24/2024 10:58:51 Social History Question Answer Notes LastModified by Organizat ion Details LastModified Time Tobacco Smoking Status Former Smoker [facility] lee ann, [facility] 10/24/2024 11:01:26 What Is Your Level Of Caffeine Consumption? Moderate Information not available 10/24/2024 What Is The Highest Grade Or Level Of School You Have Completed Or The Highest Degree You Have Received? 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 G60.3 Carpal luis daniel heidi syndrome of right wrist 5626235388 03846 G56.01 Cervical radiculopathy 35110428 M54.12 Lumbosacra l radiculopathy 5316354 M54.16 14399 Herb Graham MD [facility] [address] [place] [address] [place] [address] 10/24/2024 10:41:37 10/24/2024 11:55:07 Intervertebral disc disorder of cervical region with myelopathy 15971844 M50.023 20207645 Vitamin B1 2 deficiency anemia due to dietary causes 242153692 D51.0 Acute lyme disease 07437 7005 A69.20 Unsteady when walking 22 009917 R26.81 [id number] Serum rashmi er level outside reference range 243196584 R79.0 35450 Herb Graham MD [facility] [address] [place] [address] [place] [address] 11/19/2024 09:10:50 11/19/2024 10:43:11 Unsteady when walking 68583617 R26.81 7306832902 Right cerv ical root neuropathy [id number] 2029115 M54.12 39911302 24073 Herb Graham MD [facility] [address] [place] [address] JUAN PABLO Kyra MORRISBRITTDENA BENJAMIN [address] 02/13/2025 07:53:16 02/17/2025 17:14:56 Unsteady when walking 94022350 R26.81 [id number] Health Concerns Section Related Observation LastModified by Organization Detai ls LastModified Time None Recorded Concern Status LastModified by Organization Details LastModified Time None Recorded Advance Directives Directive None Recorded Payers Insurance Date Sequence Insurance Name Policy Number Policy Gage Covered Member ID Gage Member ID Guarantor Name 02/17/[address] [facility] - MEDICARE PREFERRED (MEDICARE REPLACEMENT HMO) ESTEFANIA Rucker [id number] 1 Anahi Rucker Notes Date Note Type [...] changed in recent years. Herb Graham MD [address] [place] [address], [phone], [facility] 10/24/2024 11:52:26 11/19/2024 text/html Opal Rucker presents for initial neurology [...] changed in recent years. Herb Graham MD [address] [place] [address] [place], [phone], [facility] 11/19/2024 10:23:00 02/13/2025 text/html Opal Rucker neurology [...] changed in recent years. Herb Graham MD [address] [place] [address] [place], [phone], [facility] 02/13/2025 08:31:47 OBGyn Episode No OBEpisode recorded.
--- OUTSIDE RECORDS SUMMARY | 2025-04-18 18:23 | XMS_ITS | Data Portability ---
Author Organization [facility] [address] Address [address] [place] [address] Assessment No assessment recorded. Plan of Treatment Reminders Order Date Submit Date Provider Last Modified By Organization Details Last Modified Time Details Appointments None recorded. Lab None recorded. Referral emergency medicine referral - Chest discomfort and shortness of breath. EKG abnormal. Need further evaluation and treatment. 2022 023 [email or web address] [facility] (Emergency Room), [address] [place] [address], [address], 3 16:00:52 Procedures None recorded. Surgeries None recorded. Imaging electrocard iogram 2022 023 [email or web address] [id number], [address] [place], [address], 15:48:07 Medication Orders None recorded. Patient TargetsNo targets recorded. Patient Instructions Encounter Date Encounter Id Patient Instructions Last Modified By Organization Details Last Modified Time 09/08/2022 [id number] anxiety disorder : care instructions Not available 09/08/2022 15:39:32 chest pain: care instructions Not available 09/08/2022 15:39:32 If you have any kind of chest discomfort, even if it is difficult to describe (sometimes it can feel like bloating or nausea), and especially if the pain radiates down either arm, to the back, or up your neck or if it is associated with sweating, trouble breathing, dizziness, or nausea/vomiting, please go directly to the Emergency Room (ER) to be checked out. The ER is the only place that can completely rule out a heart attack or blood clot in your lungs. A normal-appearing EKG DOES NOT rule out a heart attack. [email or web address] Not available 09/08/2022 15:38:30 Reason for Referral Emergency Medicine Referral for Chest pain Chest discomfort and shortness of breath. EKG abnormal. Need further evaluation and treatment. Chest discomfort and shortness of breath. EKG abnormal. Need further evaluation and treatment. Referring Physician: Marty Mahan, Urgent Care, Encounter Date: 09/08/2022 Results Created Date Observation Date Name Description Value Unit Range Abnormal Flag Note LastModifiedBy Organization Detail LastModifiedTime 09/09/19 23 09/08/2022 steven juarez am No observ ation record ed. JAVIER [id number], [address], 09/08/2022 15:39:34 Result Notes None recorded. Problems Name Problem SNOMED Code Status Onset Date Resolution Date Notes Provider Name and Address Organization Details Recorded Time Bipolar disorder 27809575 Active 2022 Joanna Guerrae null, [place] - [facility] 3 15:11:02 Schizophrenia 97568791 Active 2022 Joanna Guerrae null, PA - [facility] 3 15:11:07 Right bundle branch block 53079029 Active 2022 Joanna Guerrae null, PA - [facility] 3 15:11:25 Hypertensive disorder 06388300 Active 2022 Joanna Lopezfette null, PA - [facility] 3 15:11:41 Problem Notes None recorded. Medical Equipment None Reported. Allergies Allergen ID Allergen Name Allergen Category Reaction Reaction Severity Criticality Documentation Date Start Date Code Code System Note Provider Name and Address Organization Details Recorded Time 155832 Substance with sulfonami de structure and antibacte rial mechanism of action (substanc e) medicatio n Not available Not available Not available 09/08/2022 50424 0558 SNOMED redne ss Joanna Guerrae null, PA - [facility] 3 15:07:34 458433 Ultram medicatio n Not available Not available Not available 09/08/2022 63931 6 RxNorm diffi jonny Jiang lee ann [place] - [facility] 3 15:07:46 Medications Name Sig Start Date Stop Date Status Note LastModified by Organization Details LastModified Time cyclobenz aprine 10 mg tablet TAKE 1 TABLET BY MOUTH 2 TIMES A DAY NEEDED. active Not Available Not Available No t Available trazodone 50 mg tablet TAKE 1 TABLET BY MOUTH AT BEDTIME NEEDED FOR INSOMNIA active Not Available Not Available No t Available naltrexon e 50 mg tablet TAKE 1 TABLET BY MOUTH EVERY DAY 09/08 completed Not Available Not Available Not Available metronida zole 0.75 % (37.5 mg/5 gram) vaginal gel PLACE VAGINALL Y NIGHTLY AT BEDTIME FOR 5 DAYS. 09/08 completed Not Available Not Available Not Available amlodipin e 2.5 mg tablet TAKE 1 TABLET BY MOUTH EVERY DAY active Not Available Not Available No t Available omeprazol e 40 mg capsule,d elayed release TAKE 1 CAPSULE BY MOUTH EVERY DAY 30 MINUTES BEFORE MORNING MEAL active Not Available Not Available No t Available acetamino phen 500 mg tablet TAKE 2 TABLETS BY MOUTH 4 TIMES A DAY NEEDED FOR FEVER OR PAIN active Not Available Not Available No t Available olopatadi ne 0.1 % eye drops PLACE 1 DROP INTO THE RIGHT EYE 2 TIMES A DAY. 09/08 completed on hold d/t eye burning Not Available Not Available Not Available prednison e 50 mg tablet TAKE 1 TABLET BY MOUTH EVERY DAY FOR 5 DAYS 09/08 completed Not Available Not Available Not Available hydroxyzi ne HCl 25 mg tablet TAKE 1 TABLET BY MOUTH EVERY 6 HOURS NEEDED FOR ANXIETY active Not Available Not Available No t Available furosemid e 20 mg tablet TAKE 1 TABLET BY MOUTH EVERY DAY NEEDED FOR EDEMA active Not Available Not Available No t Available olanzapin e 20 mg tablet TAKE 1 TABLET BY MOUTH EVERY DAY active Not Available Not Available No t Available diazepam 5 mg tablet TAKE 1 TABLET BY MOUTH EVERY DAY NEEDED active Not Available Not Available No t Available bacitraci n-polymyx in B 500 unit-10,0 00 unit/gram eye ointment APPLY 1 APPLICAT ION IN BOTH EYES AT BEDTIME FOR 1 WEEK, FOR 1 WEEK EACH MONTH active Not Available Not Available No t Available tobramyci n 0.3 %-dexamet hasone 0.1 % eye drops,kevin pension INSTILL 1 DROP IN BOTH EYES THREE TIMES A DAY X 1 WEEK THEN DAILY X 1 WEEK AND THEN STOP. active Not Available Not Available No t Available nitrofura ntoin monohydra te/macroc rystals 100 mg capsule TAKE 1 CAPSULE BY MOUTH TWICE A DAY FOR 5 DAYS 09/08 completed Not Available Not Available Not Available duloxetin e 60 mg capsule,d elayed release TAKE 1 CAPSULE BY MOUTH TWICE A DAY TOTAL DAILY DOSE IS 120MG active Not Available Not Available No t Available Vitals Date Recorded Body height Body mass index (BMI) Body weight Pain severity - 0-10 verbal numeric rating [Score] - Reported Respiratory rate Oxygen saturation Heart rate Body temperature Systolic And Diastolic Provider Name and Address Organization Details Last Updated DateTime 167.64 cm 27.8 kg/m2 29915.8 9 g 9 18 /min 98 % 57 /min 97 [degF] 160/80 mm[Hg] Joanna Deidre PA - [facility] 15:13:40 Social History Question Answer Notes LastModified by Organizat ion Details LastModified Time Tobacco Smoking Status Never Smoker Joanna Deidre nance [place] - [facility] 09/08/2022 15:11:59 Have You Recently Traveled Abroad? No Information not available 09/08/2022 Sex: Unknown Functional Status Question Answer Note LastModified by Organizat ion Details LastModified Time Do you use any illicit or recreational drugs? No Information not available 09/08/2022 Do you or have you ever used any other forms of tobacco or nicotine? No Information not available 09/08/2022 What is your level of alcohol consumption? None Information not available 09/08/2022 Mental Status None recorded. Family History Relationship Description Onset Age of this Age Resolved Age Notes LastModified by Organization Details LastModified Time Father No current problems or disability [email or web address] Not available 09/08 15:11:30 Mother No current problems or disability [email or web address] Not available 09/08 15:11:30 Medical History No medical history recorded. Gynecological HistoryNo gynecological history recorded. Obstetrics History GPAL:G 0 P 0 0 0 0 Past Encounters Encounter ID Performer Location Encounter Start Date Encounter Closed Date Diagnosis/Indication Diagnosis SNOMED-CT Code Diagnosis ICD10 Code Diagnosis IMO Codes Diagnosis Note [id number] [address] [place] [address] 12/04/2020 15:14:18 12/04/2020 17:27:16 [id number] [address] [place] [address] 10/01/2021 11:14:57 10/01/2021 12:41:48 [id number] [address] [place] [address] 11/13/2021 18:08:37 11/13/2021 20:08:16 [id number] [address] [place] [address] 08/18/2021 16:01:08 08/18/2021 17:29:10 [id number] Marty Mahan [employer] [address] [place] [address] 09/08/2022 15:03:09 09/08/2022 15:48:07 Chest pain 52213975 R07.9 Health Concerns Section Related Observation LastModified by Organization Detai ls LastModified Time None Recorded Concern Status LastModified by Organization Details LastModified Time None Recorded Advance Directives Directive None Recorded Payers Insurance Date Sequence Insurance Name Policy Number Policy Gage Covered Member ID Gage Member ID Guarantor Name 09/08/2022 1 [facility] - MEDICARE PREFERRED (MEDICARE REPLACEMENT HMO) ESTEFANIA Rucker [id number] 1 Anahi Rucker 09/08/2022 2 [place] [employer] Anahi Rucker [id number] 1 Anahi Rucker Notes Date Note Type Note Provider Name and Address Organization Details Recorded Time 09/08/2022 text/html Ribs / Chest WallReported by PatientHPIFor quality, patient reportsachingandbur laly. For associated symptoms, patient reportscan't get a deep breath. For location, patient reportsanteriorandl eft. For onset/timing, patient reportsactual date 09/08/2022. For context, patient reportsatraumatic. For aggravating factors, patient reportsactivity. Having chest discomfort , dizziness and also also develop SOB today early this evening . No c/o nausea, vomiting or diarrhea. At present no chest pain or discomfort. Marty Mahan NP [address] [place], [address], [place] - [facility] 09/08/2022 16:09:07 OBGyn Episode No OBEpisode recorded.
--- OUTSIDE RECORDS SUMMARY | 2025-04-18 18:23 | XMS_ITS | Clinical Summary ---
Author Organization [facility] it Address [address] [place] [address] Care Team Providers Care Aviation Technical Systems Specialist Name Role Phone Unavailable Primary Care Provider [...] Screening 01/22/2024 Depression Screening 05/29/2024 COVID-19 Vaccine (1 - 2024-2 6 season) 2025 Influenza Vaccine (#1) 2025 RSV [...]
--- OUTSIDE RECORDS SUMMARY | 2025-04-18 18:23 | XMS_ITS | Continuity of Care Document ---
Author Organization [facility] [employer] [facility] Address [address] [place] [address] Care Team Providers Care Block Saw Operator Name Role Phone SYLVIA BHAKTA Referring Provider [phone] SYLVIA BHAKTA Primary Care Provider Assessment Encounter Date Assessment Date Assessment LastModified by Organization Details LastModified Time 02/13/2025 02/13/2025 IMPRESSION: S ubtle Cervical spinal cord injury (not evident on cspine MRI October 2024) versus subtle right C8-T1 nerve root injury (not evident as acute denervation on October 23, 2024 EMG ) as explanation ofpersistent continuous buzzing in right upper extremity m edial upper arm extending to medial hand and fingers, intensity helped partially by Homa velázquez feeling of weakness in right upper extremity, [...] for one of the conservative neurosurgeons at [facility] to consider surgery. There is too much possibility that there is permanent damage to the nerve and so surgery would not help the symptom. Moderate to severe narrowing is less likely to be causing continual irritation. The risk of surgery is likely higher than the possible benefit. Yet I cannot speak for neurosurgery at [facility] definitively. I offer her referral. She declines [...] w ith contrast given previous surgery g nicolas possibility of traumatic myelopathy from fall causing [...] Not available Not available Not available Lab None recorded . Referral None recorded . Procedures None recorded . Surgeries None recorded . Imaging None recorded . Medication Orders None recorded . Patient TargetsNo targets recorded. Patient Instructions Encounter Date Encounter Id Patient Instructions Last Modified By Organization Details Last Modified Time 02/13/2025 [id number] Chronic conditio n with exacerbation; prescription medication management; [email or web address] Not available 02/13/2025 08:31:36 Reason for Referral None Reported. Procedures Surgical History Date Name Laterality Status Provider Name and Address Organization Details Recorded Time 02/13/2025 DATA REVIEW completed Herb Graham MD [address] [place] [address] [place], [address], [facility] 02/13/2025 08:05:10 11/19/2024 DATA REVIEW completed Herb Graham MD [address] [place] [address] [place], [address], [facility] 11/19/2024 09:56:27 10/24/2024 DATA REVIEW completed Herb Graham MD [address] [place] [address] [place], [address], [facility] 10/24/2024 11:09:28 10/23/2024 EMG & NCS completed Herb Graham MD [address] [place], [place] [address], [address], [facility] 10/23/2024 19:45:52 Imaging Results None recorded. Procedure Notes None recorded. Medical Equipment None Reported. Allergies Allergen ID Allergen Name Allergen Category Reaction Reaction Severity Criticality Documentation Date Start Date Code Code System Note Provider Name and Address Organization Details Recorded Time 5123 sulfameth oxazole / trimethop rim medicatio n Not available Not available Not available 10/24/2024 45952 RxNorm Michelle [facility]t on [facility] 10:59:06 5124 Ultram medicatio n Not available Not available Not available 10/24/2024 60171 6 RxNorm Michelle VIPTALONingt on [facility] 10:59:27 Medications Name Sig Start [...] Not Available Not Available Not Available Vitals None Recorded Social History Question Answer Notes LastModified by Organizat ion Details LastModified Time Tobacco Smoking Status Former Smoker Michelle nance [facility] 10/24/2024 11:01:26 What Is Your Level Of Caffeine Consumption? Moderate Information not available 10/24/2024 What Is The Highest Grade Or Level Of School You Have Completed Or The Highest Degree You Have Received? [id number] Information not available 10/24/2024 Which Of Your [...] ICD10 Code Diagnosis IMO Codes Diagnosis Note [id number] Herb Graham MD [facility] [address] [place] [address] [place] [address] 02/13/2025 07:53:16 02/17/2025 17:14:56 Unsteady when walking 25341958 R26.81 [id number] Health Concerns Section Related Observation LastModified by Organization Detai ls LastModified Time None Recorded Concern Status LastModified by Organization Details LastModified Time None Recorded Payers Encounter Date Sequence Insurance Name Policy Number Policy Gage Covered Member ID Gage Member ID Guarantor Name 02/13/2025 1 [facility] - MEDICARE PREFERRED (MEDICARE REPLACEMENT HMO) ESTEFANIA De Los Santos Chaim [id number] Anahi Rucker Notes Date Note Type Note Provider Name and Address Organization Details Recorded Time 02/13/2025 text/html Opal Rucker neurology followup for: [...] changed in recent years. Herb Graham MD [address] [place] [address] [place], [address], [facility] 02/13/2025 08:31:47 OBGyn Episode No OBEpisode recorded.
--- NOTE | 2025-04-18 20:42 | ED.ANXIETY ---
HPI - Anxiety General Chief Complaint: Anxiety Stated Complaint: panic attack 2 days Time Seen by Provider: 04/18/25 17:24 History of Present Illness ED Provider: aleksey HPI narrative: Author / Clinician: Moe Cochran MD (Emergency Medicine) Chief Complaint Worsening shortness of breath and anxiety for 3 days. History of Present Illness The patient reports living alone and having a known history of anxiety and panic attacks. Over the past three days the patient has experienced worsening anxiety with today?s onset of ?heavy breathing.? The patient denies chest pain, cough, abdominal pain, vomiting, or headache. No additional acute symptoms were reported when specifically queried. The patient was brought in by ambulance. The chart documents a past psychiatric history of bipolar or schizoaffective disorder. The patient confirms taking all prescribed home medications (see Medication List below). The patient denies illicit drug use and reports no routine alcohol use. Medication List (per patient) - Amlodipine - Cyclobenzaprine - Colace - Duloxetine - Folic acid - Lamotrigine (Lamictal) - Lorazepam (Ativan) ? patient reports taking up to three times daily; details of use unclear - Magnesium - Olanzapine - Omeprazole - Pregabalin - Senna - Trazodone Social History Lives alone. Denies illicit drug use. Tobacco use queried; response not documented. Alcohol use queried; patient does not clearly deny routine use. Review of Systems - Constitutional: Negative for fever. Reports anxiety. - Respiratory: Positive for heavy breathing/shortness of breath. Denies cough. - Cardiovascular: Denies chest pain. - Gastrointestinal: Denies abdominal pain, vomiting. - Neurologic: Denies headache. Related Data Home Medications ?Medication ?Instructions ?Recorded ?Confirmed diclofenac sodium 50 mg 50 mg PO BID 04/18/25 04/18/25 tablet,delayed release docusate sodium 100 mg capsule 100 mg PO BID PRN Constipation 04/18/25 04/18/25 (Colace) lorazepam 0.5 mg tablet 0.5 mg PO TID PRN Anxiety 04/18/25 04/18/25 sennosides 8.6 mg capsule (senna) 17.2 mg PO BEDTIME PRN Constipation 04/18/25 04/18/25 trazodone 50 mg tablet 50 mg PO BEDTIME PRN sleep 04/18/25 04/21/25 cromolyn 5.2 mg/spray (4 %) nasal 1 spray intranasal TID PRN Nasal 04/21/25 04/21/25 spray (Nasalcrom) Congestion hydroxyzine HCl 50 mg tablet 50 mg PO BID PRN Anxiety 04/21/25 04/21/25 omeprazole 40 mg capsule,delayed 40 mg PO DAILY@0630 04/21/25 04/21/25 release Previous Rx's ?Medication ?Instructions ?Recorded amlodipine 5 mg tablet 5 mg PO DAILY #30 tabs 03/31/25 cyclobenzaprine 10 mg tablet 10 mg PO BID PRN spasms #30 tabs 03/31/25 duloxetine 60 mg capsule,delayed 60 mg PO BID #60 caps 03/31/25 release folic acid 1 mg tablet 1 mg PO DAILY #30 tabs 03/31/25 lamotrigine 25 mg tablet (Lamictal) 25 mg PO BID #60 tabs 03/31/25 magnesium oxide 400 mg PO DAILY #30 caps 03/31/25 olanzapine 2.5 mg tablet 2.5 mg PO TID PRN anxiety #30 tabs 03/31/25 olanzapine 20 mg tablet 20 mg PO BEDTIME #30 tabs 03/31/25 pregabalin 50 mg capsule 50 mg PO TID #90 caps 03/31/25 thiamine HCl (vitamin B1) 100 mg 100 mg PO DAILY #30 caps 03/31/25 capsule Allergies Allergy/AdvReac Type Severity Reaction Status Date / Time sulfamethoxazole (From Allergy Mild FEVER Verified 04/18/25 17:29 BACTRIM) trimethoprim (From BACTRIM) Allergy Mild FEVER Verified 04/18/25 17:29 cephalexin (Keflex) Allergy Unknown Rash Verified 04/18/25 17:29 Sulfa (Sulfonamide Allergy Unknown Fever Verified 04/18/25 17:29 Antibiotics) tramadol (Ultram) Allergy Unknown Unknown Verified 04/18/25 17:29 mold Allergy Unknown Headache Uncoded 04/18/25 17:29 pollen Allergy Unknown Headache Uncoded 04/18/25 17:29 [facility] Past Medical History Medical History (Updated 04/21/25 @ 14:36 by Frederick Leblanc MD) Hypomagnesemia Alcohol dependence Bipolar disorder Endometriosis Alcohol use with withdrawal Anxiety Fracture of distal end of right fibula Hypertension Mood disorder Routine medical exam Social History Social History Household Members: None Household Members Other:: Cat Housing: House Do you presently have visiting nurse or other home services: Yes (home health aide) Alcohol intake: current Alcohol intake frequency: a few times a month Alcohol type: beer Comment: Pt refusing bed/chair alarms Patient Tobacco Use Status: Never used Tobacco Tobacco use type: Cigarette e-Cigarette/Vaping Use: Never Used Second Hand Smoke Exposure: No Advance Directives Date on File: 06/16/22 service: No Current occupational status: unemployed Sexual orientation: Straight/Heterosexual Physical Exam Exam: Exam: EXAM: Gen: Alert, awake, well appearing, well hydrated. Head: Atraumatic Eyes: Anicteric, Normal conjunctiva. ENT: Moist mucosa, no pallor. ? Neck: Supple. Skin: ?No observable rash or bruising on exposed or examined skin Respiratory: Breathing comfortably, No distress.Clear to auscultation bilaterally, symmetric chest expansion, No wheeze, rales, ronchi. Cardiovascular: Regular rate and rhythm. No murmurs or rub. Well perfused periphery, warm extremities. No edema. ? Abdominal: No focal tenderness. Soft, no objective distension. No palpable masses or obvious organomegaly. ?No guarding, no rebound tenderness or other peritoneal findings. : No flank tenderness. Neuro: Alert. Gross movement of all extremities intact. ?Symmetric face. Gross intact motor movements. full complete cranial nerve testing not relevant to the current presentation. Psych: Calm. Cooperative. No SI, no HI. Occasional alcohol bingeing but no regular every day use. No drug use. Anxiety and panic symptoms this time intractable despite home Ativan MSK: No grossly visible deformity. Vital signs: See flowsheet Vital Signs: Vital Signs: Last Vital Signs Temp 98.2 F 04/21/25 09:57 Pulse 99 04/21/25 09:57 Resp 20 04/21/25 09:57 BP 114/55 L 04/21/25 09:57 Pulse Ox 95 04/21/25 09:57 O2 Del Method Room Air 04/21/25 09:57 BMI result Body Mass Index 25.8 Course Reevaluation(s) Reevaluation #1: Time: 05:02 Date: 04/19/25 Provider: Carlos Pizano MD Patient in physician observation for Psychiatric evaluation. No acute events reported overnight.? No current issues or complaints. CBC revealed chronic normocytic anemia. CMP was normal. Urinalysis revealed trace leukocyte esterase, 11-20 WBCs, no bacteria seen- no antibiotic needed at this time -pending cultures. U tox negative. Ethanol below detectable limits.VS stable. Patient is pending placement at facility/pending PT/CM eval. Will continue to monitor. 04/20/25 Provider: Carlos Pizano MD 04:59 Patient in physician observation for psychiatric evaluation.? Patient continued to report anxiety yesterday. Patient was continued on her outpatient medications. Patient also has an order for Ativan 0.5 mg PO TID PRN anxiety. Urine micro negative for bacteria at this time. patient is pending care team evaluation. No acute events reported overnight. No current complaints. VS stable.? 15:32 Patient was seen by the [facility] and is a voluntary inpatient level of care bed search. Will continue to monitor. Reevaluation #2: Time: 05:57 Date: 04/21/25 Provider: Frederick Leblanc MD Patient in physician observation for psychiatric evaluation.? No acute events reported overnight. No current complaints. VS stable.? Patient is in bed search. Will continue to monitor. Reevaluation #3: 14:35 04/21/2025 s Time: 14:50, Date: 04/21/2025 Provider: Frederick Leblanc MD Physician observation ended at 14:50 hours. the patient was seen now by the adjunct psychology instructor and patient he does not meet criteria for inpatient level of care patient will be discharged home at this time this will end of the ED observation statuy. Medications Administered Discontinued Medications Generic Name Dose Route Start Last Admin Trade Name Freq PRN Reason Stop Dose Admin Amlodipine Besylate 5 mg 04/19/25 09:00 04/21/25 08:13 Amlodipine Besylate 5 Mg Tablet PO 5 mg DAILY KATHLEEN Administration Protocol Cyclobenzaprine HCl 10 mg 04/19/25 07:34 04/21/25 07:23 Cyclobenzaprine Hcl 10 Mg Tablet PO 10 mg BID PRN Administration spasms Diazepam 5 mg 04/18/25 20:43 04/18/25 20:52 Diazepam 5 Mg Tablet PO 04/18/25 20:44 5 mg ONCE ONE Administration Diclofenac Sodium 50 mg 04/19/25 09:00 04/19/25 08:21 Diclofenac Sodium Delayed Rel 50 Mg Tablet. PO Not Given BID KATHLEEN Diclofenac Sodium 50 mg 04/19/25 13:30 04/21/25 09:13 Diclofenac Sodium Delayed Rel 50 Mg Tablet.Dr PO 50 mg BID KATHLEEN Administration Duloxetine HCl 60 mg 04/19/25 09:00 04/21/25 08:13 Duloxetine Hcl 60 Mg Capsule.Dr PO 60 mg BID KATHLEEN Administration Folic Acid 1 mg 04/19/25 09:00 04/21/25 08:13 Folic Acid 1 Mg Tablet PO 1 mg DAILY KATHLEEN Administration Lamotrigine 25 mg 04/19/25 09:00 04/21/25 08:13 Lamotrigine 25 Mg Tablet PO 25 mg BID KATHLEEN Administration Lorazepam 0.5 mg 04/19/25 07:34 04/21/25 08:13 Lorazepam 0.5 Mg Tablet PO 0.5 mg TID PRN Administration Anxiety Magnesium Oxide 400 mg 04/19/25 09:00 04/21/25 08:13 Magnesium Oxide 400 Mg Tablet PO 400 mg DAILY KATHLEEN Administration Naltrexone HCl 25 mg 04/21/25 15:00 04/21/25 14:42 Naltrexone Hcl 50 Mg Tablet PO 04/21/25 15:01 25 mg ONCE ONE Administration Olanzapine 7.5 mg 04/19/25 04:46 04/19/25 04:58 Olanzapine 2.5 Mg Tablet PO 04/19/25 04:47 7.5 mg ONCE ONE Administration Olanzapine 20 mg 04/19/25 21:00 04/20/25 20:29 Olanzapine 10 Mg Tablet PO 20 mg BEDTIME KATHLEEN Administration Omeprazole 40 mg 04/19/25 09:00 04/21/25 08:13 Omeprazole 40 Mg Capsule. PO 40 mg DAILY KATHLEEN Administration Pregabalin 50 mg 04/19/25 09:00 04/21/25 14:42 Pregabalin 50 Mg Capsule PO 50 mg TID KATHLEEN Administration Thiamine HCl 100 mg 04/19/25 09:00 04/21/25 08:13 Thiamine Hcl 100 Mg Tablet PO 100 mg DAILY KATHLEEN Administration Trazodone HCl 50 mg 04/18/25 23:37 04/18/25 23:54 Trazodone Hcl 50 Mg Tablet PO 04/18/25 23:38 50 mg ONCE ONE Administration Medical Decision Making Medical Decision Making MDM Narrative: Medical Decision Makin-year-old female with anxiety in the setting of schizoaffective underlying anxiety. No SI or HI no acute psychosis. She has been drinking recently but it was just a single binge episode no clinical suspicion for impending alcohol withdrawal. Basic metabolic and medical workup without signs of acute organic etiology. Recommend care team evaluation Preliminary Favored Differential Diagnosis: Anxiety, panic, dehydration among additional considered etiologies Testing Interpreted Independently: ?See below for details Radiology or Lab testing Results Reviewed: ?See below for details Consults: ?See below for details Independent Historians/External Chart Reviews: ?See below for details Social Determinants of Health Impacting MDM/Planning: ?See below for details Lab Data MDM Lab Attestation statement: I reviewed the patient's lab results. 04/18/25 17:48 04/18/25 17:48 Labs: Lab Results 04/18/25 04/18/25 Range/Units 17:45 17:48 WBC 5.6 (4.8-10.8) X10*3/uL RBC 4.23 (4.20-5.50) X10*6/uL Hgb 11.1 L (12.0-16.0) g/dl Hct 34.3 L (37.0-47.0) % MCV 81.1 (80.0-98.0) fL MCH 26.2 L (27.0-33.0) pg MCHC 32.4 (31.0-35.0) g/dl RDW 16.4 H (11.0-16.0) % Plt Count 240 (160-400) X10*3/uL MPV 8.4 L (9.4-12.3) fL Immature Gran % (Auto) 0.4 (0.0-0.4) % Neut % (Auto) 61.2 (45-73) % Lymph % (Auto) 25.4 (20-40) % [place] % (Auto) 9.0 (2-11) % Eos % (Auto) 2.9 (0-4) % Baso % (Auto) 1.1 (0-2) % Lymph # (Auto) 1.4 (1.2-4.9) X10*3/uL [place] # (Auto) 0.5 (0.1-1.2) X10*3/uL Eos # (Auto) 0.2 (0.0-0.4) X10*3/uL Baso # (Auto) 0.1 (0.0-0.2) X10*3/uL Abs Immat Gran (auto) 0.02 (0.00-0.03) X10*3/uL Absolute Neuts (auto) 3.4 (2.0-8.3) x10*3/uL Absolute Nucleated RBC 0.000 (0.0-0.012) X10*3/uL Nucleated RBC % (auto) 0.0 (0.0-0.2) /100WBC Sodium 143 (135-145) mmol/L Potassium 4.0 (3.3-5.1) mmol/L Chloride 111 H (96-108) mmol/L Carbon Dioxide 27 (22-29) mmol/L Anion Gap 9 L (12-20) BUN 16 (9-16) mg/dL Creatinine 0.79 (0.5-1.4) mg/dL Estim Creat Clear Calc 64.7 Estimated GFR > 60 Random Glucose 112 (60-115) mg/dL Calcium 8.6 D (8.4-10.2) mg/dL Total Bilirubin 0.2 (0.0-1.0) mg/dL AST 20 (5-31) U/L ALT 13 (0-31) U/L Alkaline Phosphatase 93 (39-117) U/L Total Protein 6.8 (6.5-8.0) g/dL Albumin 4.2 (3.5-5.0) g/dL Urine Color Yellow Urine Appearance Clear Urine pH 7.0 (5.0-9.0) Ur Specific [place] 1.020 (1.005-1.025) Urine Protein Negative (Neg-Trace) mg/dL Urine Glucose (UA) Negative (Negative) mg/dL Urine Ketones Negative (Negative) mg/dL Urine Blood Negative (Negative) Urine Nitrite Negative (Negative) Ur Leukocyte Esterase Trace H (Negative) Urine RBC 0-2 (0-2) /HPF Urine WBC 11-20 H (0-5) /HPF Ur Squamous Epith Cells 0-2 (0-2) /HPF Urine Bacteria None Seen (None Seen) Hyaline Casts 0-2 (0-2) /LPF Urine Opiates Screen Not Detected (Not Detect) Ur Buprenorphine Scrn Not Detected (Not Detect) ng/mL Ur Oxycodone Screen Not Detected (Not Detect) ng/mL Urine Methadone Screen Not Detected (Not Detect) ng/mL Urine Fentanyl Screen Not Detected (Not Detect) Ur Barbiturates Screen Not Detected (Not Detect) Ur Phencyclidine Scrn Not Detected (Not Detect) Ur Amphetamines Screen Not Detected (Not Detect) U Benzodiazepines Scrn Not Detected (Not Detect) Urine Cocaine Screen Not Detected (Not Detect) U Marijuana (THC) Screen Not Detected (Not Detect) Ethyl Alcohol < 10 mg/dL Discharge Plan Discharge Clinical Impression: Anxiety Patient Disposition: Home, Self-Care Instructions: Anxiety (ED) Prescriptions: No Action docusate sodium [Colace] 100 mg capsule 100 mg PO BID PRN (Reason: Constipation) trazodone 50 mg tablet 50 mg PO BEDTIME PRN (Reason: sleep) Rx Instructions: Daily at Bedtime, MRX1 lorazepam 0.5 mg tablet 0.5 mg PO TID PRN (Reason: Anxiety) senna 8.6 mg capsule 17.2 mg PO BEDTIME PRN (Reason: Constipation) diclofenac sodium 50 mg tablet,delayed release (DR/EC) 50 mg PO BID cromolyn [Nasalcrom] 5.2 mg/spray (4 %) [place],Non-Aerosol 1 spray INTRANASAL TID PRN (Reason: Nasal Congestion) hydroxyzine HCl 50 mg tablet 50 mg PO BID PRN (Reason: Anxiety) omeprazole 40 mg capsule,delayed release(DR/EC) 40 mg PO DAILY@0630 lamotrigine [Lamictal] 25 mg tablet 25 mg PO BID Qty: 60 0RF duloxetine 60 mg capsule,delayed release(DR/EC) 60 mg PO BID Qty: 60 0RF olanzapine 20 mg tablet 20 mg PO BEDTIME Qty: 30 0RF olanzapine 2.5 mg tablet 2.5 mg PO TID PRN (Reason: anxiety) Qty: 30 0RF thiamine HCl (vitamin B1) 100 mg capsule 100 mg PO DAILY Qty: 30 0RF cyclobenzaprine 10 mg tablet 10 mg PO BID PRN (Reason: spasms) Qty: 30 0RF amlodipine 5 mg tablet 5 mg PO DAILY Qty: 30 0RF pregabalin 50 mg capsule 50 mg PO TID Qty: 90 0RF folic acid 1 mg tablet 1 mg PO DAILY Qty: 30 0RF magnesium oxide 400 mg magnesium capsule 400 mg PO DAILY Qty: 30 0RF Referrals: Reinaldo Willard MD [Primary Care Provider, Family Practice] Discharge Date/Time: 04/21/25 14:50 Print Language: Armenian
--- NOTE | 2025-04-18 20:58 | PC.NURSE ---
Assumed care at 1845. Patient presents as calm and cooperative. Observed ambulating steadily with walker. Reports increased anxiety. MD Cochran aware, x1 order for 5mg Valium obtained/administered, pending effectiveness. Denies SI/HI/AVH. Agreeable to alert staff if feeling unsafe. 15 minute safety checks ongoing. Continue plan to meet with Care Team.
[2025-04-18 23:17] VITALS: BP 149/75; PULSE 84; RESP 18; TEMP 36.6; O2SAT 98
--- NOTE | 2025-04-19 01:23 | PC.NURSE ---
Late Entry for 23:54 - Patient requested additional PRN for sleep. MD Cochran made aware, 1x PRN 50mg Trazodone obtained/administered with good effect. Will continue to monitor for safety.
--- NOTE | 2025-04-19 05:00 | PC.NURSE ---
Patient woke up to use the bathroom and requested additional PRN medication for increased anxiety. MD Mendez made aware, x1 order for 7.5 Zyprexa obtained/administered. No further complaints/concerns. Will continue to monitor for safety.
--- NOTE | 2025-04-19 07:28 | PC.NURSE ---
Assumed care, report received. Pt is awake, eating breakfast, she reports anxiety this am. She denies SI/HI/AVH. She is using a walker that was provided due to being unsteady on her feet.
[2025-04-19 08:27] VITALS: BP 100/65; PULSE 102; RESP 14; TEMP 36.2; O2SAT 97
[2025-04-19] MEDS: Diclofenac Sodium Delayed Rel 50 MG TABLET.DR PO ×2 (14:48→20:25)
--- NOTE | 2025-04-19 17:28 | PC.NURSE ---
Pt has continued to report anxiety and back pain most of the shift. She has been provided with PRN's giving her short naps. She ambulates with a steady gait without the walker.
[2025-04-20 06:44] VITALS: BP 128/68; PULSE 95; RESP 18; TEMP 36.6; O2SAT 95
--- NOTE | 2025-04-20 07:39 | ECG_ITS ---
Test Reason : CHECK PROLONGED QTC Blood Pressure : */* mmHG Vent. Rate : 97 BPM Atrial Rate : 97 BPM P-R Int : 202 ms QRS Dur : 110 ms QT Int : 384 ms P-R-T Axes : 71 97 60 degrees QTcB Int : 487 ms Atrial-sensed ventricular-paced rhythm Abnormal ECG When compared with ECG of 22-Feb-2024 09:05, Electronic ventricular pacemaker has replaced Sinus rhythm Vent. rate has increased by 37 bpm Referred By: Carlos Pizano Electronically Signed By: Randell Hines
--- NOTE | 2025-04-20 07:56 | PC.NURSE ---
Assumed care, report received. Pt is currently sleeping, she is brought breakfast.
[2025-04-20] MEDS: Diclofenac Sodium Delayed Rel 50 MG TABLET.DR PO ×2 (13:04→20:28)
[2025-04-20 18:04] VITALS: BP 122/66; PULSE 95; RESP 15; TEMP 37; O2SAT 97
[2025-04-21 06:38] VITALS: BP 114/71; PULSE 102; RESP 16; TEMP 36.6; O2SAT 95
--- NOTE | 2025-04-21 07:34 | PC.NURSE ---
Assumed care of patient at 0645. Patient complaining of pain, requesting PRN medication. Patient resting in bed. Plan for IPLOC.
[2025-04-21] MEDS: Diclofenac Sodium Delayed Rel 50 MG TABLET.DR PO (09:13)
[2025-04-21 09:57] VITALS: BP 114/55; PULSE 99; RESP 20; TEMP 36.8; O2SAT 95
--- NOTE | 2025-04-21 11:07 | PHA.MEDREC ---
Addendum entered by Laura Gorman RPh 04/21/25 11:27: MED REC REVIEWED BY [facility]. Original Note: Pharmacy Consult ? Medication Reconciliation Pharmacy reviewed med rec done by nursing. Spoke with pt and she confirmed her medications. Pt taking Hydroxyzine 50mg 1 BID PRN anxiety; LF in claims 04/08 and pt told me she takes a NasalCrom inhaler 1 TID PRN nasal congestion.
--- NOTE | 2025-04-21 14:01 | P.CNPS_ITS ---
History of Present Illness Date of Service: 04/21/2025 Chief Complaint: panic attack 2 days HPI Narrative: Mrs. Rucker is a 74 year-old woman with hx of alcohol use disorder who was recently discharged from with prescription of ativan 0.5mg po TID which has been renewed weekly for the past 3 weeks. She self presented to [facility] after calling EMS reporting panic attacks. BAL undetectable in the ED. Utox negative including for benzodiazepines. Pt denied SI/HI. She is described initially as possibly internally preoccupied but no details about this. Pt denied SI/HI. Pt seen in the ED. Pt is pleasant on approach. She reports she had a 1/2 bottle of Gee Whitten from Monday to Monday and on Monday seemed to be in withdrawal and decided to come to the ED. She reports alcohol has been an issue on and off throughout her lifle. She reports she recently relapsed. She reports she does not use alcohol daily but often during the week. She reports she was started on M5 on ativan and wonders if she can be switched to valium insteam. We discussed concern in terms of ongoing alcohol use in addition to have a prescription for benzodiazepines. Pt denied SI/HI. She does NOT present with s/s of psychosis or delusions. She reports she does not remember when she will see prescriber from [facility] but did have intake appointment earlier this month. We discussed about MAT for alcohol use disorder. She reports she has not been on any of these medications. She agreed to try naltrexon. Past Psychiatric History: The patient reported that she has been on treatment with probable [facility] and she has been following outpatient services for the last 50 years. She is taking Cymbalta 60 mg and Valium 5 mg p.o. b.i.d. p.r.n.. IP: Affirms, 4-5 by history, mostly with [facility] OP: Was at [facility]-saw Ever Cruz who gave pt Olanzapine/Hydroxyzine. Trials: Several- Lexapro-inc anxiety, wellbutrin, buspar, valium helps, ativan helps Suicide attempts: Denies Hx of schizoaffective disorder, bipolar type with hx of hypomania [facility] Medical History (Updated 04/21/25 @ 14:24 by Tsering Winkler NP) Hypomagnesemia Alcohol dependence Bipolar disorder Endometriosis Alcohol use with withdrawal Anxiety Fracture of distal end of right fibula Hypertension Mood disorder Routine medical exam Family History: She stated that her father suffered from schizophrenia. According to the crisis report she stated that both parents abused alcohol. Sister in [place] also uses alcohol Social History: The patient is the youngest of 3 siblings, her milestones were achieved at expected age and she was raised by her parents. She had a good childhood she had a regular school. Apparently when she was a child she have several episodes of bronchitis. 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 She got later divorce and then went back to her ex but he tragically in a motorcycle accident 50 years ago. She never had children. Trauma History: Denies Diagnostics Vital Signs (24Hr): Vital Signs - 24 hr 04/20/25 18:04 04/21/25 06:38 04/21/25 09:57 Temperature 98.6 F 97.9 F 98.2 F Pulse Rate 95 102 H 99 Respiratory Rate 15 16 20 Blood Pressure 122/66 114/71 114/55 L Pulse Oximetry 97 95 95 Oxygen Delivery Method Room Air Room Air Room Air BMI result Body Mass Index 25.8 Labs 04/18/25 17:48 04/18/25 17:48 Mental Status Exam Mental Status Exam Narrative: Appearance: wearing hospital gown, fair hygiene, in NAD Behavior: cooperative and calm Psychomotor: noted resting tremor of left hand. Speech: clear, normal rate/rhythm/volume, spontaneous TP: linear TC: feeling better, as she is no longer in acute alcohol withdrawal Mood: better, still feel anxious at times Affect: calm, congruent SI: denies, and has denied since coming to ED HI: none VH/AH: none Delusions: none Insight/judgment: poor x 2. memory/cog: alert, oriented x 4. not formally tested. Medications Medications Current Medications Amlodipine Besylate (Amlodipine Besylate 5 Mg Tablet) 5 mg PO DAILY [facility]; Protocol Last Admin: 04/21/25 08:13 Dose: 5 mg Cyclobenzaprine HCl (Cyclobenzaprine Hcl 10 Mg Tablet) 10 mg PO BID PRN PRN Reason: spasms Last Admin: 04/21/25 07:23 Dose: 10 mg Diclofenac Sodium (Diclofenac Sodium Delayed Rel 50 Mg Tablet.) 50 mg PO BID [facility] Last Admin: 04/21/25 09:13 Dose: 50 mg Docusate Sodium (Docusate Sodium 100 Mg Capsule) 100 mg PO BID PRN PRN Reason: Constipation Duloxetine HCl (Duloxetine Hcl 60 Mg Capsule.Dr) 60 mg PO BID [facility] Last Admin: 04/21/25 08:13 Dose: 60 mg Folic Acid (Folic Acid 1 Mg Tablet) 1 mg PO DAILY [facility] Last Admin: 04/21/25 08:13 Dose: 1 mg Lamotrigine (Lamotrigine 25 Mg Tablet) 25 mg PO BID [facility] Last Admin: 04/21/25 08:13 Dose: 25 mg Lorazepam (Lorazepam 0.5 Mg Tablet) 0.5 mg PO TID PRN PRN Reason: Anxiety Last Admin: 04/21/25 08:13 Dose: 0.5 mg Magnesium Oxide (Magnesium Oxide 400 Mg Tablet) 400 mg PO DAILY [facility] Last Admin: 04/21/25 08:13 Dose: 400 mg Olanzapine (Olanzapine 2.5 Mg Tablet) 2.5 mg PO TID PRN PRN Reason: Anxiety Olanzapine (Olanzapine 10 Mg Tablet) 20 mg PO BEDTIME [facility] Last Admin: 04/20/25 20:29 Dose: 20 mg Omeprazole (Omeprazole 40 Mg Capsule.Dr) 40 mg PO DAILY [facility] Last Admin: 04/21/25 08:13 Dose: 40 mg Pregabalin (Pregabalin 50 Mg Capsule) 50 mg PO TID [facility] Last Admin: 04/21/25 08:13 Dose: 50 mg Senna (Sennosides 8.6 Mg Tablet) 17.2 mg PO BEDTIME PRN PRN Reason: Constipation Thiamine HCl (Thiamine Hcl 100 Mg Tablet) 100 mg PO DAILY [facility] Last Admin: 04/21/25 08:13 Dose: 100 mg Trazodone HCl (Trazodone Hcl 50 Mg Tablet) 50 mg PO BEDTIME MRX1 PRN PRN Reason: Sleep Allergies Allergies Allergy/AdvReac Type Severity Reaction Status Date / Time sulfamethoxazole (From Allergy Mild FEVER Verified 04/18/25 17:29 BACTRIM) trimethoprim (From BACTRIM) Allergy Mild FEVER Verified 04/18/25 17:29 cephalexin (Keflex) Allergy Unknown Rash Verified 04/18/25 17:29 Sulfa (Sulfonamide Allergy Unknown Fever Verified 04/18/25 17:29 Antibiotics) tramadol (Ultram) Allergy Unknown Unknown Verified 04/18/25 17:29 mold Allergy Unknown Headache Uncoded 04/18/25 17:29 pollen Allergy Unknown Headache Uncoded 04/18/25 17:29 Assessment & Plan Assessment & Plan (1) Mood disorder: Status: Acute Code(s): F39 - Unspecified mood [affective] disorder (2) Alcohol dependence: Status: Acute Code(s): F10.20 - Alcohol dependence, uncomplicated Plan Mrs. Rucker is a 74 year-old woman with hx of alcohol use disoder who was recently admitted to and discharged on 03/28/2025, started on ativan 0.5mg po TID and prescription has been sent weekly up until last rx which was filed on 04/11/2025. Pt called EMS due to panic attacks, seems like ataxic gait, and more tremulous. She also presented as sweaty. Her BAL was negative, which is consistent with her reported last drink on Monday. She denied SI/HI. She is pending appointment with psychiatrist at [facility]. I do not think is beneficial that she is on prescribed benzodiazepines as she continues to struggle with alcohol use. We discussed MAT. She agreed to start naltrexon. LFTs wnl. Pt in agreement with plan PLAN 1. She does not meet inpatient psych level of care. Note that reported panic attacks seemed to be alcohol withdrawal symptoms. 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 No SI/HI. 2. start naltrexon 50mg po daily. sent rx to pharmacy. discussed risks,benefits and alternative treatment options. Total time managing care of this patient today ____ minutes.
== END 2025-04-21 14:50 | disposition home or self-care (01) ==
PROVIDERS: Emergency Provider Emergency Medicine; PCP Family Medicine
DX: F41.9 Anxiety disorder, unspecified (principal); F43.0 Acute stress reaction; R94.31 Abnormal electrocardiogram [ECG] [EKG]; R06.02 Shortness of breath; D64.9 Anemia, unspecified; Z79.899 Other long term (current) drug therapy; Z51.81 Encounter for therapeutic drug level monitoring
CPT/HCPCS: 36415; 80053; 80307; 81001; 85025; 87086; 93005; 99285; S9485

== ENCOUNTER → 2025-04-18 18:18 | Outpatient (BNV) | payer MEDICARE, SELFPAY | PROVIDERS: Emergency Provider Emergency Medicine; PCP Family Medicine; Visit Provider Social Worker | DX: F39 Unspecified mood [affective] disorder (principal); F10.20 Alcohol dependence, uncomplicated | CPT/HCPCS: 99285 ==

== ENCOUNTER → 2025-04-20 07:39 | Outpatient (BNV) | payer MEDICARE, SELFPAY | PROVIDERS: Emergency Provider Emergency Medicine; PCP Family Medicine; Visit Provider Internal Medicine Cardiovascular Disease | DX: R94.31 Abnormal electrocardiogram [ECG] [EKG] (principal); Z95.0 Presence of cardiac pacemaker | CPT/HCPCS: 93010 ==

== ENCOUNTER 2025-05-22 20:55 | Emergency (ER) | payer MEDICARE, SELFPAY ==
--- NOTE | ~2025-05-22 | XR_ITS ---
CLINICAL HISTORY: constipation, 1 view abdomen Comparison: None provided Findings: Mild bibasilar atelectasis/pneumonitis. Cardiac leads partially imaged in the [id number]. Cholecystectomy clips and spine hardware noted. No small bowel dilatation to defined small-bowel obstruction by supine x-rays of the abdomen. Severe stool burden noted, including the cecum. Mild gaseous distention of the redundant imaged transverse colon noted. Vascular calcifications include phleboliths in the pelvis. Degenerative changes include the imaged hips. Sacrum and SI joints are mostly obscured. IMPRESSION: 1. No small bowel obstruction. 2. Severe stool burden in the cecum. 3. Mild gaseous distention of the imaged and redundant transverse colon. This document has been electronically signed by: Javier Hale MD on 05/22/2025 22:39:30
[2025-05-22 20:57] VITALS: BP 149/70; PULSE 113; RESP 18; TEMP 36.6; O2SAT 98; BMI 26.9
[2025-05-22 21:24] LABS: MANUAL DIFF FLAG NO
[2025-05-22 21:26] LABS: Hematocrit 37.4 % (37.0-47.0); Hemoglobin 12.0 g/dl (12.0-16.0); Imm Gran Abs Auto 0.02 X10*3/uL (0.00-0.03); Imm Gran Pct Auto 0.4 % (0.0-0.4); Lymphocytes Absolute Auto 1.8 X10*3/uL (1.2-4.9); Mean Corpuscular HGB Conc 32.1 g/dl (31.0-35.0); Mean Corpuscular Hemoglobin 26.0 pg (27.0-33.0); Mean Corpuscular Volume 81.0 fL (80.0-98.0); NRBC Abs Auto 0.000 X10*3/uL (0.0-0.012); NRBC Pct Auto 0.0 /100WBC (0.0-0.2); Platelet Count 179 X10*3/uL (160-400); Red Blood Count 4.62 X10*6/uL (4.20-5.50); White Blood Count 4.7 X10*3/uL (4.8-10.8)
[2025-05-22 21:49] LABS: Alanine Aminotransferase 19 U/L (0-31); Albumin Level 4.4 g/dL (3.5-5.0); Alkaline Phosphatase 96 U/L (39-117); Anion Gap 14 (12-20); Aspartate Amino Transferase 33 U/L (5-31); Blood Urea Nitrogen 16 mg/dL (9-16); Calcium 8.8 mg/dL (8.4-10.2); Carbon Dioxide 24 mmol/L (22-29); Chloride 110 mmol/L (96-108); Creatinine Clr Calc Pharmacy 74.9; Estimated Glomerular Filt Rate > 60; Lipase 31 U/L (8-78); Potassium 3.6 mmol/L (3.3-5.1); Sodium 144 mmol/L (135-145); Total Protein 7.6 g/dL (6.5-8.0)
--- OUTSIDE RECORDS SUMMARY | 2025-05-22 22:55 | XMS_ITS | Data Portability ---
Author Organization [facility], [address] Address [address] [place] [address] Assessment No assessment recorded. Plan of Treatment Reminders Order Date Submit Date Provider Last Modified By Organization Details Last Modified Time Details Appointments None recorded. Lab None recorded. Referral emergency medicine referral - Chest discomfort and shortness of breath. EKG abnormal. Need further evaluation and treatment. 2022 023 [email or web address] [facility] (Emergency Room), [address] [place] [address], [address], 3 16:00:52 Procedures None recorded. Surgeries None recorded. Imaging electrocard iogram 2022 023 [address], [address] [place], [address], 3 15:48:07 Medication Orders None recorded. Patient TargetsNo targets recorded. Patient Instructions Encounter Date Encounter Id Patient Instructions Last Modified By Organization Details Last Modified Time 09/08/2022 [id number] anxiety disorder : care instructions Not available [...] am No observ ation record ed. JAVIER [id number], [address], 09/08/2022 15:39:34 Result Notes None recorded. Problems Name Problem SNOMED Code Status Onset Date Resolution Date Notes Provider Name and Address Organization Details Recorded Time Bipolar disorder 86678222 Active 2022 Joanna Guerrae null, [place] - [facility] 3 15:11:02 Schizophrenia 44894706 Active 2022 Joanna Guerrae null, PA - [facility] 3 15:11:07 Right bundle branch block 30443414 Active 2022 Joanna Guerrae null, PA - [facility] 3 15:11:25 Hypertensive disorder 82247807 Active 2022 Joanna Lopezfette null, PA - [facility] 3 15:11:41 Problem Notes None recorded. Medical Equipment None Reported. Allergies Allergen ID Allergen Name Allergen Category Reaction Reaction Severity Criticality Documentation Date Start Date Code Code System Note Provider Name and Address Organization Details Recorded Time 431567 Substance with sulfonami de structure and antibacte rial mechanism of action (substanc e) medicatio n Not available Not available Not available 09/08/2022 58269 0668 SNOMED redne ss Joanna Guerrae null, PA - [facility] 3 15:07:34 179482 Ultram medicatio n Not available Not available Not available 09/08/2022 53346 6 RxNorm diffi jonny Jiang lee ann [place] - [facility] 3 15:07:46 Medications Name [...] Last Updated DateTime 167.64 cm 27.8 kg/m2 59947.8 9 g 9 18 /min 98 % 57 /min 97 [degF] 160/80 mm[Hg] Joanna Deidre PA - [facility] 15:13:40 Social History Question Answer Notes LastModified by Organizat ion Details LastModified Time Tobacco Smoking Status Never Smoker Joanna Deidre nance PA - [facility] 09/08/2022 15:11:59 Have You Recently Traveled [...] ICD10 Code Diagnosis IMO Codes Diagnosis Note [id number] [address] [address] [place] [address] 12/04/2020 15:14:18 12/04/2020 17:27:16 [id number] [address] [place] [address] 10/01/2021 11:14:57 10/01/2021 12:41:48 [id number] [address] [place] [address] 11/13/2021 18:08:37 11/13/2021 20:08:16 [id number] [address] [place] [address] 08/18/2021 16:01:08 08/18/2021 17:29:10 [id number] Marty Mahan ADMINISTRATIVE ACCOUNTANT [address] [place] [address] 09/08/2022 15:03:09 09/08/2022 15:48:07 Chest pain 15000326 R07.9 Health Concerns Section Related Observation LastModified by Organization Detai ls LastModified Time None Recorded Concern Status LastModified by Organization Details LastModified Time None Recorded Advance Directives Directive None Recorded Payers Insurance Date Sequence Insurance Name Policy Number Policy Gage Covered Member ID Gage Member ID Guarantor Name 09/08/2022 1 [facility] - MEDICARE PREFERRED (MEDICARE REPLACEMENT HMO) ESTEFANIA uRcker [id number] 1 Anahi Rucker 09/08/2022 2 MEDICARE B-FL: [employer] Anahi Rucker [id number] 1 Anahi Rucker Notes Date Note Type [...] Mahan NP [address] [place], [address], [place] - [facility] 09/08/2022 16:09:07 OBGyn Episode No OBEpisode recorded.
--- OUTSIDE RECORDS SUMMARY | 2025-05-22 22:55 | XMS_ITS | Data Portability ---
Author Organization [facility] Message Bus, [employer] Address [address] [place] [address] [place] [address] Care Team Providers Care Production Hand Name Role Phone SYLVIA BHAKTA Referring Provider [phone] SYLVIA BHAKTA Primary Care Provider Assessment Encounter [...] for one of the conservative neurosurgeons at [facility] to consider surgery. There is too much possibility that there is permanent damage to the nerve and so surgery would not help the symptom. Moderate to severe narrowing is less likely to be causing continual irritation. The risk of surgery is likely higher than the possible benefit. Yet I cannot speak for neurosurgery at [facility] definitively. I offer her referral. She [...] for one of the conservative neurosurgeons at [facility] to consider surgery. There is too much possibility that there is permanent damage to the nerve and so surgery would not help the symptom. Moderate to severe narrowing is less likely to be causing continual irritation. The risk of surgery is likely higher than the possible benefit. Yet I cannot speak for neurosurgery at [facility] definitively. I offer her referral. She [...] Lab vitami n B12, serum 2024 025 [facility] (Outpatient), [address] [place] [address], [address], 10/24/2024 16:40:54 folate , serum 2024 025 [facility] ([facility]), [address] [place] [address], [address], 11/06/2024 12:31:36 homocy steine , serum or plasma 2024 025 [facility] ([facility]), [address] [place] [address], [address], 10/26/2024 13:02:32 methyl malona te, QN, serum or plasma 2024 025 [facility] ([facility]), [address] [place] [address], [address], 11/05/2024 15:17:23 lyme diseas e igg+ig m, serum, reflex jacob n blot 2024 [facility] (Outpatient), [address] [place] [address], [address], 10/25/2024 11:20:48 unlist ed lab - vitami n E 2024 025 [facility] (Out[facility]), [address] [place] [address], [address], 11/13/2024 11:16:46 copper , serum or plasma - E83.00 2024 [facility] (Outpatient), [address] [place] [address], [address], 10/28/2024 13:14:49 copper , blood 2024 [facility] (Out[facility]), [address] [place], [address], 11/13/2024 11:16:08 Referral None record ed. Procedures [...] approa ch and with guillaumewa re. 2024 [facility] ([facility]), [address], [place], [address], 11/18/2024 08:29:16 Medication Orders duloxe vahid 30 mg capsul e,royal yed releas e 2024 025 [id number], [address] [facility], [place], [address], 12/19/2024 11:47:27 Patient TargetsNo targets recorded. Patient Instructions Encounter Date Encounter Id Patient Instructions Last Modified By Organization Details Last Modified Time 10/24/2024 [id number] Discussion acros s issues of diagnoses and management and same day associated chart review and management greater than 50% greater than 60 minutes mrossen Not available 10/24/2024 11:52:10 11/19/2024 [id number] Chronic conditio n with exacerbation; prescription medication management; Discussion across issues of diagnoses and management and same day associated chart review and management greater than 50% greater than 40 minutes mrossen Not available 11/19/2024 10:22:56 02/13/2025 19206 Chronic conditio n with exacerbation; prescription medication management; mrossen Not available 02/13/2025 08:31:36 Reason for Referral None Reported. Results Created Date Observation Date Name Description Value Unit Range Abnormal Flag Note LastModifiedBy Organization Detail LastModifiedTime 11/19/1911/14/2024 MRI, cervi susan spine , w/wo contr larry Vargas in [facility] Access ion Number : [id number] Padminisameer antonio Name: DANIEL MARITNEZ, ANAHI Reynoldsa l Record Number : [id number] Date of : 1950 Date of Exam: 2024 Referr ing Physic beth: Karel Graham [facility] Neurol [facility] [address] [facility] [address] [place] [address] Exam: MR Cervic al Spine (C-/C+ ) CPT 24877 Room Descri ption: Fuentes Siem Espr 1.5 MR Cervic al Spine (C-/C+ ) CPT 27273 INDICA TION: - Cervic al disc disord [...] well as postsu rgical change s from linux administrator ior fusion at these levels . Artifa [...] preser mateus. Alignm ent is mainta ined. CENTRIFUGE SEPARATOR OPERATOR IOR FOSSA AND CORD: Visual ized linux administrator ior fossa is normal . The cervic al cord is normal in signal and calibe r. There is no abnorm al enhanc ement. PARASP INAL TISSUE S: There is atroph y of the linux administrator ior parasp inal muscul ature as well [...] C6-C7. Electr onical ly Signed By: Ammy soolrzano [facility] ([facility]) [address] [place] [address], [place], [address], 11/20/2024 06:49:30 Result Notes Documentation Provider Name and Address Organization Details Recorded Time Mri, Cervical Spine, W/wo Contrast : [facility] Accession Number: [id number] Patient Name: ANAHI RUCKER Date of : 1950 Date of Exam: 11-14-2024 Referring Physician: Herb Graham [facility] [address] [place] [address] - [address] [place], [place] [address] Exam: MR Cervical Spine (C-/C+) CPT 52419 Room Description: Fuentes Dominguez 1.5 MR Cervical Spine (C-/C+) CPT 64811 INDICATION: - Cervical disc disorder at C6-C7 [...] narrowing at C6-C7. Electronically Signed By: [facility] 11/20/2024 06:49:31 Procedures Surgical History Date Name Laterality Status Provider Name and Address Organization Details Recorded Time 02/13/2025 DATA REVIEW completed Herb Graham MD [address] [place], [place] [address], [address], [facility] 02/13/2025 08:05:10 11/19/2024 DATA REVIEW completed Herb Graham MD [address] [place] [address] [place], [address], [facility] 11/19/2024 09:56:27 10/24/2024 DATA REVIEW completed Herb Graham MD [address] [place], [place] [address], [address], [facility] 10/24/2024 11:09:28 10/23/2024 EMG & NCS completed Herb Graham MD [address] [place], [place] [address], [address], [facility] 10/23/2024 19:45:52 Imaging Results None recorded. Procedure Notes None recorded. Medical Equipment None Reported. Allergies Allergen ID Allergen Name Allergen Category Reaction Reaction Severity Criticality Documentation Date Start Date Code Code System Note Provider Name and Address Organization Details Recorded Time 5123 sulfameth oxazole / trimethop rim medicatio n Not available Not available Not available 10/24/2024 10458 RxNorm [place] [facility] 10:59:06 5124 Ultram medicatio n Not available Not available Not available 10/24/2024 15719 6 RxNorm Michelle Wor[address]t on [facility] 10:59:27 Medications Name Sig Start Date [...] Updated DateTime 10/24/2024 167.64 cm 23.4 kg/m2 31972.89 g 12 /min [facility] 10/24/2024 10:58:51 Social History Question Answer Notes LastModified by Organizat ion Details LastModified Time Tobacco Smoking Status Former Smoker [facility] lee ann, [facility] 10/24/2024 11:01:26 What Is Your Level Of Caffeine Consumption? Moderate Information not available 10/24/2024 What Is The Highest Grade Or Level Of School You Have Completed Or The Highest Degree You Have Received? 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 Carpal luis daniel heidi syndrome of right wrist 3856880902 04929 G56.01 Cervical radiculopathy 33901741 M54.12 Lumbosacra l radiculopathy 8054912 M54.16 80910 Herb Graham MD [facility] [address] [place] [address] [place] [address] 10/24/2024 10:41:37 10/24/2024 11:55:07 Intervertebral disc disorder of cervical region with myelopathy 29374484 M50.023 63464481 Vitamin B1 2 deficiency anemia due to dietary causes 613225159 D51.0 Acute lyme disease 55710 7005 A69.20 Unsteady when walking 22 360817 R26.81 1493323849 Serum rashmi er level outside reference range 966071065 R79.0 69180 Herb Graham MD [facility] [address] [place] [address] [place] [address] 11/19/2024 09:10:50 11/19/2024 10:43:11 Unsteady when walking 22451095 R26.81 3074300900 Right cerv ical root neuropathy 7784610457 1758528 M54.12 [id number] 45323 Herb Graham MD [facility] [address] [place] [address] JUAN PABLO Kyra MORRIS[place]ITTDENA BENJAMIN [address] 02/13/2025 07:53:16 02/17/2025 17:14:56 Unsteady when walking 71868637 R26.81 2623970141 Health Concerns Section Related Observation LastModified by Organization Detai ls LastModified Time None Recorded Concern Status LastModified by Organization Details LastModified Time None Recorded Advance Directives Directive None Recorded Payers Insurance Date Sequence Insurance Name Policy Number Policy Gage Covered Member ID Gage Member ID Guarantor Name 02/17/2025 1 [facility] - MEDICARE PREFERRED (MEDICARE REPLACEMENT HMO) ESTEFANIA Rucker [id number] 1 Anahi Rucker Notes Date Note Type [...] in recent years. Herb Graham MD [address] [place] [address], [address], [facility] 10/24/2024 11:52:26 11/19/2024 text/html Opal Rucker presents [...] changed in recent years. Herb Graham MD [address] [place] [address] [place], [address], [facility] 11/19/2024 10:23:00 02/13/2025 text/html Opal Rucker neurology [...] changed in recent years. Herb Graham MD [address] [place] [address] [place], [address], [facility] 02/13/2025 08:31:47 OBGyn Episode No OBEpisode recorded.
--- OUTSIDE RECORDS SUMMARY | 2025-05-22 22:55 | XMS_ITS | Clinical Summary ---
Author Organization [facility] it Address [address] [place] [address] Care Team Providers Care Ssis Developer Name Role Phone Unavailable Primary Care Provider [...]
[2025-05-22 23:39] VITALS: BP 137/83; PULSE 97; RESP 15; TEMP 36.6; O2SAT 94
--- NOTE | 2025-05-22 23:50 | ED.ABDPAIN ---
HPI - Abdominal Pain General Chief Complaint: Abdominal Pain Stated Complaint: partial bowel obstruction Time Seen by Provider: 05/22/25 23:19 Source: patient Mode of arrival: ambulatory Limitations: no limitations History of Present Illness ED Provider: Dr. Angela Fernández HPI narrative: 74-year-old female with a history of hypertension, prior cervical and lumbar spine surgery with titanium hardware, and a pacemaker who presents with three days of diffuse abdominal swelling/distension, constant nausea, and intermittent shortness of breath associated with the abdominal discomfort. She denies eating any large meals; reports increased water intake. Last bowel movement was approximately seven days ago; her usual pattern is daily. She regularly takes Colace but has not used other laxatives during this episode. She notes increased gas, last passage of flatus yesterday. No fever, vomiting (states contents ?came up? three times but no actual emesis), chest pain, cough, or urinary symptoms. No prior bowel obstruction but reports recurrent difficulty with bowel movements when constipated. Related Data Home Medications ?Medication ?Instructions ?Recorded ?Confirmed diclofenac sodium 50 mg 50 mg PO BID 04/18/25 04/18/25 tablet,delayed release docusate sodium 100 mg capsule 100 mg PO BID PRN Constipation 04/18/25 04/18/25 (Colace) lorazepam 0.5 mg tablet 0.5 mg PO TID PRN Anxiety 04/18/25 04/18/25 sennosides 8.6 mg capsule (senna) 17.2 mg PO BEDTIME PRN Constipation 04/18/25 04/18/25 trazodone 50 mg tablet 50 mg PO BEDTIME PRN sleep 04/18/25 04/21/25 cromolyn 5.2 mg/spray (4 %) nasal 1 spray intranasal TID PRN Nasal 04/21/25 04/21/25 spray (Nasalcrom) Congestion hydroxyzine HCl 50 mg tablet 50 mg PO BID PRN Anxiety 04/21/25 04/21/25 omeprazole 40 mg capsule,delayed 40 mg PO DAILY@0630 04/21/25 04/21/25 release Previous Rx's ?Medication ?Instructions ?Recorded amlodipine 5 mg tablet 5 mg PO DAILY #30 tabs 03/31/25 cyclobenzaprine 10 mg tablet 10 mg PO BID PRN spasms #30 tabs 03/31/25 duloxetine 60 mg capsule,delayed 60 mg PO BID #60 caps 03/31/25 release folic acid 1 mg tablet 1 mg PO DAILY #30 tabs 03/31/25 lamotrigine 25 mg tablet (Lamictal) 25 mg PO BID #60 tabs 03/31/25 magnesium oxide 400 mg PO DAILY #30 caps 03/31/25 olanzapine 2.5 mg tablet 2.5 mg PO TID PRN anxiety #30 tabs 03/31/25 olanzapine 20 mg tablet 20 mg PO BEDTIME #30 tabs 03/31/25 pregabalin 50 mg capsule 50 mg PO TID #90 caps 03/31/25 thiamine HCl (vitamin B1) 100 mg 100 mg PO DAILY #30 caps 03/31/25 capsule dicyclomine 20 mg tablet 20 mg PO TID #10 tabs 05/23/25 polyethylene glycol 3350 17 17 g PO DAILY #119 grams 05/23/25 gram/dose oral powder (Miralax) Allergies Allergy/AdvReac Type Severity Reaction Status Date / Time sulfamethoxazole (From Allergy Mild FEVER Verified 05/22/25 20:59 BACTRIM) trimethoprim (From BACTRIM) Allergy Mild FEVER Verified 05/22/25 20:59 cephalexin (Keflex) Allergy Unknown Rash Verified 05/22/25 20:59 Sulfa (Sulfonamide Allergy Unknown Fever Verified 05/22/25 20:59 Antibiotics) tramadol (Ultram) Allergy Unknown Unknown Verified 05/22/25 20:59 mold Allergy Unknown Headache Uncoded 05/22/25 20:59 pollen Allergy Unknown Headache Uncoded 05/22/25 20:59 Review of Systems Review of Systems as per HPI, full review of systems performed and negative but for the above mentioned pertinent positives and negatives. PENDING SALE TO [facility] Past Medical History Medical History Hypomagnesemia Alcohol dependence Bipolar disorder Endometriosis Alcohol use with withdrawal Anxiety Fracture of distal end of right fibula Hypertension Mood disorder Routine medical exam Social History Social History Household Members: None Household Members Other:: Cat Housing: House Do you presently have visiting nurse or other home services: Yes (home health aide) Alcohol intake: current Alcohol intake frequency: holidays/special occasions only Alcohol type: beer Comment: Pt refusing bed/chair alarms Patient Tobacco Use Status: Never used Tobacco Tobacco use type: Cigarette Smoked in Last 30 Days: No e-Cigarette/Vaping Use: Never Used Second Hand Smoke Exposure: No Use of substances other than those prescribed or required for medical reasons: No Advance Directives: Yes Advance Directives on File: Yes Advance Directives Date on File: 06/16/22 Do you have a plan to hurt others: No Plan service: No Current occupational status: unemployed Sexual orientation: Straight/Heterosexual Physical Exam ED Exam Exam: GENERAL: Chronically ill-appearing, conversant, no acute distress. SKIN: Normal skin color for ethnicity, warm, dry, no rashes noted. HEENT: Normocephalic, atraumatic, no stridor, posterior oropharynx nonerythematous, EOMI. NECK: Soft, supple, full ROM, midline structures nontender, no step-offs, no deformities, no lymphadenopathy. CHEST: Heart regular rate and rhythm, no murmurs, symmetric chest rise and fall. PULMONARY: Clear to auscultation bilaterally, no labored breathing, no wheezes/rhales/ rhonchi. ABDOMINAL: Softly distended, diffusely tender to palpation with voluntary guarding, no palpable masses, positive bowel sounds in all quadrants. : Deferred. MUSCULOSKELETAL: Normal tone, full range of motion, no deformities, no peripheral edema. NEURO: Alert and oriented to person, CN II through XII intact, no focal neurologic deficits. PSYCHIATRIC: Flat affect, fluid speech, appropriate demeanor. Vital Signs: Vital Signs - 24 hr 05/22/25 20:57 05/22/25 23:39 05/23/25 05:38 Temperature 98 F 97.9 F Pulse Rate 113 H 97 106 H Respiratory Rate 18 15 25 H Blood Pressure 149/70 H 137/83 135/75 Pulse Oximetry 98 94 Oxygen Delivery Method Room Air Room Air BMI result Body Mass Index 26.9 Medical Decision Making Medical Decision Making MDM Narrative: 74-year-old female with severe constipation and abdominal distension without evidence of acute obstruction. Differential diagnosis for this patient is broad.? It includes constipation, appendicitis, cholecystitis, bowel obstruction, diverticulitis, peptic ulcer disease, pyelonephritis, vascular pathology, among many others.? A broad-based workup based on history and physical examination was obtained. ? Problem #1: Severe chronic constipation Assessment: Last BM seven days ago, significant stool burden and gaseous distension on exam, labs unremarkable, no signs of obstruction. Plan: - Initiate IV fluid hydration. - Administer oral laxative while in ED. - Administer rectal therapy (e.g., soap-suds or Fleet enema) to facilitate bowel movement. - Recommend daily fiber supplement (Metamucil 1 scoop) with increased water intake going forward. - Monitor response in ED; if unable to have bowel movement or pain worsens, consider additional abdominal imaging. Problem #2: Abdominal distension / gas pain Assessment: Likely secondary to stool and gas accumulation associated with constipation. Plan: - Same interventions as Problem #1 expected to relieve distension. BM achieved here in the ED. Patient feeling improved after treatment. Using shared decision making, plan for discharge home to follow-up with primary care and/or specialist.? Patient understands and agrees with plan for discharge.? Discharged home in stable condition. Differential Diagnosis Differential Diagnoses: The differential diagnosis associated with the presentation includes (as above) Admission/Observation Consideration of admission/observation: Escalation of care including admission/observation considered Lab Data MDM Lab Attestation statement: I reviewed the patient's lab results. 05/22/25 21:19 05/22/25 21:19 Labs: Lab Results 05/22/25 Range/Units 21:19 WBC 4.7 L (4.8-10.8) X10*3/uL RBC 4.62 (4.20-5.50) X10*6/uL Hgb 12.0 (12.0-16.0) g/dl Hct 37.4 (37.0-47.0) % MCV 81.0 (80.0-98.0) fL MCH 26.0 L (27.0-33.0) pg MCHC 32.1 (31.0-35.0) g/dl RDW 16.7 H (11.0-16.0) % Plt Count 179 D (160-400) X10*3/uL MPV 9.9 (9.4-12.3) fL Immature Gran % (Auto) 0.4 (0.0-0.4) % Neut % (Auto) 49.1 (45-73) % Lymph % (Auto) 38.1 (20-40) % [place]rill % (Auto) 9.4 (2-11) % Eos % (Auto) 2.4 (0-4) % Baso % (Auto) 0.6 (0-2) % Lymph # (Auto) 1.8 (1.2-4.9) X10*3/uL Morrill # (Auto) 0.4 (0.1-1.2) X10*3/uL Eos # (Auto) 0.1 (0.0-0.4) X10*3/uL Baso # (Auto) 0.0 (0.0-0.2) X10*3/uL Abs Immat Gran (auto) 0.02 (0.00-0.03) X10*3/uL Absolute Neuts (auto) 2.3 (2.0-8.3) x10*3/uL Absolute Nucleated RBC 0.000 (0.0-0.012) X10*3/uL Nucleated RBC % (auto) 0.0 (0.0-0.2) /100WBC Sodium 144 (135-145) mmol/L Potassium 3.6 (3.3-5.1) mmol/L Chloride 110 H (96-108) mmol/L Carbon Dioxide 24 (22-29) mmol/L Anion Gap 14 (12-20) BUN 16 (9-16) mg/dL Creatinine 0.72 (0.5-1.4) mg/dL Estim Creat Clear Calc 74.9 Estimated GFR > 60 Random Glucose 115 (60-115) mg/dL Calcium 8.8 (8.4-10.2) mg/dL Magnesium 2.0 (1.6-2.6) mg/dL Total Bilirubin 0.2 (0.0-1.0) mg/dL Direct Bilirubin < 0.2 (0.0-0.5) mg/dL AST 33 H (5-31) U/L ALT 19 (0-31) U/L Alkaline Phosphatase 96 (39-117) U/L Total Protein 7.6 (6.5-8.0) g/dL Albumin 4.4 (3.5-5.0) g/dL Lipase 31 (8-78) U/L Ethyl Alcohol < 10 mg/dL Radiology Impression Discussion of test interpretation with radiology: I have reviewed the radiologist's reading. External Record Review External record reviewed: Inpatient record Prescription Management I considered prescription management with: Other (stool softeners/laxatives) Chronic Conditions Patient?s care impacted by: Other (alcohol use disorder) Social Determinants Patient?s care significantly limited by Social Determinants of Health including: Other Social Determinant of Health Medications Administered Discontinued Medications Generic Name Dose Route Start Last Admin Trade Name Adalbertoq PRN Reason Stop Dose Admin Dicyclomine HCl 20 mg 05/23/25 00:02 05/23/25 00:43 Dicyclomine Hcl 10 Mg Capsule PO 05/23/25 00:03 20 mg ONCE ONE Administration Haloperidol Lactate 5 mg 05/23/25 03:43 05/23/25 04:06 Haloperidol Lactate 5 Mg/Ml Vial IVPUSH 05/23/25 03:44 5 mg STAT STA Administration Lactated Ringer's 1,000 mls @ 999 mls/hr 05/23/25 00:02 05/23/25 06:50 Lr IV 05/23/25 01:02 Infused .Q1H1M ONE Infusion Metoclopramide HCl 10 mg 05/23/25 00:02 05/23/25 00:43 Metoclopramide Hcl 10 Mg/2 Ml Vial IVPUSH 05/23/25 00:03 10 mg ONCE ONE Administration Polyethylene Glycol 17 gm 05/23/25 00:02 05/23/25 00:43 Polyethylene Glycol 3350 17 Gm Powd.Pack PO 05/23/25 00:03 17 gm ONCE ONE Administration Sodium Biphosphate/Sodium Phosphate 133 ml 05/23/25 05:11 05/23/25 06:19 Sodium Phosphate,Morrill-Dibasic 133 Ml Enema IN 05/23/25 05:12 Not Given ONCE ONE Discharge Plan Discharge Clinical Impression: Acute generalized abdominal pain, Constipation Patient Disposition: Home, Self-Care Instructions: Constipation (ED) Additional Instructions: Constipation Remedy 1 Lb prunes 1 Lb pitless dates 1 Lb raisins 16 teabags Smooth Move tea brewed in 2 cups water 1 Cup brown sugar 1 Cup lemon juice Mix in a feed blender Put in freezer (never completely freezes) Can be used as a spread on crackers, toast, etc. (about 1-2 tablespoons per dose) DIAGNOSIS & TREATMENT: You were seen in the Emergency Department for your abdominal pain. We performed laboratory work and an xray of your abdomen and pelvis which did not reveal any acute abnormalities that would explain your symptoms. FURTHER CARE: We have not found any emergent physical exam or lab abnormalities that would require admission to the hospital today. Many people who come to the ER with abdominal pain do not leave with a specific diagnosis at the end of their visit. In the Emergency Department we try to make sure that there is no emergent problem that needs surgery or antibiotics right now. This does not mean that your evaluation is complete--please be sure to follow up with your regular doctor as additional testing as an outpatient may be indicated Please be certain to drink plenty of fluids over the next several. You should advance your diet as tolerated. You may wish to start with the BRAT diet (bananas, rice, applesauce, toast). WHEN YOU SHOULD BE SEEN NEXT: Please follow-up with your primary care provider within the next 2-3 days for reevaluation of your symptoms. WHEN TO RETURN TO THE ED: Monitor your symptoms closely and return to the emergency department immediately for any new/worsening symptoms, worsening abdominal pain, pain which changes location (particularly if it moved to the right lower quadrant), nausea, vomiting, blood in your stool, black/tarry stools, chest pain, shortness of breath, fevers, chills, night sweats, you are unable to arrange follow-up care, or any other concerning symptoms. Prescriptions: New polyethylene glycol 3350 [Miralax] 17 gram/dose powder 17 g PO DAILY Qty: 119 0RF dicyclomine 20 mg tablet 20 mg PO TID Qty: 10 0RF No Action docusate sodium [Colace] 100 mg capsule 100 mg PO BID PRN (Reason: Constipation) trazodone 50 mg tablet 50 mg PO BEDTIME PRN (Reason: sleep) Rx Instructions: Daily at Bedtime, MRX1 lorazepam 0.5 mg tablet 0.5 mg PO TID PRN (Reason: Anxiety) senna 8.6 mg capsule 17.2 mg PO BEDTIME PRN (Reason: Constipation) diclofenac sodium 50 mg tablet,delayed release (DR/EC) 50 mg PO BID cromolyn [Nasalcrom] 5.2 mg/spray (4 %) [place],Non-Aerosol 1 spray INTRANASAL TID PRN (Reason: Nasal Congestion) hydroxyzine HCl 50 mg tablet 50 mg PO BID PRN (Reason: Anxiety) omeprazole 40 mg capsule,delayed release(DR/EC) 40 mg PO DAILY@0630 lamotrigine [Lamictal] 25 mg tablet 25 mg PO BID Qty: 60 0RF duloxetine 60 mg capsule,delayed release(DR/EC) 60 mg PO BID Qty: 60 0RF olanzapine 20 mg tablet 20 mg PO BEDTIME Qty: 30 0RF olanzapine 2.5 mg tablet 2.5 mg PO TID PRN (Reason: anxiety) Qty: 30 0RF thiamine HCl (vitamin B1) 100 mg capsule 100 mg PO DAILY Qty: 30 0RF cyclobenzaprine 10 mg tablet 10 mg PO BID PRN (Reason: spasms) Qty: 30 0RF amlodipine 5 mg tablet 5 mg PO DAILY Qty: 30 0RF pregabalin 50 mg capsule 50 mg PO TID Qty: 90 0RF folic acid 1 mg tablet 1 mg PO DAILY Qty: 30 0RF magnesium oxide 400 mg magnesium capsule 400 mg PO DAILY Qty: 30 0RF Interventions: ED Discharge Assessment Last Done: 05/23/25 07:39 Discharge Date/Time: 05/23/25 07:41 Print Language: Hungarian
[2025-05-23 00:30] LABS: Magnesium 2.0 mg/dL (1.6-2.6)
[2025-05-23] MEDS: Lactated Ringers 1,000 ML 999 ML IV (00:51)
--- NOTE | 2025-05-23 04:29 | PC.NURSE ---
pt still has fluids infusing. she went to the restroom and there was a delay in restarting fluids.
[2025-05-23 05:38] VITALS: BP 135/75; PULSE 106; RESP 25
--- NOTE | 2025-05-23 06:19 | PC.NURSE ---
pt did not need enema; pt had a bowel movement around 0530.
[2025-05-23 07:39] VITALS: BP 135/75; PULSE 106; RESP 18; TEMP 36.6; O2SAT 98
== END 2025-05-23 07:41 | disposition home or self-care (01) ==
PROVIDERS: Emergency Provider Emergency Medicine; PCP Family Medicine
DX: K59.00 Constipation, unspecified (principal); R10.23 Pelvic and perineal pain bilateral; R11.0 Nausea; R06.02 Shortness of breath; Z51.81 Encounter for therapeutic drug level monitoring; Z79.899 Other long term (current) drug therapy
CPT/HCPCS: 36415; 74018; 80048; 80076; 80307; 83690; 83735; 85025; 96365; 96375; 99285; J1630; J2765; J7120

== ENCOUNTER → 2025-05-22 22:08 | Outpatient (BNV) | payer MEDICARE, SELFPAY | PROVIDERS: PCP Family Medicine; Visit Provider Radiology Neuroradiology | DX: K59.00 Constipation, unspecified (principal); R14.0 Abdominal distension (gaseous) | CPT/HCPCS: 74018 ==